=== PATIENT | male | born 1935 | race Caucasian/White ===

== ENCOUNTER → 2017-11-13 08:17 | Outpatient (CLI) | payer MEDICARE, OTHER, SELFPAY ==
[2017-11-13 08:56] VITALS: BP 141/72; PULSE 61; RESP 16; TEMP 36.4; O2SAT 98
[2017-11-13] MEDS: INFLIXIMAB-DYYB 400 MG in SODIUM CHLORIDE 0.9% 250 ML 20 ML IV (09:22)
== END ==
PROVIDERS: Family Provider Family Medicine; PCP Family Medicine; Visit Provider Family Medicine
DX: K52.89 Other specified noninfective gastroenteritis and colitis (principal)
CPT/HCPCS: 96365; 96366; Q5103

== ENCOUNTER → 2018-02-04 08:53 | Outpatient (CLI) | payer MEDICARE, OTHER, SELFPAY ==
[2018-02-04 09:29] LABS: Alanine Aminotransferase 30 IU/L (21-72); Albumin 4.3 g/dL (3.5-5.0); Albumin Globulin Ratio 1.5 (1.0-2.8); Alkaline Phosphatase 55 U/L (38-126); Aspartate Aminotransferase 27 IU/L (17-59); BUN Creatinine Ratio 17.5 (6-22); Bilirubin Total 0.8 mg/dL (0.2-1.3); Blood Urea Nitrogen 14 mg/dL (9-20); Calcium 10.1 mg/dL (8.4-10.2); Carbon Dioxide 33 mmol/L (22-32); Chloride 96 mmol/L (98-107); Estimated Glomerular Filt Rate > 60.0 mL/min (>60); Globulin 2.8 g/dL (1.7-4.1); Glucose 84 mg/dL (80-110); HEMOLYSIS < 15 (0-50); Potassium 4.4 mmol/L (3.4-5.1); Sodium 136 mmol/L (137-145); Total Protein 7.1 g/dL (6.3-8.2)
[2018-02-04 09:31] LABS: C-Reactive Protein Quant < 0.5 mg/dL (<1.0)
[2018-02-04 09:41] LABS: Add Manual Diff / Slide Review NO; Basophils Percent Auto 0.4 % (0-2); Eosinophils Percent Auto 3.6 % (2-4); Hematocrit 41.4 % (41-53); Hemoglobin 14.4 g/dL (13.5-17.5); Lymphocytes Percent Auto 28.8 % (25-40); Mean Corpuscular HGB Conc 34.8 % (30-36); Mean Corpuscular Hemoglobin 32.6 PG (26-34); Mean Corpuscular Volume 93.7 fL (80-100); Monocytes Percent Auto 8.1 % (3-14); Neutrophils Absolute Auto 4200 /uL (3000-5900); Neutrophils Percent Auto 59.1 % (50-75); Platelet Count 222 X10^3/uL (150-400); Red Blood Cell Count 4.42 X10^6/uL (4.5-5.9); Red Cell Distribution Width 13.3 % (11.6-14.8); White Blood Cell Count 7.2 X10^3/uL (4.5-11.0)
== END ==
PROVIDERS: PCP Family Medicine; Visit Provider Family Medicine
DX: K51.90 Ulcerative colitis, unspecified, without complications (principal)
CPT/HCPCS: 36415; 80053; 85025; 86140

== ENCOUNTER 2018-03-04 08:30 | Outpatient (RCR) | payer MEDICARE, OTHER, SELFPAY ==
[2018-01-08 08:28] VITALS: BP 150/87; PULSE 59; RESP 16; TEMP 36.6
[2018-01-08] MEDS: INFLIXIMAB-DYYB 400 MG in SODIUM CHLORIDE 0.9% 250 ML 20 ML IV (09:24)
[2018-03-04 09:04] VITALS: BP 122/70; PULSE 68; RESP 16; TEMP 36.8; O2SAT 95
[2018-03-04] MEDS: INFLIXIMAB-DYYB 400 MG in SODIUM CHLORIDE 0.9% 250 ML 20 ML IV (09:26)
[2018-03-04 12:09] VITALS: BP 160/82; PULSE 72; RESP 16; TEMP 36.8
== END 2018-03-05 12:00 ==
LOC: ONC 08:30
PROVIDERS: Family Provider Family Medicine; PCP Family Medicine; Visit Provider Family Medicine
DX: K51.90 Ulcerative colitis, unspecified, without complications (principal)
CPT/HCPCS: 96413; 96415; Q5103

== ENCOUNTER 2018-04-05 14:04 | Emergency (ER) | payer MEDICARE, OTHER, SELFPAY ==
[2018-04-05 14:05] VITALS: BP 169/84; PULSE 70; RESP 14; TEMP 36.9; O2SAT 99
[2018-04-05 14:15] VITALS: BP 194/92; PULSE 70; RESP 18
--- NOTE | 2018-04-05 14:16 | ED_ITS ---
HPI - Neuro Symptoms/Deficit General Chief Complaint: Neuro Symptoms/Deficit Stated Complaint: Stroke Time Seen by Provider: 04/05/18 14:16 Source: patient and family Mode of arrival: ambulatory Limitations: no limitations History of Present Illness HPI Narrative: 83-year-old male brought over from his primary care doctor's clinic for concerns of slurring of his words. The patient is with his . Patient is both state that approximately 1 hr prior to arrival patient started slurring his words. He states that he feels like he has problems finding his words and also saying his words. He denies any other symptoms to include upper lower extremity numbness or tingling. No headaches. Has never had anything like this before. Patient is not tried anything for prior to arrival. Related Data Home Medications Medication Instructions Recorded Confirmed multivitamin [Multiple Vitamins] 1 tab PO QDAY #0 07/22/16 04/05/18 latanoprost 1 drp OPHTH HS #0 06/01/17 04/05/18 timolol maleate [Timoptic] 1 drp OPHTH BID #0 06/01/17 04/05/18 diclofenac-misoprostol [Arthrotec 1 tab PO BID 04/05/18 04/05/18 50] gabapentin 300 mg PO BID 04/05/18 04/05/18 lisinopril 20 mg PO DAILY 04/05/18 04/05/18 tamsulosin [Flomax] 0.4 mg PO QPM 04/05/18 04/05/18 Previous Rx's Medication Instructions Recorded loratadine 10 mg PO QAM PRN #90 tab 09/30/17 pantoprazole 20 mg tablet,delayed 20 mg PO DAILY #90 tab 11/16/17 release infliximab 100 mg intravenous 224 mg IV Q8W #1 each 03/23/18 solution amlodipine 5 mg tablet 5 mg PO DAILY #90 tab 04/01/18 atorvastatin [Lipitor] 20 mg PO DAILY #30 tab 04/05/18 Allergies Allergy/AdvReac Type Severity Reaction Status Date / Time No Known Drug Allergies Allergy Verified 03/10/18 12:05 Review of Systems Constitutional Denies fever(s), Denies headache(s) and Denies weakness Eyes Denies blurry vision, Denies diplopia and Denies loss of vision ENT Ears, Nose, Mouth, and Throat: Denies vertigo, Denies dizziness, Denies headache (s) and Denies disequilibrium Cardiovascular Denies chest pain and Denies dyspnea Respiratory Denies cough and Denies dyspnea Gastrointestinal Gastrointestinal: Denies abdominal pain, Denies diarrhea, Denies nausea and Denies vomiting Genitourinary Denies dysuria Musculoskeletal Denies abnormal gait, Denies myalgias, Denies arthralgias, Denies numbness and Denies tingling Integumentary/Breasts Denies lesions and Denies rash Neurologic Denies abnormal movements, Reports abnormal speech, Denies abnormal gait, Denies behavioral changes, Denies confusion, Denies vertigo, Denies dizziness, Denies headache(s), Denies lack of coordination, Denies focal weakness, Denies loss of vision, Denies numbness, Denies restless legs, Denies sensory deficit, Denies tingling, Denies paresthesias, Denies tremor(s), Denies disequilibrium and Denies weakness Psychiatric Denies behavioral changes and Denies confusion Hematologic/Lymphatic Denies easy bleeding and Denies easy bruising [facility] Medical History Chronic back pain (Chronic 2011) Colitis (Chronic 2004) Hearing loss (Chronic 2001) Lumbar spine pain (Chronic 2012) Osteoarthritis (Chronic 1997) Bladder cancer (Resolved 2011) Cataract (Resolved 2005) Chicken pox (Resolved 1939) History of nephrolithotomy with removal of calculi (Resolved 1993) Measles (Resolved 1939) Mumps (Resolved 1943) Rubella (Resolved 1939) Surgical History History of cataract removal with insertion of prosthetic lens (Resolved 2005) History of cystoscopy (Resolved) History of esophagogastroduodenoscopy (EGD) (Resolved 2013) History of eyelid surgery (Resolved 2012) History of nasal surgery (Resolved 1992) History of partial cystectomy (Resolved 2011) History of urinary tract surgery (Resolved 2011) Status post colonoscopy (Resolved 2004) Status post colonoscopy (Resolved 2013) Status post hernia repair (Resolved 1979) Status post laminectomy (Resolved 05/04/17) Status post right partial knee replacement (Resolved 2004) Status post tonsillectomy and adenoidectomy (Resolved ~194) Family History Brother Age: 80 COPD (chronic obstructive pulmonary disease) Father Cancer Hodgkin's disease Sister Cancer Lung cancer Grandfather No problems noted. Grandmother No problems noted. Mother Stroke Social History marital status: Smoking Status: Former smoker alcohol intake: current (2 A DAY ) substance use type: does not use Exam Initial Vital Signs Initial Vital Signs: Vital Signs Temperature 98.4 F 04/05/18 14:05 Pulse Rate 70 04/05/18 14:05 Respiratory Rate 14 04/05/18 14:05 Blood Pressure 169/84 H 04/05/18 14:05 Pulse Oximetry 99 04/05/18 14:05 Const General: cooperative, healthy appearing, comfortable, well developed, well groomed and No acute distress Orientation: alert, awake and oriented x3 HENMT Head: normal to inspection and normocephalic Ears: hearing grossly normal bilaterally Nose: external nose normal Face and sinus: normal facial exam Mouth: oral mucosae normal Eyes Pupils: PERRL EOM: EOM intact bilaterally Resp Effort & Inspection: normal respiratory effort Auscultation: clear to auscultation bilaterally Cardio Rate: regular rate Rhythm: regular rhythm Pulses: radial pulses present GI Inspection: non-distended Palpation: soft, No firm and No tender Back/Spine/Pelvis Back: No CVA tenderness Skin Lesions: no lesions Rashes: no rashes Neuro General: alert, awake, oriented x3 and CN's II-XI intact bilaterally Cranial Nerves: CN's II-XI intact bilaterally Cognition: normal cognition Speech: speech normal Gait: normal gait Motor: muscle tone normal throughout Sensory Exam: no sensory deficits noted Coordination: qvxzcs-tv-zwwl test normal and ttnk-iw-shaw test normal Extrem General: normal to inspection, capillary refill normal and No edema Psych Appearance: grossly normal and well kempt Scores NIH Stroke Scale Level of Conciousness: Alert, keenly responsive Ask month/age: Answers both questions correctly. Open/close eyes, close hand: Performs both tasks correctly Best gaze horizontal: Normal Visual coy: No visual loss Facial palsy: Normal symetrical movement Left arm drift: No drift for full 10 sec Right arm drift: No drift for full 10 sec Left leg drift: No drift for full 10 sec Right leg drift: No drift for full 10 sec Limb ataxia: Absent Sensory on face/arms/legs: Normal, no sensory loss Best language: No aphasia, normal Dysarthria: Normal Extinction or inattention: No abnormality Total NIH Stroke scale score: 0 Course Orders Ordered: Discontinued Medications Sodium Chloride (Normal Saline 0.9%) 1,000 mls @ 500 mls/hr IV BOLUS ONE Stop: 04/05/18 16:16 Last Infusion: 04/05/18 16:10 Dose: 0 mls/hr Admin: 04/05/18 14:27 Dose: 500 mls/hr MDM - Neuro Symptoms/Deficit Lab Data Attestation: I reviewed the patient's lab results. Result diagrams: 04/05/18 14:10 04/05/18 14:10 Lab Results 04/05/18 04/05/18 04/05/18 Range/Units 14:10 14:10 14:10 WBC 7.3 (4.5-11.0) X10^3/uL RBC 4.61 (4.5-5.9) X10^6/uL Hgb 14.8 (13.5-17.5) g/dL Hct 42.8 (41-53) % MCV 92.9 (80-100) fL MCH 32.1 (26-34) PG MCHC 34.6 (30-36) % RDW 13.5 (11.6-14.8) % Plt Count 219 (150-400) X10^3/uL Neut % (Auto) 59.5 (50-75) % Lymph % (Auto) 29.7 (25-40) % [place] % (Auto) 6.3 (3-14) % Eos % (Auto) 3.7 (2-4) % Baso % (Auto) 0.8 (0-2) % Neut # (Auto) 4400 (8023-7472) /uL PT 10.7 (10.1-12.7) SECONDS INR 1.0 (0.9-1.3) APTT 32 (26.4-36.2) SECONDS Sodium 137 (137-145) mmol/L Potassium 3.8 (3.4-5.1) mmol/L Chloride 95 L (98-107) mmol/L Carbon Dioxide 32 (22-32) mmol/L BUN 11 (9-20) mg/dL Creatinine 1.10 (0.66-1.25) mg/dL Estimated GFR > 60.0 (>60) mL/min BUN/Creatinine Ratio 10.0 (6-22) Glucose 133 H (80-110) mg/dL Calcium 10.0 (8.4-10.2) mg/dL Total Bilirubin 0.8 (0.2-1.3) mg/dL AST 30 (17-59) IU/L ALT 30 (21-72) IU/L Alkaline Phosphatase 59 (38-126) U/L Total Protein 7.2 (6.3-8.2) g/dL Albumin 4.5 (3.5-5.0) g/dL Globulin 2.7 (1.7-4.1) g/dL Albumin/Globulin Ratio 1.7 (1.0-2.8) TSH (0.47-4.68) uIU/mL 04/05/18 Range/Units 14:10 WBC (4.5-11.0) X10^3/uL RBC (4.5-5.9) X10^6/uL Hgb (13.5-17.5) g/dL Hct (41-53) % MCV (80-100) fL MCH (26-34) PG MCHC (30-36) % RDW (11.6-14.8) % Plt Count (150-400) X10^3/uL Neut % (Auto) (50-75) % Lymph % (Auto) (25-40) % [place] % (Auto) (3-14) % Eos % (Auto) (2-4) % Baso % (Auto) (0-2) % Neut # (Auto) (5124-9647) /uL PT (10.1-12.7) SECONDS INR (0.9-1.3) APTT (26.4-36.2) SECONDS Sodium (137-145) mmol/L Potassium (3.4-5.1) mmol/L Chloride (98-107) mmol/L Carbon Dioxide (22-32) mmol/L BUN (9-20) mg/dL Creatinine (0.66-1.25) mg/dL Estimated GFR (>60) mL/min BUN/Creatinine Ratio (6-22) Glucose (80-110) mg/dL Calcium (8.4-10.2) mg/dL Total Bilirubin (0.2-1.3) mg/dL AST (17-59) IU/L ALT (21-72) IU/L Alkaline Phosphatase (38-126) U/L Total Protein (6.3-8.2) g/dL Albumin (3.5-5.0) g/dL Globulin (1.7-4.1) g/dL Albumin/Globulin Ratio (1.0-2.8) TSH 1.65 (0.47-4.68) uIU/mL Imaging Data CT scan - head: Radiologist's impression: [address] [address] [address] Scan Report Signed Patient: Juan Carlos Yo JMR#: [id number] : 6Acct:[id number] Age/Sex: 83 / MDate of Service: 04/05/18 Loc: ED Accession Number: [id number] Procedure: CT head/brain wo con Ordering Provider: Emery Collins D.O. PROCEDURE: CT HEAD/BRAIN WO CON INDICATIONS: dysarthria TECHNIQUE: Noncontrast 4.5 mm thick angled axial sections acquired from the foramen magnum to the vertex, with coronal and sagittal reformats. For radiation dose reduction, the following was used: automated exposure control, adjustment of mA and/or kV according to patient size. COMPARISON: None. FINDINGS: Image quality: Diagnostic. CSF spaces: Basal cisterns are patent. No extra-axial fluid collections. Ventricles are moderately prominent with corresponding parenchymal volume loss. Brain: No midline shift. No intracranial masses or hemorrhage. Elliott-white matter interface is normal. Moderate-sized areas of low attenuation are seen within the periventricular and deep white matter of the supratentorial brain. Skull and face: Calvarium and visualized facial bones are intact, without suspicious lesions. Sinuses: Visualized sinuses and mastoids are clear. IMPRESSION: 1. No acute intracranial hemorrhage. 2. Moderate chronic small vessel ischemic changes and parenchymal volume loss. Dictated by: Indra New M.D. on 04/05/2018 at 13:39 Approved by: Indra New M.D. on 04/05/2018 at 13:40 [facility] Narrative Medical decision making narrative: At the time of my exam the patient states that he still felt like maybe he was having some problems with his words however his says that she feels like all of the symptoms that he had earlier have since resolved. He has got a normal neurologic exam. NIH score 0. Head CT shows no signs of acute pathology. I feel that he does meet the criteria for a TIA. We did discuss the importance of this. We did discuss that we should admit him to the hospital to have further testing to include MRIs and carotid Dopplers and echoes. The patient states that he does not want to be admitted under observation. We did have the admission department come and talk to him about his options. After this discussion the patient states he does not want to be admitted to the hospital. We did discuss the risks of this to include potentially having worsening symptoms at home to include a full stroke and the consequences of that. The patient states he still does not want to be admitted to the hospital. His was at bedside for this discussions. He has a GCS of 15 was alert and oriented x3 and in my opinion has the capacity to make decisions. I did discuss the case with his primary doctor Dr Camejo. His primary doctor also states that he probably should be admitted to the hospital. I did inform the patient of this. Patient still does not want to be admitted. His primary doctor will order outpatient MRI and echo and carotid Dopplers. The patient was informed that he needed to contact his primary doctor to get the set up as an outpatient. We did start him on a full dose aspirin and he was given a prescription for lisinopril. He was given return precautions. The patient his both expressed understanding and agreement with plan Discharge Plan Departure Patient Disposition: Home Clinical Impression: Transient ischemic attack Discharge Date/Time: 04/05/18 16:15 Interventions: ED Discharge Assessment Last Done: 04/05/18 16:14 Instructions: DI for Transient Ischemic Attack Activity Restrictions/Additional Instructions: we recommended that you be admitted to the hospital today to obtain the following studies however after our discussion here in the emergency department you opted to be discharged from the hospital. Dr. Camejo this aware of this. Recommend that you start taking a 324 mg enteric-coated aspirin. You can buy this [id number]. Take this medication daily. Your also given a prescription for Lipitor. Start taking this medication on a daily basis. The follow on studies that are needed will be ordered as outpatient by your primary provider. Return to the emergency department for any new or worsening symptoms Prescriptions: New atorvastatin [Lipitor] 20 mg tablet 20 mg PO DAILY Qty: 30 RF: 0 No Action multivitamin [Multiple Vitamins] 1 EACH tablet 1 tab PO QDAY Qty: 0 RF: 0 timolol maleate [Timoptic] 0.25 % drops 1 drp OPHTH BID Qty: 0 RF: 0 latanoprost 0.005 % drops 1 drp OPHTH HS Qty: 0 RF: 0 loratadine 10 MG tablet 10 mg PO QAM PRNQty: 90 RF: 0 pantoprazole 20 mg tablet,delayed release (DR/EC) 20 mg PO DAILY Qty: 90 RF: 3 amlodipine 5 mg tablet 5 mg PO DAILY Qty: 90 RF: 1 infliximab [Remicade] 100 mg recon soln 224 mg IV Q8W Qty: 1 RF: 0 diclofenac-misoprostol [Arthrotec 50] 50-200 mg-mcg tablet,IR,delayed rel, biphasic 1 tab PO BID RF: 0 lisinopril 20 mg tablet 20 mg PO DAILY RF: 0 tamsulosin [Flomax] 0.4 MG capsule 0.4 mg PO QPM RF: 0 gabapentin 300 mg capsule 300 mg PO BID RF: 0
--- NOTE | 2018-04-05 14:19 | PC.NURSE ---
code stroke called at 1405/ upon pt arrival
--- NOTE | 2018-04-05 14:23 | DI.CT.S_ITS ---
PROCEDURE: CT HEAD/BRAIN WO CON INDICATIONS: dysarthria TECHNIQUE: Noncontrast 4.5 mm thick angled axial sections acquired from the foramen magnum to the vertex, with coronal and sagittal reformats. For radiation dose reduction, the following was used: automated exposure control, adjustment of mA and/or kV according to patient size. COMPARISON: None. FINDINGS: Image quality: Diagnostic. CSF spaces: Basal cisterns are patent. No extra-axial fluid collections. Ventricles are moderately prominent with corresponding parenchymal volume loss. Brain: No midline shift. No intracranial masses or hemorrhage. Elliott-white matter interface is normal. Moderate-sized areas of low attenuation are seen within the periventricular and deep white matter of the supratentorial brain. Skull and face: Calvarium and visualized facial bones are intact, without suspicious lesions. Sinuses: Visualized sinuses and mastoids are clear. IMPRESSION: 1. No acute intracranial hemorrhage. 2. Moderate chronic small vessel ischemic changes and parenchymal volume loss. Dictated by: Indra New M.D. on 04/05/2018 at 13:39 Approved by: Indra New M.D. on 04/05/2018 at 13:40
[2018-04-05] MEDS: SODIUM CHLORIDE 0.9% 1,000 ML 500 ML IV (14:27)
[2018-04-05 14:28] LABS: Add Manual Diff / Slide Review NO; Basophils Percent Auto 0.8 % (0-2); Eosinophils Percent Auto 3.7 % (2-4); Hematocrit 42.8 % (41-53); Hemoglobin 14.8 g/dL (13.5-17.5); Lymphocytes Percent Auto 29.7 % (25-40); Mean Corpuscular HGB Conc 34.6 % (30-36); Mean Corpuscular Hemoglobin 32.1 PG (26-34); Mean Corpuscular Volume 92.9 fL (80-100); Monocytes Percent Auto 6.3 % (3-14); Neutrophils Absolute Auto 4400 /uL (3000-5900); Neutrophils Percent Auto 59.5 % (50-75); Platelet Count 219 X10^3/uL (150-400); Prothrombin Time 10.7 SECONDS (10.1-12.7); Red Blood Cell Count 4.61 X10^6/uL (4.5-5.9); Red Cell Distribution Width 13.5 % (11.6-14.8); White Blood Cell Count 7.3 X10^3/uL (4.5-11.0)
[2018-04-05 14:30] LABS: PTT Partial Thromboplastin Tim 32 SECONDS (26.4-36.2)
[2018-04-05 14:35] LABS: Alanine Aminotransferase 30 IU/L (21-72); Albumin 4.5 g/dL (3.5-5.0); Albumin Globulin Ratio 1.7 (1.0-2.8); Alkaline Phosphatase 59 U/L (38-126); Aspartate Aminotransferase 30 IU/L (17-59); Bilirubin Total 0.8 mg/dL (0.2-1.3); Blood Urea Nitrogen 11 mg/dL (9-20); Carbon Dioxide 32 mmol/L (22-32); Chloride 95 mmol/L (98-107); Estimated Glomerular Filt Rate > 60.0 mL/min (>60); Globulin 2.7 g/dL (1.7-4.1); Glucose 133 mg/dL (80-110); HEMOLYSIS 30 (0-50); Potassium 3.8 mmol/L (3.4-5.1); Sodium 137 mmol/L (137-145); Total Protein 7.2 g/dL (6.3-8.2)
[2018-04-05 15:00] VITALS: BP 184/89; PULSE 74; RESP 18
--- NOTE | 2018-04-05 15:08 | PM.HP.1 ---
History of Present Illness Chief complaint: Stroke Patient History Medical History Chronic back pain (Chronic 2011) Colitis (Chronic 2004) Hearing loss (Chronic 2001) Lumbar spine pain (Chronic 2012) Osteoarthritis (Chronic 1997) Bladder cancer (Resolved 2011) Cataract (Resolved 2005) Chicken pox (Resolved 1939) History of nephrolithotomy with removal of calculi (Resolved 1993) Measles (Resolved 1939) Mumps (Resolved 1943) Rubella (Resolved 1939) Surgical History History of cataract removal with insertion of prosthetic lens (Resolved 2005) History of cystoscopy (Resolved) History of esophagogastroduodenoscopy (EGD) (Resolved 2013) History of eyelid surgery (Resolved 2012) History of nasal surgery (Resolved 1992) History of partial cystectomy (Resolved 2011) History of urinary tract surgery (Resolved 2011) Status post colonoscopy (Resolved 2004) Status post colonoscopy (Resolved 2013) Status post hernia repair (Resolved 1979) Status post laminectomy (Resolved 05/04/17) Status post right partial knee replacement (Resolved 2004) Status post tonsillectomy and adenoidectomy (Resolved ~194) Family & Social History Family History: Reviewed 04/05/18 by Tomi Camejo MD Tobacco & Substance use: Smoking Status Former smoker alcohol intake current Substance Use Type does not use Meds Home Medications Medication Instructions Recorded Confirmed Type multivitamin [Multiple Vitamins] 1 tab PO QDAY #0 07/22/16 04/05/18 History latanoprost 1 drp OPHTH HS #0 06/01/17 04/05/18 History timolol maleate [Timoptic] 1 drp OPHTH BID #0 06/01/17 04/05/18 History loratadine 10 mg PO QAM PRN #90 tab 09/30/17 04/05/18 Rx pantoprazole 20 mg tablet,delayed 20 mg PO DAILY #90 tab 11/16/17 04/05/18 Rx release infliximab 100 mg intravenous 224 mg IV Q8W #1 each 03/23/18 04/05/18 Rx solution amlodipine 5 mg tablet 5 mg PO DAILY #90 tab 04/01/18 04/05/18 Rx diclofenac-misoprostol [Arthrotec 1 tab PO BID 04/05/18 04/05/18 History 50] gabapentin 300 mg PO BID 04/05/18 04/05/18 History lisinopril 20 mg PO DAILY 04/05/18 04/05/18 History tamsulosin [Flomax] 0.4 mg PO QPM 04/05/18 04/05/18 History Allergies Allergy/AdvReac Type Severity Reaction Status Date / Time No Known Drug Allergies Allergy Verified 03/10/18 12:05 Exam Vital Signs (past 8 hours): - 04/05/18 14:05 Temperature 98.4 F Pulse Rate 70 Respiratory Rate 14 Blood Pressure 169/84 H Pulse Oximetry 99 Oxygen Delivery Method Room Air Objective Imaging Chest x-ray: ECG: EKG shows normal sinus rhythm with no acute ST to T-wave changes no significant signs of heart arrhythmia. Heart rate 65. Labs Result Diagrams: 04/05/18 14:10 04/05/18 14:10 Labs: Laboratory Results - last 24 hr 04/05/18 04/05/18 04/05/18 14:10 14:10 14:10 WBC 7.3 RBC 4.61 Hgb 14.8 Hct 42.8 MCV 92.9 MCH 32.1 MCHC 34.6 RDW 13.5 Plt Count 219 Neut % (Auto) 59.5 Lymph % (Auto) 29.7 [place] % (Auto) 6.3 Eos % (Auto) 3.7 Baso % (Auto) 0.8 Neut # (Auto) 4400 PT 10.7 INR 1.0 APTT 32 Sodium 137 Potassium 3.8 Chloride 95 L Carbon Dioxide 32 BUN 11 Creatinine 1.10 Estimated GFR > 60.0 BUN/Creatinine Ratio 10.0 Glucose 133 H Calcium 10.0 Total Bilirubin 0.8 AST 30 ALT 30 Alkaline Phosphatase 59 Total Protein 7.2 Albumin 4.5 Globulin 2.7 Albumin/Globulin Ratio 1.7
[2018-04-05 15:17] LABS: Thyroid Stimulating Hormone 1.65 uIU/mL (0.47-4.68)
--- NOTE | 2018-04-05 15:29 | PC.NURSE ---
Pts comes out of room and states that pt is ready to go home. He's talking fine and acting fine. MD aware and will come talk to pt.
[2018-04-05 15:30] VITALS: BP 193/88; PULSE 71; RESP 14; O2SAT 97
--- NOTE | 2018-04-05 15:46 | PC.NURSE ---
Will talk to admissions person before agrees to admit.
[2018-04-05 16:00] VITALS: BP 208/92; PULSE 73; RESP 14; O2SAT 98
--- NOTE | 2018-04-05 16:02 | CM.MNRNOTE ---
Report called to Melissa BENNETT. Pt still unsure if going to allow admission. Dr Collins has spoken to Dr Camejo
[2018-04-05 16:14] VITALS: BP 208/92; PULSE 68; RESP 20; O2SAT 98
== END 2018-04-05 16:15 | disposition home or self-care (01) ==
PROVIDERS: Emergency Provider Emergency Medicine; Family Provider Family Medicine; PCP Family Medicine
DX: G45.9 Transient cerebral ischemic attack, unspecified (principal)
CPT/HCPCS: 36591; 70450; 80053; 84443; 85025; 85610; 85730; 93005; 96360; 96361; 99284; 99285; 99291

== ENCOUNTER → 2018-04-07 08:07 | Outpatient (CLI) | payer MEDICARE, OTHER, SELFPAY ==
[2018-04-07 08:57] LABS: Add Manual Diff / Slide Review NO; Basophils Percent Auto 0.5 % (0-2); Eosinophils Percent Auto 5.3 % (2-4); Hematocrit 41.5 % (41-53); Hemoglobin 14.1 g/dL (13.5-17.5); Lymphocytes Percent Auto 26.9 % (25-40); Mean Corpuscular HGB Conc 34.1 % (30-36); Mean Corpuscular Hemoglobin 31.6 PG (26-34); Mean Corpuscular Volume 92.7 fL (80-100); Monocytes Percent Auto 8.6 % (3-14); Neutrophils Absolute Auto 3900 /uL (3000-5900); Neutrophils Percent Auto 58.7 % (50-75); Platelet Count 223 X10^3/uL (150-400); Red Blood Cell Count 4.48 X10^6/uL (4.5-5.9); Red Cell Distribution Width 13.5 % (11.6-14.8); White Blood Cell Count 6.7 X10^3/uL (4.5-11.0)
[2018-04-07 09:25] LABS: Prothrombin Time 10.9 SECONDS (10.1-12.7)
[2018-04-07 09:27] LABS: Alanine Aminotransferase 29 IU/L (21-72); Albumin 4.3 g/dL (3.5-5.0); Albumin Globulin Ratio 1.6 (1.0-2.8); Alkaline Phosphatase 48 U/L (38-126); Aspartate Aminotransferase 26 IU/L (17-59); BUN Creatinine Ratio 17.8 (6-22); Bilirubin Total 0.9 mg/dL (0.2-1.3); Blood Urea Nitrogen 16 mg/dL (9-20); Calcium 10.6 mg/dL (8.4-10.2); Carbon Dioxide 35 mmol/L (22-32); Chloride 97 mmol/L (98-107); Estimated Glomerular Filt Rate > 60.0 mL/min (>60); Globulin 2.7 g/dL (1.7-4.1); Glucose 102 mg/dL (80-110); HEMOLYSIS < 15 (0-50); Sodium 139 mmol/L (137-145)
== END ==
PROVIDERS: PCP Family Medicine; Visit Provider Family Medicine
DX: I10 Essential (primary) hypertension (principal)
CPT/HCPCS: 36415; 80053; 85025; 85610

== ENCOUNTER → 2018-04-13 12:59 | Outpatient (CLI) | payer MEDICARE, OTHER, SELFPAY ==
--- NOTE | 2018-04-30 07:57 | PM.CARDMON.1 ---
Ink Printer Report Referral & Results Date Patient Seen: 04/13/18 Requesting provider: Tomi Camejo Indication: TIA Duration of monitoring (days): 7 Diary information: There was 1 patient diary entry associated with sinus rhythm and a PVC There were no patient triggered events Data: Minimum heart rate identified was 43 beats per minute at 03:05 on 04/14/2018 Maximum sinus heart rate was 101 beats per minute at 08:21 on 04/16/2018 Maximum overall heart rate was 150 beats per minute at 14:18 on 04/14/2018. 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 Mild supraventricular dysrhythmia as above. No etiology for TIA identified on this study
--- NOTE | 2018-04-30 08:00 | P.HOLT.S_ITS ---
Cabinet Mounter Report Referral & Results Date Patient Seen: 04/13/18 Requesting provider: Tomi Camejo Indication: TIA Duration of monitoring (days): 7 Diary information: There was 1 patient diary entry associated with sinus rhythm and a PVC There were no patient triggered events Data: Minimum heart rate identified was 43 beats per minute at 03:05 on 2017 Maximum sinus heart rate was 101 beats per minute at 08:21 on 04/16/2018 Maximum overall heart rate was 150 beats per minute at 14:18 on 04/14/2018. 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 Mild supraventricular dysrhythmia as above. No etiology for TIA identified on this study
== END ==
PROVIDERS: Family Provider Family Medicine; PCP Family Medicine; Visit Provider Family Medicine
DX: G45.9 Transient cerebral ischemic attack, unspecified (principal)
CPT/HCPCS: 0296T

== ENCOUNTER → 2018-04-15 13:01 | Outpatient (CLI) | payer MEDICARE, OTHER, SELFPAY ==
--- NOTE | 2018-04-15 13:05 | DI.US.S_ITS ---
PROCEDURE: US CAROTID DOPPLER BI INDICATIONS: tia with weekness and speech deficiet TECHNIQUE: Color and pulse Doppler interrogation was performed of both carotid systems, with image documentation and velocity measurements. COMPARISON: None. FINDINGS: Stenosis calculations are based on SRU (Society of Radiologists in Ultrasound) criteria. Right side: Brachial blood pressure: 171/81 mm Hg. Common carotid artery peak systolic velocity: 74 cm/sec. Internal carotid artery peak systolic velocity: 71 cm/sec. Internal carotid artery end diastolic velocity: 15 cm/sec. External carotid artery peak systolic velocity: 94 cm/sec. ICA/CCA peak systolic ratio: 1.0. Elliott scale imaging description: Moderate plaque Percent internal carotid artery stenosis: Less than 50%. Vertebral artery: Flow direction is antegrade. Left side: Brachial blood pressure: 160/84 mm Hg. Common carotid artery peak systolic velocity: 66 cm/sec. Internal carotid artery peak systolic velocity: 54 cm/sec. Internal carotid artery end diastolic velocity: 11 cm/sec. External carotid artery peak systolic velocity: 80 cm/sec. ICA/CCA peak systolic ratio: 0.8. Elliott scale imaging description: Moderate to severe scattered plaque Percent internal carotid artery stenosis: Less than 50%. Vertebral artery: Flow direction is antegrade. IMPRESSION: Less than 50% bilateral internal carotid artery stenosis. Dictated by: Maxi Tay [facility] Interpreted: Kiran Morrissey MD on 04/15/2018 at 16:37 Approved by: Kiran Morrissey M.D. on 04/15/2018 at 19:55
--- NOTE | 2018-04-15 13:05 | DI.MRI.S_ITS ---
PROCEDURE: MR STROKE Pre- and post-contrast brain MRI, non-contrast brain MR angiogram, pre- and postcontrast neck MR angiogram INDICATIONS: tia with weekness and speech deficiet TECHNIQUE: Brain: Noncontrast axial T1 spin echo, axial T2 fast spin echo, sagittal and axial FLAIR, coronal T2 fast spin echo, axial gradient echo, axial diffusion and ADC through the brain. After the administration of contrast, axial 3D VIBE of the cranial vasculature and brain. Brain MRA: Non-contrast 3-D time of flight MR angiogram, with multiple bqpijzf-iqxkgmxel-rpmrycxnwp (MIP) reformats performed. Neck MRA: Axial and sagittal TruFISP through the neck. Coronal dynamic MR angiogram during administration of contrast in the arterial and venous phases, with 3-dimenstional qqslsfm-nhozxvolj-tjidekanxy (MIP) reformats constructed from subtraction images. COMPARISON: None. FINDINGS: Image quality: Excellent. BRAIN: CSF spaces: Ventricles are normal in size and shape. Basal cisterns are patent. No extra-axial fluid collections. Brain: No intracranial bleeds or mass effects. Elliott-white matter interface is normal. Diffusion weighted images show no acute ischemic insults. Brainstem appears normal. Normal intravascular flow voids are present. No abnormal intracranial enhancement. Skull and face: Calvarial marrow signal is normal. Orbits appear normal. Sinuses: Sinuses and mastoids are clear. BRAIN MR ANGIOGRAM: Anterior circulation: Intracranial internal carotid arteries are normal in size and enhancement. The flow within the paired anterior cerebral arteries is normal and symmetric. The flow within the middle cerebral arteries is normal and symmetric. The anterior communicating artery is seen. No stenoses, occlusions, or aneurysms. Posterior circulation: Dominant right vertebral artery is incidentally noted. Normal appearing basilar artery. The flow within the posterior cerebral arteries is normal and symmetric. No stenoses, occlusions, or aneurysms. NECK MR ANGIOGRAM: Carotids: Great vessels demonstrate a conventional anatomy as they arise from the aortic arch. The origins of the common carotid arteries appear patent. The calibers and courses of both common carotid arteries are normal. The bifurcation regions appear normal bilaterally. The internal carotid arteries demonstrate normal course and caliber. Posterior circulation: 50% focal stenosis at the origin of the right vertebral artery. The origin of left vertebral artery is not well-visualized. More superior portions of both vertebral arteries demonstrate normal course and caliber, and join to form a normal appearing basilar artery. Miscellaneous: Subclavian arteries appear patent. Pre-contrast images through the neck show no soft tissue abnormalities. IMPRESSION: BRAIN MRI: No evidence of acute ischemia. Scattered bilateral white matter signal changes statistically reflect chronic microvascular ischemic change although technically nonspecific. BRAIN MR ANGIOGRAM: No intracranial focal stenosis or occlusion. NECK MR ANGIOGRAM: Dominant right vertebral artery incidentally noted. No ICA stenosis. Dictated by: Primo Lamb M.D. on 04/15/2018 at 15:19 Approved by: Primo Lamb M.D. on 04/15/2018 at 15:28
--- NOTE | 2018-04-15 13:05 | DI.ECHO.S_ITS ---
[facility]---------+ [facility] +---------+ : : [address] : : : : [id number] : : : : Phone: [phone]+ Echocardiogram Report + + :Name: LICO CRABTREE Study Date: 04/15/2018 Height: 72 in : :[facility] Exam Location: [facility] Weight: 158 lb : : Gender: Male BSA: 1.9 m2 : :: 1935 Age: 83 yrs BP: 148/72 mmHg: :Reason For Study: STROKE : :Ordering Physician: Dr. Krishna : :Bashir Performed By: Margarette Jara : :Referring: KENDRICK BOGGS : + + Interpretation Summary The ejection fraction is estimated to be 50-55%. There are no obvious focal wall motion abnormalities noted but poor endocardial definition reduces the sensitivity for the detection of such. Diastolic parameters suggest a relaxation abnormality of the left ventricle, consistent with probable normal filling pressures. There is no Doppler evidence for an interatrial shunt. There is mild aortic valve sclerosis. The aortic root is mildly dilated. Procedure: A two-dimensional transthoracic echocardiogram with color flow and Doppler was performed. The study quality was technically adequate. There is no prior echocardiogram noted for this patient. The patient was in normal sinus rhythm during the exam. The patient had frequent PVCs during the exam. Left Ventricle: The left ventricle is normal in size. There is normal left ventricular wall thickness. The left ventricular ejection fraction is normal. The ejection fraction is estimated to be 50-55%. There are no obvious focal wall motion abnormalities noted but poor endocardial definition reduces the sensitivity for the detection of such. Diastolic parameters suggest a relaxation abnormality of the left ventricle, consistent with probable normal filling pressures. Right Ventricle: The right ventricle is normal in size and function. Atria: The left atrial size is normal. The right atrium is severely dilated. There is no Doppler evidence for an interatrial shunt. Mitral Valve: The mitral valve leaflets appear mildly thickened, but open well. There is mild mitral annular calcification. There is trace mitral regurgitation. Aortic Valve: The aortic valve is trileaflet. There is mild aortic valve sclerosis. The aortic valve opens well. No aortic regurgitation is present. Tricuspid Valve: The tricuspid valve is normal. There is a trace or physiologic amount of tricuspid regurgitation. Pulmonary artery pressures cannot be estimated because of the lack of a measurable TR jet velocity. Pulmonic Valve: The pulmonic valve is not well visualized. Great Vessels: The aortic root is mildly dilated. The ascending aorta is normal in size. The aortic arch is normal in size. The pulmonary is not well visualized. The IVC is of normal diameter and collapses less than 50% with a sniff. This suggests a right atrial pressure of 8 mm Hg. Pericardium/ Pleura There is no pericardial effusion. There is no pleural effusion. MMode/2D Measurements & Calculations LVIDd: 5.3 cm LVOT diam: 2.7 cm LVIDs: 3.2 cm Ao root diam: 4.0 cm FS: 39.1 % asc Aorta Diam: 3.5 cm EPSS: 0.80 cm Ao Arch Diam (Prox Trans): 3.2 cm IVSd: 0.92 cm LVPWd: 0.88 cm LV nice. diameter/BSA (cm/m^2): 2.7 LV sys. diameter/BSA (cm/m^2): 1.7 LA A2 area: 21.0 cm2 RA long axis: 5.6 cm LA A4 area: 18.7 cm2 RA area: 25.3 cm2 LA length (vol): 5.5 cm RA vol: 97.6 ml LA vol: 60.5 ml RA : 50.6 ml/m2 LA vol index: 31.4 ml/m2 IVC diam: 1.5 cm RVD1 (basal): 4.1 cm RVD2 (mid): 3.5 cm TAPSE: 2.4 cm Doppler Measurements & Calculations Ao V2 max: 124.8 cm/sec LVOT Max Edis: 62.6 cm/sec Ao V2 mean: 92.4 cm/sec LV V1 max P.6 mmHg Ao max P.2 mmHg LV V1 VTI: 12.1 cm Ao mean P.7 mmHg LEELEE(I,D): 2.9 cm2 Ao V2 VTI: 24.1 cm LEELEE(V,D): 2.9 cm2 sev ratio: 0.50 LEELEE indexed to BSA (cm^2/m^2): 1.5 MV E max edis: 42.1 cm/sec PA V2 max: 65.8 cm/sec MV A max edis: 96.9 cm/sec PA V2 mean: 44.7 cm/sec MV E/A: 0.43 PA mean P.93 mmHg Med Peak E' Edis: 8.6 cm/sec PA pr(Accel): 29.1 mmHg E/E' med: 4.9 Lat Peak E' Edis: 8.8 cm/sec E/E' lat: 4.8 E/e' average: 4.8 MV dec time: 0.58 sec Reading Physician:02:54 PM
== END ==
PROVIDERS: Family Provider Family Medicine; PCP Family Medicine; Visit Provider Family Medicine
DX: I35.8 Other nonrheumatic aortic valve disorders (principal); G45.9 Transient cerebral ischemic attack, unspecified; I65.23 Occlusion and stenosis of bilateral carotid arteries; M62.81 Muscle weakness (generalized); R47.9 Unspecified speech disturbances; I10 Essential (primary) hypertension
CPT/HCPCS: 70553; 93306; 93880; A9579

== ENCOUNTER → 2018-08-26 07:46 | Outpatient (CLI) | payer MEDICARE, OTHER, SELFPAY ==
[2018-08-26 08:32] LABS: Hematocrit 41.5 % (41-53); Hemoglobin 13.9 g/dL (13.5-17.5); Mean Corpuscular HGB Conc 33.6 % (30-36); Mean Corpuscular Hemoglobin 31.8 PG (26-34); Mean Corpuscular Volume 94.6 fL (80-100); Platelet Count 231 X10^3/uL (150-400); Red Blood Cell Count 4.38 X10^6/uL (4.5-5.9); Red Cell Distribution Width 12.8 % (11.6-14.8); White Blood Cell Count 6.8 X10^3/uL (4.5-11.0)
[2018-08-26 08:43] LABS: Morphology Comment Normal Morphology; Neutrophils Absolute Manual 3740 /uL (3000-5900); Total Cells Counted 100
[2018-08-26 08:50] LABS: Alanine Aminotransferase 35 IU/L (21-72); Albumin 4.4 g/dL (3.5-5.0); Albumin Globulin Ratio 1.4 (1.0-2.8); Alkaline Phosphatase 53 U/L (38-126); Aspartate Aminotransferase 33 IU/L (17-59); BUN Creatinine Ratio 23.8 (6-22); Bilirubin Total 0.8 mg/dL (0.2-1.3); Blood Urea Nitrogen 19 mg/dL (9-20); Calcium 10.3 mg/dL (8.4-10.2); Carbon Dioxide 32 mmol/L (22-32); Chloride 97 mmol/L (98-107); Cholesterol 130 mg/dL (140-199); Estimated Glomerular Filt Rate > 60.0 mL/min (>60); Globulin 3.1 g/dL (1.7-4.1); Glucose 120 mg/dL (80-110); HDL Cholesterol 71 mg/dL (40-60); HEMOLYSIS < 15 (0-50); LDL Cholesterol Calculated 47 mg/dL (<100); Potassium 3.7 mmol/L (3.4-5.1); Sodium 137 mmol/L (137-145); Total Protein 7.5 g/dL (6.3-8.2); Triglycerides 61 mg/dL (35-150)
[2018-08-26 09:21] LABS: Thyroid Stimulating Hormone 2.94 uIU/mL (0.47-4.68)
== END ==
PROVIDERS: PCP Family Medicine; Visit Provider Family Medicine
DX: E78.2 Mixed hyperlipidemia (principal); G45.9 Transient cerebral ischemic attack, unspecified; I10 Essential (primary) hypertension
CPT/HCPCS: 36415; 80053; 80061; 84443; 85025

== ENCOUNTER 2018-09-20 06:04 | Inpatient (IN) | payer MEDICARE, OTHER, SELFPAY ==
[2018-09-06 08:47] VITALS: BMI 17.7
[2018-09-20] VITALS (19 sets, daily range): BP systolic 114–176; BP diastolic 54–87; PULSE 61–81; RESP 10–21; TEMP 36.1–36.9; O2SAT 90–98
--- NOTE | 2018-09-20 06:00 | DI.RAD.S_ITS ---
PROCEDURE: XR SHOULDER RT 1V INDICATIONS: postop total shoulder arthroplasty TECHNIQUE: Single view of the shoulder were acquired. COMPARISON: [facility], CHRISTINA, XR SHOULDER MIN 2VW RT, 04/08/2016, 9:37. FINDINGS: Bones: No fractures or dislocations. No suspicious bony lesions. Visualized ribs appear intact. Status post reverse polarity right shoulder arthroplasty. Hardware appears intact and there is expected postoperative alignment. Soft tissues: Associated postsurgical soft tissue changes IMPRESSION: Expected postoperative appearance Dictated by: Primo Lamb M.D. on 09/20/2018 at 10:55 Approved by: Primo Lamb M.D. on 09/20/2018 at 10:56
[2018-09-20] MEDS: PREGABALIN 75 MG CAPSULE PO (07:03)
[2018-09-20] MEDS: CELECOXIB 200 MG CAPSULE PO (07:03)
[2018-09-20] MEDS: ACETAMINOPHEN 325 MG TABLET 975 MG PO ×3 (07:03→21:20)
[2018-09-20] MEDS: LACTATED RINGERS 1,000 ML 42 ML IV ×2 (07:23→09:09)
[2018-09-20] MEDS: fentaNYL 100 MCG/2 ML INJ 50 MCG IV ×2 (07:40→07:51)
[2018-09-20] MEDS: MIDAZOLAM 2 MG/2 ML VIAL IV (07:40)
--- NOTE | 2018-09-20 07:43 | PM.PREOP ---
Pre-operative Note Interval Note History & Physical reviewed/Exam performed by Physician: Yes Changes to H&P: No
--- NOTE | 2018-09-20 07:54 | PM.OP.1 ---
Operative Date/Time/Diagnoses Date of procedure: 09/20/18 Time of procedure: 09:30 Pre-op diagnosis: Right shoulder rotator cuff arthropathy Post-op diagnosis: same Procedure & Clinicians Procedure: Right reverse total shoulder replacement Same procedure as scheduled: Yes Indications: The patient is had chronic right shoulder pain unresponsive to nonoperative therapies. Radiographic studies have revealed changes consistent with a massive rotator cuff tear and arthritis. They have elected to proceed with reverse total shoulder replacement after discussion of the risks benefits and alternatives. Risks discussed included but were not limited to: Failure to improve, instability, infection, nerve damage, deep venous thrombosis, pulmonary embolism, stroke, coma, myocardial infarction and . Surgeon: Robert Partida Air Pollution Engineer: Shemar Armenta Click Yes if Unassisted: No Anesthesia Type: General, Peripheral nerve block and Local Operative Notes Findings: Massive rotator cuff tear with intact subscapularis. Closure Type: primary Specimen(s): none sent Prosthetic devices, grafts, tissues, transplants, or devices: Implants used in this procedure were manufactured by the [employer] and included an RSP reverse total shoulder system with a 14 mm humeral stem, a 36 mm standard +4 humeral socket, a standard 30 mm glenoid base plate 4 locking screws of 22, 2214 and 14 mm length and a 36 neutral glenoid head with retaining screw. Applied: implant(s) Estimated Blood Loss (mL): 100 Blood products transfused: none Procedure in detail: The patient was seen in the preoperative area where they identified the right shoulder as the operative site and this was marked with my initials. He received preoperative antibiotics and underwent the induction of an interscalene block. They were taken to the operating room and placed on the operating room table in a supine position with the underwent the induction of a general anesthetic. There were then repositioned in the ?beach chair? position using a dedicated positioner. All pressure points were well padded. The knees were slightly bent to prevent tension on the sciatic nerves. The right arm was prepared from the fingertips to the base of the neck with ChloraPrep in the usual fashion and draped through sterile drapes. An approximately 15 cm incision was created starting at the clavicle just above the coracoid and going to the deltoid insertion. The deltopectoral interval was used to access the shoulder taking the vein to the medial side. The vein was protected throughout the case. The upper 1 cm of the pectoralis major was released. The biceps groove was identified and used as a guide to releasing the remaining subscapularis. The biceps itself had ruptured. The subscapularis was tagged for later repair. The shoulder was dislocated and a proximal humeral osteotomy performed using an extramedullary guide. A proximal humeral protector was then placed. Retractors were placed access the glenoid. A 360 degree release was performed of the remaining subscapularis with care being taken to protect the axillary nerve. The soft tissues were removed circumferentially around the glenoid. The guide was used to drill the guide hole in the center of the inferior glenoid. The tap was placed and used as a guide for the reamer. The tap was then removed and the glenoid base plate inserted. The peripheral locking screws were then placed through the appropriate guide. A trial glenoid head was applied. We then turned our attention to the humerus. The proximal humeral protector was removed. Cylindrical reamers were used to size the canal. Broaching was then performed beginning with a small broach and working up until a line to line fit with the reamer was obtained. The guide for the proximal metaphyseal reamer was then applied and the metaphysis was reamed appropriately. The trial metaphyseal portion of the body was then applied to the broach. Trial reductions were performed and the size of the glenoid head and the cup were optimized. Stability was checked in maximal internal and external rotation and range of motion was checked to allow access to the top of the head, internal rotation to an excess of 50? in the ?scarecrow position? and the ability to reach the groin. The appropriate final prosthetic components were then opened. The glenoid head was impacted into position and checked for rotational and axial stability before placing the set screw. Drill holes for repair of the subscapularis were performed and sutures placed. The humeral prosthetic was then impacted into position. The humeral cup was placed. The joint was relocated and irrigated. The subscapularis was repaired to the previously placed sutures. A deep drain was placed. The deltopectoral interval was reapproximated with 0 Vicryl. Subcutaneous layer was closed with interrupted 3-0 Vicryl and skin with a running 3 0 V lock suture. Subcutaneous tissues were then infiltrated with 0.5% Marcaine for postoperative pain control. An Aquacel Ag dressing was applied and the patient's arm was placed in a sling. The patient was then transferred to the recovery room in good condition having tolerated the procedure well. Complications: none Condition: stable Disposition: PACU Plan for aftercare: The patient will be maintained in a sling for 6 weeks with pendulum exercises only. He will then be allowed to advance his activity as tolerated. It is likely he will be discharged tomorrow if medically stable.
[2018-09-20] MEDS: CEFAZOLIN 2 GM/100 ML FROZ.PIGGY IV (08:05)
--- NOTE | 2018-09-20 08:07 | SUR.PREOP ---
Block start time [0740] . Monitoring initiated and maintained throughout procedure. Oxygen and medications given per anesthesiologist instructions. Patient remained stable throughout procedure, no adverse reactions noted. Block end time [0800]. Pt at bedside during block. pt remained alert and responding to verbal stimuli when spoken to. pt taken directly into the OR after completion of the block.
--- NOTE | 2018-09-20 08:35 | SUR.OPER ---
Beach chair with Schlein shoulder positioner. Lower body on padded OR bed. Head in foam padded head cradle, secured with straps. Non-operative arm secured <90 degrees abduction. Pillow under knees. Safety belt at thigh. Cloth tape over blanket over lower legs.
[2018-09-20] MEDS: BUPIVACAINE 0.5% W/ EPI (PF) VIAL 30 ML INJ (08:43)
[2018-09-20] MEDS: TRANEXAMIC ACID 1,000 MG VIAL 2000 MG INJ ×2 (08:44→09:31)
[2018-09-20] MEDS: HYDROMORPHONE 2 MG INJ 0.25 MG IV ×7 (10:42→11:21)
--- NOTE | 2018-09-20 10:54 | SUR.PHASEI ---
Report called to Clarissa. Pt reported pain increased to 6/10. Medicated
[2018-09-20] MEDS: HYDROCODONE/ACET 5/325 TABLET 1 TAB PO (11:16)
--- NOTE | 2018-09-20 11:25 | SUR.PHASEI ---
Updated report called to Clarissa.
--- NOTE | 2018-09-20 12:07 | SUR.PHASEI ---
Pt transferred to the floor with belongings bag. VS stable. Report to Clarissa. Rt shoulder drsg cdi. IV saline locked.
[2018-09-20] MEDS: LACTATED RINGERS 1,000 ML 125 ML IV (12:25)
[2018-09-20] MEDS: OXYCODONE IR 10 MG TABLET PO ×3 (13:27→21:23)
--- NOTE | 2018-09-20 15:29 | PT.IIE ---
Current Diagnoses Unspecified rotator cuff tear or rupture of right shoulder, not specified as traumatic (09/20/18) Surgery Performed Operation Date: 06/07/18 07:45 <No data on this case meets the specified criteria> Operation Date: 09/20/18 07:45 Actual Procedures p Total Shoulder Arthroplasty - Reverse(Right) - Robert Partida MD Surgical History (Last Updated 09/06/18 @ 09:18 by Henny Kent, RN) Status post unicompartmental knee replacement, left (Acute) History of cataract removal with insertion of prosthetic lens (Resolved 2005) History of cystoscopy (Resolved) History of esophagogastroduodenoscopy (EGD) (Resolved 2013) History of eyelid surgery (Resolved 2012) History of nasal surgery (Resolved 1992) History of partial cystectomy (Resolved 2011) History of urinary tract surgery (Resolved 2011) Status post colonoscopy (Resolved 2004) Status post colonoscopy (Resolved 2013) Status post hernia repair (Resolved 1979) Status post laminectomy (Resolved 05/04/17) Status post tonsillectomy and adenoidectomy (Resolved ~1941) Medical History (Last Updated 09/06/18 @ 09:03 by Henny Kent, RN) Hypercholesterolemia (Acute) Arthritis (Acute) Former smoker (Acute) Chronic back pain (Chronic 2011) Colitis (Chronic 2004) Hearing loss (Chronic 2001) Lumbar spine pain (Chronic 2012) Osteoarthritis (Chronic 1997) Bladder cancer (Resolved 2011) Cataract (Resolved 2005) Chicken pox (Resolved 1939) History of nephrolithotomy with removal of calculi (Resolved 1993) Measles (Resolved 1939) Mumps (Resolved 1943) Rubella (Resolved 1939) Physical Therapy Inpatient Evaluation/Re-Eval M1 PT/OT-IP Prior Functional Status Start: 09/20/18 15:02 Freq: NEEDED Status: Active Protocol: Document 09/20/18 15:07 RS (Rec: 09/20/18 15:28 RS [email or web address]) Medical Review Prior Functional Status Medical History Reviewed Yes Diet/Fluid Consistency Regular Communication 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 1STE, full flight down to basement/bottom floor but pt doesn't have to go down there regularly Home Environment High Toilet Tub/Shower Doors Home Equipment Grab Bars Near Toilet Grab Bars In Shower Employment Status Retired M2 PT-IP Current Condition Start: 09/20/18 15:02 Freq: NEEDED Status: Active Protocol: Document 09/20/18 15:07 RS (Rec: 09/20/18 15:28 RS [email or web address]) Physical Therapy Current Condition Current Condition Evaluation Date 09/20/18 Treatment Diagnosis R TSA Onset Date 09/20/18 Precautions Shoulder Precautions Sling PROM Internal Rotation to Body No External Rotation No Abduction Forward Flexion to 90 degrees Pendulums M3 PT-IP Subjective Start: 09/20/18 15:02 Freq: NEEDED Status: Active Protocol: Document 09/20/18 15:07 RS (Rec: 09/20/18 15:28 RS [email or web address]) Subjective Physical Therapy Visit Type Type Initial Evaluation Visit Start Time 13:40 Visit Stop Time 15:07 Total Visit Minutes 87 Physical Therapy Visit Comments Patient Comments Pt reports the block didn't work do he never had any numbess in his arm/hand, denies pain right now. Wants to go home tomorrow by 10am Patient Goals go home by 10am Thursday Therapy Pain Assessment Pain When Pain Assessed At Rest Pain Present Pain Present Denied Pain M4 PT-IP Mobility and Gait Start: 09/20/18 15:02 Freq: NEEDED Status: Active Protocol: Document 09/20/18 15:07 RS (Rec: 09/20/18 15:28 RS [email or web address]) PT-Bed Mobility Assessment Supine to Sit Supine to Sit Minimal Assistance 1 Person Assistance Scooting Scooting to Edge of Bed Standby Assistance PT-Transfer Assessment Sit to and From Stand Sit to and from Stand Contact Guard Assistance 1 Person Assistance Equipment Transfer Assistive Device Gait Belt Transfers Transfer Destination Chair Transfer Technique walked Transfer Ability Level of Assist Contact Guard Assistance 1 Person Assistance Comments Mobility Comments Pt needing just a little assist to transition from supine to long sit and is then SBA to get to EOB. Pt attributes this to there being a large divet in the middle of the bed. Pt a little shaky on his feet initially in standing, no LOB, denies dizziness. BP supine 125/63, BP sitting 115/62, BP standing 87/53, after sitting/doing BLE AROM and stand back up BP 92/60. Pt denied any abnormal symptoms throughout this entire process. Gait Assessment Gait Gait Assistance Required: Standby Assistance Distance (Feet) 50 Assistive Devices Assistive Device Gait Belt Gait Deviations General Gait Pattern Decreased Stride Length Decreased Feet Clearance Wide Based Gait Factors Limiting Gait Function Factors Limiting Gait Function Poor Balance Poor Safety Awareness Comments Gait Comments Pt with short and wide steps, and a little extra lateral swaying but overall only needing CGA while walking. Walk distance was purposely kept short due to drop in BP. Anticipate better performance next session. Stair Climbing Assessment Comments Stair Climbing Comments not yet assessed PT-Balance Assessment Sitting Balance and Reactions Static Sitting Balance Ability Good Dynamic Sitting Balance Ability Fair Standing Balance and Reactions Static Standing Balance Ability Fair Dynamic Standing Balance Ability Fair Device Used none M5 PT-IP Objective Assessments Start: 09/20/18 15:02 Freq: NEEDED Status: Active Protocol: Document 09/20/18 15:07 RS (Rec: 09/20/18 15:28 RS [email or web address]) Orientation Orientation/Cognition Level of Alertness Alert Orientation Name Age Birthday Month Date Year Day of Week Place Situation Language Function Ability No Deficits Noted Safety Awareness Understands Safety Issues Memory Description No Deficits Noted Gross Range of Motion Upper Extremity ROM Assessment Right Impaired Lower Extremity ROM Assessment Within Functional Limits Strength Upper Extremity Strength Assessment Right Impaired Lower Extremity Strength Assessment Within Functional Limits M6 PT-IP Treatment Start: 09/20/18 15:02 Freq: NEEDED Status: Active Protocol: Document 09/20/18 15:07 RS (Rec: 09/20/18 15:28 RS [email or web address]) Physical Therapy Treatment Education Education Provided Safety M7 PT-IP Assessment and Plan Start: 09/20/18 15:02 Freq: NEEDED Status: Active Protocol: Document 09/20/18 15:07 RS (Rec: 09/20/18 15:28 RS [email or web address]) PT Summary Assessment and Plan Potential Rehabilitation Potential Good Status of Condition at Evaluation Evolving Summary Impairments Balance Transfers Gait Activity Tolerance Assessment Summary Pt is POD#0 R TSA and presents with minor mobility impairments that are mostly related to normal sequela from surgery and low BP. It is anticipated that pt will be safe to discharge home tomorrow (or when medically ready, whichever is later) after he has worked with PT/OT in the morning for caregiver training. Pt is hoping to discharge by 1000am. Pt will need OPPT once cleared to start. Goals Bed Mobility Goal Independent Transfer Goal Independent Gait Goal Independent Days to Meet Goals 2 Frequency of Treatment Frequency Of Treatment Twice a Day Treatment Plan Physical Therapy Treatment Plan Bed Mobility Training Transfer Training Gait Training Balance Retraining Post Op Education Discharge Planning Other Recommendations and Next Treatment gait progression, bed mob, if Focus time try one step at least, FT as needed w/ present Recommendations To Nursing Amount of Assist Needed 1 Person Assist Discharge Recommendations PT Discharge Recommendations Home with Assistance Outpatient PT
[2018-09-20] MEDS: CEFAZOLIN 1 GM/50 ML FROZ.PIGGY IV ×2 (16:08→23:31)
[2018-09-20] MEDS: DOCUSATE 100 MG CAPSULE PO (21:20)
[2018-09-20] MEDS: TAMSULOSIN 0.4 MG CAPSULE PO (21:20)
[2018-09-20] MEDS: LATANOPROST 0.005% OPHTH 2.5 ML 1 DROPS EYE-BOTH (21:21)
[2018-09-20] MEDS: TIMOLOL 0.25% OPHTH 1 DROPS EYE-BOTH (21:21)
[2018-09-21 00:28] VITALS: BP 120/69; PULSE 60; RESP 16; TEMP 36.5; O2SAT 95
[2018-09-21] MEDS: OXYCODONE IR 10 MG TABLET PO (04:32)
[2018-09-21 04:40] VITALS: BP 156/76; PULSE 65; RESP 16; TEMP 36.9; O2SAT 95
[2018-09-21] MEDS: PANTOPRAZOLE 20 MG TABLET PO (05:48)
[2018-09-21 05:58] LABS: Hematocrit 32.4 % (41-53); Hemoglobin 11.1 g/dL (13.5-17.5)
[2018-09-21 07:48] VITALS: BP 128/58; PULSE 55; RESP 16; TEMP 36.6
--- NOTE | 2018-09-21 07:55 | P.DS_ITS ---
History of Present Illness Date Patient Seen: 09/21/18 Time Patient Seen: 07:51 Chief complaint: Right Total Shoulder Arthroplasty Narrative: The history and physical examination are contained in the chart and a previously completed note. Please refer to that note for this information. Discharge Providers Date of admission: 09/20/18 06:04 Discharge Date: 09/21/18 Primary care physician: Tomi Camejo MD Consults: 09/20/18 12:03 Consult to Discharge Planning Routine Comment: Consult to Occupational Therapy Evaluate & Treat Comment: Physician Instructions: Evaluate and treat Consult to Physical Therapy Evaluate & Treat Comment: Physician Instructions: Evaluate and Treat Consult to Respiratory Therapy Evaluate & Treat Comment: Physician Instructions: Evaluate and treat Discharge provider: Robert Partida MD Summary Discharge Diagnosis: 1. 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 2. Acute post hemorrhagic anemia. Hospital Course: The patient was admitted to the hospital and taken directly to the operating room on September 20, 2018. he underwent a right reverse total shoulder without complication. He was stable on postoperative day 1 and was considered ready for discharge. Status at Discharge Cognitive/behavioral status at discharge: oriented Functional status at discharge: independent ambulation Overall status at discharge: patient is progressing back to baseline Time Spent with Patient Less than 30 minutes Exam Vital Signs (past 8 hours): - 09/21/18 00:28 09/21/18 04:40 09/21/18 07:48 Temperature 97.7 F 98.4 F 97.9 F Pulse Rate 60 65 55 L Respiratory Rate 16 16 16 Blood Pressure 120/69 156/76 H 128/58 L Pulse Oximetry 95 95 Oxygen Delivery Method Room Air Oxygen Flow Rate 0 Narrative Exam Narrative: The right shoulder wound is dressed with no significant drainage on the bandage. Light touch is intact in the radial, ulnar, median, muscular cutaneous and axillary nerve distribution. He can extend his thumb, abduct his thumb, abduct his fingers and fires his biceps and deltoid. Objective Labs Result Diagrams: 09/21/18 05:33 Labs: Laboratory Results - last 24 hr 09/21/18 05:33 Hgb 11.1 L Hct 32.4 L Discharge Plan Discharge Plan Patient Disposition: Home Discharge Med Rec/Prescriptions Prescriptions: New hydrocodone-acetaminophen 5-325 mg Tablet 1 tab PO Q4HR PRN (Reason: Pain, Moderate (4-6)) Qty: 40 RF: 0 Continued multivitamin [Multiple Vitamins] 1 EACH tablet 1 tab PO QDAY Qty: 0 RF: 0 timolol maleate [Timoptic] 0.25 % drops 1 drp OPHTH BID Qty: 0 RF: 0 latanoprost 0.005 % drops 1 drp OPHTH HS Qty: 0 RF: 0 infliximab [Remicade] 100 mg recon soln 224 mg IV Q8W Qty: 1 RF: 0 amlodipine 10 mg tablet 10 mg PO DAILY Qty: 90 RF: 3 atorvastatin [Lipitor] 20 mg tablet 20 mg PO DAILY Qty: 90 RF: 3 pantoprazole 20 mg tablet,delayed release (DR/EC) 20 mg PO DAILY Qty: 90 RF: 3 diclofenac-misoprostol 50-200 mg-mcg tablet,IR,delayed rel,biphasic 1 tab PO BID Qty: 180 RF: 3 lisinopril 40 mg tablet 40 mg PO DAILY Qty: 90 RF: 3 tamsulosin [Flomax] 0.4 mg capsule 0.4 mg PO QPM Qty: 90 RF: 3 gabapentin 100 mg capsule 100 mg PO DAILY Qty: 90 RF: 3 ascorbic acid (vitamin C) [Vitamin C] 500 mg Tablet 1,000 mg PO DAILY RF: 0 cholecalciferol (vitamin D3) [Vitamin D3] 1,000 unit Capsule 1,000 unit PO DAILY RF: 0 vitamin [id number] acid RF: 0 aspirin 325 mg Tablet 325 mg PO DAILY RF: 0 loratadine 10 MG tablet 10 mg PO QAM PRN (Reason: Allergic Symptoms) RF: 0 Follow up/Referrals: Tomi Camejo MD [Primary Care Provider] - Robert Partida MD [Physician] - 2 Weeks Provider Discharge Instructions Diet: Diet as Tolerated and Regular Activity: Keep your right arm in a sling. You may remove the sling for hygiene and to do pendulum exercises. You may use her arm in front of view for eating or the use of a computer or reading. Cold/Heat Therapy: Apply ice to the right shoulder for 15 min of every hour as needed. Skin/Wound/Dressing Care Report to your healthcare provider any signs of infection, such as:: chills, fev er, night sweats, increased pain, unusual drainage and unusual redness Dressing: You may shower with the dressing in place. If the central strip of the dressing becomes saturated with either water or blood please call my office. Visit Report/Discharge Packet Instructions: DI for Shoulder Replacement Stand Alone Forms: Surgery Discharge Discharge Data Primary Care Provider: Tomi Camejo Attending Provider: Robert Partida Admit Date/Time: 09/20/18 06:04 Quality VTE Deep Vein Thrombosis/Pulmonary Embolism Present on Admission: No
[2018-09-21] MEDS: DOCUSATE 100 MG CAPSULE PO (08:08)
[2018-09-21] MEDS: LISINOPRIL 20 MG TABLET 40 MG PO (08:08)
[2018-09-21] MEDS: CHOLECALCIFEROL (VITAMIN D3) 1,000 UNIT TABLET 1000 UNIT PO (08:09)
--- NOTE | 2018-09-21 09:15 | PT.IPTN ---
Current Diagnoses Unspecified rotator cuff tear or rupture of right shoulder, not specified as traumatic (09/20/18) Surgery Performed Operation Date: 06/07/18 07:45 <No data on this case meets the specified criteria> Operation Date: 09/20/18 07:45 Actual Procedures p Total Shoulder Arthroplasty - Reverse(Right) - Robert Partida MD Physical Therapy Treatment Note Notes Pt seen this morning by OT, who report pt's is mobilizing better and more steady today with shoes. Pt is safe to discharge home today with . Acute PT will sign off.
--- NOTE | 2018-09-21 09:41 | PC.NURSE ---
Addendum entered by Emmy Christie 09/21/18 09:57: Patient uses urinal independently. Ambulating around the room independently. Pain is well controlled. Original Note: Patient alert and oriented. Requesting discharge MARYSOL. Friendly disposition. is at bedside. Leaving via private vehicle.
--- NOTE | 2018-09-21 10:04 | OT.IP.EVAL ---
Current Diagnoses Unspecified rotator cuff tear or rupture of right shoulder, not specified as traumatic (09/20/18) Surgery Performed Operation Date: 06/07/18 07:45 <No data on this case meets the specified criteria> Operation Date: 09/20/18 07:45 Actual Procedures p Total Shoulder Arthroplasty - Reverse(Right) - Robert Partida MD Past Medical History (Last Updated 09/06/18 @ 09:03 by Henny Kent, RN) Hypercholesterolemia (Acute) Arthritis (Acute) Former smoker (Acute) Chronic back pain (Chronic 2011) Colitis (Chronic 2004) Hearing loss (Chronic 2001) Lumbar spine pain (Chronic 2012) Osteoarthritis (Chronic 1997) Bladder cancer (Resolved 2011) Cataract (Resolved 2005) Chicken pox (Resolved 1939) History of nephrolithotomy with removal of calculi (Resolved 1993) Measles (Resolved 1939) Mumps (Resolved 1943) Rubella (Resolved 1939) Surgical History (Last Updated 09/06/18 @ 09:18 by Henny Kent RN) Status post unicompartmental knee replacement, left (Acute) History of cataract removal with insertion of prosthetic lens (Resolved 2005) History of cystoscopy (Resolved) History of esophagogastroduodenoscopy (EGD) (Resolved 2013) History of eyelid surgery (Resolved 2012) History of nasal surgery (Resolved 1992) History of partial cystectomy (Resolved 2011) History of urinary tract surgery (Resolved 2011) Status post colonoscopy (Resolved 2004) Status post colonoscopy (Resolved 2013) Status post hernia repair (Resolved 1979) Status post laminectomy (Resolved 05/04/17) Status post tonsillectomy and adenoidectomy (Resolved ~1941) Occupational Therapy Inpatient Evaluation/Re-Eval M1 PT/OT-IP Prior Functional Status Start: 09/21/18 17:37 Freq: NEEDED Status: Active Protocol: Document 09/21/18 10:04 KIMI (Rec: 09/21/18 17:55 KIMI [id number]) Medical Review Prior Functional Status Medical History Reviewed Yes Diet/Fluid Consistency Regular Communication [place] w/ hearing aids but otherwise WNL Mobility and Gait Pt states he was independent without device. Activities of Daily Living and IADL's Pt states he was independent with all self care, IADLS, drives and active doing yardwork and using his chain saw. Prior Functional Level (Other details) Supportive can provide 24 hr assist after d/c. She drives. Social History Household Members spouse Living Arrangements House Number of Floors (Floors) Two Floors Number of Stairs To Enter/Railing? 1 to enter. Pt rarely goes downstairs (1x year). Home Environment High Toilet Walk in Shower Employment Status Retired Additional Social History Comment is supportive and helpful M2 OT-IP Current Condition Start: 09/21/18 17:37 Freq: Status: Active Protocol: Document 09/21/18 10:04 PJM (Rec: 09/21/18 17:55 PJ [id number]) Occupational Therapy Current Condition Current Condition Evaluation Date 09/21/18 Treatment Diagnosis decreased self care, mobility s/p R TSA Diagnosis Onset Date 09/20/18 Post Operative Precautions Shoulder Precautions Sling PROM Internal Rotation to Body No External Rotation No Abduction Forward Flexion to 90 degrees Pendulums Weight Bearing Status Weight Bearing Status Non-Weight Bearing Allowed Weight Bearing Amount (enter % RUE or #) (%) M3 OT- IP Subjective and Pain Start: 09/21/18 17:37 Freq: Status: Active Protocol: Document 09/21/18 10:04 PJM (Rec: 09/21/18 17:55 PJ [id number]) OT- Subjective Occupational Therapy Visit Type Type Initial Evaluation Visit Start Time 09:14 Visit Stop Time 10:04 Total Visit Minutes 50 Notes here for education this session. Occupational Therapy Visit Comments Patient/Caregiver Goals to go home today; to resume good function of dominant R arm for all self care tasks OT Pain Assessment Pain When Pain Assessed After Treatment Pain Present Pain Present Pain Reported Location Rt Shoulder Intensity 3 Scale Used Numeric (1 - 10) Description Aching Acute Pain Behaviors Guarding Management Techniques Re-positioning Timing of Activity with Medications M4 OT- IP ADL's Start: 09/21/18 17:37 Freq: Status: Active Protocol: Document 09/21/18 10:04 PJM (Rec: 09/21/18 17:55 PJ [id number]) OT [id number] General Evaluation Self-Feeding Ability Standby Assistance Areas Needing Assistance Cutting Food Opening Containers Comments OT Self-Feeding Comments will assist with set up at home due to unilateral function OT ADL-Grooming General Evaluation Grooming Ability Independent Comments OT Grooming Comments standing at sink pt using R hand as assist within sling OT ADL-Oral Care General Eval Oral Care Ability Independent Areas of Assistance Brushing Teeth Devices Oral Care Devices Toothbrush Comments Oral Care Comments pt using R hand as assist within sling OT ADL-Dressing General Eval Upper Body Dressing Ability Moderate Assistance Lower Body Dressing Ability Minimal Assistance Areas Needing Assistance Pull-Over Shirt Pants/Shorts Socks Shoes Comments OT Dressing Comments Provided education and had practice assisting pt with shirt and sling with emphasis on R TSA precautions. able to assist pt appropriately. Pt donned elastic waist pants with SBA and slip on shoes independently. to assist with socks PRN but did educate pt re: unilateral technique. OT ADL-Toileting General Evaluation Toileting Ability Independent OT ADL-Bathing Bathing Type Bathing Type Shower General Evaluation Bathing Ability Minimal Assistance Comments OT Bathing Comments Pt declined to shower here. Provided education re: adapted technique and precautions. Pt / verbalize understanding. will assist pt PRN at home. M5 OT- IP IADL's Start: 09/21/18 17:37 Freq: Status: Active Protocol: Document 09/21/18 10:04 PJM (Rec: 09/21/18 17:55 [facility] [id number]) OT-Instrumental Activities of Daily Living Deficits IADL Deficits Identified Deficits Home Safety Awareness Awareness of Need for Assistance at Home Good Awareness Ability to Problem Solve Emergency Able to Problem Solve Situations Medication Management Medication Management No Deficits Identified Money Management Money Management No Deficits Identified Meal Preparation Meal Preparation Caregiver Provides Assist Meal Preparation Comments will assist PRN Tool Engine Lathe Set Up Operator Tool Engine Lathe Set Up Operator Caregiver Provides Assist Tool Engine Lathe Set Up Operator Comments will assist PRN Driving Driving Caregiver Provides Assist Driving Comments will assist PRN M6 OT- IP Functional Cognition Start: 09/21/18 17:37 Freq: Status: Active Protocol: Document 09/21/18 10:04 PJM (Rec: 09/21/18 17:55 [facility] [id number]) Cognitive Factors Limiting Selfcare Function Cognitive Ability Level of Alertness Alert Patient Orientation Name Age Birthday Month Date Year Day of Week Place Situation Attention Span Ability Capable of Focused Attention Capable of Sustained Attention Ability to Follow Commands Able to Follow One Step Commands Able to Follow Multi-Step Commands Memory Description No Deficits Noted Safety Awareness No Deficits Noted Problem Solving Ability No deficits Noted Executive Function Ability No Deficits Noted Cognitive Comments Cognitive Assessment Comments WFL OT- Vision and Hearing OT- Hearing Assessment OT- Hearing Assessment WFL Right Ear Impaired Left Ear Impaired Use of Hearing Aids OT- Vision Assessment Visual Acuity WFL Glasses All The Time M7 OT- IP Mobility and Balance Start: 09/21/18 17:37 Freq: Status: Active Protocol: Document 09/21/18 10:04 PJM (Rec: 09/21/18 17:55 PJ [id number]) OT- Bed Mobility Assessment Rolling Type of Rolling Roll to Left Level of Assistance Independent Supine to Sit Supine to Sit Assist Independent Sit to Supine Sit to Supine Assist Independent Scooting Scooting to Edge of Bed Independent OT-Transfer Assessment Sit to and From Stand Sit to and from Stand Independent Transfers Transfer Ability Independent Technique Transfer Destination Bed Chair Transfer Technique Stand Step Pivot Devices Transfer Assistive Devices None OT- Gait Assessment Gait Gait Assistance Required: Independent Distance (Feet) 150 Assistive Devices Assistive Device None Comments Gait Ability Comments Pt ambulating in pierre independently without a device . Pt ambulates better with shoes on than in stocking feet in room. No LOB noted even in socks. OT- Balance Assessment Sitting Balance and Reactions Static Sitting Balance Ability Good Dynamic Sitting Balance Ability Good Standing Balance and Reactions Static Standing Balance Ability Good Dynamic Standing Balance Ability Good M8 OT- IP Objective Assessments Start: 09/21/18 17:37 Freq: Status: Active Protocol: Document 09/21/18 10:04 PJM (Rec: 09/21/18 17:55 PJ [id number]) OT Gross Range of Motion Upper Extremity Range of Motion Assessment Right Impaired ROM Impairments RUE in sling. Shoulder NT. AROM WFL in elbow, forearm, wrist and fingers and pt educated re: AROM exercises to do with distal arm when sling off for dressing, hygiene. Pt also educated re: RUE pendulums and demo's all exercises correctly. OT Strength Upper Extremity Strength Assessment Right Impaired Comments Strength Comments RUE not formally tested but distal strength appears at least 3/5 with teaching artist at least 4 /5. LUE WNL throughout. OT- Coordination Assessment Upper Extremity Finger to Nose Test Right UE Impaired Finger Tapping Test Right UE Impaired Comments Coordination Comments RUE use limited by sling on at all times. LUE WFL OT-Muscle Tone Assessment Muscle Tone WNL Yes OT Sensation Assessment Comments Summary Comments Pt denies sensory deficits in BUE Edema Edema Present Edema Comments Min edema noted in R fingers. Pt educated re: fist pumping. M9 OT- IP Assessment and Plan Start: 09/21/18 17:37 Freq: Status: Active Protocol: Document 09/21/18 10:04 PJJeana (Rec: 09/21/18 17:55 PJM [id number]) OT Summary Assessment and Plan Potential Rehabilitation Potential Excellent Analytic Complexity at Evaluation Low Summary OT Impairments Pain Range of Motion Dressing Bathing Progress Towards Goals Safe For Discharge Assessment Summary Low complexity OT assessment and all education completed today with pt/ re: R TSA precautions, adapted ADL techniques for all self care skills, sling donning/doffing, RUE distal AROM exercises and R shoulder pendulum exercises . Pt/ verbalize and demonstrate understanding of all education. Supportive will provide 24 hr assist PRN after d/c. No further OT services needed. Pt has not yet scheduled his out-pt P.T. appointments, so educated to call MD office for MD recommendations re: when this should start. Frequency of Treatment Frequency Of Treatment Discharge Discharge Recommendations OT Discharge Recommendations Home with 02/02 Assist
--- NOTE | 2018-09-21 10:18 | PC.NURSE ---
Addendum entered by Precious Loyola R.N. 09/21/18 10:21: Went over dc instructions and meds with patient and patients spouse, questions answered. Patient has rx at home prior to surgery, pt taken via wc to vehicle driven by spouse. Pt had all belongings. Original Note: Pt alert, oriented, rates pain to right shoulder 3/10. CMS+ to right shoulder intact. SBA to bathroom, gait stead. voided independently. RUE in sling, tolerating diet without nausea. Patient worked and assessed by OT. Hemovac removed as ordered.
--- NOTE | 2018-09-21 15:54 | CM.DANOTE ---
DCP/continued: Reviewed chart. Patient is a 83yr old male admitted to [facility] for right TSA performed on 09-20-[address] Partida. Primary payor is 1)Medicare 2) for Life. PCP is Dr. Camejo. Met with patient explained CM/SW role. Patient reports that he plans to d/c home today. Patient does not anticipate any d/c planning needs. P: Home today. OFELIA Mckay Discharge Planning/Care Management Advanced directive, confirm from FAMILY Start: 09/20/18 12:40 Freq: Q24H Status: Discharge Protocol: Document 09/20/18 12:40 NEE (Rec: 09/20/18 13:55 NEE [id number]) Advance Directive, confirm on record Time 13:30 Person contacted patient Copy received No CM Discharge Assessment Start: 09/21/18 15:49 Freq: Status: Discharge Protocol: Document 09/21/18 15:49 KJS (Rec: 09/21/18 15:54 KJS [id number]) Discharge Planning Assessment Assigned Brine Process Operator OFELIA Mckay Contact Information Linda Yo (spouse) [phone] Advance Directives? Yes Advance Directives on File Yes History Provided By Patient Prior Living Arrangements House Household Members spouse Type of transporation used prior to Drives own vehicle admit Independent with ADL's Yes Is patient alert and oriented? Yes Barriers to Discharge No Discharge Plan Home Referrals Initiated None needed Whiteboard Updated in Patient Room with Yes name and ext. 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 No Height 182.88 cm Weight 59.421 kg Body Mass Index (BMI) 17.7 Hearing Ability Hard of Hearing Use of Hearing Aid Visual Impairment Partially Limited Visual Assist Glasses Dentition Type Full- Upper & Lower Barriers to Learning Auditory Visual Other Aids No Hx Anesthesia Reactions No Hx Family Anesthesia Reaction No Hx Malignant Hyperthermia No Hx Blood Transfusions Yes: 2011 TURBT/cystectomy Hx Blood Transfusion Reaction No Anesthesia Review Requested No Aligner Barrel And Receiver No alcohol intake current alcohol intake frequency 0-2 drinks per day Smoking Status Former smoker Tobacco type cigarettes Has it been 2 weeks or less since No patient quit smoking how long ago did patient quit smoking long time Substance Use Type does not use Pain Present Denied Pain Musculoskeletal Symptoms Back Pain Limited Range of Motion Muscle Cramps Muscle Spasms Muscle Weakness Neck Pain Numbness History of Falling (Recent or History of Yes ) Patient is completely paralyzed or No completely immobile Ambulatory Aid None/bed rest/nurse assist Gait/Transferring Normal/bedrest/immobile Mental Status Oriented to own ability Comment Fall R/T yard work, caught foot on electrical cord Is patient on oxygen? No Does patient have HERNANDEZ/SOB No Hx Sleep Apnea No Will Bring CPAP/BIPAP DOS No Suspected Sleep Apnea No Comment Snores, uses breath right nasal strips Currently Taking a Beta Noé No Can You Climb a Flight of Stairs Without Yes SOB Hx Chest Pain No Hx SOB No Hx Syncope or Dizziness Yes: Only when he had the TIA Anti-Coagulant Therapy Yes: Aspirin Cardiac Testing Yes: Echo 04/29 on file Hx Pacemaker/ICD No Pacemaker Rep Required? No Cardiac Clearance Received Not Applicable Diet Type At Home Regular dysphagia No Bladder Pattern Nocturia Urgency Urinary Catheter Present No Hx Urinary Self Catheterization No Diabetes No Hx Drug Resistant Organism No Presence of External or Internal Medical Yes: Left UNI Devices Have you traveled outside the [facility] in the last 30 days? Marital Status Lives With spouse Prior Living Arrangements House Number of Floors (Floors) Two Floors Number of Stairs To Enter/Railing? Rarely goes down stairs, able to stay on main level, one step from garage into house Support System Child/Children Friend(s) Does the Patient Have Assistance After Yes Surgery Patient Discharge Plan Description Return Home Feels Safe in Current Environment Yes Been Physically Hurt or Threatened By a No Person in Current Environment Do you have thoughts of harming yourself None or others? Are you currently considering suicide? No Do you have a plan to hurt yourself or No Plan others? Do You Have Any Spiritual Beliefs That No May Affect Your HC Choices? Do You Have Any Cultural Practices That No May Affect Your HC Choices? Spiritual Referral None Who Can We Speak to About Patient's Care Friends & Family Identifying Code for Release of Patient Declined Information Health Care Proxy/Next of Kin Mei Yo - Health Care Proxy Emergency Contact Name Mei Yo - Emergency Contact Advance Directives? Yes Advance Directives on File Yes Power of Extruder Operator Multiple No PAC Instructions Assistance for 24 hours post- op Do not shave/clip surgical site Durable medical equipment Medications to take/avoid Nasal antibiotic No ETOH/petroleum product on skin DOS NPO Ortho class Post-op transportation Pre-op antibiotic Pre-surgical wash Sensory aids Sturdy shoes/comfortable clothes Do not bring valuables and remove jewelry Comment Check-in [id number]
== END 2018-09-21 10:23 | disposition home or self-care (01) | DRG 483 ==
PROVIDERS: Admitting Provider Orthopaedic Surgery; PCP Family Medicine; Visit Provider Orthopaedic Surgery
PROC: 0RRJ00Z Replacement of Right Shoulder Joint with Reverse Ball and Socket Synthetic Substitute, Open Approach (ICD-10-PCS; CPT 23472; principal; 2018-09-20 07:45)
DX: M75.121 Complete rotator cuff tear or rupture of right shoulder, not specified as traumatic (principal); K51.919 Ulcerative colitis, unspecified with unspecified complications; Z86.73 Personal history of transient ischemic attack (TIA), and cerebral infarction without residual deficits; L40.9 Psoriasis, unspecified; I10 Essential (primary) hypertension; K21.9 Gastro-esophageal reflux disease without esophagitis; Z87.891 Personal history of nicotine dependence
CPT/HCPCS: 36415; 64450; 73020; 85014; 85018; 97116; 97161; 97165; 97530; 97535; C1776; J0690; J1100; J1170; J2250; J2405; J2704; J3010

== ENCOUNTER → 2018-09-29 14:38 | Outpatient (CLI) | payer MEDICARE, OTHER, SELFPAY ==
--- NOTE | 2018-09-29 14:41 | DI.RAD.S_ITS ---
PROCEDURE: XR CHEST 2V INDICATIONS: cough short of breath TECHNIQUE: 2 views of the chest were acquired. COMPARISON: [facility], , CHEST 1 VIEW, 08/15/2011, 7:53. FINDINGS: Surgical changes and devices: None. Lungs and pleura: There is a large pneumothorax. No pleural effusions or pneumothorax. Mediastinum: No mediastinal shift. Mediastinal contours are normal. Heart size is normal. Bones and chest wall: No suspicious bony abnormalities. Soft tissues appear unremarkable. IMPRESSION: A large pneumothorax on the right side. No tension pneumothorax at this time. The result was discussed with Dr. Camejo on 09/29/2018at 1610 hours. Dictated by: Job Reid M.D. on 09/29/2018 at 16:02 Approved by: Job Reid M.D. on 09/29/2018 at 16:14
[2018-09-29 15:31] LABS: Add Manual Diff / Slide Review NO; Basophils Absolute Auto 0 /uL (0-100); Basophils Percent Auto 0.6 % (0-2); Eosinophils Absolute Auto 600 /uL (0-450); Eosinophils Percent Auto 7.4 % (2-4); Hemoglobin 12.2 g/dL (13.5-17.5); Lymphocytes Absolute Auto 1800 /uL (1100-4500); Lymphocytes Percent Auto 22.7 % (25-40); Mean Corpuscular HGB Conc 34.8 % (30-36); Mean Corpuscular Hemoglobin 32.6 PG (26-34); Mean Corpuscular Volume 93.6 fL (80-100); Monocytes Absolute Auto 600 /uL (0-900); Monocytes Percent Auto 7.4 % (3-14); Neutrophils Absolute Auto 5000 /uL (1500-7000); Neutrophils Percent Auto 61.9 % (50-75); Platelet Count 339 X10^3/uL (150-400); Red Blood Cell Count 3.74 X10^6/uL (4.5-5.9); Red Cell Distribution Width 13.4 % (11.6-14.8)
[2018-09-29 15:49] LABS: Alanine Aminotransferase 39 IU/L (21-72); Albumin 4.1 g/dL (3.5-5.0); Albumin Globulin Ratio 1.5 (1.0-2.8); Alkaline Phosphatase 51 U/L (38-126); Aspartate Aminotransferase 34 IU/L (17-59); Bilirubin Total 0.7 mg/dL (0.2-1.3); Blood Urea Nitrogen 15 mg/dL (9-20); Calcium 10.2 mg/dL (8.4-10.2); Carbon Dioxide 30 mmol/L (22-32); Chloride 97 mmol/L (98-107); Estimated Glomerular Filt Rate > 60.0 mL/min (>60); Globulin 2.7 g/dL (1.7-4.1); Glucose 97 mg/dL (80-110); HEMOLYSIS < 15 (0-50); Potassium 3.7 mmol/L (3.4-5.1); Sodium 137 mmol/L (137-145); Total Protein 6.8 g/dL (6.3-8.2)
[2018-09-29 16:04] LABS: B Type Natriuretic Peptide < 100 (<100)
[2018-09-29 16:39] LABS: Procalcitonin < 0.05 ng/mL (<0.5)
== END ==
PROVIDERS: PCP Family Medicine; Visit Provider Family Medicine
DX: R06.02 Shortness of breath (principal); R05 Cough; R60.9 Edema, unspecified; J93.9 Pneumothorax, unspecified
CPT/HCPCS: 36415; 71046; 80053; 83880; 84145; 85025

== ENCOUNTER 2018-09-29 17:06 | Inpatient (IN) | payer MEDICARE, OTHER, SELFPAY ==
[2018-09-29] VITALS (7 sets, daily range): BP systolic 130–192; BP diastolic 67–103; PULSE 62–83; RESP 17–18; TEMP 36.8–38.1; O2SAT 93–98; BMI 20.7
--- NOTE | 2018-09-29 18:02 | ED.SOB ---
HPI - SOB/Dyspnea General Chief Complaint: Shortness of Breath/Dyspnea Stated Complaint: PNEUMOTHORAX Time Seen by Provider: 09/29/18 17:28 Source: patient Mode of arrival: ambulatory Limitations: no limitations History of Present Illness 83-year-old male former smoker with history of GERD and hypertension presents after a phone call from his primary care provider for treatment of pneumothorax. Patient had an orthopedic surgery for the repair of a badly damaged right rotator cuff and received a Right reverse total shoulder. Patient presented to his primary care provider today with a chief complaint of cough and some shortness of breath and multiple labs were obtained and a chest x-ray noted a rather large right-sided pneumothorax. Patient was sent to the emergency department for definitive management MD Complaint: shortness of breath and cough Onset (ago): day(s) Context: trauma/injury Severity: moderate Consistency/Duration: constant Relieving factors: oxygen Exacerbating factors: exertion Associated symptoms: denies other symptoms Treatment prior to arrival: none Related Data Home oxygen amount: none Home Medications Medication Instructions Recorded Confirmed multivitamin [Multiple Vitamins] 1 tab PO DAILY #0 07/22/16 09/29/18 latanoprost 1 drp OPHTH BEDTIME #0 06/01/17 09/29/18 timolol maleate [Timoptic] 1 drp OPHTH BID #0 06/01/17 09/29/18 aspirin 325 mg PO QPM 04/30/18 09/29/18 ascorbic acid (vitamin C) [Vitamin 1,000 mg PO DAILY 09/06/18 09/29/18 C] cholecalciferol (vitamin D3) 1,000 unit PO DAILY 09/06/18 09/29/18 [Vitamin D3] vitamin B73-ycksz acid 1 tab PO DAILY 09/06/18 09/29/18 atorvastatin [Lipitor] 20 mg PO QPM 09/29/18 09/29/18 diclofenac-misoprostol [Arthrotec 1 tab PO BID 09/29/18 09/29/18 50] Previous Rx's Medication Instructions Recorded infliximab 100 mg intravenous 224 mg IV Q8W #1 each 03/23/18 solution amlodipine 10 mg tablet 10 mg PO DAILY #90 tab 08/09/18 lisinopril 40 mg tablet 40 mg PO DAILY #90 tab 08/09/18 pantoprazole 20 mg tablet,delayed 20 mg PO DAILY #90 tab 08/09/18 release tamsulosin 0.4 mg capsule 0.4 mg PO QPM #90 cap 08/09/18 hydrocodone-acetaminophen 1 tab PO Q4HR PRN #40 tab 09/21/18 Allergies Allergy/AdvReac Type Severity Reaction Status Date / Time No Known Drug Allergies Allergy Verified 09/29/18 14:10 Review of Systems Constitutional Denies chills, Denies fever(s), Denies lethargy and Denies weakness Eyes Denies change in vision, Denies eye discharge, Denies irritation and Denies loss of vision ENT Ears, Nose, Mouth, and Throat: Denies change in voice, Denies neck pain and Denies sore throat Cardiovascular Denies chest pain, Denies irregular heart rhythm, Denies lightheadedness, Denies palpitations, Reports dyspnea, Reports dyspnea on exertion and Denies orthopnea Respiratory Reports cough, Reports dyspnea, Reports dyspnea on exertion and Denies wheezing Gastrointestinal Gastrointestinal: Denies abdominal pain, Denies change in bowel habits, Denies diarrhea, Denies nausea and Denies vomiting Genitourinary Denies hematuria, Denies flank pain, Denies urinary incontinence and Denies urinary urgency Musculoskeletal Denies neck pain Integumentary/Breasts Denies pruritus, Denies erythema, Denies rash and Denies wounds Neurologic Denies confusion, Denies loss of vision and Denies weakness Psychiatric Denies anxiety, Denies confusion, Denies depression, Denies homicidal ideation and Denies suicidal ideation Endocrine Denies palpitations Hematologic/Lymphatic Denies easy bruising Allergic/Immunologic Denies wheezing [facility] Medical History Hypercholesterolemia (Acute) Arthritis (Acute) Former smoker (Acute) Chronic back pain (Chronic 2011) Colitis (Chronic 2004) Hearing loss (Chronic 2001) Lumbar spine pain (Chronic 2012) Osteoarthritis (Chronic 1997) Bladder cancer (Resolved 2011) Cataract (Resolved 2005) Chicken pox (Resolved 1939) History of nephrolithotomy with removal of calculi (Resolved 1993) Measles (Resolved 1939) Mumps (Resolved 1943) Rubella (Resolved 1939) Surgical History Status post unicompartmental knee replacement, left (Acute) History of cataract removal with insertion of prosthetic lens (Resolved 2005) History of cystoscopy (Resolved) History of esophagogastroduodenoscopy (EGD) (Resolved 2013) History of eyelid surgery (Resolved 2012) History of nasal surgery (Resolved 1992) History of partial cystectomy (Resolved 2011) History of urinary tract surgery (Resolved 2011) Status post colonoscopy (Resolved 2004) Status post colonoscopy (Resolved 2013) Status post hernia repair (Resolved 1979) Status post laminectomy (Resolved 05/04/17) Status post tonsillectomy and adenoidectomy (Resolved ~194) Family History Brother Age: 80 COPD (chronic obstructive pulmonary disease) Father Cancer Hodgkin's disease Sister Cancer Lung cancer Grandfather No problems noted. Grandmother No problems noted. Mother Stroke Social History marital status: household members: spouse Smoking Status: Former smoker alcohol intake: current substance use type: does not use Family History Brother Age: 80 COPD (chronic obstructive pulmonary disease) Father Cancer Hodgkin's disease Sister Cancer Lung cancer Grandfather No problems noted. Grandmother No problems noted. Mother Stroke Social History marital status: household members: spouse Smoking Status: Former smoker alcohol intake: current substance use type: does not use Exam Narrative Exam Narrative: GENERAL: 83-year-old male, very pleasant in no obvious or significant distress HEAD: Atraumatic. Normocephalic. No temporal or scalp tenderness. EYES: Pupils equal round and reactive. Extraocular motions intact. No scleral icterus. No injection or drainage. ENT: Nose without bleeding, purulent drainage or septal hematoma. Throat without erythema, tonsillar hypertrophy or exudate. Uvula midline. Airway patent. NECK: Trachea midline. No JVD CARDIOVASCULAR: Regular rate and rhythm without murmurs, gallops, or rubs. No muffled heart sounds RESPIRATORY: Decreased breath sounds on the right GASTROINTESTINAL: Abdomen soft, non-tender, nondistended. No hepato-splenomegaly, or palpable masses. No guarding. EXTREMITIES: Fresh, appropriately healing scar on right anterior shoulder No clubbing, cyanosis, or edema. No joint tenderness, effusion, or edema noted. BACK: Nontender without deformity or crepitance. No flank tenderness. NEURO: AOx3. SKIN: No rash or erythema. Initial Vital Signs Initial Vital Signs: Vital Signs Pulse Rate 81 09/29/18 17:10 Respiratory Rate 18 09/29/18 17:10 Blood Pressure 192/87 H 09/29/18 17:10 Pulse Oximetry 95 09/29/18 17:10 Course Orders Ordered: ED Orders 09/29/18 18:42 XR chest 1V Stat 09/30/18 07:00 XR chest 1V Routine Hydrocodone Bitart/Acetaminophen ([place] 5/325) 1 tab PO Q4HR PRN PRN Reason: Pain, Moderate (4-6) Last Admin: 09/29/18 19:44 Dose: 1 tab Amlodipine Besylate (Norvasc) 10 mg PO DAILY [facility] Aspirin (Aspirin) 325 mg PO QPM [facility] Atorvastatin Calcium (Lipitor) 20 mg PO QPM [facility] Latanoprost (Xalatan) 1 drops EYE-BOTH BEDTIME [facility] Last Admin: 09/29/18 20:47 Dose: Not Given Lisinopril (Zestril) 40 mg PO DAILY [facility] Multivitamins (Tab-A-Carito) 1 tab PO DAILY [facility] Diclofenac- (Misoprostol) 1 tab PO BID [facility] Last Admin: 09/29/18 20:47 Dose: Not Given Pantoprazole Sodium (Protonix) 20 mg PO 0600 [facility] Sodium Chloride (Normal Saline 0.9% Flush) 10 ml IV PRN PRN PRN Reason: Flush Sodium Chloride (Normal Saline 0.9% Flush) 10 ml IV BID [facility] Last Admin: 09/29/18 20:45 Dose: 10 ml Tamsulosin HCl (Flomax) 0.4 mg PO QPM [facility] Timolol Maleate (Timoptic 0.25% Ophth) 1 drops EYE-BOTH BID [facility] Last Admin: 09/29/18 20:47 Dose: Not Given Consultations Consultation #1: Quick call to orthopedics remote control assembler to discuss what type of range of motion is possible in this recently repaired right shoulder, I am told it is minimal, perhaps up to 15?. Consultation #2: Given the rather tricky and atypical nature of this chest tube of ask General surgery to help plan the hand getting it placed as they will be managing it in house. Dr. Pisano is happy to play a role Vital Signs - 8 hr 09/29/18 17:10 09/29/18 17:30 09/29/18 18:00 Temperature Pulse Rate 81 79 78 Respiratory Rate 18 18 17 Blood Pressure Blood Pressure [Left Arm] 192/87 H 165/91 H 165/85 H Pulse Oximetry 95 98 94 09/29/18 18:30 09/29/18 19:25 09/29/18 21:15 Temperature 100.6 F H 98.2 F Pulse Rate 80 83 71 Respiratory Rate 17 18 Blood Pressure 181/103 H 131/67 Blood Pressure [Left Arm] 189/84 H Pulse Oximetry 95 95 MDM - SOB/Dyspnea Imaging Data Chest x-ray: Radiologist's impression: [address] [address] XRay Report Signed Patient: Juan Carlos Yo JMR#: [id number] : 6Acct:[id number] Age/Sex: 83 / MDate of Service: 09/29/18 Loc: LAB Accession Number: [id number] Procedure: XR chest 2V Ordering Provider: Tomi Camejo MD PROCEDURE: XR CHEST 2V INDICATIONS: cough short of breath TECHNIQUE: 2 views of the chest were acquired. COMPARISON: [facility], , CHEST 1 VIEW, 08/15/2011, 7:53. FINDINGS: Surgical changes and devices: None. Lungs and pleura: There is a large pneumothorax. No pleural effusions or pneumothorax. Mediastinum: No mediastinal shift. Mediastinal contours are normal. Heart size is normal. Bones and chest wall: No suspicious bony abnormalities. Soft tissues appear unremarkable. IMPRESSION: A large pneumothorax on the right side. No tension pneumothorax at this time. The result was discussed with Dr. Camejo on 09/29/2018at 1610 hours. Dictated by: Job Reid M.D. on 09/29/2018 at 16:02 Approved by: Job Reid M.D. on 09/29/2018 at 16:14 [facility] Narrative Medical decision making narrative: PTX noted on outpatient Xray. sent by PCP. Call to Gen Surg for chest tube placement, please see his note for details Discharge Plan Departure Patient Disposition: Admitted As Inpatient Clinical Impression: Pneumothorax Discharge Date/Time: 09/29/18 19:05 Interventions: ED Discharge Assessment Last Done: 09/29/18 18:50 Admit Date/Time: 09/29/18 18:32 Admit Provider: Basil Pisano
--- NOTE | 2018-09-29 18:07 | ED_ITS ---
HPI - SOB/Dyspnea General Chief Complaint: Shortness of Breath/Dyspnea Stated Complaint: PNEUMOTHORAX Time Seen by Provider: 09/29/18 17:28 Source: patient Mode of arrival: ambulatory Limitations: no limitations History of Present Illness 83-year-old male former smoker with history of GERD and hypertension presents after a phone call from his primary care provider for treatment of pneumothorax. Patient had an orthopedic surgery for the repair of a badly damaged right rotator cuff and received a Right reverse total shoulder. Patient presented to his primary care provider today with a chief complaint of cough and some shortness of breath and multiple labs were obtained and a chest x-ray noted a rather large right-sided pneumothorax. Patient was sent to the emergency department for definitive management MD Complaint: shortness of breath and cough Onset (ago): day(s) Context: trauma/injury Severity: moderate Consistency/Duration: constant Relieving factors: oxygen Exacerbating factors: exertion Associated symptoms: denies other symptoms Treatment prior to arrival: none Related Data Home oxygen amount: none Home Medications Medication Instructions Recorded Confirmed multivitamin [Multiple Vitamins] 1 tab PO DAILY #0 07/22/16 09/29/18 latanoprost 1 drp OPHTH BEDTIME #0 06/01/17 09/29/18 timolol maleate [Timoptic] 1 drp OPHTH BID #0 06/01/17 09/29/18 aspirin 325 mg PO QPM 04/30/18 09/29/18 ascorbic acid (vitamin C) [Vitamin 1,000 mg PO DAILY 09/06/18 09/29/18 C] cholecalciferol (vitamin D3) 1,000 unit PO DAILY 09/06/18 09/29/18 [Vitamin D3] vitamin B27-cyivh acid 1 tab PO DAILY 09/06/18 09/29/18 atorvastatin [Lipitor] 20 mg PO QPM 09/29/18 09/29/18 diclofenac-misoprostol [Arthrotec 1 tab PO BID 09/29/18 09/29/18 50] Previous Rx's Medication Instructions Recorded infliximab 100 mg intravenous 224 mg IV Q8W #1 each 03/23/18 solution amlodipine 10 mg tablet 10 mg PO DAILY #90 tab 08/09/18 lisinopril 40 mg tablet 40 mg PO DAILY #90 tab 08/09/18 pantoprazole 20 mg tablet,delayed 20 mg PO DAILY #90 tab 08/09/18 release tamsulosin 0.4 mg capsule 0.4 mg PO QPM #90 cap 08/09/18 hydrocodone-acetaminophen 1 tab PO Q4HR PRN #40 tab 09/21/18 Allergies Allergy/AdvReac Type Severity Reaction Status Date / Time No Known Drug Allergies Allergy Verified 09/29/18 14:10 Review of Systems Constitutional Denies chills, Denies fever(s), Denies lethargy and Denies weakness Eyes Denies change in vision, Denies eye discharge, Denies irritation and Denies loss of vision ENT Ears, Nose, Mouth, and Throat: Denies change in voice, Denies neck pain and Denies sore throat Cardiovascular Denies chest pain, Denies irregular heart rhythm, Denies lightheadedness, Denies palpitations, Reports dyspnea, Reports dyspnea on exertion and Denies orthopnea Respiratory Reports cough, Reports dyspnea, Reports dyspnea on exertion and Denies wheezing Gastrointestinal Gastrointestinal: Denies abdominal pain, Denies change in bowel habits, Denies diarrhea, Denies nausea and Denies vomiting Genitourinary Denies hematuria, Denies flank pain, Denies urinary incontinence and Denies urinary urgency Musculoskeletal Denies neck pain Integumentary/Breasts Denies pruritus, Denies erythema, Denies rash and Denies wounds Neurologic Denies confusion, Denies loss of vision and Denies weakness Psychiatric Denies anxiety, Denies confusion, Denies depression, Denies homicidal ideation and Denies suicidal ideation Endocrine Denies palpitations Hematologic/Lymphatic Denies easy bruising Allergic/Immunologic Denies wheezing ON LICENSE OF [facility] Medical History Hypercholesterolemia (Acute) Arthritis (Acute) Former smoker (Acute) Chronic back pain (Chronic 2011) Colitis (Chronic 2004) Hearing loss (Chronic 2001) Lumbar spine pain (Chronic 2012) Osteoarthritis (Chronic 1997) Bladder cancer (Resolved 2011) Cataract (Resolved 2005) Chicken pox (Resolved 1939) History of nephrolithotomy with removal of calculi (Resolved 1993) Measles (Resolved 1939) Mumps (Resolved 1943) Rubella (Resolved 1939) Surgical History Status post unicompartmental knee replacement, left (Acute) History of cataract removal with insertion of prosthetic lens (Resolved 2005) History of cystoscopy (Resolved) History of esophagogastroduodenoscopy (EGD) (Resolved 2013) History of eyelid surgery (Resolved 2012) History of nasal surgery (Resolved 1992) History of partial cystectomy (Resolved 2011) History of urinary tract surgery (Resolved 2011) Status post colonoscopy (Resolved 2004) Status post colonoscopy (Resolved 2013) Status post hernia repair (Resolved 1979) Status post laminectomy (Resolved 05/04/17) Status post tonsillectomy and adenoidectomy (Resolved ~194) Family History Brother Age: 80 COPD (chronic obstructive pulmonary disease) Father Cancer Hodgkin's disease Sister Cancer Lung cancer Grandfather No problems noted. Grandmother No problems noted. Mother Stroke Social History marital status: household members: spouse Smoking Status: Former smoker alcohol intake: current substance use type: does not use Family History Brother Age: 80 COPD (chronic obstructive pulmonary disease) Father Cancer Hodgkin's disease Sister Cancer Lung cancer Grandfather No problems noted. Grandmother No problems noted. Mother Stroke Social History marital status: household members: spouse Smoking Status: Former smoker alcohol intake: current substance use type: does not use Exam Narrative Exam Narrative: GENERAL: 83-year-old male, very pleasant in no obvious or si gnificant distress HEAD: Atraumatic. Normocephalic. No temporal or scalp tenderness. EYES: Pupils equal round and reactive. Extraocular motions intact. No scleral icterus. No injection or drainage. ENT: Nose without bleeding, purulent drainage or septal hematoma. Throat without erythema, tonsillar hypertrophy or exudate. Uvula midline. Airway patent. NECK: Trachea midline. No JVD CARDIOVASCULAR: Regular rate and rhythm without murmurs, gallops, or rubs. No muffled heart sounds RESPIRATORY: Decreased breath sounds on the right GASTROINTESTINAL: Abdomen soft, non-tender, nondistended. No hepato- splenomegaly, or palpable masses. No guarding. EXTREMITIES: Fresh, appropriately healing scar on right anterior shoulder No clubbing, cyanosis, or edema. No joint tenderness, effusion, or edema noted. BACK: Nontender without deformity or crepitance. No flank tenderness. NEURO: AOx3. SKIN: No rash or erythema. Initial Vital Signs Initial Vital Signs: Vital Signs Pulse Rate 81 09/29/18 17:10 Respiratory Rate 18 09/29/18 17:10 Blood Pressure 192/87 H 09/29/18 17:10 Pulse Oximetry 95 09/29/18 17:10 Course Orders Ordered: ED Orders 09/29/18 18:42 XR chest 1V Stat 09/30/18 07:00 XR chest 1V Routine Hydrocodone Bitart/Acetaminophen ([place] 5/325) 1 tab PO Q4HR PRN PRN Reason: Pain, Moderate (4-6) Last Admin: 09/29/18 19:44 Dose: 1 tab Amlodipine Besylate (Norvasc) 10 mg PO DAILY [facility] Aspirin (Aspirin) 325 mg PO QPM [facility] Atorvastatin Calcium (Lipitor) 20 mg PO QPM [facility] Latanoprost (Xalatan) 1 drops EYE-BOTH BEDTIME [facility] Last Admin: 09/29/18 20:47 Dose: Not Given Lisinopril (Zestril) 40 mg PO DAILY [facility] Multivitamins (Tab-A-Carito) 1 tab PO DAILY [facility] Diclofenac- (Misoprostol) 1 tab PO BID [facility] Last Admin: 09/29/18 20:47 Dose: Not Given Pantoprazole Sodium (Protonix) 20 mg PO 0600 [facility] Sodium Chloride (Normal Saline 0.9% Flush) 10 ml IV PRN PRN PRN Reason: Flush Sodium Chloride (Normal Saline 0.9% Flush) 10 ml IV BID [facility] Last Admin: 09/29/18 20:45 Dose: 10 ml Tamsulosin HCl (Flomax) 0.4 mg PO QPM [facility] Timolol Maleate (Timoptic 0.25% Ophth) 1 drops EYE-BOTH BID [facility] Last Admin: 09/29/18 20:47 Dose: Not Given Consultations Consultation #1: Quick call to orthopedics education paraprofessional to discuss what type of range of motion is possible in this recently repaired right shoulder, I am told it is minimal, perhaps up to 15?. Consultation #2: Given the rather tricky and atypical nature of this chest tube of ask General surgery to help plan the hand getting it placed as they will be managing it in house. Dr. Pisano is happy to play a role Vital Signs - 8 hr 09/29/18 17:10 09/29/18 17:30 09/29/18 18:00 Temperature Pulse Rate 81 79 78 Respiratory Rate 18 18 17 Blood Pressure Blood Pressure [Left Arm] 192/87 H 165/91 H 165/85 H Pulse Oximetry 95 98 94 09/29/18 18:30 09/29/18 19:25 09/29/18 21:15 Temperature 100.6 F H 98.2 F Pulse Rate 80 83 71 Respiratory Rate 17 18 Blood Pressure 181/103 H 131/67 Blood Pressure [Left Arm] 189/84 H Pulse Oximetry 95 95 MDM - SOB/Dyspnea Imaging Data Chest x-ray: Radiologist's impression: [address] [address] XRay Report Signed Patient: Juan Carlos Yo JMR#: [id number] : 6Acct:[id number] Age/Sex: 83 / MDate of Service: 09/29/18 Loc: LAB Accession Number: [id number] Procedure: XR chest 2V Ordering Provider: Tomi Camejo MD PROCEDURE: XR CHEST 2V INDICATIONS: cough short of breath TECHNIQUE: 2 views of the chest were acquired. COMPARISON: [facility], , CHEST 1 VIEW, 08/15/2011, 7:53. FINDINGS: Surgical changes and devices: None. Lungs and pleura: There is a large pneumothorax. No pleural effusions or pneumothorax. Mediastinum: No mediastinal shift. Mediastinal contours are normal. Heart size is normal. Bones and chest wall: No suspicious bony abnormalities. Soft tissues appear unremarkable. IMPRESSION: A large pneumothorax on the right side. No tension pneumothorax at this time. The result was discussed with Dr. Camejo on 09/29/2018at 1610 hours. Dictated by: Job Reid M.D. on 09/29/2018 at 16:02 Approved by: Job Reid M.D. on 09/29/2018 at 16:14 [facility] Narrative Medical decision making narrative: PTX noted on outpatient Xray. sent by PCP. Call to Gen Surg for chest tube placement, please see his note for details Discharge Plan Departure Patient Disposition: Admitted As Inpatient Clinical Impression: Pneumothorax Discharge Date/Time: 09/29/18 19:05 Interventions: ED Discharge Assessment Last Done: 09/29/18 18:50 Admit Date/Time: 09/29/18 18:32 Admit Provider: Basil Pisano
--- NOTE | 2018-09-29 18:42 | DI.RAD.S_ITS ---
PROCEDURE: XR CHEST 1V INDICATIONS: post chest tube TECHNIQUE: One view of the chest was acquired. COMPARISON: [facility], CR, XR CHEST 2V, 09/29/2018, 14:49. FINDINGS: Surgical changes and devices: There has been interval placement of a right-sided chest tube. Right humeral arthroplasty. Lungs and pleura: Persistent multiple markedly decreased right pneumothorax, now minimal to mild in appearance. Mediastinum: Mediastinal contours appear normal. Heart size is normal. Bones and chest wall: No suspicious bony lesions. Overlying soft tissues appear unremarkable. IMPRESSION: Persistent minimal to mild right pneumothorax, decreased with placement of right chest tube. Dictated by: Shanna Delgadillo M.D. on 09/29/2018 at 17:55 Approved by: Shanna Delgadillo M.D. on 09/29/2018 at 17:56
--- NOTE | 2018-09-29 19:13 | PC.NURSE ---
Addendum entered by Sandra Reece R.N. 09/29/18 22:41: With coughing, noted scant amount serosanguinous fluid in tubing of pigtail tube to right anterior chest and migrating down through Heimlich valve towards open end. Phone call to Dr. Pisano to discuss. Per rachel IGNACIO to place 4 x 4's around exit site to contain drainage. Single folded 4 x 4 placed around open end of tube and secured with 1/2 inch steristrips. Original Note: Pt to room 206 from E.R. via stretcher. Pt is able to ambulate from stretcher to bed. Sling replaced to RUE per pt's request. Steristrips intact to right shoulder incision s/p shoulder surgery. Resolving bruising yellow in color up and down right arm. Adaptive chest tube per Dr. Pisano placed in E.R. Clean and dry bulky dressing to right anterior chest dry and intact. Small chest tube in place without any drainage. No noted respiratory distress. Room air 95%. Pt requests med for pain r/t chest tube placement. Awaiting orders per Dr. Pisano.
--- NOTE | 2018-09-29 19:35 | PM.HP.1 ---
History of Present Illness Date Patient Seen: 09/29/18 Time Patient Seen: 19:00 Chief complaint: PNEUMOTHORAX Narrative: The patient is a gentleman who had a shoulder procedure done recently. This included an attempt presumptively add a scalene block. The patient was seen by his orthopedic surgeon and was wheezing and short of breath. He was sent to his primary care provider who noted a pneumothorax and he was sent to the emergency room where I saw him. He is breathing comfortably in no distress despite the lung collapse. Complained of right-sided chest pain and shoulder pain where his surgery was. He said it was hard to tell the difference and it may all be due to 1 or the other. Patient History Medical History Hypercholesterolemia (Acute) Arthritis (Acute) Former smoker (Acute) Chronic back pain (Chronic 2011) Colitis (Chronic 2004) Hearing loss (Chronic 2001) Lumbar spine pain (Chronic 2012) Osteoarthritis (Chronic 1997) Bladder cancer (Resolved 2011) Cataract (Resolved 2005) Chicken pox (Resolved 1939) History of nephrolithotomy with removal of calculi (Resolved 1993) Measles (Resolved 1939) Mumps (Resolved 1943) Rubella (Resolved 1939) Surgical History Status post unicompartmental knee replacement, left (Acute) History of cataract removal with insertion of prosthetic lens (Resolved 2005) History of cystoscopy (Resolved) History of esophagogastroduodenoscopy (EGD) (Resolved 2013) History of eyelid surgery (Resolved 2012) History of nasal surgery (Resolved 1992) History of partial cystectomy (Resolved 2011) History of urinary tract surgery (Resolved 2011) Status post colonoscopy (Resolved 2004) Status post colonoscopy (Resolved 2013) Status post hernia repair (Resolved 1979) Status post laminectomy (Resolved 05/04/17) Status post tonsillectomy and adenoidectomy (Resolved ~194) Family History Brother Age: 80 COPD (chronic obstructive pulmonary disease) Father Cancer Hodgkin's disease Sister Cancer Lung cancer Grandfather No problems noted. Grandmother No problems noted. Mother Stroke Social History marital status: household members: spouse Smoking Status: Former smoker alcohol intake: current substance use type: does not use Family & Social History Family History Brother Age: 80 COPD (chronic obstructive pulmonary disease) Father Cancer Hodgkin's disease Sister Cancer Lung cancer Grandfather No problems noted. Grandmother No problems noted. Mother Stroke Social History: household members spouse Tobacco & Substance use: Smoking Status Former smoker alcohol intake current Substance Use Type does not use Meds Home Medications Medication Instructions Recorded Confirmed Type multivitamin [Multiple Vitamins] 1 tab PO DAILY #0 07/22/16 09/29/18 History latanoprost 1 drp OPHTH BEDTIME #0 06/01/17 09/29/18 History timolol maleate [Timoptic] 1 drp OPHTH BID #0 06/01/17 09/29/18 History infliximab 100 mg intravenous 224 mg IV Q8W #1 each 03/23/18 09/29/18 Rx solution aspirin 325 mg PO QPM 04/30/18 09/29/18 History amlodipine 10 mg tablet 10 mg PO DAILY #90 tab 08/09/18 09/29/18 Rx lisinopril 40 mg tablet 40 mg PO DAILY #90 tab 08/09/18 09/29/18 Rx pantoprazole 20 mg tablet,delayed 20 mg PO DAILY #90 tab 08/09/18 09/29/18 Rx release tamsulosin 0.4 mg capsule 0.4 mg PO QPM #90 cap 08/09/18 09/29/18 Rx ascorbic acid (vitamin C) [Vitamin 1,000 mg PO DAILY 09/06/18 09/29/18 History C] cholecalciferol (vitamin D3) 1,000 unit PO DAILY 09/06/18 09/29/18 History [Vitamin D3] vitamin [id number] acid 1 tab PO DAILY 09/06/18 09/29/18 History hydrocodone-acetaminophen 1 tab PO Q4HR PRN #40 tab 09/21/18 09/29/18 Rx atorvastatin [Lipitor] 20 mg PO QPM 09/29/18 09/29/18 History diclofenac-misoprostol [Arthrotec 1 tab PO BID 09/29/18 09/29/18 History 50] Allergies Allergy/AdvReac Type Severity Reaction Status Date / Time No Known Drug Allergies Allergy Verified 09/29/18 14:10 Review of Systems Review of Systems No chest pain. He has had a TIA and is on an aspirin a day for that. He is not on any other blood thinner. Short winded when trying to walk today which was concerning to him. No black or bloody bowel movements. 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 Exam Vital Signs (past 8 hours): - 09/29/18 17:10 09/29/18 17:30 09/29/18 18:00 Temperature Pulse Rate 81 79 78 Respiratory Rate 18 18 17 Blood Pressure Blood Pressure [Left Arm] 192/87 H 165/91 H 165/85 H Pulse Oximetry 95 98 94 09/29/18 18:30 09/29/18 19:25 Temperature 100.6 F H Pulse Rate 80 83 Respiratory Rate 17 18 Blood Pressure 181/103 H Blood Pressure [Left Arm] 189/84 H Pulse Oximetry 95 95 Oxygen Delivery Method Room Air Narrative Exam Narrative: Co Operative no apparent distress. Decreased breath sounds on the right. Steri-Strips along the deltopectoral groove area on the right. Extensive bruising of the right chest wall and some bruising of the upper arm. Heart regular rate and rhythm. Abdomen is scaphoid soft nontender without mass. The patient is alert oriented and quite coherent and pleasant. Objective Imaging Chest x-ray: My impression: Patient has a pneumothorax on the right. This is seen not only on today's film but also on his immediate postop film. Assessment & Plan Assessment & Plan narrative: Patient with multiple medical problems including history of a TIA and hypertension who had a recent shoulder procedure and has a pneumothorax that is acute from the time of the operation. I discussed with him placement of a chest tube to re-expand his lung. 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 He is willing to proceed. We will actually use a Cook catheter which is nearly available to us since we are not dealing with any blood this is only air.
--- NOTE | 2018-09-29 19:42 | PM.OP.1 ---
Operative Date/Time/Diagnoses Date of procedure: 09/29/18 Time of procedure: 19:00 Pre-op diagnosis: Right-sided pneumothorax Post-op diagnosis: same Procedure & Clinicians Procedure: Placement of right pigtail tube thoracoscopy Same procedure as scheduled: Yes Indications: Pneumothorax after a procedure Surgeon: Basil Pisano Anesthesia Type: Local Operative Notes Findings: Air evacuated from the chest. Partial re-expansion noted on postprocedure chest x-ray. Heimlich valve appears to be functioning normally. Closure Type: not applicable Specimen(s): none sent Prosthetic devices, grafts, tissues, transplants, or devices: [place] pigtail catheter Applied: catheter ([place] pigtail 10 [place]) Estimated Blood Loss (mL): 2 Procedure in detail: The patient was placed sitting upright on his bed in the ER. He was completely alert. The area of his anterior chest had been clipped and now was painted with Betadine and chlorhexidine. Local anesthetic was infiltrated just below a rib spaces above the nipple. A small merry was made in the skin and a pigtail catheter inserted without difficulty into the right chest. Air was easily evacuated from it and the Heimlich valve appeared to be functioning appropriately. Postprocedure chest x-ray was performed that showed partial re-expansion of the lung. The catheter was secured to the chest with tape. There were no apparent complications. Complications: none Condition: stable Disposition: Acute Care
[2018-09-29] MEDS: HYDROCODONE/ACET 5/325 TABLET 1 TAB PO ×2 (19:44→23:47)
--- NOTE | 2018-09-29 19:47 | P.OP_ITS ---
Operative Date/Time/Diagnoses Date of procedure: 09/29/18 Time of procedure: 19:00 Pre-op diagnosis: Right-sided pneumothorax Post-op diagnosis: same Procedure & Clinicians Procedure: Placement of right pigtail tube thoracoscopy Same procedure as scheduled: Yes Indications: Pneumothorax after a procedure Surgeon: Basil Pisano Anesthesia Type: Local Operative Notes Findings: Air evacuated from the chest. Partial re-expansion noted on postprocedure chest x-ray. Heimlich valve appears to be functioning normally. Closure Type: not applicable Specimen(s): none sent Prosthetic devices, grafts, tissues, transplants, or devices: [employer] pigtail catheter Applied: catheter ([employer] pigtail 10 [place]) Estimated Blood Loss (mL): 2 Procedure in detail: The patient was placed sitting upright on his bed in the ER. He was completely alert. The area of his anterior chest had been clipped and now was painted with Betadine and chlorhexidine. Local anesthetic was infiltrated just below a rib spaces above the nipple. A small merry was made in the skin and a pigtail catheter inserted without difficulty into the right chest. Air was easily evacuated from it and the Heimlich valve appeared to be functioning appropriately. Postprocedure chest x-ray was performed that showed partial re-expansion of the lung. The catheter was secured to the chest with tape. There were no apparent complications. Complications: none Condition: stable Disposition: Acute Care
[2018-09-29] MEDS: SODIUM CHLORIDE 0.9% FLUSH 10 ML IV (20:45)
[2018-09-30 04:50] VITALS: PULSE 59; RESP 20; TEMP 36.7; O2SAT 95
[2018-09-30] MEDS: PANTOPRAZOLE 20 MG TABLET PO (05:55)
[2018-09-30 05:57] VITALS: BP 147/75; PULSE 59; RESP 16
--- NOTE | 2018-09-30 07:00 | DI.RAD.S_ITS ---
PROCEDURE: XR CHEST 1V INDICATIONS: Follow-up after pigtail placement in the emergency room TECHNIQUE: One view of the chest was acquired. COMPARISON: [facility], CR, XR CHEST 1V, 09/29/2018, 18:46. FINDINGS: Surgical changes and devices: Right shoulder arthroplasty stable. Right sided pigtail chest tube repositioning inferior portion of the right hemithorax. Lungs and pleura: Lungs are clear. No pleural effusions. Minimal sized right-sided pneumothorax. Mediastinum: Mediastinal contours appear normal. Heart size is normal. Bones and chest wall: No suspicious bony lesions. Overlying soft tissues appear unremarkable. IMPRESSION: Minimal right pneumothorax not significantly change compared to 09/29/18. Dictated by: Sariah Mark MD, PhD on 09/30/2018 at 17:25 Approved by: Sariah Mark MD, PhD on 09/30/2018 at 17:27
[2018-09-30 07:30] VITALS: BP 143/79; PULSE 59; RESP 16; TEMP 36.6; O2SAT 94
[2018-09-30] MEDS: MULTIVITAMIN 1 TABLET 1 TAB PO (09:01)
[2018-09-30] MEDS: LISINOPRIL 20 MG TABLET 40 MG PO (09:01)
[2018-09-30] MEDS: SODIUM CHLORIDE 0.9% FLUSH 10 ML IV (09:02)
--- NOTE | 2018-09-30 10:10 | PC.NURSE ---
Addendum entered by Clarissa Zarate R.N. 09/30/18 13:33: MS/RESP - up ambul hallway w/spouse at side, gait steady, no sob noted, ret to chair, 02 sat 95% ra. Original Note: AM NOTE - alert, lying comfortably in bed, denies any chest discomfort or sob, bs dim r w/coarse crackles lower lobe, ra 95%, declines pain medication, dsg w/flexible tube anterior chest intact, c,d w/small spot old serosang at end tube..
[2018-09-30 11:19] VITALS: BP 137/72; PULSE 62; RESP 16; TEMP 36.4; O2SAT 94
[2018-09-30] MEDS: DICLOFENAC MISOPROSTOL 1 EACH PO (12:22)
[2018-09-30 13:33] VITALS: O2SAT 95
--- NOTE | 2018-09-30 15:00 | DI.RAD.S_ITS ---
PROCEDURE: XR CHEST 1V INDICATIONS: f/u after clamping chest tube TECHNIQUE: One view of the chest was acquired. COMPARISON: [facility], CR, XR CHEST 1V, 09/29/2018, 18:46. [facility], CR, XR CHEST 1V, 09/30/2018, 6:18. FINDINGS: Surgical changes and devices: Right chest tube.. Lungs and pleura: Subtle right apical pleural line is again noted in keeping with trace pneumothorax. No pleural effusions. No new focal consolidation Mediastinum: Mediastinal contours appear normal. Heart size is normal. Bones and chest wall: No suspicious bony lesions. Overlying soft tissues appear unremarkable. IMPRESSION: Trace residual right apical pneumothorax. This is stable to minimally decreased since the prior study. Dictated by: Primo Lamb M.D. on 09/30/2018 at 15:20 Approved by: Primo Lamb M.D. on 09/30/2018 at 15:24
[2018-09-30 15:38] VITALS: BP 160/83; PULSE 61; RESP 18; TEMP 36.8; O2SAT 93
--- NOTE | 2018-09-30 16:31 | PC.NURSE ---
Pt discharged @1630. Discharge instructions reviewed w/ patient and pt. understood teaching and follow up appt.'s. Dr. Pisano pulled out chest tube.
--- NOTE | 2018-10-01 08:36 | CM.DPNOTE ---
Late Entry: Reviewed chart. Pt admitted from 09.29.18-09.30.18 for pneumothorax and chest tube placement to re-expand lung. Payer: medicare/ [employer]. 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 No barriers to safe return home w/family according to Dr Pisano and nursing staff. No SW needs for this 83 yo gentlemen. JW
--- NOTE | 2018-10-01 19:33 | PM.DS.1 ---
History of Present Illness Chief complaint: PNEUMOTHORAX Narrative: The patient is a gentleman who had a shoulder procedure done recently. This included an attempt presumptively add a scalene block. The patient was seen by his orthopedic surgeon and was wheezing and short of breath. He was sent to his primary care provider who noted a pneumothorax and he was sent to the emergency room where I saw him. He is breathing comfortably in no distress despite the lung collapse. Complained of right-sided chest pain and shoulder pain where his surgery was. He said it was hard to tell the difference and it may all be due to 1 or the other. Discharge Providers Date of admission: 09/29/18 18:32 Discharge Date: 09/30/18 Primary care physician: Tomi Camejo MD Discharge provider: Basil Pisano MD Summary Discharge Diagnosis: Iatrogenic pneumothorax acute Hypertension chronic Elevated cholesterol chronic Glaucoma chronic Benign prostatic hypertrophy chronic Hospital Course: The patient had a pigtail chest tube placed in the right chest. His lung re-expanded. The tube was clamped for several hours the following day of the lung remained expanded. The tube was removed and patient discharged to follow up with his orthopedic surgeon. Status at Discharge Cognitive/behavioral status at discharge: oriented Functional status at discharge: independent ambulation Overall status at discharge: patient is back to baseline Time Spent with Patient Less than 30 minutes Exam Vital Signs (past 8 hours): Oxygen Delivery Method Room Air Oxygen Flow Rate 0 Narrative Exam Narrative: Lungs clear good air movement bilaterally. Heart regular rate and rhythm. Abdomen is soft nontender without mass. Objective Imaging Chest x-ray: My impression: Lung re-expanded the morning after placement of a pigtail chest tube in the right chest. Tube was clamped and x-rays for 5 hr later showed the lung was still expanded. Discharge Plan Discharge Plan Patient Disposition: Home Discharge comment: Your lung is re-expanded. If you develop shortness of breath again please go to the emergency room. You should not fly or drive [place] for 6 [place]. Discharge Med Rec/Prescriptions Prescriptions: Continued multivitamin [Multiple Vitamins] 1 EACH tablet 1 tab PO DAILY Qty: 0 RF: 0 timolol maleate [Timoptic] 0.25 % drops 1 drp OPHTH BID Qty: 0 RF: 0 latanoprost 0.005 % drops 1 drp OPHTH BEDTIME Qty: 0 RF: 0 infliximab [Remicade] 100 mg recon soln 224 mg IV Q8W Qty: 1 RF: 0 amlodipine 10 mg tablet 10 mg PO DAILY Qty: 90 RF: 3 pantoprazole 20 mg tablet,delayed release (DR/EC) 20 mg PO DAILY Qty: 90 RF: 3 lisinopril 40 mg tablet 40 mg PO DAILY Qty: 90 RF: 3 tamsulosin [Flomax] 0.4 mg capsule 0.4 mg PO QPM Qty: 90 RF: 3 ascorbic acid (vitamin C) [Vitamin C] 500 mg Tablet 1,000 mg PO DAILY RF: 0 cholecalciferol (vitamin D3) [Vitamin D3] 1,000 unit Capsule 1,000 unit PO DAILY RF: 0 vitamin [id number] acid 1 tab PO DAILY RF: 0 hydrocodone-acetaminophen 5-325 mg Tablet 1 tab PO Q4HR PRN (Reason: Pain, Moderate (4-6)) Qty: 40 RF: 0 aspirin 325 mg Tablet 325 mg PO QPM RF: 0 diclofenac-misoprostol 50-200 mg-mcg tablet,IR,delayed rel,biphasic 1 tab PO BID RF: 0 atorvastatin [Lipitor] 20 mg tablet 20 mg PO QPM RF: 0 Follow up/Referrals: Tomi Camejo MD [Primary Care Provider] - Provider Discharge Instructions Diet: Diet as Tolerated Discharge Data Primary Care Provider: Tomi Camejo Attending Provider: Basil Pisano Admit Date/Time: 09/29/18 18:32 Discharges patient from system. Discharge Date/Time: 09/30/18 16:30 Quality VTE Deep Vein Thrombosis/Pulmonary Embolism Present on Admission: No
== END 2018-09-30 16:30 | disposition home or self-care (01) | DRG 201 ==
LOC: ED 18:16 → AC 18:35
PROVIDERS: Admitting Provider Specialist; Emergency Provider Emergency Medicine; PCP Family Medicine; Visit Provider Specialist
DX: J95.811 Postprocedural pneumothorax (principal); E78.00 Pure hypercholesterolemia, unspecified; Z87.891 Personal history of nicotine dependence; Z98.890 Other specified postprocedural states; I10 Essential (primary) hypertension; N40.0 Benign prostatic hyperplasia without lower urinary tract symptoms
CPT/HCPCS: 32551; 36415; 36591; 71045; 71046; 80053; 83880; 84145; 85025; 99221; 99238; 99283; 99284

== ENCOUNTER → 2018-11-05 07:38 | Outpatient (CLI) | payer MEDICARE, OTHER, SELFPAY ==
[2018-09-29 19:13] VITALS: BMI 20.7
--- NOTE | 2018-11-05 07:40 | DI.RAD.S_ITS ---
PROCEDURE: XR LUMBAR SPINE MIN 4V INDICATIONS: leg weekness TECHNIQUE: 5 views of the lumbar spine were acquired. COMPARISON: [facility] CHRISTINA Martin, SPINE LUMB MIN 4VW, 05/20/2016, 11:39. FINDINGS: Bones: 5 nonrib-bearing vertebrae are present. There is normal bony alignment. There is, however, degenerative disc disease that is moderately severe to severe from L3-S1, and facet osteoarthritis from L2-S1 is moderately severe and becomes progressively more prominent at the lumbosacral junction is approached. No vertebral body compression fractures. No suspicious bony lesions. Soft tissues: Overlying bowel gas pattern is normal. No suspicious soft tissue calcifications. Oblique images: No pars defects. 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 Facet hyperostosis through these areas contributes to the likelihood of significant spinal and foraminal stenosis symmetric bilaterally. There has been moderate worsening from the comparison study from May of 2016 when this degree of degeneration was localized at L4-5 and L5-S1. Dictated by: Kiran Morrissey M.D. on 11/05/2018 at 8:29 Approved by: Kiran Morrissey M.D. on 11/05/2018 at 8:31
== END ==
PROVIDERS: PCP Family Medicine; Visit Provider Family Medicine
DX: R29.898 Other symptoms and signs involving the musculoskeletal system (principal); M51.36 Other intervertebral disc degeneration, lumbar region; M51.37 Other intervertebral disc degeneration, lumbosacral region; M47.816 Spondylosis without myelopathy or radiculopathy, lumbar region; M47.817 Spondylosis without myelopathy or radiculopathy, lumbosacral region
CPT/HCPCS: 72110

== ENCOUNTER 2019-02-17 08:15 | Outpatient (RCR) | payer MEDICARE, OTHER, SELFPAY ==
[2018-09-29 19:13] VITALS: BMI 20.7
--- NOTE | 2018-11-29 17:03 | PT.OIE ---
Current Diagnoses Other symptoms and signs involving the musculoskeletal system (11/29/18) Past Medical History (Last Reviewed 09/29/18 @ 19:37 by Basil Pisano MD) Hypercholesterolemia (Acute) Arthritis (Acute) Former smoker (Acute) Chronic back pain (Chronic 2011) Colitis (Chronic 2004) Hearing loss (Chronic 2001) Lumbar spine pain (Chronic 2012) Osteoarthritis (Chronic 1997) Bladder cancer (Resolved 2011) Cataract (Resolved 2005) Chicken pox (Resolved 1939) History of nephrolithotomy with removal of calculi (Resolved 1993) Measles (Resolved 1939) Mumps (Resolved 1943) Rubella (Resolved 1939) Past Surgical History (Last Reviewed 09/29/18 @ 19:37 by Basil Pisano MD) Status post unicompartmental knee replacement, left (Acute) History of cataract removal with insertion of prosthetic lens (Resolved 2005) History of cystoscopy (Resolved) History of esophagogastroduodenoscopy (EGD) (Resolved 2013) History of eyelid surgery (Resolved 2012) History of nasal surgery (Resolved 1992) History of partial cystectomy (Resolved 2011) History of urinary tract surgery (Resolved 2011) Status post colonoscopy (Resolved 2004) Status post colonoscopy (Resolved 2013) Status post hernia repair (Resolved 1979) Status post laminectomy (Resolved 05/04/17) Status post tonsillectomy and adenoidectomy (Resolved ~1941) Provider Visit Care Team Role Provider Type Tomi Camejo MD Attending Provider Physician Primary Care Provider Specialty: Family Practice Address: [address] [place] [address] Email: [email or web address] Therapy Initial Evaluation PT-OP-A Visit Information Start: 11/29/18 16:16 Freq: Status: Active Protocol: Document 11/29/18 14:30 (Rec: 11/29/18 17:03 [email or web address]) Out-Patient Physical Therapy Visit Information Visit Information Visit Type Initial Evaluation Visit Start Time 14:30 Visit Stop Time 13:15 Total Visit Minutes 45 Visit Number 1 Number of ANGLE FURNACEMAN Visits 0 Evaluation Information Evaluation Date 11/29/18 Precautions Precautions fall risk bruise easily PT-OP-B Current Condition Start: 11/29/18 16:16 Freq: Status: Active Protocol: Document 11/29/18 14:30 HH (Rec: 11/29/18 17:03 [email or web address]) Current Condition History of Current Condition Onset Date 3 months ago Current Complaints decreased balance, impaired gait and activity tolerance History of Current Condition Pt presents to clinic by using SPC for mobility. Pt c/o new onset of B LE weakness mostly at gluteal muscles, hamstring and occasional numbness sensation at top of B feet since 3 months ago. Pt states symptoms started after a reverse R TSA followed by a post op complication with pneumothorax at (09/29/18 ). He c/o his strength and endurance has been decreased significantly since then. He is only able to tolerate walking for couple blocks with SPC, and using step to pattern for stair negotiation with rails. He often felt unsteady with gait lately that he tends to trip on uneven surface. Pt had multiple falls in the yard over the past half year. Pt recently had an x-ray with Dr. 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 Camejo on . PMH includes L2-L5 laminectomy, Bladder cancer, L unilateral compartment sx, minor stroke. Prior Treatments and Tests Pt recently had an x-ray with Dr. 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 Camejo on . PMH includes L2- L5 laminectomy April, , Bladder cancer 2011, L unilateral compartment sx, minor stroke. Treatment Goals Patient/Caregiver Goals 1. To be able to walk a mile without using a SPC 2. Use step over pattern to climb stair 3. Able to walk on uneven surface safely Prior Functional Status Baseline Function- ADL's Independent Baseline Function- Mobility Independent Baseline Function- Gait without AD Baseline Function- Other step over pattern to climb stair Current Functional Impairments (Reported) Functional Limitations- Mobility/Gait step to pattern to climb stair use SPC for community mobility increased time for turns unable to ed walking more than couple blocks Personal Factors Other Personal Factors That May Effect PMH includes L2-L5 laminectomy Therapy/Recovery April, , Bladder cancer 2011, L unilateral compartment sx, minor stroke. PT-OP-C Subjective Start: 11/29/18 16:16 Freq: Status: Active Protocol: Document 11/29/18 14:30 (Rec: 11/29/18 17:03 [email or web address]) OP-PT Subjective Patient Comments Patient Comments My legs feel weak easily now . Patient Reported Progress Worse OP-PT Pain Assessment Location Bilateral Hip Intensity 3 Scale Used Numeric (1 - 10) Description Dull Frequency Frequent Pain Aggravating Factors Activity Exercise Walking Bending Lifting Pain Alleviating Factors Inactivity Rt Shoulder Intensity 1 Scale Used Numeric (1 - 10) Description Aching Dull Pain Aggravating Factors ADL's Activity Exercise Lifting Pain Alleviating Factors Inactivity PT-OP-D Balance Start: 11/29/18 16:16 Freq: Status: Active Protocol: Document 11/29/18 14:30 HH (Rec: 11/29/18 17:03 [email or web address]) OP-PT Balance Assessment Sitting Balance Static Sitting Balance Ability Normal Dynamic Sitting Balance Ability Normal Standing Balance Static Standing Balance Ability Normal Dynamic Standing Balance Ability Normal Balance Tests Kaur Balance Test Kaur Balance Test Score 47 Kaur Impairment Rating 1 to 19% Impaired (Score 45-55 ) Single Limb Standing Single Limb- Right 3 Single Limb- Left 3 Tandem Tandem Standing 0 Cali Fall Scale Copyright Permission Viraj JM, Viraj RM, Ximena SJ. Development of a scale to identify the fall- prone patient. Can J Aging 1989;8;366-7. Vianca Cali (2009). Preventing patient falls. (2nd ed). [place]: [employer]. PT-OP-E Functional Tests Start: 11/29/18 16:16 Freq: Status: Active Protocol: Document 11/29/18 14:30 HH (Rec: 11/29/18 17:03 [email or web address]) Functional Tests 2 Minute Walk Test Distance 1272 Device Used SPC Comments SPC on L UE, L hip dopr during R LE stance phase Five Times Sit to Stand Test Score 12s Comments without UE PT-OP-G Mobility & Gait Start: 11/29/18 16:16 Freq: Status: Active Protocol: Document 11/29/18 14:30 HH (Rec: 11/29/18 17:03 [email or web address]) OP Gait Assessment Gait Gait Assistance Required: Independent Distance (Feet) 1,272 Able to Maintain Weight Bearing Status Yes During Gait Assistive Devices Assistive Device Straight Cane Gait Deviations General Gait Pattern Antalgic Decreased Stride Length Decreased Feet Clearance Factors Limiting Gait Function Factors Limiting Gait Function Decreased Activity Tolerance Decreased Strength Limited Range of Motion Pain Poor Balance Comments Gait Comments Moderate L hip drop during R LE stance phase. (+ve trendelenburg gait) Occasional foot slap during initial contact bilaterally. Stair Climbing Evaluation Evaluation Level of Assist On Stairs Independent Devices Stair Climbing Assistive Devices Left Railing Right Railing Technique/Endurance Stair Climbing Direction Ascend and Descend Stair Climbing Technique Step Over Step Step to Step PT-OP-H Neuro Start: 11/29/18 16:16 Freq: Status: Active Protocol: Document 11/29/18 14:30 HH (Rec: 11/29/18 17:03 [email or web address]) Sensation Evaluation Gross Sensation Gross Sensation Left LE Impaired Right LE Impaired Sensation Description Numbness Dermatome Impairments L4 L5 Deep Tendon Reflex & Clonus Assessment Deep Tendon Reflex Bilateral Achilles Deep Tendon Reflex 1+ Diminished Bilateral Patellar Deep Tendon Reflex 0 Absent PT-OP-J Posture/Palpation/Skin Start: 11/29/18 16:16 Freq: Status: Active Protocol: Document 11/29/18 14:30 HH (Rec: 11/29/18 17:03 [email or web address]) Posture Evaluation Position Standing Head/C-Spine Posture Forward Head T-Spine Posture Increased Kyphosis Knee Posture (L) Genu Varus (R) Genu Varus PT-OP-K Range of Motion Start: 11/29/18 16:16 Freq: Status: Active Protocol: Document 11/29/18 14:30 HH (Rec: 11/29/18 17:03 [email or web address]) Lumbar Spine Range of Motion Lumbar Spine Active Percentage Testing Position Standing Flexion 90 Extension 80 Comments pt able to touch ankle with B hands. PT-OP-L Special Tests Start: 11/29/18 16:16 Freq: Status: Active Protocol: Document 11/29/18 14:30 HH (Rec: 11/29/18 17:03 [email or web address]) Special Tests Lumbar Spine Special Tests facet syndrome test Test Results -ve Comments no c/o pain/ increase in symptoms PT-OP-M Strength Start: 11/29/18 16:16 Freq: Status: Active Protocol: Document 11/29/18 14:30 HH (Rec: 11/29/18 17:03 [email or web address]) Hip Strength Hip Manual Muscle Testing Right Flexion (L2) 4 Good Extension (S1) 3+ Fair+ Abduction 3+ Fair+ Adduction 4 Good Left Flexion (L2) 4+ Good+ Extension (S1) 4+ Good+ Abduction 4+ Good+ Adduction 4+ Good+ Knee Strength Knee Manual Muscle Testing Right Flexion (S2) 4+ Good+ Extension (L3) 4+ Good+ Left Flexion (S2) 4+ Good+ Extension (L3) 4+ Good+ Ankle/Foot Strength Ankle and Foot Manual Muscle Testing Right Dorsiflexion (L4) 4+ Good+ Plantarflexion (S1) 4+ Good+ Left Dorsiflexion (L4) 4+ Good+ Plantarflexion (S1) 4+ Good+ PT-OP-T Assessment and Plan Start: 11/29/18 16:16 Freq: Status: Active Protocol: Document 11/29/18 14:30 HH (Rec: 11/29/18 17:03 HH [email or web address]) Physical Therapy Assessment Rehab Potential Rehabilitation Potential Excellent Evaluation Complexity Number of Personal Factors/Comorbidities 3 or More Number of Body Systems Impaired 3 Clinical Presentation at Evaluation Stable Impairments Impairments Activity Tolerance Balance Functional Activities Functional Mobility Gait Pain Posture ROM Sensation Soft Tissue Mobility Strength Other Concerns Fall Risk moderate Barriers to Rehabilitation PMH includes L2-L5 laminectomy April, , Bladder cancer 2011, L unilateral compartment sx, minor stroke. Goals R hip stabilizers Impairment Pt presents L hip drop during amb Half-Way Goal (LTG) pt will increase overall B LE strength by 1MMT, especially R hip stabilizers in order to normalized his L hip drop pattern to increase gait stability. LTG Duration 12 weeks Stair negotiation Impairment Pt uses step to pattern and rails to climb stairs Half-Way Goal (LTG) Pt will be able to improve his single leg balance >5 s in order to climb stairs with step over pattern LTG Duration 12 weeks activity tolerance Impairment pt is unable to ed walking for more than a few blocks Log Brander Goal (LTG) Pt will be able to walk a mile a day without SPC in community to improve his quality of life. LTG Duration 12 weeks Assessment Summary Assessment Pt is a moderate complexity with primary c/o of decrease in balance, B LE strength, overall deconditioning, along with recent hospitalization for reverse R TSA and pneumothorax. Pt presents to clinic today with noticeable L hip drop and occasional B foot slap during gait analysis . His R hip abduction and extension are signficantly weaker than his L side. He also has difficult time balancing with eyes closed, single leg and narrow based of support during kaur balance test but he did score 47/56 with 6MWT for 1272 feet with SPC. Further balance assessment is needed such as FGA/ DGI to analyze his dynamic balance during gait and functional activities. Might also assess more pt's lumbar region and hip with specials test and mobility to rule out neurological impairments. Pt will benefit from skilled therapy to improve his functional mobility by B LE strengthening , dynamic balance training, gait training and postural anabaptism. Physical Therapy Plan Frequency and Duration Frequency of Treatment 1x/Week Duration of Treatment 12 Plan of Care Start Date 11/29/18 Plan of Care End Date 03/01/19 Therapeutic Interventions Therapeutic Interventions Aquatic Therapy Balance Training Gait Training Home Exercise Program Joint Mobilizations Manual Therapy Neuromuscular Re-education Patient/Caregiver Education Self-Care/Home Management Soft Tissue Mobilization Taping Therapeutic Activities Therapeutic Exercises Modalities Cold Pack/Ice Massage Electric Stimulation Hot Packs Infrared Therapy Ultrasound Next Visit Focus/Plan Next Note Type Treatment Note Next Visit Plan provide HEP Have pt to fill out balance assessment/ LEFS balance training with EC/ single leg stance R hip stabilizer strengthening trunk stability training.
--- NOTE | 2018-11-29 17:04 | PT.OPPOC ---
Current Diagnoses Other symptoms and signs involving the musculoskeletal system (11/29/18) Provider Visit Care Team Role Provider Type Tomi Camejo MD Attending Provider Physician Primary Care Provider Specialty: Family Practice Address: [address] [place] [address], [id number] Email: [email or web address] Plan Of Care PT-OP-T Assessment and Plan Start: 11/29/18 16:16 Freq: Status: Active Protocol: Document 11/29/18 14:30 HH (Rec: 11/29/18 17:03 HH [email or web address]) Physical Therapy Assessment Rehab Potential Rehabilitation Potential Excellent Evaluation Complexity Number of Personal Factors/Comorbidities 3 or More Number of Body Systems Impaired 3 Clinical Presentation at Evaluation Stable Impairments Impairments Activity Tolerance Balance Functional Activities Functional Mobility Gait Pain Posture ROM Sensation Soft Tissue Mobility Strength Other Concerns Fall Risk moderate Barriers to Rehabilitation PMH includes L2-L5 laminectomy April, , Bladder cancer 2011, L unilateral compartment sx, minor stroke. Goals R hip stabilizers Impairment Pt presents L hip drop during amb Correction Goal (LTG) pt will increase overall B LE strength by 1MMT, especially R hip stabilizers in order to normalized his L hip drop pattern to increase gait stability. LTG Duration 12 weeks Stair negotiation Impairment Pt uses step to pattern and rails to climb stairs Correction Goal (LTG) Pt will be able to improve his single leg balance >5 s in order to climb stairs with step over pattern LTG Duration 12 weeks activity tolerance Impairment pt is unable to ed walking for more than a few blocks Assisted Living Nursing Director Goal (LTG) Pt will be able to walk a mile a day without SPC in community to improve his quality of life. LTG Duration 12 weeks Assessment Summary Assessment Pt is a moderate complexity with primary c/o of decrease in balance, B LE strength, overall deconditioning, along with recent hospitalization for reverse R TSA and pneumothorax. Pt presents to clinic today with noticeable L hip drop and occasional B foot slap during gait analysis . His R hip abduction and extension are signficantly weaker than his L side. He also has difficult time balancing with eyes closed, single leg and narrow based of support during linares balance test but he did score 47/56 with 6MWT for 1272 feet with SPC. Further balance assessment is needed such as FGA/ DGI to analyze his dynamic balance during gait and functional activities. Might also assess more pt's lumbar region and hip with specials test and mobility to rule out neurological impairments. Pt will benefit from skilled therapy to improve his functional mobility by B LE strengthening , dynamic balance training, gait training and postural mormon. Physical Therapy Plan Frequency and Duration Frequency of Treatment 1x/Week Duration of Treatment 12 Plan of Care Start Date 11/29/18 Plan of Care End Date 03/01/19 Therapeutic Interventions Therapeutic Interventions Aquatic Therapy Balance Training Gait Training Home Exercise Program Joint Mobilizations Manual Therapy Neuromuscular Re-education Patient/Caregiver Education Self-Care/Home Management Soft Tissue Mobilization Taping Therapeutic Activities Therapeutic Exercises Modalities Cold Pack/Ice Massage Electric Stimulation Hot Packs Infrared Therapy Ultrasound Next Visit Focus/Plan Next Note Type Treatment Note Next Visit Plan provide HEP Have pt to fill out balance assessment/ LEFS balance training with EC/ single leg stance R hip stabilizer strengthening trunk stability training. Plan of Care Dates Plan of Care Start Date 11/29/18 Plan of Care End Date 03/01/19 Please Sign and Return: I have reviewed this Plan of Care and certify that the skilled therapy services above are required to meet the patient?s needs. Physician Signature Date Printed Name and Credentials Clinical Instructor Signature Printed Name and Credentials
--- NOTE | 2018-12-02 12:14 | PT.OTN ---
Current Diagnoses Other symptoms and signs involving the musculoskeletal system (12/02/18) Physical Therapy Treatment Note PT-OP-A Visit Information Start: 11/29/18 16:16 Freq: Status: Active Protocol: Document 12/02/18 12:14 DLM (Rec: 12/02/18 12:31 DLM [id number]) Out-Patient Physical Therapy Visit Information Visit Information Visit Type Treatment Note Visit Start Time 11:25 Visit Stop Time 12:05 Total Visit Minutes 40 Visit Number 2 Number of CASUALTY INSURANCE CLAIM ADJUSTER Visits 0 Evaluation Information Evaluation Date 11/29/18 Precautions Precautions fall risk bruise easily right total shoulder about 3 months ago PT-OP-B Current Condition Start: 11/29/18 16:16 Freq: Status: Active Protocol: Document 11/29/18 14:30 HH (Rec: 11/29/18 17:03 HH [email or web address]) Current Condition History of Current Condition Onset Date 3 months ago Current Complaints decreased balance, impaired gait and activity tolerance History of Current Condition Pt presents to clinic by using SPC for mobility. Pt c/o new onset of B LE weakness mostly at gluteal muscles, hamstring and occasional numbness sensation at top of B feet since 3 months ago. Pt states symptoms started after a reverse R TSA followed by a post op complication with pneumothorax at (09/29/18 ). He c/o his strength and endurance has been decreased significantly since then. He is only able to tolerate walking for couple blocks with SPC, and using step to pattern for stair negotiation with rails. He often felt unsteady with gait lately that he tends to trip on uneven surface. Pt had multiple falls in the yard over the past half year. Pt recently had an x-ray with Dr. 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 Camejo on . PMH includes L2-L5 laminectomy, Bladder cancer, L unilateral compartment sx, minor stroke. Prior Treatments and Tests Pt recently had an x-ray with Dr. 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 Camejo on . PMH includes L2- L5 laminectomy April, , Bladder cancer 2011, L unilateral compartment sx, minor stroke. Treatment Goals Patient/Caregiver Goals 1. To be able to walk a mile without using a SPC 2. Use step over pattern to climb stair 3. Able to walk on uneven surface safely Prior Functional Status Baseline Function- ADL's Independent Baseline Function- Mobility Independent Baseline Function- Gait without AD Baseline Function- Other step over pattern to climb stair Current Functional Impairments (Reported) Functional Limitations- Mobility/Gait step to pattern to climb stair use SPC for community mobility increased time for turns unable to ed walking more than couple blocks Personal Factors Other Personal Factors That May Effect PMH includes L2-L5 laminectomy Therapy/Recovery April, , Bladder cancer 2011, L unilateral compartment sx, minor stroke. PT-OP-C Subjective Start: 11/29/18 16:16 Freq: Status: Active Protocol: Document 12/02/18 12:14 DLM (Rec: 12/02/18 12:31 DLM [id number]) OP-PT Subjective Patient Comments Patient Comments He was not too tired after eval. His right hip is sore today. PT-OP-D Balance Start: 11/29/18 16:16 Freq: Status: Active Protocol: Document 11/29/18 14:30 HH (Rec: 11/29/18 17:03 HH [email or web address]) OP-PT Balance Assessment Sitting Balance Static Sitting Balance Ability Normal Dynamic Sitting Balance Ability Normal Standing Balance Static Standing Balance Ability Normal Dynamic Standing Balance Ability Normal Balance Tests Kaur Balance Test Kaur Balance Test Score 47 Kaur Impairment Rating 1 to 19% Impaired (Score 45-55 ) Single Limb Standing Single Limb- Right 3 Single Limb- Left 3 Tandem Tandem Standing 0 Cali Fall Scale Copyright Permission Viraj LEE, Viraj RM, Ximena SJ. Development of a scale to identify the fall- prone patient. Can J Aging 1989;8;366-7. Vianca Cali (2009). Preventing patient falls. (2nd ed). [place]: [employer]. PT-OP-E Functional Tests Start: 11/29/18 16:16 Freq: Status: Active Protocol: Document 11/29/18 14:30 HH (Rec: 11/29/18 17:03 HH [email or web address]) Functional Tests 2 Minute Walk Test Distance 1272 Device Used SPC Comments SPC on L UE, L hip dopr during R LE stance phase Five Times Sit to Stand Test Score 12s Comments without UE PT-OP-G Mobility & Gait Start: 11/29/18 16:16 Freq: Status: Active Protocol: Document 11/29/18 14:30 HH (Rec: 11/29/18 17:03 [email or web address]) OP Gait Assessment Gait Gait Assistance Required: Independent Distance (Feet) 1,272 Able to Maintain Weight Bearing Status Yes During Gait Assistive Devices Assistive Device Straight Cane Gait Deviations General Gait Pattern Antalgic Decreased Stride Length Decreased Feet Clearance Factors Limiting Gait Function Factors Limiting Gait Function Decreased Activity Tolerance Decreased Strength Limited Range of Motion Pain Poor Balance Comments Gait Comments Moderate L hip drop during R LE stance phase. (+ve trendelenburg gait) Occasional foot slap during initial contact bilaterally. Stair Climbing Evaluation Evaluation Level of Assist On Stairs Independent Devices Stair Climbing Assistive Devices Left Railing Right Railing Technique/Endurance Stair Climbing Direction Ascend and Descend Stair Climbing Technique Step Over Step Step to Step PT-OP-H Neuro Start: 11/29/18 16:16 Freq: Status: Active Protocol: Document 11/29/18 14:30 HH (Rec: 11/29/18 17:03 [email or web address]) Sensation Evaluation Gross Sensation Gross Sensation Left LE Impaired Right LE Impaired Sensation Description Numbness Dermatome Impairments L4 L5 Deep Tendon Reflex & Clonus Assessment Deep Tendon Reflex Bilateral Achilles Deep Tendon Reflex 1+ Diminished Bilateral Patellar Deep Tendon Reflex 0 Absent PT-OP-J Posture/Palpation/Skin Start: 11/29/18 16:16 Freq: Status: Active Protocol: Document 11/29/18 14:30 HH (Rec: 11/29/18 17:03 [email or web address]) Posture Evaluation Position Standing Head/C-Spine Posture Forward Head T-Spine Posture Increased Kyphosis Knee Posture (L) Genu Varus (R) Genu Varus PT-OP-K Range of Motion Start: 11/29/18 16:16 Freq: Status: Active Protocol: Document 11/29/18 14:30 HH (Rec: 11/29/18 17:03 [email or web address]) Lumbar Spine Range of Motion Lumbar Spine Active Percentage Testing Position Standing Flexion 90 Extension 80 Comments pt able to touch ankle with B hands. PT-OP-L Special Tests Start: 11/29/18 16:16 Freq: Status: Active Protocol: Document 11/29/18 14:30 HH (Rec: 11/29/18 17:03 [email or web address]) Special Tests Lumbar Spine Special Tests facet syndrome test Test Results -ve Comments no c/o pain/ increase in symptoms PT-OP-M Strength Start: 11/29/18 16:16 Freq: Status: Active Protocol: Document 11/29/18 14:30 HH (Rec: 11/29/18 17:03 HH [email or web address]) Hip Strength Hip Manual Muscle Testing Right Flexion (L2) 4 Good Extension (S1) 3+ Fair+ Abduction 3+ Fair+ Adduction 4 Good Left Flexion (L2) 4+ Good+ Extension (S1) 4+ Good+ Abduction 4+ Good+ Adduction 4+ Good+ Knee Strength Knee Manual Muscle Testing Right Flexion (S2) 4+ Good+ Extension (L3) 4+ Good+ Left Flexion (S2) 4+ Good+ Extension (L3) 4+ Good+ Ankle/Foot Strength Ankle and Foot Manual Muscle Testing Right Dorsiflexion (L4) 4+ Good+ Plantarflexion (S1) 4+ Good+ Left Dorsiflexion (L4) 4+ Good+ Plantarflexion (S1) 4+ Good+ PT-OP-Q Treatments Start: 11/29/18 16:16 Freq: Status: Active Protocol: Document 12/02/18 12:14 DLM (Rec: 12/02/18 12:31 DLM [id number]) Cardio Equipment Recumbent Stepper (Sci-Fit) Duration (Minutes) 7 Resistance Level 1 Seat Position 14 Other precautions used for right shoulder due to recent total shoulder Therapeutic Exercises Sitting Exercises 2 Sitting Exercise Name Dorsiflexion Side bilateral Equipment Used Level 3 theraband Reps/Minutes x 20 reps each 1 Sitting Exercise Name hip abduction Side bilateral Equipment Used Level 3 theraband Reps/Minutes 20 reps each Standing Exercises 4 Standing Exercise Name Heel raises and Toe raises Side bilateral Equipment Used standing in parallel bars Reps/Minutes x 10 each Comments very difficult for him to lift feet up in standing 3 Standing Exercise Name Hip extension Side bilateral Equipment Used standing in parallel bars Reps/Minutes x 10 reps each 2 Standing Exercise Name Hip abduction Side bilateral Equipment Used standing in parallel bars Reps/Minutes x 10 reps each Comments one LE at a time 1 Standing Exercise Name Hip flexion/marching Side bilateral Equipment Used standing in parallel bars Reps/Minutes x 10 reps each Comments one LE at a time Neuro Re-Education Treatment Balance Activities 3 Details Standing on foam pad Surface bolton foam pad Equipment performed in parallel bars Reps/Duration x 3 reps Comments eyes open 2 Details Standing in tandem Surface firm Equipment performed in parallel bars Reps/Duration x 3 reps bilaterally Comments losse of balance 1 Details Standing in narrow base of support Surface firm Equipment performed in parallel bars Reps/Duration x 3 reps each Comments eyes open and eyes closed Self-Care/Home Management Treatment Education Patient Education Home Exercise Program Caregiver Education do standing exercises as HEP PT-OP-T Assessment and Plan Start: 11/29/18 16:16 Freq: Status: Active Protocol: Document 12/02/18 12:14 DLM (Rec: 12/02/18 12:31 DLM [id number]) Physical Therapy Assessment Goals R hip stabilizers Impairment Pt presents L hip drop during amb Mill Operator Helper Goal (LTG) pt will increase overall B LE strength by 1MMT, especially R hip stabilizers in order to normalized his L hip drop pattern to increase gait stability. LTG Duration 12 weeks Stair negotiation Impairment Pt uses step to pattern and rails to climb stairs Mill Operator Helper Goal (LTG) Pt will be able to improve his single leg balance >5 s in order to climb stairs with step over pattern LTG Duration 12 weeks activity tolerance Impairment pt is unable to ed walking for more than a few blocks [facility] Goal (LTG) Pt will be able to walk a mile a day without SPC in community to improve his quality of life. LTG Duration 12 weeks Progress Towards Goals Progress Towards Goals Progressing Toward Goals Assessment Summary Assessment He tolerated this treatment session well with mild fatigue at the end. He reports no increase in his right hip pain with treatment. Precautions taken during this visit to avoid over-stressing right shoulder due to recent TSA. He reports feeling a little more steady on his feet at end of treatment session. Functional ankle weakness noted throughout balance exercises. Physical Therapy Plan Frequency and Duration Frequency of Treatment 1x/Week Duration of Treatment 12 Plan of Care Start Date 11/29/18 Plan of Care End Date 03/01/19 Therapeutic Interventions Therapeutic Interventions Aquatic Therapy Balance Training Gait Training Home Exercise Program Joint Mobilizations Manual Therapy Neuromuscular Re-education Patient/Caregiver Education Self-Care/Home Management Soft Tissue Mobilization Taping Therapeutic Activities Therapeutic Exercises Modalities Cold Pack/Ice Massage Electric Stimulation Hot Packs Infrared Therapy Ultrasound Next Visit Focus/Plan Next Note Type Treatment Note Next Visit Plan Have pt to fill out balance assessment/ LEFS. Progress strengthening exercises with caution for right hip pain.
--- NOTE | 2018-12-17 15:55 | PT.OTN ---
Current Diagnoses Other symptoms and signs involving the musculoskeletal system (12/17/18) Physical Therapy Treatment Note PT-OP-A Visit Information Start: 11/29/18 16:16 Freq: Status: Active Protocol: Document 12/17/18 08:15 LRN (Rec: 12/17/18 09:05 LRN [id number]) Out-Patient Physical Therapy Visit Information Visit Information Visit Type Treatment Note Visit Start Time 08:15 Visit Stop Time 09:04 Total Visit Minutes 49 Visit Number 3 Number of PORT PURSER Visits 0 Evaluation Information Evaluation Date 11/29/18 Precautions Precautions fall risk bruise easily right total shoulder about 3 months ago PT-OP-B Current Condition Start: 11/29/18 16:16 Freq: Status: Active Protocol: Document 11/29/18 14:30 HH (Rec: 11/29/18 17:03 HH [email or web address]) Current Condition History of Current Condition Onset Date 3 months ago Current Complaints decreased balance, impaired gait and activity tolerance History of Current Condition Pt presents to clinic by using SPC for mobility. Pt c/o new onset of B LE weakness mostly at gluteal muscles, hamstring and occasional numbness sensation at top of B feet since 3 months ago. Pt states symptoms started after a reverse R TSA followed by a post op complication with pneumothorax at (09/29/18 ). He c/o his strength and endurance has been decreased significantly since then. He is only able to tolerate walking for couple blocks with SPC, and using step to pattern for stair negotiation with rails. He often felt unsteady with gait lately that he tends to trip on uneven surface. Pt had multiple falls in the yard over the past half year. Pt recently had an x-ray with Dr. 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 Camejo on . PMH includes L2-L5 laminectomy, Bladder cancer, L unilateral compartment sx, minor stroke. Prior Treatments and Tests Pt recently had an x-ray with Dr. 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 Camejo on . PMH includes L2- L5 laminectomy April, , Bladder cancer 2011, L unilateral compartment sx, minor stroke. Treatment Goals Patient/Caregiver Goals 1. To be able to walk a mile without using a SPC 2. Use step over pattern to climb stair 3. Able to walk on uneven surface safely Prior Functional Status Baseline Function- ADL's Independent Baseline Function- Mobility Independent Baseline Function- Gait without AD Baseline Function- Other step over pattern to climb stair Current Functional Impairments (Reported) Functional Limitations- Mobility/Gait step to pattern to climb stair use SPC for community mobility increased time for turns unable to ed walking more than couple blocks Personal Factors Other Personal Factors That May Effect PMH includes L2-L5 laminectomy Therapy/Recovery April, , Bladder cancer 2011, L unilateral compartment sx, minor stroke. PT-OP-C Subjective Start: 11/29/18 16:16 Freq: Status: Active Protocol: Document 12/17/18 08:15 LRN (Rec: 12/17/18 09:05 LRN [id number]) OP-PT Subjective Patient Comments Patient Comments States he has numbness in legs and butt. Discussed extensive medical history. Patient Reported Progress Same PT-OP-D Balance Start: 11/29/18 16:16 Freq: Status: Active Protocol: Document 11/29/18 14:30 HH (Rec: 11/29/18 17:03 HH [email or web address]) OP-PT Balance Assessment Sitting Balance Static Sitting Balance Ability Normal Dynamic Sitting Balance Ability Normal Standing Balance Static Standing Balance Ability Normal Dynamic Standing Balance Ability Normal Balance Tests Kaur Balance Test Kaur Balance Test Score 47 Kaur Impairment Rating 1 to 19% Impaired (Score 45-55 ) Single Limb Standing Single Limb- Right 3 Single Limb- Left 3 Tandem Tandem Standing 0 Cali Fall Scale Copyright Permission Viraj LEE, Viraj RM, Ximena SJ. Development of a scale to identify the fall- prone patient. Can J Aging 1989;8;366-7. Vianca Cali (2009). Preventing patient falls. (2nd ed). [place]: [employer]ribe. PT-OP-E Functional Tests Start: 11/29/18 16:16 Freq: Status: Active Protocol: Document 11/29/18 14:30 HH (Rec: 11/29/18 17:03 HH [email or web address]) Functional Tests 2 Minute Walk Test Distance 1272 Device Used SPC Comments SPC on L UE, L hip dopr during R LE stance phase Five Times Sit to Stand Test Score 12s Comments without UE PT-OP-F Manual Assessment Start: 11/29/18 16:16 Freq: Status: Active Protocol: Document 12/17/18 08:15 LRN (Rec: 12/17/18 09:05 LRN [id number]) Manual Assessments Soft Tissue Assessment Soft Tissue Mobility Assessment TrP R LB triggerpoints PT-OP-G Mobility & Gait Start: 11/29/18 16:16 Freq: Status: Active Protocol: Document 11/29/18 14:30 HH (Rec: 11/29/18 17:03 HH [email or web address]) OP Gait Assessment Gait Gait Assistance Required: Independent Distance (Feet) 1,272 Able to Maintain Weight Bearing Status Yes During Gait Assistive Devices Assistive Device Straight Cane Gait Deviations General Gait Pattern Antalgic Decreased Stride Length Decreased Feet Clearance Factors Limiting Gait Function Factors Limiting Gait Function Decreased Activity Tolerance Decreased Strength Limited Range of Motion Pain Poor Balance Comments Gait Comments Moderate L hip drop during R LE stance phase. (+ve trendelenburg gait) Occasional foot slap during initial contact bilaterally. Stair Climbing Evaluation Evaluation Level of Assist On Stairs Independent Devices Stair Climbing Assistive Devices Left Railing Right Railing Technique/Endurance Stair Climbing Direction Ascend and Descend Stair Climbing Technique Step Over Step Step to Step PT-OP-H Neuro Start: 11/29/18 16:16 Freq: Status: Active Protocol: Document 11/29/18 14:30 HH (Rec: 11/29/18 17:03 [email or web address]) Sensation Evaluation Gross Sensation Gross Sensation Left LE Impaired Right LE Impaired Sensation Description Numbness Dermatome Impairments L4 L5 Deep Tendon Reflex & Clonus Assessment Deep Tendon Reflex Bilateral Achilles Deep Tendon Reflex 1+ Diminished Bilateral Patellar Deep Tendon Reflex 0 Absent PT-OP-J Posture/Palpation/Skin Start: 11/29/18 16:16 Freq: Status: Active Protocol: Document 11/29/18 14:30 HH (Rec: 11/29/18 17:03 [email or web address]) Posture Evaluation Position Standing Head/C-Spine Posture Forward Head T-Spine Posture Increased Kyphosis Knee Posture (L) Genu Varus (R) Genu Varus PT-OP-K Range of Motion Start: 11/29/18 16:16 Freq: Status: Active Protocol: Document 11/29/18 14:30 HH (Rec: 11/29/18 17:03 HH [email or web address]) Lumbar Spine Range of Motion Lumbar Spine Active Percentage Testing Position Standing Flexion 90 Extension 80 Comments pt able to touch ankle with B hands. PT-OP-L Special Tests Start: 11/29/18 16:16 Freq: Status: Active Protocol: Document 11/29/18 14:30 HH (Rec: 11/29/18 17:03 HH [email or web address]) Special Tests Lumbar Spine Special Tests facet syndrome test Test Results -ve Comments no c/o pain/ increase in symptoms PT-OP-M Strength Start: 11/29/18 16:16 Freq: Status: Active Protocol: Document 11/29/18 14:30 HH (Rec: 11/29/18 17:03 HH [email or web address]) Hip Strength Hip Manual Muscle Testing Right Flexion (L2) 4 Good Extension (S1) 3+ Fair+ Abduction 3+ Fair+ Adduction 4 Good Left Flexion (L2) 4+ Good+ Extension (S1) 4+ Good+ Abduction 4+ Good+ Adduction 4+ Good+ Knee Strength Knee Manual Muscle Testing Right Flexion (S2) 4+ Good+ Extension (L3) 4+ Good+ Left Flexion (S2) 4+ Good+ Extension (L3) 4+ Good+ Ankle/Foot Strength Ankle and Foot Manual Muscle Testing Right Dorsiflexion (L4) 4+ Good+ Plantarflexion (S1) 4+ Good+ Left Dorsiflexion (L4) 4+ Good+ Plantarflexion (S1) 4+ Good+ PT-OP-Q Treatments Start: 11/29/18 16:16 Freq: Status: Active Protocol: Document 12/17/18 08:15 LRN (Rec: 12/17/18 15:40 LRN [id number]) Therapeutic Exercises Prone Exercises Anterior pelvic tilt Prone Exercise Name QL and lumbar ext Side bilateral Reps/Minutes 3' Comments Prone with pillows under hips. Training needed, physical cuing. Sitting Exercises Anterior pelvic tilts Sitting Exercise Name Anterior Pelvic tilt holding Side bilateral Reps/Minutes 3' Comments Some training needed, physical cuing. Standing Exercises Postural training Standing Exercise Name Posture training Reps/Minutes 2' Comments physical and v. cuing needed. Manual Therapy Treatment Soft Tissue Mobilization Lumbar Body Location L3 - L5 Transverse process Mobilization Type Trigger Point Release Intensity/Depth Moderate Body Position Prone Comments Prone 2 pillows under hips. Joint Mobilizations Lumbar Joint L3-L5 Direction PA Grade II Body Position R sidelye Reps/Duration 3' x 2 Comments Performed throughout therapy in R sidelie & Prone with 2 pillows under hips. Manual Traction Lumbar Details Post E-Stim Body Position Supine Reps/Duration 3' Comments + response with decrease in back and hip pain from 8/10 to 2/10. Self-Care/Home Management Treatment Education Patient Education Posture Other Education Educated pt in posturing of spinal anatomy. Activities Self-Care/Home Management Activities Training of pt for positioning in bed at night for least amount of hip/low back flexion as tolerated. Pt is to attempt to move towards neutral spine positioning in sidelie before sleeping and in sitting. PT-OP-R Modalities Start: 11/29/18 16:16 Freq: Status: Active Protocol: Document 12/17/18 08:15 LRN (Rec: 12/17/18 09:05 LRN [id number]) Electric Stimulation Electric Stimulation Lumbosacral region Body Location (L3-S2) Duration (Minutes) 5 Intensity 19 Target/Sweep Sweep Patient Position Hooklying Combined With Heat/Cold Hot Pack PT-OP-T Assessment and Plan Start: 11/29/18 16:16 Freq: Status: Active Protocol: Document 12/17/18 08:15 LRN (Rec: 12/17/18 09:05 LRN [id number]) Physical Therapy Assessment Assessment Summary Assessment Pt presents with very poor posturing and what looks like retrolesthesis of L3, L4, L5 on S1. Pt low back is in R rotation with active trigger points on the right ~L3-L5 level. Per position review of his sleeping at night he is in excessive position, exacerbating his lumbar flexion and limiting tolerance to lumbar ext into neutral. He showed + response to manual lumbar traction after tolerating only 5 min on IFES/ MHP in supine. Manual lumbar traction at end of therapy lessened low back and bilateral hip pain from 8/10 to 2/10; therefore good pain reduction with therapy from manual lumbar traction after IFES. Avoid over-stressing right shoulder due to recent R TSA. Functional ankle weakness noted throughout balance exercises. Physical Therapy Plan Frequency and Duration Frequency of Treatment 1x/Week Duration of Treatment 12 Plan of Care Start Date 11/29/18 Plan of Care End Date 03/01/19 Therapeutic Interventions Therapeutic Interventions Aquatic Therapy Balance Training Gait Training Home Exercise Program Joint Mobilizations Manual Therapy Neuromuscular Re-education Patient/Caregiver Education Self-Care/Home Management Soft Tissue Mobilization Taping Therapeutic Activities Therapeutic Exercises Modalities Cold Pack/Ice Massage Electric Stimulation Hot Packs Infrared Therapy Ultrasound Next Visit Focus/Plan Next Note Type Treatment Note Next Visit Plan Have pt to fill out balance assessment/ LEFS. Improve posture, manual therapy for improving lumbar ext to more neutral positioning. Progress strengthening exercises for lumbar ext and core strengthening, with caution for right hip pain and R TSA.
--- NOTE | 2018-12-24 12:18 | PT.OTN ---
Current Diagnoses Other symptoms and signs involving the musculoskeletal system (12/24/18) Physical Therapy Treatment Note PT-OP-A Visit Information Start: 11/29/18 16:16 Freq: Status: Active Protocol: Document 12/24/18 08:18 LRN (Rec: 12/24/18 09:05 LRN [id number]) Out-Patient Physical Therapy Visit Information Visit Information Visit Type Treatment Note Visit Start Time 08:18 Visit Stop Time 09:01 Total Visit Minutes 43 Visit Number 4 Number of SANDING MACHINE OPERATOR OR TENDER Visits 0 Evaluation Information Evaluation Date 11/29/18 Precautions Precautions fall risk bruise easily right total shoulder about 3 months ago PT-OP-B Current Condition Start: 11/29/18 16:16 Freq: Status: Active Protocol: Document 11/29/18 14:30 HH (Rec: 11/29/18 17:03 HH [email or web address]) Current Condition History of Current Condition Onset Date 3 months ago Current Complaints decreased balance, impaired gait and activity tolerance History of Current Condition Pt presents to clinic by using SPC for mobility. Pt c/o new onset of B LE weakness mostly at gluteal muscles, hamstring and occasional numbness sensation at top of B feet since 3 months ago. Pt states symptoms started after a reverse R TSA followed by a post op complication with pneumothorax at (09/29/18 ). He c/o his strength and endurance has been decreased significantly since then. He is only able to tolerate walking for couple blocks with SPC, and using step to pattern for stair negotiation with rails. He often felt unsteady with gait lately that he tends to trip on uneven surface. Pt had multiple falls in the yard over the past half year. Pt recently had an x-ray with Dr. 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 Camejo on . PMH includes L2-L5 laminectomy, Bladder cancer, L unilateral compartment sx, minor stroke. Prior Treatments and Tests Pt recently had an x-ray with Dr. 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 Camejo on . PMH includes L2- L5 laminectomy April, , Bladder cancer 2011, L unilateral compartment sx, minor stroke. Treatment Goals Patient/Caregiver Goals 1. To be able to walk a mile without using a SPC 2. Use step over pattern to climb stair 3. Able to walk on uneven surface safely Prior Functional Status Baseline Function- ADL's Independent Baseline Function- Mobility Independent Baseline Function- Gait without AD Baseline Function- Other step over pattern to climb stair Current Functional Impairments (Reported) Functional Limitations- Mobility/Gait step to pattern to climb stair use SPC for community mobility increased time for turns unable to ed walking more than couple blocks Personal Factors Other Personal Factors That May Effect PMH includes L2-L5 laminectomy Therapy/Recovery April, , Bladder cancer 2011, L unilateral compartment sx, minor stroke. PT-OP-C Subjective Start: 11/29/18 16:16 Freq: Status: Active Protocol: Document 12/24/18 08:18 LRN (Rec: 12/24/18 09:05 LRN [id number]) OP-PT Subjective Patient Comments Patient Comments States he is a little better since last treatment. His pain in the R hip/LB is a little less and he slept a little better and has been trying to straighten out his legs and back. Able to sleep on the left side more because of less pain. Notes he has tingling and when he gets down on the R knee to urinate he feels tingling in the R buttock until he stands up. OP-PT Pain Assessment Location Low back Pain Location Details R low back at L3-L5 level Intensity 4 Scale Used Verbal report Description Throbbing Frequency Constant Radiating Location R Hip Bilateral Hip Pain Location Details Primarily right, occasionally left Intensity 4 Scale Used Verbal numeric scale Description Throbbing Frequency Constant on the Right, Intermittent Left Pain Aggravating Factors Activity Exercise Walking Bending Lifting Pain Alleviating Factors Inactivity PT-OP-D Balance Start: 11/29/18 16:16 Freq: Status: Active Protocol: Document 11/29/18 14:30 HH (Rec: 11/29/18 17:03 HH [email or web address]) OP-PT Balance Assessment Sitting Balance Static Sitting Balance Ability Normal Dynamic Sitting Balance Ability Normal Standing Balance Static Standing Balance Ability Normal Dynamic Standing Balance Ability Normal Balance Tests Kaur Balance Test Kaur Balance Test Score 47 Kaur Impairment Rating 1 to 19% Impaired (Score 45-55 ) Single Limb Standing Single Limb- Right 3 Single Limb- Left 3 Tandem Tandem Standing 0 Cali Fall Scale Copyright Permission Viraj LEE, Viraj RM, Ximena SJ. Development of a scale to identify the fall- prone patient. Can J Aging 1989;8;366-7. Vianca Cali (2009). Preventing patient falls. (2nd ed). [place]: [place]. PT-OP-E Functional Tests Start: 11/29/18 16:16 Freq: Status: Active Protocol: Document 11/29/18 14:30 HH (Rec: 11/29/18 17:03 HH [email or web address]) Functional Tests 2 Minute Walk Test Distance 1272 Device Used SPC Comments SPC on L UE, L hip dopr during R LE stance phase Five Times Sit to Stand Test Score 12s Comments without UE PT-OP-F Manual Assessment Start: 11/29/18 16:16 Freq: Status: Active Protocol: Document 12/17/18 08:15 LRN (Rec: 12/17/18 09:05 LRN [id number]) Manual Assessments Soft Tissue Assessment Soft Tissue Mobility Assessment TrP R LB triggerpoints PT-OP-G Mobility & Gait Start: 11/29/18 16:16 Freq: Status: Active Protocol: Document 11/29/18 14:30 HH (Rec: 11/29/18 17:03 HH [email or web address]) OP Gait Assessment Gait Gait Assistance Required: Independent Distance (Feet) 1,272 Able to Maintain Weight Bearing Status Yes During Gait Assistive Devices Assistive Device Straight Cane Gait Deviations General Gait Pattern Antalgic Decreased Stride Length Decreased Feet Clearance Factors Limiting Gait Function Factors Limiting Gait Function Decreased Activity Tolerance Decreased Strength Limited Range of Motion Pain Poor Balance Comments Gait Comments Moderate L hip drop during R LE stance phase. (+ve trendelenburg gait) Occasional foot slap during initial contact bilaterally. Stair Climbing Evaluation Evaluation Level of Assist On Stairs Independent Devices Stair Climbing Assistive Devices Left Railing Right Railing Technique/Endurance Stair Climbing Direction Ascend and Descend Stair Climbing Technique Step Over Step Step to Step PT-OP-H Neuro Start: 11/29/18 16:16 Freq: Status: Active Protocol: Document 11/29/18 14:30 HH (Rec: 11/29/18 17:03 HH [email or web address]) Sensation Evaluation Gross Sensation Gross Sensation Left LE Impaired Right LE Impaired Sensation Description Numbness Dermatome Impairments L4 L5 Deep Tendon Reflex & Clonus Assessment Deep Tendon Reflex Bilateral Achilles Deep Tendon Reflex 1+ Diminished Bilateral Patellar Deep Tendon Reflex 0 Absent PT-OP-J Posture/Palpation/Skin Start: 11/29/18 16:16 Freq: Status: Active Protocol: Document 12/24/18 08:18 LRN (Rec: 12/24/18 11:36 LRN [id number]) Posture Evaluation Position Standing Head/C-Spine Posture Forward Head T-Spine Posture Increased Kyphosis Knee Posture (L) Genu Varus (R) Genu Varus Comments Posture Comments Trunk is held in R rotation and mild forward bend. Reverse curvature of L2 -L5 Hip's Flexed 7 deg's Knee's flexed 10 deg's Palpation Assessment Location Low Back Palpation Location R Low back Palpation Findings Tenderness Palpation Details Active trigger points of the right low back ~L3-L5 level PT-OP-K Range of Motion Start: 11/29/18 16:16 Freq: Status: Active Protocol: Document 12/24/18 08:18 LRN (Rec: 12/24/18 11:32 LRN [id number]) Lumbar Spine Range of Motion Lumbar Spine Active Degrees Testing Position Standing Flexion 5 Extension 0 Lateral Flexion Left 10 Lateral Flexion Right 7 Comments Flex: 100 deg's with 95 deg's hip flexion = 5 deg's lumbar flexion Ext: 10 deg's with 10 deg's hip ext = 0 deg's lumbar extension PT-OP-L Special Tests Start: 11/29/18 16:16 Freq: Status: Active Protocol: Document 11/29/18 14:30 HH (Rec: 11/29/18 17:03 HH [email or web address]) Special Tests Lumbar Spine Special Tests facet syndrome test Test Results -ve Comments no c/o pain/ increase in symptoms PT-OP-M Strength Start: 11/29/18 16:16 Freq: Status: Active Protocol: Document 12/24/18 08:18 LRN (Rec: 12/24/18 11:40 LRN [id number]) Knee Strength Knee Manual Muscle Testing Right Flexion (S2) 4 Good Extension (L3) 5 Normal Left Flexion (S2) 4 Good Extension (L3) 5 Normal Ankle/Foot Strength Ankle and Foot Manual Muscle Testing Right Dorsiflexion (L4) 3 Fair Plantarflexion (S1) 4+ Good+ Left Dorsiflexion (L4) 3 Fair Plantarflexion (S1) 4+ Good+ PT-OP-Q Treatments Start: 11/29/18 16:16 Freq: Status: Active Protocol: Document 12/24/18 08:18 LRN (Rec: 12/24/18 09:05 LRN [id number]) Cardio Equipment Recumbent Bicycle Duration (Minutes) 8 Resistance 4 Seat Position 9 Other Cycle by pulling back on pedal , not pushing Gym Equipment Cable Column (Body Solid) Hip Abduction Details Hip AB, ECC work, arch in back Resistance 20# Reps/Time 10x3 Leg Curl Details ECC work > conc work Resistance 30#, 35#, 40# Reps/Time 10x each Therapeutic Exercises Supine Exercises PSLR Supine Exercise Name PSLR Side bilateral Reps/Minutes 1' Comments Neg PSLR, PSLR 85-90 deg's bilaterally without pain Sidelying Exercises Clamshell Sidelying Exercise Name Clamshell Side right Reps/Minutes 3' Sitting Exercises 2 Sitting Exercise Name Dorsiflexion Side bilateral Comments Instructions in use of belt to lift foot for ECC strengthening Standing Exercises Lumbar AROM Standing Exercise Name Flex, Ext, SB Comments ROM taken Knee flex Standing Exercise Name Knee flexion Side bilateral Equipment Used Hands on wall 3 Standing Exercise Name Hip extension Side bilateral Equipment Used Hands on wall Self-Care/Home Management Treatment Education Patient Education Home Exercise Program Activities Self-Care/Home Management Activities I/S pt in standing active knee flex and hip ext - alternating legs every 10 reps ; and sitting ankle DF for ECC strengthening. PT-OP-R Modalities Start: 11/29/18 16:16 Freq: Status: Active Protocol: Document 12/17/18 08:15 LRN (Rec: 12/17/18 09:05 LRN [id number]) Electric Stimulation Electric Stimulation Lumbosacral region Body Location (L3-S2) Duration (Minutes) 5 Intensity 19 Target/Sweep Sweep Patient Position Hooklying Combined With Heat/Cold Hot Pack PT-OP-T Assessment and Plan Start: 11/29/18 16:16 Freq: Status: Active Protocol: Document 12/24/18 08:18 LRN (Rec: 12/24/18 09:05 LRN [id number]) Physical Therapy Assessment Rehab Potential Rehabilitation Potential Excellent Evaluation Complexity Number of Personal Factors/Comorbidities 3 or More Number of Body Systems Impaired 3 Clinical Presentation at Evaluation Stable Impairments Impairments Activity Tolerance Balance Functional Activities Functional Mobility Gait Pain Posture ROM Sensation Soft Tissue Mobility Strength Other Concerns Fall Risk moderate Barriers to Rehabilitation PMH includes L2-L5 laminectomy April, , Bladder cancer 2011, L unilateral compartment sx, minor stroke. Goals Pain Impairment R hip and low back pain limiting ability to walk and sleep at nights Skilled Nursing Goal (LTG) Decrease pain no greater than 2/10 with improved function per LEFS score > 43/80. LTG Duration 03/01/19 R hip stabilizers Impairment Pt presents L hip drop during amb Poultry Processing Supervisor Goal (LTG) pt will increase overall B LE strength by 1MMT, especially R hip stabilizers in order to normalized his L hip drop pattern to increase gait stability. LTG Duration 03/01/19 Stair negotiation Impairment Pt uses step to pattern and rails to climb stairs Poultry Processing Supervisor Goal (LTG) Pt will be able to improve his single leg balance >5 s in order to climb stairs with step over pattern LTG Duration 03/01/19 activity tolerance Impairment pt is unable to ed walking for more than a few blocks Poultry Processing Supervisor Goal (LTG) Pt will be able to walk a mile a day without SPC in community to improve his quality of life. LTG Duration 03/01/19 Progress Towards Goals Progress Towards Goals Slow Progress due to Activity Tolerance Progress Comments Pt progress has been slow due to limited tolerance to exercise due to R low back and hip pain. Assessment Summary Assessment Pt attends to therapy with complaints of limited activity due to R low back and hip pain, making exercising and walking difficult. The pt's posture has improved some, but is still in a forward bent posturing that is exacerbating his low back and radiating R hip pain. He has what looks like retrolesthesis of L3 through S1 with his trunk in R rotation. He has active trigger points of the right low back at ~L3-L5 level. He showed + response to manual lumbar traction after tolerating only 5 min on IFES/ MHP in supine. Manual lumbar traction at end of therapy lessened low back and bilateral hip pain from 8/10 to 2/10 indicating involvement of his low back. Functional ankle weakness noted throughout balance exercises with possible neurological weakness in his ankle dorsiflexors (L5). With therapy we will try to avoid over-stressing his right shoulder due to his recent R TSA. The pt will benefit from skilled physical therapy for treatment of his low back and R hip in addition to LE strengthening for his leg weakness; therefore I recommend adding treatment to his low back and R hip to his physical therapy rehabilitation program. Physical Therapy Plan Frequency and Duration Frequency of Treatment 1x/Week Duration of Treatment 12 Plan of Care Start Date 11/29/18 Plan of Care End Date 03/01/19 Therapeutic Interventions Therapeutic Interventions Aquatic Therapy Balance Training Gait Training Home Exercise Program Joint Mobilizations Manual Therapy Neuromuscular Re-education Patient/Caregiver Education Self-Care/Home Management Soft Tissue Mobilization Taping Therapeutic Activities Therapeutic Exercises Modalities Cold Pack/Ice Massage Electric Stimulation Hot Packs Infrared Therapy Ultrasound Next Visit Focus/Plan Next Note Type Progress Note Next Visit Plan Improve posture, manual therapy for improving lumbar position towards neutral positioning. Progress strengthening exercises for lumbar ext and core strengthening, with caution for right hip pain and R TSA. manual lumbar traction to reduce pain, & LE strengthening.
--- NOTE | 2018-12-31 12:08 | PT.OTN ---
Current Diagnoses Radiculopathy, lumbosacral region (12/31/18) Other symptoms and signs involving the musculoskeletal system (12/31/18) Physical Therapy Treatment Note PT-OP-A Visit Information Start: 11/29/18 16:16 Freq: Status: Active Protocol: Document 12/31/18 08:16 LRN (Rec: 12/31/18 09:02 LRN [id number]) Out-Patient Physical Therapy Visit Information Visit Information Visit Type Treatment Note Visit Start Time 08:16 Visit Stop Time 09:02 Total Visit Minutes 46 Visit Number 5 Number of MANAGER AUDIO Visits 0 Evaluation Information Evaluation Date 11/29/18 Precautions Precautions fall risk bruise easily right total shoulder about 3 months ago PT-OP-B Current Condition Start: 11/29/18 16:16 Freq: Status: Active Protocol: Document 11/29/18 14:30 HH (Rec: 11/29/18 17:03 HH [email or web address]) Current Condition History of Current Condition Onset Date 3 months ago Current Complaints decreased balance, impaired gait and activity tolerance History of Current Condition Pt presents to clinic by using SPC for mobility. Pt c/o new onset of B LE weakness mostly at gluteal muscles, hamstring and occasional numbness sensation at top of B feet since 3 months ago. Pt states symptoms started after a reverse R TSA followed by a post op complication with pneumothorax at (09/29/18 ). He c/o his strength and endurance has been decreased significantly since then. He is only able to tolerate walking for couple blocks with SPC, and using step to pattern for stair negotiation with rails. He often felt unsteady with gait lately that he tends to trip on uneven surface. Pt had multiple falls in the yard over the past half year. Pt recently had an x-ray with Dr. 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 Camejo on . PMH includes L2-L5 laminectomy, Bladder cancer, L unilateral compartment sx, minor stroke. Prior Treatments and Tests Pt recently had an x-ray with Dr. 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 Camejo on . PMH includes L2- L5 laminectomy April, , Bladder cancer 2011, L unilateral compartment sx, minor stroke. Treatment Goals Patient/Caregiver Goals 1. To be able to walk a mile without using a SPC 2. Use step over pattern to climb stair 3. Able to walk on uneven surface safely Prior Functional Status Baseline Function- ADL's Independent Baseline Function- Mobility Independent Baseline Function- Gait without AD Baseline Function- Other step over pattern to climb stair Current Functional Impairments (Reported) Functional Limitations- Mobility/Gait step to pattern to climb stair use SPC for community mobility increased time for turns unable to ed walking more than couple blocks Personal Factors Other Personal Factors That May Effect PMH includes L2-L5 laminectomy Therapy/Recovery April, , Bladder cancer 2011, L unilateral compartment sx, minor stroke. PT-OP-C Subjective Start: 11/29/18 16:16 Freq: Status: Active Protocol: Document 12/31/18 08:16 LRN (Rec: 12/31/18 09:02 LRN [id number]) OP-PT Subjective Patient Comments Patient Comments Less pain in the R side of the back and able to sleep some on the back. Has been doing the pelvic tilts but has trouble with foot ex's. Working on walking posture. Today having some discomfort on the L side, pain rating 3/ 10; No R sided pain. Using the cane for balance. Hasn't taken vicodin for the past 4-5 days. Has been moving furniture but wears a back support. PT-OP-D Balance Start: 11/29/18 16:16 Freq: Status: Active Protocol: Document 11/29/18 14:30 HH (Rec: 11/29/18 17:03 HH [email or web address]) OP-PT Balance Assessment Sitting Balance Static Sitting Balance Ability Normal Dynamic Sitting Balance Ability Normal Standing Balance Static Standing Balance Ability Normal Dynamic Standing Balance Ability Normal Balance Tests Kaur Balance Test Kaur Balance Test Score 47 Kaur Impairment Rating 1 to 19% Impaired (Score 45-55 ) Single Limb Standing Single Limb- Right 3 Single Limb- Left 3 Tandem Tandem Standing 0 Cali Fall Scale Copyright Permission PT-OP-E Functional Tests Start: 11/29/18 16:16 Freq: Status: Active Protocol: Document 11/29/18 14:30 HH (Rec: 11/29/18 17:03 HH [email or web address]) Functional Tests 2 Minute Walk Test Distance 1272 Device Used SPC Comments SPC on L UE, L hip dopr during R LE stance phase Five Times Sit to Stand Test Score 12s Comments without UE PT-OP-F Manual Assessment Start: 11/29/18 16:16 Freq: Status: Active Protocol: Document 12/17/18 08:15 LRN (Rec: 12/17/18 09:05 LRN [id number]) Manual Assessments Soft Tissue Assessment Soft Tissue Mobility Assessment TrP R LB triggerpoints PT-OP-G Mobility & Gait Start: 11/29/18 16:16 Freq: Status: Active Protocol: Document 11/29/18 14:30 HH (Rec: 11/29/18 17:03 HH [email or web address]) OP Gait Assessment Gait Gait Assistance Required: Independent Distance (Feet) 1,272 Able to Maintain Weight Bearing Status Yes During Gait Assistive Devices Assistive Device Straight Cane Gait Deviations General Gait Pattern Antalgic Decreased Stride Length Decreased Feet Clearance Factors Limiting Gait Function Factors Limiting Gait Function Decreased Activity Tolerance Decreased Strength Limited Range of Motion Pain Poor Balance Comments Gait Comments Moderate L hip drop during R LE stance phase. (+ve trendelenburg gait) Occasional foot slap during initial contact bilaterally. Stair Climbing Evaluation Evaluation Level of Assist On Stairs Independent Devices Stair Climbing Assistive Devices Left Railing Right Railing Technique/Endurance Stair Climbing Direction Ascend and Descend Stair Climbing Technique Step Over Step Step to Step PT-OP-H Neuro Start: 11/29/18 16:16 Freq: Status: Active Protocol: Document 11/29/18 14:30 HH (Rec: 11/29/18 17:03 HH [email or web address]) Sensation Evaluation Gross Sensation Gross Sensation Left LE Impaired Right LE Impaired Sensation Description Numbness Dermatome Impairments L4 L5 Deep Tendon Reflex & Clonus Assessment Deep Tendon Reflex Bilateral Achilles Deep Tendon Reflex 1+ Diminished Bilateral Patellar Deep Tendon Reflex 0 Absent PT-OP-J Posture/Palpation/Skin Start: 11/29/18 16:16 Freq: Status: Active Protocol: Document 12/24/18 08:18 LRN (Rec: 12/24/18 11:36 LRN [id number]) Posture Evaluation Position Standing Head/C-Spine Posture Forward Head T-Spine Posture Increased Kyphosis Knee Posture (L) Genu Varus (R) Genu Varus Comments Posture Comments Trunk is held in R rotation and mild forward bend. Reverse curvature of L2 -L5 Hip's Flexed 7 deg's Knee's flexed 10 deg's Palpation Assessment Location Low Back Palpation Location R Low back Palpation Findings Tenderness Palpation Details Active trigger points of the right low back ~L3-L5 level PT-OP-K Range of Motion Start: 11/29/18 16:16 Freq: Status: Active Protocol: Document 12/24/18 08:18 LRN (Rec: 12/24/18 11:32 LRN [id number]) Lumbar Spine Range of Motion Lumbar Spine Active Degrees Testing Position Standing Flexion 5 Extension 0 Lateral Flexion Left 10 Lateral Flexion Right 7 Comments Flex: 100 deg's with 95 deg's hip flexion = 5 deg's lumbar flexion Ext: 10 deg's with 10 deg's hip ext = 0 deg's lumbar extension PT-OP-L Special Tests Start: 11/29/18 16:16 Freq: Status: Active Protocol: Document 11/29/18 14:30 HH (Rec: 11/29/18 17:03 HH [email or web address]) Special Tests Lumbar Spine Special Tests facet syndrome test Test Results -ve Comments no c/o pain/ increase in symptoms PT-OP-M Strength Start: 11/29/18 16:16 Freq: Status: Active Protocol: Document 12/24/18 08:18 LRN (Rec: 12/24/18 11:40 LRN [id number]) Knee Strength Knee Manual Muscle Testing Right Flexion (S2) 4 Good Extension (L3) 5 Normal Left Flexion (S2) 4 Good Extension (L3) 5 Normal Ankle/Foot Strength Ankle and Foot Manual Muscle Testing Right Dorsiflexion (L4) 3 Fair Plantarflexion (S1) 4+ Good+ Left Dorsiflexion (L4) 3 Fair Plantarflexion (S1) 4+ Good+ PT-OP-Q Treatments Start: 11/29/18 16:16 Freq: Status: Active Protocol: Document 12/31/18 08:16 LRN (Rec: 12/31/18 09:02 LRN [id number]) Cardio Equipment Recumbent Bicycle Duration (Minutes) 8 Resistance 5 Seat Position 9 Other Cycle by pulling back on pedal , not pushing Therapeutic Exercises Sidelying Exercises Clamshell Sidelying Exercise Name Clamshell Side right Reps/Minutes 3' Sitting Exercises Anterior pelvic tilts Sitting Exercise Name Anterior Pelvic tilt holding Side bilateral Reps/Minutes 3' Comments Some training needed, physical cuing. 2 Sitting Exercise Name Dorsiflexion Side bilateral Comments Conc/ECC Standing Exercises Gluteal Sets in push off phase Standing Exercise Name 2 sec & 5 sec holds Side bilateral Reps/Minutes 10' Comments Extra time taken for training Lumbar AROM Standing Exercise Name Ext, rotation Knee flex Standing Exercise Name Slow conc/ecc knee flex Side bilateral Resistance 2# Reps/Minutes 8 x 3 Postural training Standing Exercise Name Posture training Reps/Minutes 2' Comments physical and v. cuing needed. Self-Care/Home Management Treatment Education Patient Education Home Exercise Program Activities Self-Care/Home Management Activities Issued & reviewed HEP: Standing knee flex, hip ext, & trunk ext; Sidelye Clamshell. PT-OP-R Modalities Start: 11/29/18 16:16 Freq: Status: Active Protocol: Document 12/17/18 08:15 LRN (Rec: 12/17/18 09:05 LRN [id number]) Electric Stimulation Electric Stimulation Lumbosacral region Body Location (L3-S2) Duration (Minutes) 5 Intensity 19 Target/Sweep Sweep Patient Position Hooklying Combined With Heat/Cold Hot Pack PT-OP-T Assessment and Plan Start: 11/29/18 16:16 Freq: Status: Active Protocol: Document 12/31/18 08:16 LRN (Rec: 12/31/18 09:02 LRN [id number]) Physical Therapy Assessment Goals Pain Impairment R hip and low back pain limiting ability to walk and sleep at nights Long-Term Goal (LTG) Decrease pain no greater than 2/10 with improved function per LEFS score > 43/80. LTG Duration 03/01/19 (12/31/18: Pt sleeping better at night w/o meds) R hip stabilizers Impairment Pt presents L hip drop during amb Long-Term Goal (LTG) pt will increase overall B LE strength by 1MMT, especially R hip stabilizers in order to normalized his L hip drop pattern to increase gait stability. LTG Duration 03/01/19 Stair negotiation Impairment Pt uses step to pattern and rails to climb stairs City Assessor Goal (LTG) Pt will be able to improve his single leg balance >5 s in order to climb stairs with step over pattern LTG Duration 03/01/19 activity tolerance Impairment pt is unable to ed walking for more than a few blocks City Assessor Goal (LTG) Pt will be able to walk a mile a day without SPC in community to improve his quality of life. LTG Duration 03/01/19 Assessment Summary Assessment Pt ambs into therapy with use of a SPC. Minimal onset of R low back and hip pain since last treatment. He has some discomfort on the L side. His walking mechanics have improved and he demonstrates mild forward bending at the hips and excessive trunk lean to the right without a cane. Retrolesthesis of L3 through S1 with his trunk in R rotation persists. Active trigger points of the right low back at ~L3-L5 level not assessed and manual lumbar traction not needed. Functional ankle weakness persists with possibly neurological weakness (ankle dorsiflexors - L5). No complaints with R shoulder due to his recent R TSA. Physical Therapy Plan Frequency and Duration Frequency of Treatment 1x/Week Duration of Treatment 12 Plan of Care Start Date 11/29/18 Plan of Care End Date 03/01/19 Next Visit Focus/Plan Next Note Type Treatment Note Next Visit Plan Check for active TrPs in lumbar spine. Increase gait tolerance. Improve posture, manual therapy for improving lumbar position towards neutral positioning. Progress strengthening exercises for lumbar ext and core strengthening, with caution for right hip pain and R TSA. manual lumbar traction to reduce pain, & LE strengthening.
--- NOTE | 2019-01-18 15:01 | PT.OTN ---
Current Diagnoses Radiculopathy, lumbosacral region (01/18/19) Other symptoms and signs involving the musculoskeletal system (01/18/19) Physical Therapy Treatment Note PT-OP-A Visit Information Start: 11/29/18 16:16 Freq: Status: Active Protocol: Document 01/18/19 12:50 LRN (Rec: 01/18/19 12:54 LRN [id number]) Out-Patient Physical Therapy Visit Information Visit Information Visit Type Treatment Note Visit Start Time 12:50 Visit Stop Time 13:36 Total Visit Minutes 46 Visit Number 6 Number of PHOTOLITHOGRAPHER Visits 0 Evaluation Information Evaluation Date 11/29/18 Precautions Precautions fall risk bruise easily right total shoulder about 3 months ago PT-OP-B Current Condition Start: 11/29/18 16:16 Freq: Status: Active Protocol: Document 11/29/18 14:30 HH (Rec: 11/29/18 17:03 HH [email or web address]) Current Condition History of Current Condition Onset Date 3 months ago Current Complaints decreased balance, impaired gait and activity tolerance History of Current Condition Pt presents to clinic by using SPC for mobility. Pt c/o new onset of B LE weakness mostly at gluteal muscles, hamstring and occasional numbness sensation at top of B feet since 3 months ago. Pt states symptoms started after a reverse R TSA followed by a post op complication with pneumothorax at (09/29/18 ). He c/o his strength and endurance has been decreased significantly since then. He is only able to tolerate walking for couple blocks with SPC, and using step to pattern for stair negotiation with rails. He often felt unsteady with gait lately that he tends to trip on uneven surface. Pt had multiple falls in the yard over the past half year. Pt recently had an x-ray with Dr. 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 Camejo on . PMH includes L2-L5 laminectomy, Bladder cancer, L unilateral compartment sx, minor stroke. Prior Treatments and Tests Pt recently had an x-ray with Dr. 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 Camejo on . PMH includes L2- L5 laminectomy April, , Bladder cancer 2011, L unilateral compartment sx, minor stroke. Treatment Goals Patient/Caregiver Goals 1. To be able to walk a mile without using a SPC 2. Use step over pattern to climb stair 3. Able to walk on uneven surface safely Prior Functional Status Baseline Function- ADL's Independent Baseline Function- Mobility Independent Baseline Function- Gait without AD Baseline Function- Other step over pattern to climb stair Current Functional Impairments (Reported) Functional Limitations- Mobility/Gait step to pattern to climb stair use SPC for community mobility increased time for turns unable to ed walking more than couple blocks Personal Factors Other Personal Factors That May Effect PMH includes L2-L5 laminectomy Therapy/Recovery April, , Bladder cancer 2011, L unilateral compartment sx, minor stroke. PT-OP-C Subjective Start: 11/29/18 16:16 Freq: Status: Active Protocol: Document 01/18/19 12:50 LRN (Rec: 01/18/19 12:54 LRN [id number]) OP-PT Subjective Patient Comments Patient Comments Back and shoulder is bothering him a lot. Back is not as good as last session. Still able to lie on back. Doing HEP. PT-OP-D Balance Start: 11/29/18 16:16 Freq: Status: Active Protocol: Document 11/29/18 14:30 HH (Rec: 11/29/18 17:03 HH [email or web address]) OP-PT Balance Assessment Sitting Balance Static Sitting Balance Ability Normal Dynamic Sitting Balance Ability Normal Standing Balance Static Standing Balance Ability Normal Dynamic Standing Balance Ability Normal Balance Tests Kaur Balance Test Kaur Balance Test Score 47 Kaur Impairment Rating 1 to 19% Impaired (Score 45-55 ) Single Limb Standing Single Limb- Right 3 Single Limb- Left 3 Tandem Tandem Standing 0 Cali Fall Scale Copyright Permission PT-OP-E Functional Tests Start: 11/29/18 16:16 Freq: Status: Active Protocol: Document 11/29/18 14:30 HH (Rec: 11/29/18 17:03 HH [email or web address]) Functional Tests 2 Minute Walk Test Distance 1272 Device Used SPC Comments SPC on L UE, L hip dopr during R LE stance phase Five Times Sit to Stand Test Score 12s Comments without UE PT-OP-F Manual Assessment Start: 11/29/18 16:16 Freq: Status: Active Protocol: Document 12/17/18 08:15 LRN (Rec: 12/17/18 09:05 LRN [id number]) Manual Assessments Soft Tissue Assessment Soft Tissue Mobility Assessment TrP R LB triggerpoints PT-OP-G Mobility & Gait Start: 11/29/18 16:16 Freq: Status: Active Protocol: Document 11/29/18 14:30 HH (Rec: 11/29/18 17:03 HH [email or web address]) OP Gait Assessment Gait Gait Assistance Required: Independent Distance (Feet) 1,272 Able to Maintain Weight Bearing Status Yes During Gait Assistive Devices Assistive Device Straight Cane Gait Deviations General Gait Pattern Antalgic Decreased Stride Length Decreased Feet Clearance Factors Limiting Gait Function Factors Limiting Gait Function Decreased Activity Tolerance Decreased Strength Limited Range of Motion Pain Poor Balance Comments Gait Comments Moderate L hip drop during R LE stance phase. (+ve trendelenburg gait) Occasional foot slap during initial contact bilaterally. Stair Climbing Evaluation Evaluation Level of Assist On Stairs Independent Devices Stair Climbing Assistive Devices Left Railing Right Railing Technique/Endurance Stair Climbing Direction Ascend and Descend Stair Climbing Technique Step Over Step Step to Step PT-OP-H Neuro Start: 11/29/18 16:16 Freq: Status: Active Protocol: Document 11/29/18 14:30 HH (Rec: 11/29/18 17:03 HH [email or web address]) Sensation Evaluation Gross Sensation Gross Sensation Left LE Impaired Right LE Impaired Sensation Description Numbness Dermatome Impairments L4 L5 Deep Tendon Reflex & Clonus Assessment Deep Tendon Reflex Bilateral Achilles Deep Tendon Reflex 1+ Diminished Bilateral Patellar Deep Tendon Reflex 0 Absent PT-OP-J Posture/Palpation/Skin Start: 11/29/18 16:16 Freq: Status: Active Protocol: Document 12/24/18 08:18 LRN (Rec: 12/24/18 11:36 LRN [id number]) Posture Evaluation Position Standing Head/C-Spine Posture Forward Head T-Spine Posture Increased Kyphosis Knee Posture (L) Genu Varus (R) Genu Varus Comments Posture Comments Trunk is held in R rotation and mild forward bend. Reverse curvature of L2 -L5 Hip's Flexed 7 deg's Knee's flexed 10 deg's Palpation Assessment Location Low Back Palpation Location R Low back Palpation Findings Tenderness Palpation Details Active trigger points of the right low back ~L3-L5 level PT-OP-K Range of Motion Start: 11/29/18 16:16 Freq: Status: Active Protocol: Document 12/24/18 08:18 LRN (Rec: 12/24/18 11:32 LRN [id number]) Lumbar Spine Range of Motion Lumbar Spine Active Degrees Testing Position Standing Flexion 5 Extension 0 Lateral Flexion Left 10 Lateral Flexion Right 7 Comments Flex: 100 deg's with 95 deg's hip flexion = 5 deg's lumbar flexion Ext: 10 deg's with 10 deg's hip ext = 0 deg's lumbar extension PT-OP-L Special Tests Start: 11/29/18 16:16 Freq: Status: Active Protocol: Document 11/29/18 14:30 HH (Rec: 11/29/18 17:03 HH [email or web address]) Special Tests Lumbar Spine Special Tests facet syndrome test Test Results -ve Comments no c/o pain/ increase in symptoms PT-OP-M Strength Start: 11/29/18 16:16 Freq: Status: Active Protocol: Document 12/24/18 08:18 LRN (Rec: 12/24/18 11:40 LRN [id number]) Knee Strength Knee Manual Muscle Testing Right Flexion (S2) 4 Good Extension (L3) 5 Normal Left Flexion (S2) 4 Good Extension (L3) 5 Normal Ankle/Foot Strength Ankle and Foot Manual Muscle Testing Right Dorsiflexion (L4) 3 Fair Plantarflexion (S1) 4+ Good+ Left Dorsiflexion (L4) 3 Fair Plantarflexion (S1) 4+ Good+ PT-OP-Q Treatments Start: 11/29/18 16:16 Freq: Status: Active Protocol: Document 01/18/19 12:50 LRN (Rec: 01/18/19 12:57 LRN [id number]) Cardio Equipment Recumbent Elliptical ([employer] Education) Duration (Minutes) 8 Resistance 5 Seat Position 9 Therapeutic Exercises Sidelying Exercises Clamshell Sidelying Exercise Name Clamshell Side bilateral Reps/Minutes 3x15 Sitting Exercises Anterior pelvic tilts Sitting Exercise Name Anterior Pelvic tilt holding Side bilateral Reps/Minutes 3' Comments Holding during ankle DF lifts 2 Sitting Exercise Name Dorsiflexion Side bilateral Comments Conc/ECC. Feet are lifting same hgt Standing Exercises Sit Backs Standing Exercise Name Sit back Holding stair railings Resistance Lev 1 T-Band around knees Equipment Used Stair railing, Lev 1 T-Band Gluteal Sets in push off phase Standing Exercise Name 2 sec & 5 sec holds Side bilateral Reps/Minutes 10' Comments Extra time taken for training Lumbar AROM Standing Exercise Name Ext, rotation Reps/Minutes 10 x 3 Comments Rot with v. cuing to arch back Manual Therapy Treatment Soft Tissue Mobilization Lumbar Body Location L3 - L5 Transverse process Mobilization Type Oscillations Intensity/Depth Moderate Body Position Prone Comments Prone 2 pillows under hips. Joint Mobilizations Lumbar Joint L3-L5 Direction PA Grade II Body Position R sidelye Reps/Duration 3' x 2 Comments PA oscillations With 90/90 hip /knee flex with lumbar ext, and L/S neutral spine with posterior pelvic tilt. Manual Traction Lumbar Body Position Supine Reps/Duration 3' Comments + response with decrease in back and hip pain from 02/19 to 08/22. Self-Care/Home Management Treatment Education Patient Education Home Exercise Program Activities Self-Care/Home Management Activities I/S in gluteal lunge strengthening if safe available location at home. Pt to increase reps of hip ex' s to 3 x 15 reps and reduce to 2x/day. PT-OP-R Modalities Start: 11/29/18 16:16 Freq: Status: Active Protocol: Document 12/17/18 08:15 LRN (Rec: 12/17/18 09:05 LRN [id number]) Electric Stimulation Electric Stimulation Lumbosacral region Body Location (L3-S2) Duration (Minutes) 5 Intensity 19 Target/Sweep Sweep Patient Position Hooklying Combined With Heat/Cold Hot Pack PT-OP-T Assessment and Plan Start: 11/29/18 16:16 Freq: Status: Active Protocol: Document 01/18/19 12:50 LRN (Rec: 01/18/19 12:54 LRN [id number]) Physical Therapy Assessment Goals Pain Impairment R hip and low back pain limiting ability to walk and sleep at nights Halfway Goal (LTG) Decrease pain no greater than 2/10 with improved function per LEFS score > 43/80. LTG Duration 03/01/19 (12/31/18: Pt sleeping better at night w/o meds) R hip stabilizers Impairment Pt presents L hip drop during amb Halfway Goal (LTG) pt will increase overall B LE strength by 1MMT, especially R hip stabilizers in order to normalized his L hip drop pattern to increase gait stability. LTG Duration 03/01/19 Stair negotiation Impairment Pt uses step to pattern and rails to climb stairs Halfway Goal (LTG) Pt will be able to improve his single leg balance >5 s in order to climb stairs with step over pattern LTG Duration 03/01/19 activity tolerance Impairment pt is unable to ed walking for more than a few blocks Halfway Goal (LTG) Pt will be able to walk a mile a day without SPC in community to improve his quality of life. LTG Duration 03/01/19 Assessment Summary Assessment Gluteals atrophied, but strength has improved in hips . Pt demonstrates improved ability to perform clamshell with equal lift of knees and improved strength of ankle DF with equal lift movement noted . Less active TrP's with palpation of L/S spine. Physical Therapy Plan Frequency and Duration Frequency of Treatment 1x/Week Duration of Treatment 12 Plan of Care Start Date 11/29/18 Plan of Care End Date 03/01/19 Next Visit Focus/Plan Next Note Type Treatment Note Next Visit Plan Manual lumbar traction to reduce pain after warm up; & progress LE strengthening ( focus hips). Increase gait tolerance. Improve posture ( anterior placement of Sacrum on L/S), manual therapy for improving lumbar position towards neutral positioning. Progress strengthening exercises for lumbar ext and core strengthening, with caution for right hip pain and R TSA.
--- NOTE | 2019-01-20 13:55 | PT.OTN ---
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 Pt c/o new onset of B LE weakness mostly at gluteal muscles, hamstring and occasional numbness sensation at top of B feet since 3 months ago. Pt states symptoms started after a reverse R TSA followed by a post op complication with pneumothorax at (09/29/18 ). He c/o his strength and endurance has been decreased significantly since then. He is only able to tolerate walking for couple blocks with SPC, and using step to pattern for stair negotiation with rails. He often felt unsteady with gait lately that he tends to trip on uneven surface. Pt had multiple falls in the yard over the past half year. Pt recently had an x-ray with Dr. 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 Camejo on . PMH includes L2-L5 laminectomy, Bladder cancer, L unilateral compartment sx, minor stroke. Prior Treatments and Tests Pt recently had an x-ray with Dr. 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 Camejo on . PMH includes L2- L5 laminectomy April, , Bladder cancer 2011, L unilateral compartment sx, minor stroke. Treatment Goals Patient/Caregiver Goals 1. To be able to walk a mile without using a SPC 2. Use step over pattern to climb stair 3. Able to walk on uneven surface safely Prior Functional Status Baseline Function- ADL's Independent Baseline Function- Mobility Independent Baseline Function- Gait without AD Baseline Function- Other step over pattern to climb stair Current Functional Impairments (Reported) Functional Limitations- Mobility/Gait step to pattern to climb stair use SPC for community mobility increased time for turns unable to ed walking more than couple blocks Personal Factors Other Personal Factors That May Effect PMH includes L2-L5 laminectomy Therapy/Recovery April, , Bladder cancer 2011, L unilateral compartment sx, minor stroke. PT-OP-C Subjective Start: 11/29/18 16:16 Freq: Status: Active Protocol: Document 01/20/19 12:47 LRN (Rec: 01/20/19 13:51 LRN [id number]) OP-PT Subjective Patient Comments Patient Comments No significant change. No back pain today. PT-OP-D Balance Start: 11/29/18 16:16 Freq: Status: Active Protocol: Document 11/29/18 14:30 HH (Rec: 11/29/18 17:03 HH [email or web address]) OP-PT Balance Assessment Sitting Balance Static Sitting Balance Ability Normal Dynamic Sitting Balance Ability Normal Standing Balance Static Standing Balance Ability Normal Dynamic Standing Balance Ability Normal Balance Tests Kaur Balance Test Kaur Balance Test Score 47 Kaur Impairment Rating 1 to 19% Impaired (Score 45-55 ) Single Limb Standing Single Limb- Right 3 Single Limb- Left 3 Tandem Tandem Standing 0 Cali Fall Scale Copyright Permission PT-OP-E Functional Tests Start: 11/29/18 16:16 Freq: Status: Active Protocol: Document 11/29/18 14:30 HH (Rec: 11/29/18 17:03 HH [email or web address]) Functional Tests 2 Minute Walk Test Distance 1272 Device Used SPC Comments SPC on L UE, L hip dopr during R LE stance phase Five Times Sit to Stand Test Score 12s Comments without UE PT-OP-F Manual Assessment Start: 11/29/18 16:16 Freq: Status: Active Protocol: Document 12/17/18 08:15 LRN (Rec: 12/17/18 09:05 LRN [id number]) Manual Assessments Soft Tissue Assessment Soft Tissue Mobility Assessment TrP R LB triggerpoints PT-OP-G Mobility & Gait Start: 11/29/18 16:16 Freq: Status: Active Protocol: Document 11/29/18 14:30 HH (Rec: 11/29/18 17:03 HH [email or web address]) OP Gait Assessment Gait Gait Assistance Required: Independent Distance (Feet) 1,272 Able to Maintain Weight Bearing Status Yes During Gait Assistive Devices Assistive Device Straight Cane Gait Deviations General Gait Pattern Antalgic Decreased Stride Length Decreased Feet Clearance Factors Limiting Gait Function Factors Limiting Gait Function Decreased Activity Tolerance Decreased Strength Limited Range of Motion Pain Poor Balance Comments Gait Comments Moderate L hip drop during R LE stance phase. (+ve trendelenburg gait) Occasional foot slap during initial contact bilaterally. Stair Climbing Evaluation Evaluation Level of Assist On Stairs Independent Devices Stair Climbing Assistive Devices Left Railing Right Railing Technique/Endurance Stair Climbing Direction Ascend and Descend Stair Climbing Technique Step Over Step Step to Step PT-OP-H Neuro Start: 11/29/18 16:16 Freq: Status: Active Protocol: Document 11/29/18 14:30 HH (Rec: 11/29/18 17:03 HH [email or web address]) Sensation Evaluation Gross Sensation Gross Sensation Left LE Impaired Right LE Impaired Sensation Description Numbness Dermatome Impairments L4 L5 Deep Tendon Reflex & Clonus Assessment Deep Tendon Reflex Bilateral Achilles Deep Tendon Reflex 1+ Diminished Bilateral Patellar Deep Tendon Reflex 0 Absent PT-OP-J Posture/Palpation/Skin Start: 11/29/18 16:16 Freq: Status: Active Protocol: Document 12/24/18 08:18 LRN (Rec: 12/24/18 11:36 LRN [id number]) Posture Evaluation Position Standing Head/C-Spine Posture Forward Head T-Spine Posture Increased Kyphosis Knee Posture (L) Genu Varus (R) Genu Varus Comments Posture Comments Trunk is held in R rotation and mild forward bend. Reverse curvature of L2 -L5 Hip's Flexed 7 deg's Knee's flexed 10 deg's Palpation Assessment Location Low Back Palpation Location R Low back Palpation Findings Tenderness Palpation Details Active trigger points of the right low back ~L3-L5 level PT-OP-K Range of Motion Start: 11/29/18 16:16 Freq: Status: Active Protocol: Document 12/24/18 08:18 LRN (Rec: 12/24/18 11:32 LRN [id number]) Lumbar Spine Range of Motion Lumbar Spine Active Degrees Testing Position Standing Flexion 5 Extension 0 Lateral Flexion Left 10 Lateral Flexion Right 7 Comments Flex: 100 deg's with 95 deg's hip flexion = 5 deg's lumbar flexion Ext: 10 deg's with 10 deg's hip ext = 0 deg's lumbar extension PT-OP-L Special Tests Start: 11/29/18 16:16 Freq: Status: Active Protocol: Document 11/29/18 14:30 HH (Rec: 11/29/18 17:03 HH [email or web address]) Special Tests Lumbar Spine Special Tests facet syndrome test Test Results -ve Comments no c/o pain/ increase in symptoms PT-OP-M Strength Start: 11/29/18 16:16 Freq: Status: Active Protocol: Document 12/24/18 08:18 LRN (Rec: 12/24/18 11:40 LRN [id number]) Knee Strength Knee Manual Muscle Testing Right Flexion (S2) 4 Good Extension (L3) 5 Normal Left Flexion (S2) 4 Good Extension (L3) 5 Normal Ankle/Foot Strength Ankle and Foot Manual Muscle Testing Right Dorsiflexion (L4) 3 Fair Plantarflexion (S1) 4+ Good+ Left Dorsiflexion (L4) 3 Fair Plantarflexion (S1) 4+ Good+ PT-OP-Q Treatments Start: 11/29/18 16:16 Freq: Status: Active Protocol: Document 01/20/19 12:47 LRN (Rec: 01/20/19 13:51 LRN [id number]) Cardio Equipment Treadmill Duration (Minutes) 3 Speed .8 Incline 0 Other Gluteal tightening on trailing leg. Gym Equipment Cable Column (Body Solid) Hip Abduction Details Hip AB, ECC work, arch in back Resistance 20# Reps/Time 10x3 Leg Curl Details ECC work > conc work Resistance 30#, 35#, 40# Reps/Time 10x each Shuttle Recovery Unilateral Squats Details Deep squat (90-45 degs) for glueal strengthening Resistance 50# Shuttle Recovery Platform Stable Reps/Time to fatigue (~30 reps) 4' barbara. Extra time taken for set up. Therapeutic Exercises Sitting Exercises 1 Sitting Exercise Name Hip AB Standing Exercises Lunging & Lunge walk Standing Exercise Name Lunging & lunge stepping Side bilateral Equipment Used // Bars Reps/Minutes 4 passes Comments Time taken for proper form Squat side stepping Standing Exercise Name Side step Squats Side bilateral Resistance Yellow T-Band Equipment Used // bars, Reps/Minutes 3 back/forth passes Gluteal Sets in push off phase Standing Exercise Name 2 sec & 5 sec holds Side bilateral Reps/Minutes 10' Comments Extra time taken for training Lumbar AROM Standing Exercise Name Ext, rotation Comments Rot with v. cuing to arch back Manual Therapy Treatment Soft Tissue Mobilization Lumbar Body Location L3 - L5 Transverse process Mobilization Type Oscillations Intensity/Depth Superficial Body Position Sitting Comments Oscillations into rotation, primarily into L rotation Joint Mobilizations Lumbar Joint L3-L5 Direction PA Grade II Body Position R sidelye Reps/Duration 3' x 2 Comments PA oscillations With 90/90 hip /knee flex with lumbar ext, and L/S neutral spine with posterior pelvic tilting. PT-OP-R Modalities Start: 11/29/18 16:16 Freq: Status: Active Protocol: Document 12/17/18 08:15 LRN (Rec: 12/17/18 09:05 LRN [id number]) Electric Stimulation Electric Stimulation Lumbosacral region Body Location (L3-S2) Duration (Minutes) 5 Intensity 19 Target/Sweep Sweep Patient Position Hooklying Combined With Heat/Cold Hot Pack PT-OP-T Assessment and Plan Start: 11/29/18 16:16 Freq: Status: Active Protocol: Document 01/20/19 12:47 LRN (Rec: 01/20/19 13:51 LRN [id number]) Physical Therapy Assessment Assessment Summary Assessment No complaints of back pain today. Pt gait mechanics appear improved with no notable increased trunk sway with gait. Gluteals atrophied , but strength has improved in hips. Still less active TrP's with palpation of L/S spine. Pt nighttime pain may be due to too much positioning during the night. Physical Therapy Plan Frequency and Duration Frequency of Treatment 1x/Week Duration of Treatment 12 Plan of Care Start Date 11/29/18 Plan of Care End Date 03/01/19 Next Visit Focus/Plan Next Note Type Treatment Note Next Visit Plan Recheck sit backs and ankle DF strengthening. Manual lumbar traction to reduce back pain if needed. Progress gait on TM & LE strengthening (focus hips). Increase gait tolerance. Improve posture ( anterior placement of Sacrum on L/S), manual therapy for improving lumbar position towards neutral positioning. Progress strengthening exercises for lumbar ext and core strengthening, with caution for right hip pain and R TSA.
--- NOTE | 2019-01-25 17:17 | PT.OTN ---
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 Pt c/o new onset of B LE weakness mostly at gluteal muscles, hamstring and occasional numbness sensation at top of B feet since 3 months ago. Pt states symptoms started after a reverse R TSA followed by a post op complication with pneumothorax at (09/29/18 ). He c/o his strength and endurance has been decreased significantly since then. He is only able to tolerate walking for couple blocks with SPC, and using step to pattern for stair negotiation with rails. He often felt unsteady with gait lately that he tends to trip on uneven surface. Pt had multiple falls in the yard over the past half year. Pt recently had an x-ray with Dr. 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 Camejo on . PMH includes L2-L5 laminectomy, Bladder cancer, L unilateral compartment sx, minor stroke. Prior Treatments and Tests Pt recently had an x-ray with Dr. 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 Camejo on . PMH includes L2- L5 laminectomy April, , Bladder cancer 2011, L unilateral compartment sx, minor stroke. Treatment Goals Patient/Caregiver Goals 1. To be able to walk a mile without using a SPC 2. Use step over pattern to climb stair 3. Able to walk on uneven surface safely Prior Functional Status Baseline Function- ADL's Independent Baseline Function- Mobility Independent Baseline Function- Gait without AD Baseline Function- Other step over pattern to climb stair Current Functional Impairments (Reported) Functional Limitations- Mobility/Gait step to pattern to climb stair use SPC for community mobility increased time for turns unable to ed walking more than couple blocks Personal Factors Other Personal Factors That May Effect PMH includes L2-L5 laminectomy Therapy/Recovery April, , Bladder cancer 2011, L unilateral compartment sx, minor stroke. PT-OP-C Subjective Start: 11/29/18 16:16 Freq: Status: Active Protocol: Document 01/25/19 08:18 LRN (Rec: 01/25/19 09:11 LRN [id number]) OP-PT Subjective Patient Comments Patient Comments Worse after last session, but it went away. Main problem is pain down the back and posterior thighs. Pain 4-5/10 L>R. PT-OP-D Balance Start: 11/29/18 16:16 Freq: Status: Active Protocol: Document 11/29/18 14:30 HH (Rec: 11/29/18 17:03 HH [email or web address]) OP-PT Balance Assessment Sitting Balance Static Sitting Balance Ability Normal Dynamic Sitting Balance Ability Normal Standing Balance Static Standing Balance Ability Normal Dynamic Standing Balance Ability Normal Balance Tests Kaur Balance Test Kaur Balance Test Score 47 Kaur Impairment Rating 1 to 19% Impaired (Score 45-55 ) Single Limb Standing Single Limb- Right 3 Single Limb- Left 3 Tandem Tandem Standing 0 Cali Fall Scale Copyright Permission PT-OP-E Functional Tests Start: 11/29/18 16:16 Freq: Status: Active Protocol: Document 11/29/18 14:30 HH (Rec: 11/29/18 17:03 HH [email or web address]) Functional Tests 2 Minute Walk Test Distance 1272 Device Used SPC Comments SPC on L UE, L hip dopr during R LE stance phase Five Times Sit to Stand Test Score 12s Comments without UE PT-OP-F Manual Assessment Start: 11/29/18 16:16 Freq: Status: Active Protocol: Document 12/17/18 08:15 LRN (Rec: 12/17/18 09:05 LRN [id number]) Manual Assessments Soft Tissue Assessment Soft Tissue Mobility Assessment TrP R LB triggerpoints PT-OP-G Mobility & Gait Start: 11/29/18 16:16 Freq: Status: Active Protocol: Document 11/29/18 14:30 HH (Rec: 11/29/18 17:03 HH [email or web address]) OP Gait Assessment Gait Gait Assistance Required: Independent Distance (Feet) 1,272 Able to Maintain Weight Bearing Status Yes During Gait Assistive Devices Assistive Device Straight Cane Gait Deviations General Gait Pattern Antalgic Decreased Stride Length Decreased Feet Clearance Factors Limiting Gait Function Factors Limiting Gait Function Decreased Activity Tolerance Decreased Strength Limited Range of Motion Pain Poor Balance Comments Gait Comments Moderate L hip drop during R LE stance phase. (+ve trendelenburg gait) Occasional foot slap during initial contact bilaterally. Stair Climbing Evaluation Evaluation Level of Assist On Stairs Independent Devices Stair Climbing Assistive Devices Left Railing Right Railing Technique/Endurance Stair Climbing Direction Ascend and Descend Stair Climbing Technique Step Over Step Step to Step PT-OP-H Neuro Start: 11/29/18 16:16 Freq: Status: Active Protocol: Document 11/29/18 14:30 HH (Rec: 11/29/18 17:03 HH [email or web address]) Sensation Evaluation Gross Sensation Gross Sensation Left LE Impaired Right LE Impaired Sensation Description Numbness Dermatome Impairments L4 L5 Deep Tendon Reflex & Clonus Assessment Deep Tendon Reflex Bilateral Achilles Deep Tendon Reflex 1+ Diminished Bilateral Patellar Deep Tendon Reflex 0 Absent PT-OP-J Posture/Palpation/Skin Start: 11/29/18 16:16 Freq: Status: Active Protocol: Document 12/24/18 08:18 LRN (Rec: 12/24/18 11:36 LRN [id number]) Posture Evaluation Position Standing Head/C-Spine Posture Forward Head T-Spine Posture Increased Kyphosis Knee Posture (L) Genu Varus (R) Genu Varus Comments Posture Comments Trunk is held in R rotation and mild forward bend. Reverse curvature of L2 -L5 Hip's Flexed 7 deg's Knee's flexed 10 deg's Palpation Assessment Location Low Back Palpation Location R Low back Palpation Findings Tenderness Palpation Details Active trigger points of the right low back ~L3-L5 level PT-OP-K Range of Motion Start: 11/29/18 16:16 Freq: Status: Active Protocol: Document 12/24/18 08:18 LRN (Rec: 12/24/18 11:32 LRN [id number]) Lumbar Spine Range of Motion Lumbar Spine Active Degrees Testing Position Standing Flexion 5 Extension 0 Lateral Flexion Left 10 Lateral Flexion Right 7 Comments Flex: 100 deg's with 95 deg's hip flexion = 5 deg's lumbar flexion Ext: 10 deg's with 10 deg's hip ext = 0 deg's lumbar extension PT-OP-L Special Tests Start: 11/29/18 16:16 Freq: Status: Active Protocol: Document 11/29/18 14:30 HH (Rec: 11/29/18 17:03 HH [email or web address]) Special Tests Lumbar Spine Special Tests facet syndrome test Test Results -ve Comments no c/o pain/ increase in symptoms PT-OP-M Strength Start: 11/29/18 16:16 Freq: Status: Active Protocol: Document 12/24/18 08:18 LRN (Rec: 12/24/18 11:40 LRN [id number]) Knee Strength Knee Manual Muscle Testing Right Flexion (S2) 4 Good Extension (L3) 5 Normal Left Flexion (S2) 4 Good Extension (L3) 5 Normal Ankle/Foot Strength Ankle and Foot Manual Muscle Testing Right Dorsiflexion (L4) 3 Fair Plantarflexion (S1) 4+ Good+ Left Dorsiflexion (L4) 3 Fair Plantarflexion (S1) 4+ Good+ PT-OP-Q Treatments Start: 11/29/18 16:16 Freq: Status: Active Protocol: Document 01/25/19 08:18 LRN (Rec: 01/25/19 09:11 LRN [id number]) Cardio Equipment Treadmill Duration (Minutes) 4 Speed .8 Incline 0 Other Gluteal tightening on trailing leg. Therapeutic Exercises Prone Exercises Hip Ext Prone Exercise Name Straight leg lifts - alternating legs Side bilateral Reps/Minutes 10 x 3 Anterior pelvic tilt Prone Exercise Name QL and lumbar ext Side bilateral Reps/Minutes 3' Comments Prone with pillows under hips. Training needed, physical cuing. Sidelying Exercises Clamshell Sidelying Exercise Name Clamshell Side bilateral Resistance 2# Reps/Minutes 2x15 Sitting Exercises 2 Sitting Exercise Name Dorsiflexion Side bilateral Resistance 2# Comments v. cuing for anterior tilt in pelvis Standing Exercises Sit Backs Standing Exercise Name Sit back with toes against wall Equipment Used Wall Reps/Minutes 10x hold 10 Manual Therapy Treatment Soft Tissue Mobilization Lumbar Body Location L3 - L5 Transverse process Mobilization Type Oscillations Intensity/Depth Superficial Body Position Sitting Comments Oscillations into ext at L4-5 & rotation left Joint Mobilizations Lumbar Joint L3-L5 Direction PA Grade II Body Position R sidelye Reps/Duration 3' x 2 Comments PA oscillations With 90/90 hip /knee flex with lumbar ext, and L/S neutral spine with posterior pelvic tilting. Manual Traction Lumbar Details Manual traction with black strap on top of thighs Body Position Supine Reps/Duration 5' Comments + response with decrease in back and hip pain. Minimal traction with belt behind gastrocs due to partial L TKa PT-OP-R Modalities Start: 11/29/18 16:16 Freq: Status: Active Protocol: Document 12/17/18 08:15 LRN (Rec: 12/17/18 09:05 LRN [id number]) Electric Stimulation Electric Stimulation Lumbosacral region Body Location (L3-S2) Duration (Minutes) 5 Intensity 19 Target/Sweep Sweep Patient Position Hooklying Combined With Heat/Cold Hot Pack PT-OP-T Assessment and Plan Start: 11/29/18 16:16 Freq: Status: Active Protocol: Document 01/25/19 08:18 LRN (Rec: 01/25/19 09:11 LRN [id number]) Physical Therapy Assessment Progress Towards Goals Progress Towards Goals Progressing Toward Goals Assessment Summary Assessment Improved positional tolerance. Pt able to lie prone with only 1 pillow under hips, and able to perform sitbacks without use of arms. Mild improvement in L/S positioning on sacrum. Pt having c/o itching in posterior thighs, possible healing? Pt not able to use pillow to prevent positioning at nighttimne. Physical Therapy Plan Frequency and Duration Frequency of Treatment 1x/Week Plan of Care Start Date 11/29/18 Plan of Care End Date 03/01/19 Next Visit Focus/Plan Next Note Type Treatment Note Next Visit Plan Manual lumbar traction to reduce back pain if needed. Progress gait on TM & LE strengthening (focus hips). Increase gait tolerance. Improve posture (anterior placement of Sacrum on L/S), manual therapy for improving lumbar position towards neutral positioning. Progress strengthening exercises for lumbar ext and core strengthening, with caution for right hip pain and R TSA.
--- NOTE | 2019-01-27 13:27 | PT.OTN ---
Current Diagnoses Radiculopathy, lumbosacral region (01/27/19) Other symptoms and signs involving the musculoskeletal system (01/27/19) Physical Therapy Treatment Note PT-OP-A Visit Information Start: 11/29/18 16:16 Freq: Status: Active Protocol: Document 01/27/19 09:05 LRN (Rec: 01/27/19 09:57 LRN [id number]) Out-Patient Physical Therapy Visit Information Visit Information Visit Type Treatment Note Visit Note 11/19 towards PN Visit Start Time 09:05 Visit Stop Time 09:46 Total Visit Minutes 41 Visit Number 9 Number of PUBLIC HEALTH ADMINISTRATOR Visits 0 Evaluation Information Evaluation Date 11/29/18 Precautions Precautions fall risk bruise easily right total shoulder about 3 months ago PT-OP-B Current Condition Start: 11/29/18 16:16 Freq: Status: Active Protocol: Document 11/29/18 14:30 HH (Rec: 11/29/18 17:03 HH [email or web address]) Current Condition History of Current Condition Onset Date 3 months ago Current Complaints decreased balance, impaired gait and activity tolerance History of Current Condition Pt presents to clinic by using SPC for mobility. Pt c/o new onset of B LE weakness mostly at gluteal muscles, hamstring and occasional numbness sensation at top of B feet since 3 months ago. Pt states symptoms started after a reverse R TSA followed by a post op complication with pneumothorax at (09/29/18 ). He c/o his strength and endurance has been decreased significantly since then. He is only able to tolerate walking for couple blocks with SPC, and using step to pattern for stair negotiation with rails. He often felt unsteady with gait lately that he tends to trip on uneven surface. Pt had multiple falls in the yard over the past half year. Pt recently had an x-ray with Dr. 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 Camejo on . PMH includes L2-L5 laminectomy, Bladder cancer, L unilateral compartment sx, minor stroke. Prior Treatments and Tests Pt recently had an x-ray with Dr. 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 Camejo on . PMH includes L2- L5 laminectomy April, , Bladder cancer 2011, L unilateral compartment sx, minor stroke. Treatment Goals Patient/Caregiver Goals 1. To be able to walk a mile without using a SPC 2. Use step over pattern to climb stair 3. Able to walk on uneven surface safely Prior Functional Status Baseline Function- ADL's Independent Baseline Function- Mobility Independent Baseline Function- Gait without AD Baseline Function- Other step over pattern to climb stair Current Functional Impairments (Reported) Functional Limitations- Mobility/Gait step to pattern to climb stair use SPC for community mobility increased time for turns unable to ed walking more than couple blocks Personal Factors Other Personal Factors That May Effect PMH includes L2-L5 laminectomy Therapy/Recovery April, , Bladder cancer 2011, L unilateral compartment sx, minor stroke. PT-OP-C Subjective Start: 11/29/18 16:16 Freq: Status: Active Protocol: Document 01/27/19 09:05 LRN (Rec: 01/27/19 09:57 LRN [id number]) OP-PT Subjective Patient Comments Patient Comments Still intermittent itching in the back of the legs. Waking at night due to bladder problem, not back, no pain in back during nighttime. PT-OP-D Balance Start: 11/29/18 16:16 Freq: Status: Active Protocol: Document 11/29/18 14:30 HH (Rec: 11/29/18 17:03 HH [email or web address]) OP-PT Balance Assessment Sitting Balance Static Sitting Balance Ability Normal Dynamic Sitting Balance Ability Normal Standing Balance Static Standing Balance Ability Normal Dynamic Standing Balance Ability Normal Balance Tests Kaur Balance Test Kaur Balance Test Score 47 Kaur Impairment Rating 1 to 19% Impaired (Score 45-55 ) Single Limb Standing Single Limb- Right 3 Single Limb- Left 3 Tandem Tandem Standing 0 Cali Fall Scale Copyright Permission PT-OP-E Functional Tests Start: 11/29/18 16:16 Freq: Status: Active Protocol: Document 11/29/18 14:30 HH (Rec: 11/29/18 17:03 HH [email or web address]) Functional Tests 2 Minute Walk Test Distance 1272 Device Used SPC Comments SPC on L UE, L hip dopr during R LE stance phase Five Times Sit to Stand Test Score 12s Comments without UE PT-OP-F Manual Assessment Start: 11/29/18 16:16 Freq: Status: Active Protocol: Document 12/17/18 08:15 LRN (Rec: 12/17/18 09:05 LRN [id number]) Manual Assessments Soft Tissue Assessment Soft Tissue Mobility Assessment TrP R LB triggerpoints PT-OP-G Mobility & Gait Start: 11/29/18 16:16 Freq: Status: Active Protocol: Document 11/29/18 14:30 HH (Rec: 11/29/18 17:03 HH [email or web address]) OP Gait Assessment Gait Gait Assistance Required: Independent Distance (Feet) 1,272 Able to Maintain Weight Bearing Status Yes During Gait Assistive Devices Assistive Device Straight Cane Gait Deviations General Gait Pattern Antalgic Decreased Stride Length Decreased Feet Clearance Factors Limiting Gait Function Factors Limiting Gait Function Decreased Activity Tolerance Decreased Strength Limited Range of Motion Pain Poor Balance Comments Gait Comments Moderate L hip drop during R LE stance phase. (+ve trendelenburg gait) Occasional foot slap during initial contact bilaterally. Stair Climbing Evaluation Evaluation Level of Assist On Stairs Independent Devices Stair Climbing Assistive Devices Left Railing Right Railing Technique/Endurance Stair Climbing Direction Ascend and Descend Stair Climbing Technique Step Over Step Step to Step PT-OP-H Neuro Start: 11/29/18 16:16 Freq: Status: Active Protocol: Document 11/29/18 14:30 HH (Rec: 11/29/18 17:03 HH [email or web address]) Sensation Evaluation Gross Sensation Gross Sensation Left LE Impaired Right LE Impaired Sensation Description Numbness Dermatome Impairments L4 L5 Deep Tendon Reflex & Clonus Assessment Deep Tendon Reflex Bilateral Achilles Deep Tendon Reflex 1+ Diminished Bilateral Patellar Deep Tendon Reflex 0 Absent PT-OP-J Posture/Palpation/Skin Start: 11/29/18 16:16 Freq: Status: Active Protocol: Document 12/24/18 08:18 LRN (Rec: 12/24/18 11:36 LRN [id number]) Posture Evaluation Position Standing Head/C-Spine Posture Forward Head T-Spine Posture Increased Kyphosis Knee Posture (L) Genu Varus (R) Genu Varus Comments Posture Comments Trunk is held in R rotation and mild forward bend. Reverse curvature of L2 -L5 Hip's Flexed 7 deg's Knee's flexed 10 deg's Palpation Assessment Location Low Back Palpation Location R Low back Palpation Findings Tenderness Palpation Details Active trigger points of the right low back ~L3-L5 level PT-OP-K Range of Motion Start: 11/29/18 16:16 Freq: Status: Active Protocol: Document 06/14/19 08:18 LRN (Rec: 06/14/19 11:32 LRN [id number]) Lumbar Spine Range of Motion Lumbar Spine Active Degrees Testing Position Standing Flexion 5 Extension 0 Lateral Flexion Left 10 Lateral Flexion Right 7 Comments Flex: 100 deg's with 95 deg's hip flexion = 5 deg's lumbar flexion Ext: 10 deg's with 10 deg's hip ext = 0 deg's lumbar extension PT-OP-L Special Tests Start: 11/29/18 16:16 Freq: Status: Active Protocol: Document 11/29/18 14:30 HH (Rec: 11/29/18 17:03 HH [email or web address]) Special Tests Lumbar Spine Special Tests facet syndrome test Test Results -ve Comments no c/o pain/ increase in symptoms PT-OP-M Strength Start: 11/29/18 16:16 Freq: Status: Active Protocol: Document 01/27/19 09:05 LRN (Rec: 01/27/19 09:57 LRN [id number]) Hip Strength Hip Manual Muscle Testing Right Flexion (L2) 4+ Good+ Extension (S1) 3+ Fair+ Abduction 3+ Fair+ Adduction 4 Good External Rotation 3+ Fair+ Internal Rotation 5 Normal Left Flexion (L2) 4+ Good+ Extension (S1) 5 Normal Abduction 5 Normal Adduction 4+ Good+ External Rotation 3+ Fair+ Internal Rotation 5 Normal Knee Strength Knee Manual Muscle Testing Right Flexion (S2) 5 Normal Extension (L3) 5 Normal Left Flexion (S2) 4 Good Extension (L3) 5 Normal Ankle/Foot Strength Ankle and Foot Manual Muscle Testing Right Dorsiflexion (L4) 3 Fair Plantarflexion (S1) 4+ Good+ Left Dorsiflexion (L4) 3+ Fair+ Plantarflexion (S1) 4+ Good+ PT-OP-Q Treatments Start: 11/29/18 16:16 Freq: Status: Active Protocol: Document 01/27/19 09:05 LRN (Rec: 01/27/19 09:57 LRN [id number]) Gym Equipment Cable Column (Body Solid) Leg Curl Details LLE: ECC work > conc work Resistance 15#, 20#, 25# Reps/Time 10 x each Shuttle Recovery Unilateral Squats Details Deep squat (90-45 degs) for glueal strengthening Resistance 50# Shuttle Recovery Platform Stable Reps/Time 30x 2 bilaterally Therapeutic Exercises Prone Exercises Hip Ext Prone Exercise Name Straight leg lifts - alternating legs Side bilateral Reps/Minutes 5x Sidelying Exercises Hip AB Sidelying Exercise Name Hip AB in neutral Side bilateral Comments MMT taken Hip AD Sidelying Exercise Name Hip AD in neutral Side bilateral Reps/Minutes 5x Comments MMT taken Sitting Exercises Ankle PF Sitting Exercise Name Ankle PF Side bilateral Resistance Lev 2 T-Band Comments MMT taken. Hip ER Sitting Exercise Name Hip ER Side bilateral Resistance Lev 1 T-BAnd Reps/Minutes 10 x each Comments Extra time taken for training. MMT taken. 2 Sitting Exercise Name Dorsiflexion Comments MMT taken Manual Therapy Treatment Joint Mobilizations Lumbar Joint L3-L5 Direction PA Grade II Body Position R sidelye Reps/Duration 10' Comments PA oscillations With 90/90 hip /knee flex with lumbar ext, and L/S neutral spine with posterior pelvic tilting. Self-Care/Home Management Treatment Education Patient Education Home Exercise Program Activities Self-Care/Home Management Activities Issued & reviewed HEP: Ankle PF, knee flexion I/S & Hip ER I/S. Pt issued Lev 2 T-Band . PT-OP-R Modalities Start: 11/29/18 16:16 Freq: Status: Active Protocol: Document 12/17/18 08:15 LRN (Rec: 12/17/18 09:05 LRN [id number]) Electric Stimulation Electric Stimulation Lumbosacral region Body Location (L3-S2) Duration (Minutes) 5 Intensity 19 Target/Sweep Sweep Patient Position Hooklying Combined With Heat/Cold Hot Pack PT-OP-T Assessment and Plan Start: 11/29/18 16:16 Freq: Status: Active Protocol: Document 01/27/19 09:05 LRN (Rec: 01/27/19 09:57 LRN [id number]) Physical Therapy Assessment Assessment Summary Assessment Mild increase with L ankle DF strength, no change with PF due to lack of PF strengthening therapy. Weakness with L knee flexion. Incr R LE hamstring strength, L side still weak. Hip strength is slightly improved but weakness persists with barbara hip ER, ext & AB, mild weakness with flex & AD. Pt improved, sleep is interrupted by bladder issues, not back pain. Physical Therapy Plan Frequency and Duration Frequency of Treatment 1x/Week Plan of Care Start Date 11/29/18 Plan of Care End Date 03/01/19 Next Visit Focus/Plan Next Note Type Treatment Note Next Visit Plan Manual lumbar traction to reduce back pain if needed. Progress gait on TM & LE strengthening (focus hips ER, ext, AB, L knee flex & ankle PF, R DF). Increase gait tolerance. Improve posture ( anterior placement of Sacrum on L/S), manual therapy for improving lumbar position towards neutral positioning. Progress strengthening exercises for lumbar ext and core strengthening, with caution for right hip pain and R TSA.
--- NOTE | 2019-02-07 15:51 | PT.OTN ---
Current Diagnoses Radiculopathy, lumbosacral region (02/07/19) Other symptoms and signs involving the musculoskeletal system (02/07/19) Physical Therapy Treatment Note PT-OP-A Visit Information Start: 11/29/18 16:16 Freq: Status: Active Protocol: Document 02/07/19 13:27 LRN (Rec: 02/07/19 15:45 LRN [id number]) Out-Patient Physical Therapy Visit Information Visit Information Visit Type Treatment Note Visit Note 01/19 towards PN Visit Start Time 13:27 Visit Stop Time 14:25 Total Visit Minutes 58 Visit Number 11 Number of AIRCRAFT MANAGER Visits 0 Evaluation Information Evaluation Date 11/29/18 Precautions Precautions fall risk bruise easily right total shoulder about 3 months ago PT-OP-B Current Condition Start: 11/29/18 16:16 Freq: Status: Active Protocol: Document 11/29/18 14:30 HH (Rec: 11/29/18 17:03 HH [email or web address]) Current Condition History of Current Condition Onset Date 3 months ago Current Complaints decreased balance, impaired gait and activity tolerance History of Current Condition Pt presents to clinic by using SPC for mobility. Pt c/o new onset of B LE weakness mostly at gluteal muscles, hamstring and occasional numbness sensation at top of B feet since 3 months ago. Pt states symptoms started after a reverse R TSA followed by a post op complication with pneumothorax at (09/29/18 ). He c/o his strength and endurance has been decreased significantly since then. He is only able to tolerate walking for couple blocks with SPC, and using step to pattern for stair negotiation with rails. He often felt unsteady with gait lately that he tends to trip on uneven surface. Pt had multiple falls in the yard over the past half year. Pt recently had an x-ray with Dr. 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 Camejo on . PMH includes L2-L5 laminectomy, Bladder cancer, L unilateral compartment sx, minor stroke. Prior Treatments and Tests Pt recently had an x-ray with Dr. 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 Camejo on . PMH includes L2- L5 laminectomy April, , Bladder cancer 2011, L unilateral compartment sx, minor stroke. Treatment Goals Patient/Caregiver Goals 1. To be able to walk a mile without using a SPC 2. Use step over pattern to climb stair 3. Able to walk on uneven surface safely Prior Functional Status Baseline Function- ADL's Independent Baseline Function- Mobility Independent Baseline Function- Gait without AD Baseline Function- Other step over pattern to climb stair Current Functional Impairments (Reported) Functional Limitations- Mobility/Gait step to pattern to climb stair use SPC for community mobility increased time for turns unable to ed walking more than couple blocks Personal Factors Other Personal Factors That May Effect PMH includes L2-L5 laminectomy Therapy/Recovery April, , Bladder cancer 2011, L unilateral compartment sx, minor stroke. PT-OP-C Subjective Start: 11/29/18 16:16 Freq: Status: Active Protocol: Document 02/07/19 13:27 LRN (Rec: 02/07/19 15:45 LRN [id number]) OP-PT Subjective Patient Comments Patient Comments States he had a hard time after last session because his back hurt. Had to take pain medication the next day. PT-OP-D Balance Start: 11/29/18 16:16 Freq: Status: Active Protocol: Document 11/29/18 14:30 HH (Rec: 11/29/18 17:03 HH [email or web address]) OP-PT Balance Assessment Sitting Balance Static Sitting Balance Ability Normal Dynamic Sitting Balance Ability Normal Standing Balance Static Standing Balance Ability Normal Dynamic Standing Balance Ability Normal Balance Tests Kaur Balance Test Kaur Balance Test Score 47 Kaur Impairment Rating 1 to 19% Impaired (Score 45-55 ) Single Limb Standing Single Limb- Right 3 Single Limb- Left 3 Tandem Tandem Standing 0 Cali Fall Scale Copyright Permission PT-OP-E Functional Tests Start: 11/29/18 16:16 Freq: Status: Active Protocol: Document 11/29/18 14:30 HH (Rec: 11/29/18 17:03 HH [email or web address]) Functional Tests 2 Minute Walk Test Distance 1272 Device Used SPC Comments SPC on L UE, L hip dopr during R LE stance phase Five Times Sit to Stand Test Score 12s Comments without UE PT-OP-F Manual Assessment Start: 11/29/18 16:16 Freq: Status: Active Protocol: Document 12/17/18 08:15 LRN (Rec: 12/17/18 09:05 LRN [id number]) Manual Assessments Soft Tissue Assessment Soft Tissue Mobility Assessment TrP R LB triggerpoints PT-OP-G Mobility & Gait Start: 11/29/18 16:16 Freq: Status: Active Protocol: Document 11/29/18 14:30 HH (Rec: 11/29/18 17:03 HH [email or web address]) OP Gait Assessment Gait Gait Assistance Required: Independent Distance (Feet) 1,272 Able to Maintain Weight Bearing Status Yes During Gait Assistive Devices Assistive Device Straight Cane Gait Deviations General Gait Pattern Antalgic Decreased Stride Length Decreased Feet Clearance Factors Limiting Gait Function Factors Limiting Gait Function Decreased Activity Tolerance Decreased Strength Limited Range of Motion Pain Poor Balance Comments Gait Comments Moderate L hip drop during R LE stance phase. (+ve trendelenburg gait) Occasional foot slap during initial contact bilaterally. Stair Climbing Evaluation Evaluation Level of Assist On Stairs Independent Devices Stair Climbing Assistive Devices Left Railing Right Railing Technique/Endurance Stair Climbing Direction Ascend and Descend Stair Climbing Technique Step Over Step Step to Step PT-OP-H Neuro Start: 11/29/18 16:16 Freq: Status: Active Protocol: Document 11/29/18 14:30 HH (Rec: 11/29/18 17:03 HH [email or web address]) Sensation Evaluation Gross Sensation Gross Sensation Left LE Impaired Right LE Impaired Sensation Description Numbness Dermatome Impairments L4 L5 Deep Tendon Reflex & Clonus Assessment Deep Tendon Reflex Bilateral Achilles Deep Tendon Reflex 1+ Diminished Bilateral Patellar Deep Tendon Reflex 0 Absent PT-OP-J Posture/Palpation/Skin Start: 11/29/18 16:16 Freq: Status: Active Protocol: Document 12/24/18 08:18 LRN (Rec: 12/24/18 11:36 LRN [id number]) Posture Evaluation Position Standing Head/C-Spine Posture Forward Head T-Spine Posture Increased Kyphosis Knee Posture (L) Genu Varus (R) Genu Varus Comments Posture Comments Trunk is held in R rotation and mild forward bend. Reverse curvature of L2 -L5 Hip's Flexed 7 deg's Knee's flexed 10 deg's Palpation Assessment Location Low Back Palpation Location R Low back Palpation Findings Tenderness Palpation Details Active trigger points of the right low back ~L3-L5 level PT-OP-K Range of Motion Start: 11/29/18 16:16 Freq: Status: Active Protocol: Document 12/24/18 08:18 LRN (Rec: 12/24/18 11:32 LRN [id number]) Lumbar Spine Range of Motion Lumbar Spine Active Degrees Testing Position Standing Flexion 5 Extension 0 Lateral Flexion Left 10 Lateral Flexion Right 7 Comments Flex: 100 deg's with 95 deg's hip flexion = 5 deg's lumbar flexion Ext: 10 deg's with 10 deg's hip ext = 0 deg's lumbar extension PT-OP-L Special Tests Start: 11/29/18 16:16 Freq: Status: Active Protocol: Document 11/29/18 14:30 HH (Rec: 11/29/18 17:03 HH [email or web address]) Special Tests Lumbar Spine Special Tests facet syndrome test Test Results -ve Comments no c/o pain/ increase in symptoms PT-OP-M Strength Start: 11/29/18 16:16 Freq: Status: Active Protocol: Document 01/27/19 09:05 LRN (Rec: 01/27/19 09:57 LRN [id number]) Hip Strength Hip Manual Muscle Testing Right Flexion (L2) 4+ Good+ Extension (S1) 3+ Fair+ Abduction 3+ Fair+ Adduction 4 Good External Rotation 3+ Fair+ Internal Rotation 5 Normal Left Flexion (L2) 4+ Good+ Extension (S1) 5 Normal Abduction 5 Normal Adduction 4+ Good+ External Rotation 3+ Fair+ Internal Rotation 5 Normal Knee Strength Knee Manual Muscle Testing Right Flexion (S2) 5 Normal Extension (L3) 5 Normal Left Flexion (S2) 4 Good Extension (L3) 5 Normal Ankle/Foot Strength Ankle and Foot Manual Muscle Testing Right Dorsiflexion (L4) 3 Fair Plantarflexion (S1) 4+ Good+ Left Dorsiflexion (L4) 3+ Fair+ Plantarflexion (S1) 4+ Good+ PT-OP-Q Treatments Start: 11/29/18 16:16 Freq: Status: Active Protocol: Document 02/07/19 13:27 LRN (Rec: 02/07/19 15:45 LRN [id number]) Cardio Equipment Treadmill Duration (Minutes) 4 Speed 1.0 Incline 0 Other v. cues for long step lengths and gluteal tightening on toe off Gym Equipment Cable Column (Body Solid) Hip Abduction Details Hip AB, ECC work, arch in back Resistance 25#, 30# Reps/Time 10x2, 6x respectively. Towel support @ low back Leg Curl Details LLE>RLE: ECC work > conc work Resistance 30#, 35# Reps/Time 10x2, 10x respectively Shuttle Recovery Bilateral Heel Raises Resistance 25#, 37#, 50# Shuttle Recovery Platform Stable Reps/Time 10 x each Unilateral Squats Details Deep squat (90-45 degs) for gluteal strengthening Resistance 75# Shuttle Recovery Platform Stable Reps/Time 2x10 & 5x left; 2x10 & 6x right. Burning in low back post ex Therapeutic Exercises Prone Exercises Anterior pelvic tilt Prone Exercise Name QL tightening Side bilateral Reps/Minutes 3' Comments Physical and verbal cuing Standing Exercises Gastroc stretch f/b DF Standing Exercise Name Gastroc stretch f/b active ankle DF Side bilateral Equipment Used VELMA Reps/Minutes 3x 1'stretch f/b 10x active DF (5 sec holds) Self-Care/Home Management Treatment Activities Self-Care/Home Management Activities I/S pt to do anterior pelvic tilts. PT-OP-R Modalities Start: 11/29/18 16:16 Freq: Status: Active Protocol: Document 12/17/18 08:15 LRN (Rec: 12/17/18 09:05 LRN [id number]) Electric Stimulation Electric Stimulation Lumbosacral region Body Location (L3-S2) Duration (Minutes) 5 Intensity 19 Target/Sweep Sweep Patient Position Hooklying Combined With Heat/Cold Hot Pack PT-OP-T Assessment and Plan Start: 11/29/18 16:16 Freq: Status: Active Protocol: Document 02/07/19 13:27 LRN (Rec: 02/07/19 15:45 LRN [id number]) Physical Therapy Assessment Assessment Summary Assessment Pt having now intermittent itching in thighs, getting itching in gastrocs. Squats with 75# was too much with pt having onset of hamstring muscle spasms. Physical Therapy Plan Frequency and Duration Frequency of Treatment 1x/Week Plan of Care Start Date 11/29/18 Plan of Care End Date 03/01/19 Next Visit Focus/Plan Next Note Type Treatment Note Next Visit Plan Progress gait on TM & LE strengthening (focus hips ER, ext, AB, L knee flex & ankle PF, R DF). Increase gait tolerance. Manual lumbar traction (at ASIS's or thighs) to reduce back pain or sensation changes in LE's if needed. Improve posture ( anterior placement of Sacrum on L/S), manual therapy for improving lumbar position towards neutral positioning. Progress strengthening exercises for lumbar ext and core stabilization. Caution for right hip pain and R TSA.
--- NOTE | 2019-02-10 17:16 | PT.OTN ---
Current Diagnoses Radiculopathy, lumbosacral region (02/10/19) Other symptoms and signs involving the musculoskeletal system (02/10/19) Physical Therapy Treatment Note PT-OP-A Visit Information Start: 11/29/18 16:16 Freq: Status: Active Protocol: Document 02/10/19 08:16 LRN (Rec: 02/10/19 09:01 LRN [id number]) Out-Patient Physical Therapy Visit Information Visit Information Visit Type Treatment Note Visit Note 02/19 towards PN Visit Start Time 08:16 Visit Stop Time 09:00 Total Visit Minutes 44 Visit Number 12 Number of [employer] Visits 0 Evaluation Information Evaluation Date 11/29/18 Precautions Precautions fall risk bruise easily right total shoulder about 3 months ago PT-OP-B Current Condition Start: 11/29/18 16:16 Freq: Status: Active Protocol: Document 11/29/18 14:30 HH (Rec: 11/29/18 17:03 HH [email or web address]) Current Condition History of Current Condition Onset Date 3 months ago Current Complaints decreased balance, impaired gait and activity tolerance History of Current Condition Pt presents to clinic by using SPC for mobility. Pt c/o new onset of B LE weakness mostly at gluteal muscles, hamstring and occasional numbness sensation at top of B feet since 3 months ago. Pt states symptoms started after a reverse R TSA followed by a post op complication with pneumothorax at (09/29/18 ). He c/o his strength and endurance has been decreased significantly since then. He is only able to tolerate walking for couple blocks with SPC, and using step to pattern for stair negotiation with rails. He often felt unsteady with gait lately that he tends to trip on uneven surface. Pt had multiple falls in the yard over the past half year. Pt recently had an x-ray with Dr. 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 Camejo on . PMH includes L2-L5 laminectomy, Bladder cancer, L unilateral compartment sx, minor stroke. Prior Treatments and Tests Pt recently had an x-ray with Dr. 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 Camejo on . PMH includes L2- L5 laminectomy April, , Bladder cancer 2011, L unilateral compartment sx, minor stroke. Treatment Goals Patient/Caregiver Goals 1. To be able to walk a mile without using a SPC 2. Use step over pattern to climb stair 3. Able to walk on uneven surface safely Prior Functional Status Baseline Function- ADL's Independent Baseline Function- Mobility Independent Baseline Function- Gait without AD Baseline Function- Other step over pattern to climb stair Current Functional Impairments (Reported) Functional Limitations- Mobility/Gait step to pattern to climb stair use SPC for community mobility increased time for turns unable to ed walking more than couple blocks Personal Factors Other Personal Factors That May Effect PMH includes L2-L5 laminectomy Therapy/Recovery April, , Bladder cancer 2011, L unilateral compartment sx, minor stroke. PT-OP-C Subjective Start: 11/29/18 16:16 Freq: Status: Active Protocol: Document 02/10/19 08:16 LRN (Rec: 02/10/19 09:06 LRN [id number]) OP-PT Subjective Patient Comments Patient Comments States his back hurt getting up this morning. Itching still in his lower legs, sometimes down to the ankles intermittently. Has walked his cul[place]-sac, ~3'. PT-OP-D Balance Start: 11/29/18 16:16 Freq: Status: Active Protocol: Document 11/29/18 14:30 HH (Rec: 11/29/18 17:03 HH [email or web address]) OP-PT Balance Assessment Sitting Balance Static Sitting Balance Ability Normal Dynamic Sitting Balance Ability Normal Standing Balance Static Standing Balance Ability Normal Dynamic Standing Balance Ability Normal Balance Tests Kaur Balance Test Kaur Balance Test Score 47 Kaur Impairment Rating 1 to 19% Impaired (Score 45-55 ) Single Limb Standing Single Limb- Right 3 Single Limb- Left 3 Tandem Tandem Standing 0 Cali Fall Scale Copyright Permission PT-OP-E Functional Tests Start: 11/29/18 16:16 Freq: Status: Active Protocol: Document 11/29/18 14:30 HH (Rec: 11/29/18 17:03 HH [email or web address]) Functional Tests 2 Minute Walk Test Distance 1272 Device Used SPC Comments SPC on L UE, L hip dopr during R LE stance phase Five Times Sit to Stand Test Score 12s Comments without UE PT-OP-F Manual Assessment Start: 11/29/18 16:16 Freq: Status: Active Protocol: Document 12/17/18 08:15 LRN (Rec: 12/17/18 09:05 LRN [id number]) Manual Assessments Soft Tissue Assessment Soft Tissue Mobility Assessment TrP R LB triggerpoints PT-OP-G Mobility & Gait Start: 11/29/18 16:16 Freq: Status: Active Protocol: Document 11/29/18 14:30 HH (Rec: 11/29/18 17:03 HH [email or web address]) OP Gait Assessment Gait Gait Assistance Required: Independent Distance (Feet) 1,272 Able to Maintain Weight Bearing Status Yes During Gait Assistive Devices Assistive Device Straight Cane Gait Deviations General Gait Pattern Antalgic Decreased Stride Length Decreased Feet Clearance Factors Limiting Gait Function Factors Limiting Gait Function Decreased Activity Tolerance Decreased Strength Limited Range of Motion Pain Poor Balance Comments Gait Comments Moderate L hip drop during R LE stance phase. (+ve trendelenburg gait) Occasional foot slap during initial contact bilaterally. Stair Climbing Evaluation Evaluation Level of Assist On Stairs Independent Devices Stair Climbing Assistive Devices Left Railing Right Railing Technique/Endurance Stair Climbing Direction Ascend and Descend Stair Climbing Technique Step Over Step Step to Step PT-OP-H Neuro Start: 11/29/18 16:16 Freq: Status: Active Protocol: Document 11/29/18 14:30 HH (Rec: 11/29/18 17:03 HH [email or web address]) Sensation Evaluation Gross Sensation Gross Sensation Left LE Impaired Right LE Impaired Sensation Description Numbness Dermatome Impairments L4 L5 Deep Tendon Reflex & Clonus Assessment Deep Tendon Reflex Bilateral Achilles Deep Tendon Reflex 1+ Diminished Bilateral Patellar Deep Tendon Reflex 0 Absent PT-OP-J Posture/Palpation/Skin Start: 11/29/18 16:16 Freq: Status: Active Protocol: Document 12/24/18 08:18 LRN (Rec: 12/24/18 11:36 LRN [id number]) Posture Evaluation Position Standing Head/C-Spine Posture Forward Head T-Spine Posture Increased Kyphosis Knee Posture (L) Genu Varus (R) Genu Varus Comments Posture Comments Trunk is held in R rotation and mild forward bend. Reverse curvature of L2 -L5 Hip's Flexed 7 deg's Knee's flexed 10 deg's Palpation Assessment Location Low Back Palpation Location R Low back Palpation Findings Tenderness Palpation Details Active trigger points of the right low back ~L3-L5 level PT-OP-K Range of Motion Start: 11/29/18 16:16 Freq: Status: Active Protocol: Document 12/24/18 08:18 LRN (Rec: 12/24/18 11:32 LRN [id number]) Lumbar Spine Range of Motion Lumbar Spine Active Degrees Testing Position Standing Flexion 5 Extension 0 Lateral Flexion Left 10 Lateral Flexion Right 7 Comments Flex: 100 deg's with 95 deg's hip flexion = 5 deg's lumbar flexion Ext: 10 deg's with 10 deg's hip ext = 0 deg's lumbar extension PT-OP-L Special Tests Start: 11/29/18 16:16 Freq: Status: Active Protocol: Document 11/29/18 14:30 HH (Rec: 11/29/18 17:03 HH [email or web address]) Special Tests Lumbar Spine Special Tests facet syndrome test Test Results -ve Comments no c/o pain/ increase in symptoms PT-OP-M Strength Start: 11/29/18 16:16 Freq: Status: Active Protocol: Document 01/27/19 09:05 LRN (Rec: 01/27/19 09:57 LRN [id number]) Hip Strength Hip Manual Muscle Testing Right Flexion (L2) 4+ Good+ Extension (S1) 3+ Fair+ Abduction 3+ Fair+ Adduction 4 Good External Rotation 3+ Fair+ Internal Rotation 5 Normal Left Flexion (L2) 4+ Good+ Extension (S1) 5 Normal Abduction 5 Normal Adduction 4+ Good+ External Rotation 3+ Fair+ Internal Rotation 5 Normal Knee Strength Knee Manual Muscle Testing Right Flexion (S2) 5 Normal Extension (L3) 5 Normal Left Flexion (S2) 4 Good Extension (L3) 5 Normal Ankle/Foot Strength Ankle and Foot Manual Muscle Testing Right Dorsiflexion (L4) 3 Fair Plantarflexion (S1) 4+ Good+ Left Dorsiflexion (L4) 3+ Fair+ Plantarflexion (S1) 4+ Good+ PT-OP-Q Treatments Start: 11/29/18 16:16 Freq: Status: Active Protocol: Document 02/10/19 08:16 LRN (Rec: 02/10/19 09:01 LRN [id number]) Cardio Equipment Treadmill Duration (Minutes) 4 Speed 1.4 Incline 0 Other v. cues for upright posture, long step lengths & glut tightening on toe off Gym Equipment Cable Column (Body Solid) Hip AD Details Hip AD, ECC work, green back support Hip Abduction Details Hip AB, ECC work, green back support Resistance 25#, 30# Reps/Time 10x2, 6x respectively. Towel support @ low back Leg Curl Details LLE>RLE: ECC work > conc work , green back support Resistance 30#, 35# Reps/Time 10x2, 8x respectively Therapeutic Exercises Prone Exercises JOCE Prone Exercise Name JOCE Reps/Minutes 10x Hip Ext Prone Exercise Name Straight leg lifts Side bilateral Equipment Used red ball Reps/Minutes 10 x 3 Anterior pelvic tilt Prone Exercise Name QL tightening Sitting Exercises BAPS Sitting Exercise Name Ankle PF/DF Strengthening Side bilateral Resistance struts & 1 wgt on outside toes Reps/Minutes 25x Standing Exercises Gastroc stretch f/b DF Standing Exercise Name Gastroc stretch f/b active ankle DF (10x3) Side bilateral Equipment Used VELMA Reps/Minutes 3x 1'stretch f/b 10x active DF (5 sec holds) PT-OP-R Modalities Start: 11/29/18 16:16 Freq: Status: Active Protocol: Document 12/17/18 08:15 LRN (Rec: 12/17/18 09:05 LRN [id number]) Electric Stimulation Electric Stimulation Lumbosacral region Body Location (L3-S2) Duration (Minutes) 5 Intensity 19 Target/Sweep Sweep Patient Position Hooklying Combined With Heat/Cold Hot Pack PT-OP-T Assessment and Plan Start: 11/29/18 16:16 Freq: Status: Active Protocol: Document 02/10/19 08:16 LRN (Rec: 02/10/19 09:01 LRN [id number]) Physical Therapy Assessment Assessment Summary Assessment Pt had no c/o back pain JOCE exercise. Pt appears to have equal gluteal tightening in prone and is able to perform hip ext with assist of a ball at his ankles for support. Overall his posture is much improved with gait. He is walking without an assistive device and appears stable. Pt back pain remains the same with getting up out of bed in the morning, probably from being curled up in sleep. Pt needs to problem solve how to prevent curling up if he chooses not to use pillows to prevent it. His back appears to have a retrolisthesis where his back pain is located. Physical Therapy Plan Frequency and Duration Frequency of Treatment 1x/Week Plan of Care Start Date 11/29/18 Plan of Care End Date 03/01/19 Next Visit Focus/Plan Next Note Type Treatment Note Next Visit Plan Assess TUG. If pt tolerated, progress gait on TM & LE strengthening (focus hips ER, ext, AB, L knee flex & ankle PF, R DF). Increase gait tolerance. Manual lumbar traction (at ASIS's or thighs) to reduce back pain or sensation changes in LE's if needed. Improve posture ( anterior placement of Sacrum on L/S), manual therapy for improving lumbar position towards neutral positioning. Progress strengthening exercises for lumbar ext and core stabilization. Caution for right hip pain and R TSA.
--- NOTE | 2019-02-14 16:40 | PT.OTN ---
Current Diagnoses Radiculopathy, lumbosacral region (02/14/19) Other symptoms and signs involving the musculoskeletal system (02/14/19) Physical Therapy Treatment Note PT-OP-A Visit Information Start: 11/29/18 16:16 Freq: Status: Active Protocol: Document 02/14/19 09:06 LRN (Rec: 02/14/19 10:06 LRN [id number]) Out-Patient Physical Therapy Visit Information Visit Information Visit Type Treatment Note Visit Note 03/22 towards PN Visit Start Time 09:06 Visit Stop Time 09:58 Total Visit Minutes 52 Visit Number 13 Number of [employer] SERVICES OFFICER Visits 0 Evaluation Information Evaluation Date 11/29/18 Precautions Precautions fall risk bruise easily right total shoulder about 3 months ago PT-OP-B Current Condition Start: 11/29/18 16:16 Freq: Status: Active Protocol: Document 11/29/18 14:30 HH (Rec: 11/29/18 17:03 HH [email or web address]) Current Condition History of Current Condition Onset Date 3 months ago Current Complaints decreased balance, impaired gait and activity tolerance History of Current Condition Pt presents to clinic by using SPC for mobility. Pt c/o new onset of B LE weakness mostly at gluteal muscles, hamstring and occasional numbness sensation at top of B feet since 3 months ago. Pt states symptoms started after a reverse R TSA followed by a post op complication with pneumothorax at (09/29/18 ). He c/o his strength and endurance has been decreased significantly since then. He is only able to tolerate walking for couple blocks with SPC, and using step to pattern for stair negotiation with rails. He often felt unsteady with gait lately that he tends to trip on uneven surface. Pt had multiple falls in the yard over the past half year. Pt recently had an x-ray with Dr. 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 Camejo on . PMH includes L2-L5 laminectomy, Bladder cancer, L unilateral compartment sx, minor stroke. Prior Treatments and Tests Pt recently had an x-ray with Dr. 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 Camejo on . PMH includes L2- L5 laminectomy April, , Bladder cancer 2011, L unilateral compartment sx, minor stroke. Treatment Goals Patient/Caregiver Goals 1. To be able to walk a mile without using a SPC 2. Use step over pattern to climb stair 3. Able to walk on uneven surface safely Prior Functional Status Baseline Function- ADL's Independent Baseline Function- Mobility Independent Baseline Function- Gait without AD Baseline Function- Other step over pattern to climb stair Current Functional Impairments (Reported) Functional Limitations- Mobility/Gait step to pattern to climb stair use SPC for community mobility increased time for turns unable to ed walking more than couple blocks Personal Factors Other Personal Factors That May Effect PMH includes L2-L5 laminectomy Therapy/Recovery April, , Bladder cancer 2011, L unilateral compartment sx, minor stroke. PT-OP-C Subjective Start: 11/29/18 16:16 Freq: Status: Active Protocol: Document 02/14/19 09:06 LRN (Rec: 02/14/19 10:06 LRN [id number]) OP-PT Subjective Patient Comments Patient Comments States he is seeing Dr Camejo for his back and Glaucoma. States the itching in his legs are less. States the worst is sitting on the toilet seat because of pain. Denies problems with bowel or bladder voiding. States he thinks his back is stronger, but has difficulty getting up stairs and incline in the back of his house. Pain waking is less and less pain at night in the back. Pain on waking is 5-6/ 10. Pain during the day is ~2 /10. Patient Questionnaires Lower Extremity Functional Scale LEFS Score 46 LEFS Impairment 40 to 59% Impaired (Score 32- 47) PT-OP-D Balance Start: 11/29/18 16:16 Freq: Status: Active Protocol: Document 11/29/18 14:30 HH (Rec: 11/29/18 17:03 HH [email or web address]) OP-PT Balance Assessment Sitting Balance Static Sitting Balance Ability Normal Dynamic Sitting Balance Ability Normal Standing Balance Static Standing Balance Ability Normal Dynamic Standing Balance Ability Normal Balance Tests Kaur Balance Test Kaur Balance Test Score 47 Kaur Impairment Rating 1 to 19% Impaired (Score 45-55 ) Single Limb Standing Single Limb- Right 3 Single Limb- Left 3 Tandem Tandem Standing 0 Cali Fall Scale Copyright Permission PT-OP-E Functional Tests Start: 11/29/18 16:16 Freq: Status: Active Protocol: Document 11/29/18 14:30 HH (Rec: 11/29/18 17:03 HH [email or web address]) Functional Tests 2 Minute Walk Test Distance 1272 Device Used SPC Comments SPC on L UE, L hip dopr during R LE stance phase Five Times Sit to Stand Test Score 12s Comments without UE PT-OP-F Manual Assessment Start: 11/29/18 16:16 Freq: Status: Active Protocol: Document 12/17/18 08:15 LRN (Rec: 12/17/18 09:05 LRN [id number]) Manual Assessments Soft Tissue Assessment Soft Tissue Mobility Assessment TrP R LB triggerpoints PT-OP-G Mobility & Gait Start: 11/29/18 16:16 Freq: Status: Active Protocol: Document 11/29/18 14:30 HH (Rec: 11/29/18 17:03 HH [email or web address]) OP Gait Assessment Gait Gait Assistance Required: Independent Distance (Feet) 1,272 Able to Maintain Weight Bearing Status Yes During Gait Assistive Devices Assistive Device Straight Cane Gait Deviations General Gait Pattern Antalgic Decreased Stride Length Decreased Feet Clearance Factors Limiting Gait Function Factors Limiting Gait Function Decreased Activity Tolerance Decreased Strength Limited Range of Motion Pain Poor Balance Comments Gait Comments Moderate L hip drop during R LE stance phase. (+ve trendelenburg gait) Occasional foot slap during initial contact bilaterally. Stair Climbing Evaluation Evaluation Level of Assist On Stairs Independent Devices Stair Climbing Assistive Devices Left Railing Right Railing Technique/Endurance Stair Climbing Direction Ascend and Descend Stair Climbing Technique Step Over Step Step to Step PT-OP-H Neuro Start: 11/29/18 16:16 Freq: Status: Active Protocol: Document 11/29/18 14:30 HH (Rec: 11/29/18 17:03 HH [email or web address]) Sensation Evaluation Gross Sensation Gross Sensation Left LE Impaired Right LE Impaired Sensation Description Numbness Dermatome Impairments L4 L5 Deep Tendon Reflex & Clonus Assessment Deep Tendon Reflex Bilateral Achilles Deep Tendon Reflex 1+ Diminished Bilateral Patellar Deep Tendon Reflex 0 Absent PT-OP-J Posture/Palpation/Skin Start: 11/29/18 16:16 Freq: Status: Active Protocol: Document 12/24/18 08:18 LRN (Rec: 12/24/18 11:36 LRN [id number]) Posture Evaluation Position Standing Head/C-Spine Posture Forward Head T-Spine Posture Increased Kyphosis Knee Posture (L) Genu Varus (R) Genu Varus Comments Posture Comments Trunk is held in R rotation and mild forward bend. Reverse curvature of L2 -L5 Hip's Flexed 7 deg's Knee's flexed 10 deg's Palpation Assessment Location Low Back Palpation Location R Low back Palpation Findings Tenderness Palpation Details Active trigger points of the right low back ~L3-L5 level PT-OP-K Range of Motion Start: 11/29/18 16:16 Freq: Status: Active Protocol: Document 12/24/18 08:18 LRN (Rec: 12/24/18 11:32 LRN [id number]) Lumbar Spine Range of Motion Lumbar Spine Active Degrees Testing Position Standing Flexion 5 Extension 0 Lateral Flexion Left 10 Lateral Flexion Right 7 Comments Flex: 100 deg's with 95 deg's hip flexion = 5 deg's lumbar flexion Ext: 10 deg's with 10 deg's hip ext = 0 deg's lumbar extension PT-OP-L Special Tests Start: 11/29/18 16:16 Freq: Status: Active Protocol: Document 11/29/18 14:30 HH (Rec: 11/29/18 17:03 HH [email or web address]) Special Tests Lumbar Spine Special Tests facet syndrome test Test Results -ve Comments no c/o pain/ increase in symptoms PT-OP-M Strength Start: 11/29/18 16:16 Freq: Status: Active Protocol: Document 01/27/19 09:05 LRN (Rec: 01/27/19 09:57 LRN [id number]) Hip Strength Hip Manual Muscle Testing Right Flexion (L2) 4+ Good+ Extension (S1) 3+ Fair+ Abduction 3+ Fair+ Adduction 4 Good External Rotation 3+ Fair+ Internal Rotation 5 Normal Left Flexion (L2) 4+ Good+ Extension (S1) 5 Normal Abduction 5 Normal Adduction 4+ Good+ External Rotation 3+ Fair+ Internal Rotation 5 Normal Knee Strength Knee Manual Muscle Testing Right Flexion (S2) 5 Normal Extension (L3) 5 Normal Left Flexion (S2) 4 Good Extension (L3) 5 Normal Ankle/Foot Strength Ankle and Foot Manual Muscle Testing Right Dorsiflexion (L4) 3 Fair Plantarflexion (S1) 4+ Good+ Left Dorsiflexion (L4) 3+ Fair+ Plantarflexion (S1) 4+ Good+ PT-OP-Q Treatments Start: 11/29/18 16:16 Freq: Status: Active Protocol: Document 02/14/19 09:06 LRN (Rec: 02/14/19 10:06 LRN [id number]) Cardio Equipment Treadmill Duration (Minutes) 6 Speed 1.0 Incline 0 Other v. cues for upright posture, & glut tightening on toe off Gym Equipment Cable Column (Body Solid) Hip AD Details Hip AD, ECC work, green back support Resistance 30# Reps/Time 25 Hip Abduction Details Hip AB, ECC work, green back support Resistance 25#, 30# Reps/Time 10x2, 6x respectively. Towel support @ low back Leg Curl Details LLE>RLE: ECC work > conc work , green back support Resistance 35# Reps/Time 10x2, 8x respectively Therapeutic Exercises Sitting Exercises BAPS Sitting Exercise Name Ankle PF/DF Strengthening Side bilateral Resistance struts & 1 wgt on outside toes Reps/Minutes 30x each Standing Exercises Heel raises Standing Exercise Name On VELMA, isometric heel raises. Side bilateral Equipment Used VELMA Reps/Minutes 4' Side step ups Standing Exercise Name Side step ups 8 steps Side bilateral Equipment Used // Bars, 8 step Reps/Minutes 6' Step ups Standing Exercise Name Step ups 8 step Side bilateral Equipment Used // Bars, 8 step, Reps/Minutes 6' Self-Care/Home Management Treatment Education Other Education Discussed how pt might address muscle cramps in lower legs in the middle of the night. Discussed possible reasons for onset PT-OP-R Modalities Start: 11/29/18 16:16 Freq: Status: Active Protocol: Document 02/14/19 09:06 VIVIAN (Rec: 02/14/19 10:06 VIVIAN [id number]) Hot Pack/Cold Pack Treatment Cold Pack Location Back Patient Position Sitting Treatment Duration (minutes) 10 Patient Tolerance Good PT-OP-T Assessment and Plan Start: 11/29/18 16:16 Freq: Status: Active Protocol: Document 02/14/19 09:06 VIVIAN (Rec: 02/14/19 10:06 VIVIAN [id number]) Physical Therapy Assessment Goals Pain Impairment R hip and low back pain limiting ability to walk and sleep at nights Shelter Goal (LTG) Decrease pain no greater than 2/10 with improved function per LEFS score > 43/80. LTG Duration 03/01/19 (02/14/19: GOAL PARTIALLY MET.Pt sleeping better at night w/o meds) R hip stabilizers Impairment Pt presents L hip drop during amb [employer] Goal (LTG) pt will increase overall B LE strength by 1MMT, especially R hip stabilizers in order to normalized his L hip drop pattern to increase gait stability. LTG Duration 03/01/19 Stair negotiation Impairment Pt uses step to pattern and rails to climb stairs [employer] Goal (LTG) Pt will be able to improve his single leg balance >5 s in order to climb stairs with step over pattern LTG Duration 03/01/19 activity tolerance Impairment pt is unable to ed walking for more than a few blocks [employer] Goal (LTG) Pt will be able to walk a mile a day without SPC in community to improve his quality of life. LTG Duration 03/01/19 Progress Towards Goals Progress Comments Pain: GOAL PARTIALLY MET. Pain on waking is 5-6/10, otherwise ~2/10. LEFS 46. R Hip Stabilizers: Not assessed. Stairs: Able to walk alternate stepping from 6 steps. He does step to gait on descending stairs at home due to fear of legs giving out . SLS to be assessed next visit. Activity Tolerance: Not assessed. Pt hs not tried walking for exercise. Assessment Summary Assessment Pt back pain is the same waking at night (5/10), but during the day his pain has lessened to 2/10 and LE function has improved per LEFS Questionnaire. Pt has not been using a cane to walk and is feeling more secure, but he does show signs of excessive sway due to LE weakness. He has notable gluteal atrophy, but a contraction can be elicited with proper cuing. He does not use his gluteal muscles with gait due to poor pt awareness of how to properly walk. Today he appeared a little unstable walking without the cane. His progress is being hindered by his posturing in bed during the night causing stress on the low back and pain upon waking. Further therapy would be beneficial for the pt to improve gluteal & LE strength and posture, which will to help decrease his back pain. The pt has other health issues he would like to focus on now ; therefore the pt wants to finish with therapy next visit and talk with MD regarding other options for his back pain. Physical Therapy Plan Frequency and Duration Frequency of Treatment 1x/Week Plan of Care Start Date 11/29/18 Plan of Care End Date 03/01/19 Next Visit Focus/Plan Next Note Type Discharge Summary Next Visit Plan Reassess for DC per pt request : Pain assessment, SLS, TUG, LE MMT. Review HEP. Pt will seek more therapy if recommended by Dr. Camejo.
--- NOTE | 2019-02-17 17:35 | PT.OTN ---
Current Diagnoses Radiculopathy, lumbosacral region (02/17/19) Other symptoms and signs involving the musculoskeletal system (02/17/19) Physical Therapy Treatment Note PT-OP-A Visit Information Start: 11/29/18 16:16 Freq: Status: Active Protocol: Document 02/17/19 08:17 LRN (Rec: 02/17/19 09:03 LRN [id number]) Out-Patient Physical Therapy Visit Information Visit Information Visit Type Discharge Summary Visit Note 03/22 towards PN Visit Start Time 08:17 Visit Stop Time 09:03 Total Visit Minutes 46 Visit Number 14 Number of RESTORATION TECHNICIAN Visits 0 Evaluation Information Evaluation Date 11/29/18 Precautions Precautions fall risk bruise easily right total shoulder about 3 months ago PT-OP-B Current Condition Start: 11/29/18 16:16 Freq: Status: Active Protocol: Document 11/29/18 14:30 HH (Rec: 11/29/18 17:03 HH [id number]) Current Condition History of Current Condition Onset Date 3 months ago Current Complaints decreased balance, impaired gait and activity tolerance History of Current Condition Pt presents to clinic by using SPC for mobility. Pt c/o new onset of B LE weakness mostly at gluteal muscles, hamstring and occasional numbness sensation at top of B feet since 3 months ago. Pt states symptoms started after a reverse R TSA followed by a post op complication with pneumothorax at (09/29/18 ). He c/o his strength and endurance has been decreased significantly since then. He is only able to tolerate walking for couple blocks with SPC, and using step to pattern for stair negotiation with rails. He often felt unsteady with gait lately that he tends to trip on uneven surface. Pt had multiple falls in the yard over the past half year. Pt recently had an x-ray with Dr. 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 Camejo on . PMH includes L2-L5 laminectomy, Bladder cancer, L unilateral compartment sx, minor stroke. Prior Treatments and Tests Pt recently had an x-ray with Dr. 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 Camejo on . PMH includes L2- L5 laminectomy April, , Bladder cancer 2011, L unilateral compartment sx, minor stroke. Treatment Goals Patient/Caregiver Goals 1. To be able to walk a mile without using a SPC 2. Use step over pattern to climb stair 3. Able to walk on uneven surface safely Prior Functional Status Baseline Function- ADL's Independent Baseline Function- Mobility Independent Baseline Function- Gait without AD Baseline Function- Other step over pattern to climb stair Current Functional Impairments (Reported) Functional Limitations- Mobility/Gait step to pattern to climb stair use SPC for community mobility increased time for turns unable to ed walking more than couple blocks Personal Factors Other Personal Factors That May Effect PMH includes L2-L5 laminectomy Therapy/Recovery April, , Bladder cancer 2011, L unilateral compartment sx, minor stroke. PT-OP-C Subjective Start: 11/29/18 16:16 Freq: Status: Active Protocol: Document 02/17/19 08:17 LRN (Rec: 02/17/19 09:03 LRN [id number]) OP-PT Subjective Patient Comments Patient Comments See's MD on 02/21/19. Able to get up and move around more, and itching is getting less. might be sleeping better. Okay for DC from PT Patient Questionnaires Oswestry Low Back Index Oswestry Score 11 Oswestry Impairment 1 to 19% Impaired (Score 1-19) OP-PT Pain Assessment Pain Assessment Grid Paper Pain Assessment Grid Completed Yes Location Low back Pain Location Details R low back at L3-L5 level Intensity 3 Scale Used Numeric (1 - 10) Description Throbbing Frequency Intermittent Radiating Location R Hip Pain Alleviating Factors Prayer Bilateral Hip Pain Location Details Primarily right, occasionally left Intensity 3 Scale Used Numeric (1 - 10) Description Throbbing Frequency Intermittent Pain Aggravating Factors Activity Exercise Walking Bending Lifting Pain Alleviating Factors Inactivity Rt Shoulder Intensity 0 Scale Used Numeric (1 - 10) Description Aching Dull Frequency Occasional Pain Duration After lying on it Pain Aggravating Factors ADL's Activity Exercise Lifting Pain Alleviating Factors Inactivity PT-OP-D Balance Start: 11/29/18 16:16 Freq: Status: Active Protocol: Document 02/17/19 08:17 LRN (Rec: 02/17/19 09:03 LRN [id number]) Balance Tests Single Limb Standing Single Limb- Right 2 Single Limb- Left 5 PT-OP-E Functional Tests Start: 11/29/18 16:16 Freq: Status: Active Protocol: Document 02/17/19 08:17 LRN (Rec: 02/17/19 09:03 LRN [id number]) Functional Tests Timed Up and Go (TUG) Score 12 TUG Impairment Rating 1 to <20% Impaired (Score 11) PT-OP-F Manual Assessment Start: 11/29/18 16:16 Freq: Status: Active Protocol: Document 12/17/18 08:15 LRN (Rec: 12/17/18 09:05 LRN [id number]) Manual Assessments Soft Tissue Assessment Soft Tissue Mobility Assessment TrP R LB triggerpoints PT-OP-G Mobility & Gait Start: 11/29/18 16:16 Freq: Status: Active Protocol: Document 11/29/18 14:30 HH (Rec: 11/29/18 17:03 HH [email or web address]) OP Gait Assessment Gait Gait Assistance Required: Independent Distance (Feet) 1,272 Able to Maintain Weight Bearing Status Yes During Gait Assistive Devices Assistive Device Straight Cane Gait Deviations General Gait Pattern Antalgic Decreased Stride Length Decreased Feet Clearance Factors Limiting Gait Function Factors Limiting Gait Function Decreased Activity Tolerance Decreased Strength Limited Range of Motion Pain Poor Balance Comments Gait Comments Moderate L hip drop during R LE stance phase. (+ve trendelenburg gait) Occasional foot slap during initial contact bilaterally. Stair Climbing Evaluation Evaluation Level of Assist On Stairs Independent Devices Stair Climbing Assistive Devices Left Railing Right Railing Technique/Endurance Stair Climbing Direction Ascend and Descend Stair Climbing Technique Step Over Step Step to Step PT-OP-H Neuro Start: 11/29/18 16:16 Freq: Status: Active Protocol: Document 11/29/18 14:30 HH (Rec: 11/29/18 17:03 HH [email or web address]) Sensation Evaluation Gross Sensation Gross Sensation Left LE Impaired Right LE Impaired Sensation Description Numbness Dermatome Impairments L4 L5 Deep Tendon Reflex & Clonus Assessment Deep Tendon Reflex Bilateral Achilles Deep Tendon Reflex 1+ Diminished Bilateral Patellar Deep Tendon Reflex 0 Absent PT-OP-J Posture/Palpation/Skin Start: 11/29/18 16:16 Freq: Status: Active Protocol: Document 12/24/18 08:18 LRN (Rec: 12/24/18 11:36 LRN [id number]) Posture Evaluation Position Standing Head/C-Spine Posture Forward Head T-Spine Posture Increased Kyphosis Knee Posture (L) Genu Varus (R) Genu Varus Comments Posture Comments Trunk is held in R rotation and mild forward bend. Reverse curvature of L2 -L5 Hip's Flexed 7 deg's Knee's flexed 10 deg's Palpation Assessment Location Low Back Palpation Location R Low back Palpation Findings Tenderness Palpation Details Active trigger points of the right low back ~L3-L5 level PT-OP-K Range of Motion Start: 11/29/18 16:16 Freq: Status: Active Protocol: Document 12/24/18 08:18 LRN (Rec: 12/24/18 11:32 LRN [id number]) Lumbar Spine Range of Motion Lumbar Spine Active Degrees Testing Position Standing Flexion 5 Extension 0 Lateral Flexion Left 10 Lateral Flexion Right 7 Comments Flex: 100 deg's with 95 deg's hip flexion = 5 deg's lumbar flexion Ext: 10 deg's with 10 deg's hip ext = 0 deg's lumbar extension PT-OP-L Special Tests Start: 11/29/18 16:16 Freq: Status: Active Protocol: Document 11/29/18 14:30 HH (Rec: 11/29/18 17:03 HH [email or web address]) Special Tests Lumbar Spine Special Tests facet syndrome test Test Results -ve Comments no c/o pain/ increase in symptoms PT-OP-M Strength Start: 11/29/18 16:16 Freq: Status: Active Protocol: Document 02/17/19 08:17 LRN (Rec: 02/17/19 09:03 LRN [id number]) Hip Strength Hip Manual Muscle Testing Right Flexion (L2) 4+ Good+ Extension (S1) 5 Normal Abduction 5 Normal Adduction 5 Normal External Rotation 5 Normal Internal Rotation 5 Normal Left Flexion (L2) 5 Normal Extension (S1) 4- Good- Abduction 5 Normal Adduction 5 Normal External Rotation 5 Normal Internal Rotation 5 Normal Knee Strength Knee Manual Muscle Testing Right Flexion (S2) 5 Normal Extension (L3) 5 Normal Left Flexion (S2) 4- Good- Extension (L3) 5 Normal Ankle/Foot Strength Ankle and Foot Manual Muscle Testing Right Dorsiflexion (L4) 3 Fair Plantarflexion (S1) 4+ Good+ Inversion 5 Normal Eversion (S1) 3+ Fair+ Left Dorsiflexion (L4) 5 Normal Plantarflexion (S1) 4+ Good+ Inversion 5 Normal Eversion (S1) 3- Fair- Comments Pt not able to do heel raises in standing. PT-OP-Q Treatments Start: 11/29/18 16:16 Freq: Status: Active Protocol: Document 02/17/19 08:17 LRN (Rec: 02/17/19 09:03 LRN [id number]) Cardio Equipment Treadmill Duration (Minutes) 10 Speed 1.2 Incline 0 Other Good gluteal tightening with gait Gym Equipment Cable Column (Body Solid) Hip AD Details Hip AD, ECC work, green back support Resistance 30# Reps/Time 25 Hip Abduction Details Hip AB, ECC work, green back support Resistance 25#, 30# Reps/Time 10x2, 6x respectively. Towel support @ low back Leg Curl Details LLE>RLE: ECC work > conc work , green back support Resistance 35# Reps/Time 10x2, 8x respectively Therapeutic Exercises Supine Exercises SLR Side bilateral Resistance Manual Comments MMT Prone Exercises Knee flexion Side bilateral Comments MMT Hip Ext Prone Exercise Name Straight leg lifts Side bilateral Sidelying Exercises Hip AB Sidelying Exercise Name Hip AB in neutral Side bilateral Comments MMT taken Hip AD Sidelying Exercise Name Hip AD in neutral Side bilateral Reps/Minutes 5x Comments MMT taken Sitting Exercises Hip IR Side bilateral Comments MMT Knee ext Side bilateral Comments MMT Heel Raises Sitting Exercise Name Heel Raises Side bilateral Ankle PF Sitting Exercise Name Ankle PF Side bilateral Resistance Lev 2 T-Band Comments MMT taken. Hip ER Sitting Exercise Name Hip ER Side bilateral Resistance Lev 1 T-BAnd Reps/Minutes 10 x each Comments MMT taken. Neuro Re-Education Treatment Balance Activities 3 Details Standing on foam pad Surface bolton foam pad Equipment performed in parallel bars Reps/Duration x 3 reps Comments eyes open 2 Details SLS Reps/Duration 5' Self-Care/Home Management Treatment Education Patient Education Home Exercise Program Activities Self-Care/Home Management Activities Issued and reviewed HEP of ex' s to focus on. PT-OP-R Modalities Start: 11/29/18 16:16 Freq: Status: Active Protocol: Document 02/14/19 09:06 LRN (Rec: 02/14/19 10:06 LRN [id number]) Hot Pack/Cold Pack Treatment Cold Pack Location Back Patient Position Sitting Treatment Duration (minutes) 10 Patient Tolerance Good PT-OP-T Assessment and Plan Start: 11/29/18 16:16 Freq: Status: Active Protocol: Document 02/17/19 08:17 LRN (Rec: 02/17/19 09:03 LRN [id number]) Physical Therapy Assessment Goals Pain Impairment R hip and low back pain limiting ability to walk and sleep at nights Maintenance Supervisor Mechanical Goal (LTG) Decrease pain no greater than 2/10 with improved function per LEFS score > 43/80. LTG Duration 03/01/19 (02/17/19: GOAL PARTIALLY MET.Pt sleeping better at night w/o meds) R hip stabilizers Impairment Pt presents L hip drop during amb Group Home Goal (LTG) pt will increase overall B LE strength by 1MMT, especially R hip stabilizers in order to normalized his L hip drop pattern to increase gait stability. LTG Duration 03/01/19 (02/17/19: GOAL MOSTLY MET) Stair negotiation Impairment Pt uses step to pattern and rails to climb stairs Group Home Goal (LTG) Pt will be able to improve his single leg balance >5 s in order to climb stairs with step over pattern LTG Duration 03/01/19 (02/17/19: GOAL NOT MET) activity tolerance Impairment pt is unable to ed walking for more than a few blocks Maintenance Supervisor Mechanical Goal (LTG) Pt will be able to walk a mile a day without SPC in community to improve his quality of life. LTG Duration 03/01/19 (02/17/19: GOAL NOT MET, but improved) Assessment Summary Assessment Pt gait mechanics and stability has improved. The pain in his back seems to continually be irritated during the night since that is the most painful time of his day. His progress has been slow as expected, but I believe he has potential to improve in his strength and endurance for walking. His back pain appears mechanical in nature due to his surgical history. Physical Therapy Plan Frequency and Duration Frequency of Treatment 1x/Week Plan of Care Start Date 11/29/18 Plan of Care End Date 03/01/19 Discharge Physical Therapy Discharge Comments The pt would like to see what other options of care is available to him to help with his back pain; therefore he is being discharged to his [facility]. Thank you for referring this patient for his physical therapy. I would be more than happy to work with this patient again if needed.
== END 2019-02-23 15:18 | disposition home or self-care (01) ==
LOC: PHYS 08:15
PROVIDERS: PCP Family Medicine; Visit Provider Family Medicine
DX: R29.898 Other symptoms and signs involving the musculoskeletal system (principal); M54.17 Radiculopathy, lumbosacral region
CPT/HCPCS: 97110; 97112; 97140; 97162; 97535

== ENCOUNTER → 2019-03-11 09:08 | Outpatient (CLI) | payer MEDICARE, OTHER, SELFPAY ==
[2018-09-29 19:13] VITALS: BMI 20.7
--- NOTE | 2019-03-11 09:11 | DI.MRI.S_ITS ---
PROCEDURE: MR LUMBAR SPINE WO CON INDICATIONS: lumbar pain >3 months TECHNIQUE: Noncontrast sagittal T1 spin echo and T2 fast echo, sagittal STIR, axial T1 and T2 fast spin echo through the lumbar spine. In cases with scoliosis, additional coronal T2 fast spin echo may be performed. COMPARISON: [facility], CR, XR LUMBAR SPINE MIN 4V, 11/05/2018, 8:02. [facility], MR, L-SPINE WITHOUT CONTRAST, 09/02/2016, 9:26. FINDINGS: Image quality: Excellent. Alignment and Curvature: Mild degenerative retrolisthesis of L4 on L5 is again noted, measuring 5 mm. Interval development of anterolisthesis of L3 on L4, measuring 7 mm. Stable mild anterolisthesis of L2 on L3 measuring 3 mm. Bone Marrow: Marrow is of normal overall signal. No acute vertebral body compression fractures. Spinal Cord: Conus medullaris terminates at the inferior L2 level. Interval development of severe multifactorial canal stenosis at L1-L2, with development of signal abnormality in the cord at this level, involving the conus. Paraspinous Soft Tissues: No paravertebral masses. T12-L1: No canal stenosis or foraminal stenosis L1-L2: Interval increase in a broad-based disc bulge, which is moderate, and interval increase in facet and ligament hypertrophy. This now results in severe canal stenosis, with associated interval development of signal abnormality in the conus region. L2-L3: Mild anterolisthesis of L2 on L3. Interval increase in broad-based disc bulge. Stable moderate to severe canal stenosis. Facet hypertrophy. Stable moderate right foraminal stenosis and moderate to severe left foraminal stenosis. L3-L4: Interval right hemilaminectomy. Interval development of anterolisthesis of L3 on L4. Previously severe canal stenosis is now moderate. Moderate right and mild left foraminal narrowing. L4-L5: Retrolisthesis of L4 on L5 with associated diffuse disc bulge. Interval right hemilaminectomy. Mild residual canal stenosis. Stable moderate right foraminal stenosis and moderate to severe left foraminal stenosis. L5-S1: No canal stenosis. Bilateral facet hypertrophy. Mild right foraminal narrowing and moderate left foraminal narrowing. IMPRESSION: 1. Extensive degenerative change. 2. Significant interval progression at L1-L2. There is now severe multifactorial canal stenosis with associated development of signal abnormality in the conus. 3. Stable moderate to severe canal stenosis at L2-L3. 4. Interval right L3 and L4 laminectomy. 5. Interval development of anterolisthesis of L3 on L4. However, previous severe canal stenosis is improved. 6. Improvement in canal stenosis at L4-L5. 7. No evidence of metastatic disease lumbar spine. Comment: Findings at L1-L2, with signal abnormality in the conus, were discussed with Nila Soni, clinical nursing intern for [employer], at the time of study dictation. Dictated by: Carlos Gracia M.D. on 03/11/2019 at 9:44 Approved by: Carlos Gracia M.D. on 03/11/2019 at 10:12
== END ==
PROVIDERS: Family Provider Internal Medicine Gastroenterology; PCP Family Medicine; Referring Provider Urology; Visit Provider Registered Nurse
DX: M54.5 Low back pain (principal); M47.27 Other spondylosis with radiculopathy, lumbosacral region; M47.26 Other spondylosis with radiculopathy, lumbar region; M48.061 Spinal stenosis, lumbar region without neurogenic claudication; M48.07 Spinal stenosis, lumbosacral region; M43.16 Spondylolisthesis, lumbar region
CPT/HCPCS: 72148

== ENCOUNTER → 2019-03-31 12:04 | Outpatient (CLI) | payer MEDICARE, OTHER, SELFPAY ==
[2018-09-29 19:13] VITALS: BMI 20.7
[2019-03-31 18:13] LABS: Appearance Urine UA CLOUDY; Bilirubin Urine UA NEGATIVE (NEGATIVE); Color Urine UA YELLOW; Glucose Urine UA NEGATIVE (Negative); Ketones Urine UA NEGATIVE (NEGATIVE); Leukocyte Esterase Urine UA TRACE (NEGATIVE); Nitrite Urine UA POSITIVE (Negative); Occult Blood Urine UA 1+ (Negative); Protein Urine UA NEGATIVE (Negative); Urobilinogen Urine UA 0.2 E.U./dL (0.2); pH Urine UA 6.5 (4.5-8.0)
[2019-03-31 18:23] LABS: Bacteria Urine Many (>30); Culture Indicated Urine Specimen Cultured; RBC Urine 5-10/HPF (0-5/HPF); WBC Urine 5-10/HPF (0-5/HPF)
== END ==
PROVIDERS: Family Provider Family Medicine; PCP Family Medicine; Visit Provider Internal Medicine Gastroenterology
DX: R39.9 Unspecified symptoms and signs involving the genitourinary system (principal)
CPT/HCPCS: 81001; 87077; 87086; 87186

== ENCOUNTER → 2019-08-02 07:02 | Outpatient (CLI) | payer MEDICARE, OTHER, SELFPAY ==
[2018-09-29 19:13] VITALS: BMI 20.7
[2019-08-02 07:52] LABS: HEMOLYSIS < 15 (0-50); Iron 68 ug/dL (49-181)
[2019-08-02 07:56] LABS: Reticulocyte Count, Percent 1.1 % (0.87-2.60)
[2019-08-02 08:03] LABS: Percent Iron Saturation 25 % (20-50); Total Iron Binding Capacity 271 ug/dL (261-462); Transferrin 212 mg/dL (206-381)
[2019-08-02 08:29] LABS: Ferritin 78.8 ng/mL (17.9-464)
[2019-08-02 08:43] LABS: Vitamin B12 726 pg/mL (239-931)
== END ==
PROVIDERS: PCP Family Medicine; Visit Provider Internal Medicine Gastroenterology
DX: D64.9 Anemia, unspecified (principal)
CPT/HCPCS: 36415; 82607; 82728; 83540; 83550; 85045

== ENCOUNTER 2019-08-19 09:45 | Outpatient (RCR) | payer MEDICARE, OTHER, SELFPAY ==
[2018-09-29 19:13] VITALS: BMI 20.7
--- NOTE | 2019-06-17 12:21 | PT.OIE ---
Current Diagnoses Low back pain (06/17/19) Full incontinence of feces (06/17/19) Retention of urine, unspecified (06/17/19) Past Medical History (Last Reviewed 02/24/19 @ 09:14 by HALI Diaz) Arthritis (Acute) Bladder cancer (Resolved 2011) Cataract (Resolved 2005) Chicken pox (Resolved 1939) Chronic back pain (Chronic 2011) Colitis (Chronic 2004) Former smoker (Acute) Hearing loss (Chronic 2001) History of nephrolithotomy with removal of calculi (Resolved 1993) Hypercholesterolemia (Resolved) Lumbar spine pain (Chronic 2012) Measles (Resolved 1939) Mumps (Resolved 1943) Osteoarthritis (Chronic 1997) Rubella (Resolved 1939) Past Surgical History (Last Updated 06/18/19 @ 12:21 by Porsche Persaud, PT) History of cataract removal with insertion of prosthetic lens (Resolved 2005) History of cystoscopy (Resolved) History of esophagogastroduodenoscopy (EGD) (Resolved 2013) History of eyelid surgery (Resolved 2012) History of laminectomy (Acute ~04/2019) History of nasal surgery (Resolved 1992) History of partial cystectomy (Resolved 2011) History of urinary tract surgery (Resolved 2011) Status post colonoscopy (Resolved 2004) Status post colonoscopy (Resolved 2013) Status post hernia repair (Resolved 1979) Status post laminectomy (Resolved 05/04/17) Status post tonsillectomy and adenoidectomy (Resolved ~1941) Status post unicompartmental knee replacement, left (Acute) Visit Care Team Role Provider Type Tomi Camejo MD Primary Care Provider Physician Specialty: Family Practice Address: [facility] [place], [address] Email: [email or web address] Kashif Florez MD Attending Provider Non-Staff Specialty: Neurosurgery Address: [address] [place] [address], [id number] Email: Physical Therapy Initial Evaluation PT-OP-A Visit Information Start: 06/17/19 09:40 Freq: Status: Active Protocol: Document 06/17/19 10:30 AMB (Rec: 06/17/19 11:16 AMB [email or web address]) Out-Patient Physical Therapy Visit Information Visit Information Visit Type Initial Evaluation Visit Start Time 10:30 Visit Stop Time 11:15 Total Visit Minutes 45 Visit Number 1 PT-OP-B Current Condition Start: 06/17/19 09:40 Freq: Status: Active Protocol: Document 06/17/19 10:30 AMB (Rec: 06/17/19 11:16 AMB [email or web address]) Current Condition History of Current Condition Onset Date Summer 2018 Current Complaints urinary retention and fecal incontinence with reduced sensation History of Current Condition Juan Carlos attends physical therapy currently using a garcia catheter and Depends due to urinary retention and fecal incontinence. He recently had L1L2 laminectomy due to central canal stenosis. He was unaware of how much urine he was retaining until he was in the hospital for surgery and they did a bladder scan. He did report having a lot of difficulty voiding prior to that, where he would really strain and only get out a small volume of urine. He has noticed the fecal incontinence worse since surgery. He is unaware of when he has a bowel movement sometimes. He has between 1-2 bowel movements per day which are fairly liquidy- he does take stool softeners. He does feel that digital stimulation is helpful for having a bowel movement as he feels he has lost a lot of the natural peristalsis. Treatment Goals Patient/Caregiver Goals be able to be as continent as possible Prior Functional Status Baseline Function- ADL's Independent Baseline Function- Other previously did not have fecal incontinence, but did have difficulty initiaing the stream of urine. Current Functional Impairments (Reported) Functional Limitations- ADL's Uses a garcia catheter and depends Personal Factors Other Personal Factors That May Effect History of bladder cancer. Therapy/Recovery History of central canal stenosis with recent laminenctomy, earlier laminectomy a few years ago. PT-OP-I Pelvic Floor Start: 06/17/19 09:40 Freq: Status: Active Protocol: Document 06/17/19 09:45 AMB (Rec: 06/18/19 12:16 AMB [email or web address]) Pelvic Floor Assessment Urine Other Urinary Symptoms Unable to void much urine, was having to urinate frequently and push hard to void just a little, with known urinary retention. Considering self cathing once gets garcia out. Has tried removing garcia twice and continues to retain urine . Bowel Bowel Symptoms Fecal Leakage Other Bowel Symptoms Unaware of when he has a bowel movement, has been trying to have one bowel movement a day in the afternoons with digital stimulation. Sometimes does leak and doesn't know it- can' t feel it until he smells it. Bowel Movement Frequency 1-2x/day [place] Stool Chart Type 1-7 6 Pelvic Clock Inter-Rectal Assessment 2/5 strength, fatigues quickly (less than 3 seconds). Comments Pelvic Floor Comments Palpated between rectum and scrotum, pt could feel deep pressure well, but no sensation of light touch. Pt noted less sensation of rectal exam today vs in December when he had one at MD office. PT-OP-T Assessment and Plan Start: 06/17/19 09:40 Freq: Status: Active Protocol: Document 06/17/19 09:45 AMB (Rec: 06/18/19 12:16 AMB [email or web address]) Physical Therapy Assessment Rehab Potential Rehabilitation Potential Fair Evaluation Complexity Number of Personal Factors/Comorbidities 1-2 Number of Body Systems Impaired 3 Clinical Presentation at Evaluation Evolving Impairments Impairments Functional Activities, Sensation,Strength Goals Two Impairment fecal continence Short Term Goal (STG) Juan Carlos will improve his pelvic floor strength to 3/5. STG Duration 4 weeks Halfway Goal (LTG) Juan Carlos will have 1-2 bowel movements per day, and not leak between bowel movements. LTG Duration 8 weeks One Impairment urinary continence Paving Crew Foreman Goal (LTG) Juan Carlos will be continent of urine between self caths. LTG Duration 8 weeks Assessment Summary Assessment Juan Carlos attends PT with symptoms of fecal incontinence , urinary retention, and decreased sensation. He did have severe central canal stenosis that prompted his recent laminectommy, and this is likely the cause of his symptoms. So far in the 2 months since his surgery, his continence has not improved signficantly. He will benefit from physical therapy to assist with his fecal continence, and as he transitions to self catheterization, make sure that he is continent between caths. His progress in therapy may be limited dependent upon how much/ if any nerve function he regains, but he will still benefit from education in the management of his new condition to help him be as continent as possible. Physical Therapy Plan Frequency and Duration Frequency of Treatment 1x/Week Duration of Treatment 8 weeks Plan of Care Start Date 06/17/19 Plan of Care End Date 08/12/19 Therapeutic Interventions Therapeutic Interventions Home Exercise Program,Manual Therapy,Neuromuscular Re- education,Therapeutic Activities,Therapeutic Exercises Modalities Biofeedback,Electric Stimulation Next Visit Focus/Plan Next Note Type Treatment Note Next Visit Plan begin with sEMG. Follow up on ILU massage.
--- NOTE | 2019-06-17 12:21 | PT.OPPOC ---
Current Diagnoses Low back pain (06/17/19) Full incontinence of feces (06/17/19) Retention of urine, unspecified (06/17/19) Visit Care Team Role Provider Type Tomi Camejo MD Primary Care Provider Physician Specialty: Family Practice Address: [facility] [place], [address] Email: [email or web address] Kashif Florez MD Attending Provider Non-Staff Specialty: Neurosurgery Address: [address] [place] [address], [phone] Email: Plan Of Care PT-OP-T Assessment and Plan Start: 06/17/19 09:40 Freq: Status: Active Protocol: Document 06/17/19 09:45 AMB (Rec: 06/18/19 12:16 AMB [email or web address]) Physical Therapy Assessment Rehab Potential Rehabilitation Potential Fair Evaluation Complexity Number of Personal Factors/Comorbidities 1-2 Number of Body Systems Impaired 3 Clinical Presentation at Evaluation Evolving Impairments Impairments Functional Activities, Sensation,Strength Goals Two Impairment fecal continence Short Term Goal (STG) Juan Carlos will improve his pelvic floor strength to 3/5. STG Duration 4 weeks Long-Term Goal (LTG) Juan Carlos will have 1-2 bowel movements per day, and not leak between bowel movements. LTG Duration 8 weeks One Impairment urinary continence Long-Term Goal (LTG) Juan Carlos will be continent of urine between self caths. LTG Duration 8 weeks Assessment Summary Assessment Juan Carlos attends PT with symptoms of fecal incontinence , urinary retention, and decreased sensation. He did have severe central canal stenosis that prompted his recent laminectommy, and this is likely the cause of his symptoms. So far in the 2 months since his surgery, his continence has not improved signficantly. He will benefit from physical therapy to assist with his fecal continence, and as he transitions to self catheterization, make sure that he is continent between caths. His progress in therapy may be limited dependent upon how much/ if any nerve function he regains, but he will still benefit from education in the management of his new condition to help him be as continent as possible. Physical Therapy Plan Frequency and Duration Frequency of Treatment 1x/Week Duration of Treatment 8 weeks Plan of Care Start Date 12/06/19 Plan of Care End Date 08/12/19 Therapeutic Interventions Therapeutic Interventions Home Exercise Program,Manual Therapy,Neuromuscular Re- education,Therapeutic Activities,Therapeutic Exercises Modalities Biofeedback,Electric Stimulation Next Visit Focus/Plan Next Note Type Treatment Note Next Visit Plan begin with sEMG. Follow up on ILU massage. Plan of Care Dates Plan of Care Start Date 06/17/19 Plan of Care End Date 08/12/19
--- NOTE | 2019-06-24 15:44 | PT.OTN ---
Current Diagnoses Low back pain (06/24/19) Full incontinence of feces (06/24/19) Retention of urine, unspecified (06/24/19) Physical Therapy Treatment Note PT-OP-A Visit Information Start: 06/17/19 09:40 Freq: Status: Active Protocol: Document 06/24/19 07:30 AMB (Rec: 06/24/19 15:44 AMB [email or web address]) Out-Patient Physical Therapy Visit Information Visit Information Visit Type Treatment Note Visit Start Time 07:30 Visit Stop Time 08:15 Total Visit Minutes 45 Visit Number 2 PT-OP-B Current Condition Start: 06/17/19 09:40 Freq: Status: Active Protocol: Document 06/17/19 10:30 AMB (Rec: 06/17/19 11:16 AMB [email or web address]) Current Condition History of Current Condition Onset Date Summer 2018 Current Complaints urinary retention and fecal incontinence with reduced sensation History of Current Condition Juan Carlos attends physical therapy currently using a garcia catheter and Depends due to urinary retention and fecal incontinence. He recently had L1L2 laminectomy due to central canal stenosis. He was unaware of how much urine he was retaining until he was in the hospital for surgery and they did a bladder scan. He did report having a lot of difficulty voiding prior to that, where he would really strain and only get out a small volume of urine. He has noticed the fecal incontinence worse since surgery. He is unaware of when he has a bowel movement sometimes. He has between 1-2 bowel movements per day which are fairly liquidy- he does take stool softeners. He does feel that digital stimulation is helpful for having a bowel movement as he feels he has lost a lot of the natural peristalsis. Treatment Goals Patient/Caregiver Goals be able to be as continent as possible Prior Functional Status Baseline Function- ADL's Independent Baseline Function- Other previously did not have fecal incontinence, but did have difficulty initiaing the stream of urine. Current Functional Impairments (Reported) Functional Limitations- ADL's Uses a garcia catheter and depends Personal Factors Other Personal Factors That May Effect History of bladder cancer. Therapy/Recovery History of central canal stenosis with recent laminenctomy, earlier laminectomy a few years ago. PT-OP-C Subjective Start: 06/18/19 12:17 Freq: Status: Active Protocol: Document 06/24/19 07:30 AMB (Rec: 06/24/19 15:44 AMB [email or web address]) OP-PT Subjective Patient Comments Patient Comments Pt reports he has been trying to do his exercises, but he can't feel them. PT-OP-I Pelvic Floor Start: 06/17/19 09:40 Freq: Status: Active Protocol: Document 06/17/19 09:45 AMB (Rec: 06/18/19 12:16 AMB [email or web address]) Pelvic Floor Assessment Urine Other Urinary Symptoms Unable to void much urine, was having to urinate frequently and push hard to void just a little, with known urinary retention. Considering self cathing once gets garcia out. Has tried removing garcia twice and continues to retain urine . Bowel Bowel Symptoms Fecal Leakage Other Bowel Symptoms Unaware of when he has a bowel movement, has been trying to have one bowel movement a day in the afternoons with digital stimulation. Sometimes does leak and doesn't know it- can' t feel it until he smells it. Bowel Movement Frequency 1-2x/day [place] Stool Chart Type 1-7 6 Pelvic Clock Inter-Rectal Assessment 2/5 strength, fatigues quickly (less than 3 seconds). Comments Pelvic Floor Comments Palpated between rectum and scrotum, pt could feel deep pressure well, but no sensation of light touch. Pt noted less sensation of rectal exam today vs in December when he had one at MD office. PT-OP-Q Treatments Start: 06/17/19 09:40 Freq: Status: Active Protocol: Document 06/24/19 07:30 AMB (Rec: 06/24/19 15:44 AMB [email or web address]) Therapeutic Exercises Supine Exercises 1 Supine Exercise Name roll in roll out Reps/Minutes #2 band Comments 2x10 ea Neuro Re-Education Treatment Balance Activities 1 Details sEMG for quick flicks and long holds Comments in hooklying: maximum of 7, resting 1.5 PT-OP-T Assessment and Plan Start: 06/17/19 09:40 Freq: Status: Active Protocol: Document 06/24/19 07:30 AMB (Rec: 06/24/19 15:44 AMB [email or web address]) Physical Therapy Assessment Assessment Summary Assessment Juan Carlos continues to have difficulty with sensation. He was able to do his exercises with biofeedback but can barely feel the insertion of the sensor and cannot feel if he is spring or not. Physical Therapy Plan Next Visit Focus/Plan Next Note Type Treatment Note Next Visit Plan continue with sEMG. Follow up on ILU massage.
--- NOTE | 2019-06-28 13:14 | PT.OTN ---
Current Diagnoses Low back pain (06/28/19) Full incontinence of feces (06/28/19) Retention of urine, unspecified (06/28/19) Physical Therapy Treatment Note PT-OP-A Visit Information Start: 06/17/19 09:40 Freq: Status: Active Protocol: Document 06/28/19 07:30 AMB (Rec: 06/28/19 09:32 AMB [email or web address]) Out-Patient Physical Therapy Visit Information Visit Information Visit Type Treatment Note Visit Start Time 07:30 Visit Stop Time 08:15 Total Visit Minutes 45 Visit Number 3 PT-OP-B Current Condition Start: 06/17/19 09:40 Freq: Status: Active Protocol: Document 06/17/19 10:30 AMB (Rec: 06/17/19 11:16 AMB [email or web address]) Current Condition History of Current Condition Onset Date Summer 2018 Current Complaints urinary retention and fecal incontinence with reduced sensation History of Current Condition Juan Carlos attends physical therapy currently using a garcia catheter and Depends due to urinary retention and fecal incontinence. He recently had L1L2 laminectomy due to central canal stenosis. He was unaware of how much urine he was retaining until he was in the hospital for surgery and they did a bladder scan. He did report having a lot of difficulty voiding prior to that, where he would really strain and only get out a small volume of urine. He has noticed the fecal incontinence worse since surgery. He is unaware of when he has a bowel movement sometimes. He has between 1-2 bowel movements per day which are fairly liquidy- he does take stool softeners. He does feel that digital stimulation is helpful for having a bowel movement as he feels he has lost a lot of the natural peristalsis. Treatment Goals Patient/Caregiver Goals be able to be as continent as possible Prior Functional Status Baseline Function- ADL's Independent Baseline Function- Other previously did not have fecal incontinence, but did have difficulty initiaing the stream of urine. Current Functional Impairments (Reported) Functional Limitations- ADL's Uses a garcia catheter and depends Personal Factors Other Personal Factors That May Effect History of bladder cancer. Therapy/Recovery History of central canal stenosis with recent laminenctomy, earlier laminectomy a few years ago. PT-OP-C Subjective Start: 06/18/19 12:17 Freq: Status: Active Protocol: Document 06/28/19 07:30 AMB (Rec: 06/28/19 13:14 AMB [email or web address]) OP-PT Subjective Patient Comments Patient Comments Pt continues to report difficulty sensing if he is spring pelvic floor, but he is trying. PT-OP-I Pelvic Floor Start: 06/17/19 09:40 Freq: Status: Active Protocol: Document 06/17/19 09:45 AMB (Rec: 06/18/19 12:16 AMB [email or web address]) Pelvic Floor Assessment Urine Other Urinary Symptoms Unable to void much urine, was having to urinate frequently and push hard to void just a little, with known urinary retention. Considering self cathing once gets garcia out. Has tried removing garcia twice and continues to retain urine . Bowel Bowel Symptoms Fecal Leakage Other Bowel Symptoms Unaware of when he has a bowel movement, has been trying to have one bowel movement a day in the afternoons with digital stimulation. Sometimes does leak and doesn't know it- can' t feel it until he smells it. Bowel Movement Frequency 1-2x/day [place] Stool Chart Type 1-7 6 Pelvic Clock Inter-Rectal Assessment 2/5 strength, fatigues quickly (less than 3 seconds). Comments Pelvic Floor Comments Palpated between rectum and scrotum, pt could feel deep pressure well, but no sensation of light touch. Pt noted less sensation of rectal exam today vs in December when he had one at MD office. PT-OP-Q Treatments Start: 06/17/19 09:40 Freq: Status: Active Protocol: Document 06/28/19 07:30 AMB (Rec: 06/28/19 13:14 AMB [email or web address]) Therapeutic Exercises Supine Exercises 1 Supine Exercise Name roll in roll out Reps/Minutes #2 band Comments 2x10 ea Neuro Re-Education Treatment Balance Activities 1 Details sEMG for quick flicks and long holds Surface sidelying Comments in hooklying: maximum of 15, resting 1.5 PT-OP-T Assessment and Plan Start: 06/17/19 09:40 Freq: Status: Active Protocol: Document 06/28/19 07:30 AMB (Rec: 06/28/19 13:14 AMB [email or web address]) Physical Therapy Assessment Goals Two Impairment fecal continence Short Term Goal (STG) Juan Carlos will improve his pelvic floor strength to 3/5. STG Duration 4 weeks [employer] Goal (LTG) Juan Carlos will have 1-2 bowel movements per day, and not leak between bowel movements. LTG Duration 8 weeks One Impairment urinary continence [employer] Goal (LTG) Juan Carlos will be continent of urine between self caths. LTG Duration 8 weeks Assessment Summary Assessment Pt maximum increased to 15 2x in PT, consistently more 7. Baseline looks good, continued difficulty with endurance. Physical Therapy Plan Next Visit Focus/Plan Next Note Type Treatment Note Next Visit Plan continue with sEMG. Follow up on ILU massage.
--- NOTE | 2019-07-01 08:16 | PT.OTN ---
Current Diagnoses Low back pain (07/01/19) Full incontinence of feces (07/01/19) Retention of urine, unspecified (07/01/19) Physical Therapy Treatment Note PT-OP-A Visit Information Start: 06/17/19 09:40 Freq: Status: Active Protocol: Document 07/01/19 07:30 AMB (Rec: 07/01/19 08:08 AMB [id number]) Out-Patient Physical Therapy Visit Information Visit Information Visit Type Treatment Note Visit Start Time 07:30 Visit Stop Time 08:15 Total Visit Minutes 45 Visit Number 4 PT-OP-B Current Condition Start: 06/17/19 09:40 Freq: Status: Active Protocol: Document 06/17/19 10:30 AMB (Rec: 06/17/19 11:16 AMB [email or web address]) Current Condition History of Current Condition Onset Date Summer 2018 Current Complaints urinary retention and fecal incontinence with reduced sensation History of Current Condition Juan Carlos attends physical therapy currently using a garcia catheter and Depends due to urinary retention and fecal incontinence. He recently had L1L2 laminectomy due to central canal stenosis. He was unaware of how much urine he was retaining until he was in the hospital for surgery and they did a bladder scan. He did report having a lot of difficulty voiding prior to that, where he would really strain and only get out a small volume of urine. He has noticed the fecal incontinence worse since surgery. He is unaware of when he has a bowel movement sometimes. He has between 1-2 bowel movements per day which are fairly liquidy- he does take stool softeners. He does feel that digital stimulation is helpful for having a bowel movement as he feels he has lost a lot of the natural peristalsis. Treatment Goals Patient/Caregiver Goals be able to be as continent as possible Prior Functional Status Baseline Function- ADL's Independent Baseline Function- Other previously did not have fecal incontinence, but did have difficulty initiaing the stream of urine. Current Functional Impairments (Reported) Functional Limitations- ADL's Uses a garcia catheter and depends Personal Factors Other Personal Factors That May Effect History of bladder cancer. Therapy/Recovery History of central canal stenosis with recent laminenctomy, earlier laminectomy a few years ago. PT-OP-C Subjective Start: 06/18/19 12:17 Freq: Status: Active Protocol: Document 07/01/19 07:30 AMB (Rec: 07/01/19 08:08 AMB [id number]) OP-PT Subjective Patient Comments Patient Comments Pt is continuing to have difficulty feeling PT-OP-I Pelvic Floor Start: 06/17/19 09:40 Freq: Status: Active Protocol: Document 06/17/19 09:45 AMB (Rec: 06/18/19 12:16 AMB [email or web address]) Pelvic Floor Assessment Urine Other Urinary Symptoms Unable to void much urine, was having to urinate frequently and push hard to void just a little, with known urinary retention. Considering self cathing once gets garcia out. Has tried removing garcia twice and continues to retain urine . Bowel Bowel Symptoms Fecal Leakage Other Bowel Symptoms Unaware of when he has a bowel movement, has been trying to have one bowel movement a day in the afternoons with digital stimulation. Sometimes does leak and doesn't know it- can' t feel it until he smells it. Bowel Movement Frequency 1-2x/day [place] Stool Chart Type 1-7 6 Pelvic Clock Inter-Rectal Assessment 2/5 strength, fatigues quickly (less than 3 seconds). Comments Pelvic Floor Comments Palpated between rectum and scrotum, pt could feel deep pressure well, but no sensation of light touch. Pt noted less sensation of rectal exam today vs in December when he had one at [facility] office. PT-OP-Q Treatments Start: 06/17/19 09:40 Freq: Status: Active Protocol: Document 07/01/19 07:30 AMB (Rec: 07/01/19 08:15 AMB [id number]) Therapeutic Exercises Sidelying Exercises 1 Sidelying Exercise Name 10 second holds with NMES Reps/Minutes 15 min Neuro Re-Education Treatment Other Activities 1 Details sEMG for quick flicks and long holds Reps/Duration 30 min PT-OP-T Assessment and Plan Start: 06/17/19 09:40 Freq: Status: Active Protocol: Document 07/01/19 07:30 AMB (Rec: 07/01/19 08:08 AMB [id number]) Physical Therapy Assessment Assessment Summary Assessment Pt with max of 7, avg 4, baseline 2.5 today, after NMES , limited sensation continues to limit pt's ability to functionally use pelvic floor to limit incontinence episodes . Could feel NMES slightly when at 26.
--- NOTE | 2019-07-15 11:50 | PT.OTN ---
Current Diagnoses Low back pain (07/15/19) Full incontinence of feces (07/15/19) Retention of urine, unspecified (07/15/19) Physical Therapy Treatment Note PT-OP-A Visit Information Start: 06/17/19 09:40 Freq: Status: Active Protocol: Document 07/15/19 07:30 AMB (Rec: 07/15/19 16:14 AMB [email or web address]) Out-Patient Physical Therapy Visit Information Visit Information Visit Type Treatment Note Visit Start Time 07:30 Visit Stop Time 08:15 Total Visit Minutes 45 Visit Number 5 PT-OP-B Current Condition Start: 06/17/19 09:40 Freq: Status: Active Protocol: Document 06/17/19 10:30 AMB (Rec: 06/17/19 11:16 AMB [email or web address]) Current Condition History of Current Condition Onset Date Summer 2018 Current Complaints urinary retention and fecal incontinence with reduced sensation History of Current Condition Juan Carlos attends physical therapy currently using a garcia catheter and Depends due to urinary retention and fecal incontinence. He recently had L1L2 laminectomy due to central canal stenosis. He was unaware of how much urine he was retaining until he was in the hospital for surgery and they did a bladder scan. He did report having a lot of difficulty voiding prior to that, where he would really strain and only get out a small volume of urine. He has noticed the fecal incontinence worse since surgery. He is unaware of when he has a bowel movement sometimes. He has between 1-2 bowel movements per day which are fairly liquidy- he does take stool softeners. He does feel that digital stimulation is helpful for having a bowel movement as he feels he has lost a lot of the natural peristalsis. Treatment Goals Patient/Caregiver Goals be able to be as continent as possible Prior Functional Status Baseline Function- ADL's Independent Baseline Function- Other previously did not have fecal incontinence, but did have difficulty initiaing the stream of urine. Current Functional Impairments (Reported) Functional Limitations- ADL's Uses a garcia catheter and depends Personal Factors Other Personal Factors That May Effect History of bladder cancer. Therapy/Recovery History of central canal stenosis with recent laminenctomy, earlier laminectomy a few years ago. PT-OP-C Subjective Start: 06/18/19 12:17 Freq: Status: Active Protocol: Document 07/15/19 07:30 AMB (Rec: 07/15/19 16:14 AMB [email or web address]) OP-PT Subjective Patient Comments Patient Comments Pt has been having more gas noises, but overall is still experiencing incontinence. Feels like sitting on the toilet is sitting on rocks so is hesitant to spend much time on it. PT-OP-I Pelvic Floor Start: 06/17/19 09:40 Freq: Status: Active Protocol: Document 06/17/19 09:45 AMB (Rec: 06/18/19 12:16 AMB [email or web address]) Pelvic Floor Assessment Urine Other Urinary Symptoms Unable to void much urine, was having to urinate frequently and push hard to void just a little, with known urinary retention. Considering self cathing once gets garcia out. Has tried removing garcia twice and continues to retain urine . Bowel Bowel Symptoms Fecal Leakage Other Bowel Symptoms Unaware of when he has a bowel movement, has been trying to have one bowel movement a day in the afternoons with digital stimulation. Sometimes does leak and doesn't know it- can' t feel it until he smells it. Bowel Movement Frequency 1-2x/day [place] Stool Chart Type 1-7 6 Pelvic Clock Inter-Rectal Assessment 2/5 strength, fatigues quickly (less than 3 seconds). Comments Pelvic Floor Comments Palpated between rectum and scrotum, pt could feel deep pressure well, but no sensation of light touch. Pt noted less sensation of rectal exam today vs in December when he had one at [facility] office. PT-OP-Q Treatments Start: 06/17/19 09:40 Freq: Status: Active Protocol: Document 07/15/19 07:30 AMB (Rec: 07/17/19 11:50 AMB [email or web address]) Therapeutic Exercises Sitting Exercises 2 Sitting Exercise Name roll in roll out Resistance #2 t band Comments 3x10, with focus on breathing Neuro Re-Education Treatment Other Activities 1 Details sEMG for quick flicks and long holds Reps/Duration 30 min Comments sidelying- working on isolation and holding 10 second contraction rather than having it fade PT-OP-T Assessment and Plan Start: 06/17/19 09:40 Freq: Status: Active Protocol: Document 07/15/19 07:30 AMB (Rec: 07/15/19 08:08 AMB [id number]) Physical Therapy Assessment Assessment Summary Assessment Added in roll in exercises and roll outs in seated. Pt with continued difficulty with sensation. Today baseline 2.5 , avg 5, max 10. Physical Therapy Plan Next Visit Focus/Plan Next Note Type Treatment Note Next Visit Plan continue with sEMG. Progress into seated as able for HEP.
--- NOTE | 2019-07-22 08:57 | PT.OTN ---
Current Diagnoses Low back pain (07/22/19) Full incontinence of feces (07/22/19) Retention of urine, unspecified (07/22/19) Physical Therapy Treatment Note PT-OP-A Visit Information Start: 06/17/19 09:40 Freq: Status: Active Protocol: Document 07/22/19 07:30 AMB (Rec: 07/22/19 08:55 AMB [id number]) Out-Patient Physical Therapy Visit Information Visit Information Visit Type Treatment Note Visit Start Time 07:30 Visit Stop Time 08:15 Total Visit Minutes 45 Visit Number 6 PT-OP-B Current Condition Start: 06/17/19 09:40 Freq: Status: Active Protocol: Document 06/17/19 10:30 AMB (Rec: 06/17/19 11:16 AMB [id number]) Current Condition History of Current Condition Onset Date Summer 2018 Current Complaints urinary retention and fecal incontinence with reduced sensation History of Current Condition Juan Carlos attends physical therapy currently using a gacria catheter and Depends due to urinary retention and fecal incontinence. He recently had L1L2 laminectomy due to central canal stenosis. He was unaware of how much urine he was retaining until he was in the hospital for surgery and they did a bladder scan. He did report having a lot of difficulty voiding prior to that, where he would really strain and only get out a small volume of urine. He has noticed the fecal incontinence worse since surgery. He is unaware of when he has a bowel movement sometimes. He has between 1-2 bowel movements per day which are fairly liquidy- he does take stool softeners. He does feel that digital stimulation is helpful for having a bowel movement as he feels he has lost a lot of the natural peristalsis. Treatment Goals Patient/Caregiver Goals be able to be as continent as possible Prior Functional Status Baseline Function- ADL's Independent Baseline Function- Other previously did not have fecal incontinence, but did have difficulty initiaing the stream of urine. Current Functional Impairments (Reported) Functional Limitations- ADL's Uses a garcia catheter and depends Personal Factors Other Personal Factors That May Effect History of bladder cancer. Therapy/Recovery History of central canal stenosis with recent laminenctomy, earlier laminectomy a few years ago. PT-OP-C Subjective Start: 06/18/19 12:17 Freq: Status: Active Protocol: Document 07/22/19 07:30 AMB (Rec: 07/22/19 08:55 AMB [id number]) OP-PT Subjective Patient Comments Patient Comments Pt reports he tried take citrucel but that made his stools way too watery. He is going to the urologist next week. PT-OP-I Pelvic Floor Start: 06/17/19 09:40 Freq: Status: Active Protocol: Document 06/17/19 09:45 AMB (Rec: 06/18/19 12:16 AMB [email or web address]) Pelvic Floor Assessment Urine Other Urinary Symptoms Unable to void much urine, was having to urinate frequently and push hard to void just a little, with known urinary retention. Considering self cathing once gets garcia out. Has tried removing garcia twice and continues to retain urine . Bowel Bowel Symptoms Fecal Leakage Other Bowel Symptoms Unaware of when he has a bowel movement, has been trying to have one bowel movement a day in the afternoons with digital stimulation. Sometimes does leak and doesn't know it- can' t feel it until he smells it. Bowel Movement Frequency 1-2x/day [place] Stool Chart Type 1-7 6 Pelvic Clock Inter-Rectal Assessment 2/5 strength, fatigues quickly (less than 3 seconds). Comments Pelvic Floor Comments Palpated between rectum and scrotum, pt could feel deep pressure well, but no sensation of light touch. Pt noted less sensation of rectal exam today vs in December when he had one at [facility] office. PT-OP-Q Treatments Start: 06/17/19 09:40 Freq: Status: Active Protocol: Document 07/22/19 07:30 AMB (Rec: 07/22/19 08:55 AMB [id number]) Therapeutic Exercises Sidelying Exercises 1 Sidelying Exercise Name 10 second holds with NMES Reps/Minutes 15 min Neuro Re-Education Treatment Other Activities 1 Details sEMG for quick flicks and long holds Reps/Duration 30 min Comments sidelying- working on isolation and holding 10 second contraction rather than having it fade PT-OP-T Assessment and Plan Start: 06/17/19 09:40 Freq: Status: Active Protocol: Document 07/22/19 07:30 AMB (Rec: 07/22/19 08:55 AMB [id number]) Physical Therapy Assessment Assessment Summary Assessment Pt with similar biofeedback numbers this week, encouraged in continuing with exercises with the hope of more sensation coming back over time to assist him with knowing when he needs to toilet. Physical Therapy Plan Next Visit Focus/Plan Next Note Type Treatment Note Next Visit Plan continue with sEMG. Progress into seated as able for HEP.
--- NOTE | 2019-08-05 09:17 | PT.OTN ---
Current Diagnoses Low back pain (08/05/19) Full incontinence of feces (08/05/19) Retention of urine, unspecified (08/05/19) Physical Therapy Treatment Note PT-OP-A Visit Information Start: 06/17/19 09:40 Freq: Status: Active Protocol: Document 08/05/19 08:15 AMB (Rec: 08/05/19 09:17 AMB [id number]) Out-Patient Physical Therapy Visit Information Visit Information Visit Type Treatment Note Visit Start Time 08:15 Visit Stop Time 09:00 Total Visit Minutes 45 Visit Number 7 PT-OP-B Current Condition Start: 06/17/19 09:40 Freq: Status: Active Protocol: Document 06/17/19 10:30 AMB (Rec: 06/17/19 11:16 AMB [email or web address]) Current Condition History of Current Condition Onset Date Summer 2018 Current Complaints urinary retention and fecal incontinence with reduced sensation History of Current Condition Juan Carlos attends physical therapy currently using a garcia catheter and Depends due to urinary retention and fecal incontinence. He recently had L1L2 laminectomy due to central canal stenosis. He was unaware of how much urine he was retaining until he was in the hospital for surgery and they did a bladder scan. He did report having a lot of difficulty voiding prior to that, where he would really strain and only get out a small volume of urine. He has noticed the fecal incontinence worse since surgery. He is unaware of when he has a bowel movement sometimes. He has between 1-2 bowel movements per day which are fairly liquidy- he does take stool softeners. He does feel that digital stimulation is helpful for having a bowel movement as he feels he has lost a lot of the natural peristalsis. Treatment Goals Patient/Caregiver Goals be able to be as continent as possible Prior Functional Status Baseline Function- ADL's Independent Baseline Function- Other previously did not have fecal incontinence, but did have difficulty initiaing the stream of urine. Current Functional Impairments (Reported) Functional Limitations- ADL's Uses a garcia catheter and depends Personal Factors Other Personal Factors That May Effect History of bladder cancer. Therapy/Recovery History of central canal stenosis with recent laminenctomy, earlier laminectomy a few years ago. PT-OP-C Subjective Start: 06/18/19 12:17 Freq: Status: Active Protocol: Document 08/05/19 08:15 AMB (Rec: 08/05/19 09:17 AMB [id number]) OP-PT Subjective Patient Comments Patient Comments Pt reports he had to cancel his urology appointment due to the snow last week. He has been trying to his exercises about 3-4x/day. PT-OP-I Pelvic Floor Start: 06/17/19 09:40 Freq: Status: Active Protocol: Document 06/17/19 09:45 AMB (Rec: 06/18/19 12:16 AMB [email or web address]) Pelvic Floor Assessment Urine Other Urinary Symptoms Unable to void much urine, was having to urinate frequently and push hard to void just a little, with known urinary retention. Considering self cathing once gets garcia out. Has tried removing garcia twice and continues to retain urine . Bowel Bowel Symptoms Fecal Leakage Other Bowel Symptoms Unaware of when he has a bowel movement, has been trying to have one bowel movement a day in the afternoons with digital stimulation. Sometimes does leak and doesn't know it- can' t feel it until he smells it. Bowel Movement Frequency 1-2x/day [place] Stool Chart Type 1-7 6 Pelvic Clock Inter-Rectal Assessment 2/5 strength, fatigues quickly (less than 3 seconds). Comments Pelvic Floor Comments Palpated between rectum and scrotum, pt could feel deep pressure well, but no sensation of light touch. Pt noted less sensation of rectal exam today vs in December when he had one at [facility] office. PT-OP-Q Treatments Start: 06/17/19 09:40 Freq: Status: Active Protocol: Document 08/05/19 08:15 AMB (Rec: 08/05/19 09:17 AMB [id number]) Neuro Re-Education Treatment Other Activities 1 Details sEMG for quick flicks and long holds Reps/Duration 40 min Comments sidelying- working on isolation and holding 10 second contraction rather than having it fade PT-OP-T Assessment and Plan Start: 06/17/19 09:40 Freq: Status: Active Protocol: Document 08/05/19 08:15 AMB (Rec: 08/05/19 09:17 AMB [id number]) Physical Therapy Assessment Assessment Summary Assessment Pt with improvement in max hold up to 13, however average remains around 5. Difficulty holding much contraction after initial. Physical Therapy Plan Next Visit Focus/Plan Next Note Type Treatment Note Next Visit Plan continue with sEMG. Progress into seated as able for HEP.
--- NOTE | 2019-08-19 11:40 | PT.OTN ---
Current Diagnoses Low back pain (08/19/19) Full incontinence of feces (08/19/19) Retention of urine, unspecified (08/19/19) Physical Therapy Treatment Note PT-OP-A Visit Information Start: 06/17/19 09:40 Freq: Status: Active Protocol: Document 08/19/19 09:45 AMB (Rec: 08/19/19 11:40 AMB [id number]) Out-Patient Physical Therapy Visit Information Visit Information Visit Type Discharge Summary Visit Start Time 09:45 Visit Stop Time 10:30 Total Visit Minutes 45 Visit Number 8 PT-OP-B Current Condition Start: 06/17/19 09:40 Freq: Status: Active Protocol: Document 06/17/19 10:30 AMB (Rec: 06/17/19 11:16 AMB [email or web address]) Current Condition History of Current Condition Onset Date Summer 2018 Current Complaints urinary retention and fecal incontinence with reduced sensation History of Current Condition Juan Carlos attends physical therapy currently using a garcia catheter and Depends due to urinary retention and fecal incontinence. He recently had L1L2 laminectomy due to central canal stenosis. He was unaware of how much urine he was retaining until he was in the hospital for surgery and they did a bladder scan. He did report having a lot of difficulty voiding prior to that, where he would really strain and only get out a small volume of urine. He has noticed the fecal incontinence worse since surgery. He is unaware of when he has a bowel movement sometimes. He has between 1-2 bowel movements per day which are fairly liquidy- he does take stool softeners. He does feel that digital stimulation is helpful for having a bowel movement as he feels he has lost a lot of the natural peristalsis. Treatment Goals Patient/Caregiver Goals be able to be as continent as possible Prior Functional Status Baseline Function- ADL's Independent Baseline Function- Other previously did not have fecal incontinence, but did have difficulty initiaing the stream of urine. Current Functional Impairments (Reported) Functional Limitations- ADL's Uses a garcia catheter and depends Personal Factors Other Personal Factors That May Effect History of bladder cancer. Therapy/Recovery History of central canal stenosis with recent laminenctomy, earlier laminectomy a few years ago. PT-OP-C Subjective Start: 06/18/19 12:17 Freq: Status: Active Protocol: Document 08/19/19 09:45 AMB (Rec: 08/19/19 11:40 AMB [id number]) OP-PT Subjective Patient Comments Patient Comments Pt is self cathing and that is going well. He actually had an urge for a BM yesterday and was able to have a BM on the toilet. He continues to notice that most of his BMs are in his depends and he is unaware of them. PT-OP-I Pelvic Floor Start: 06/17/19 09:40 Freq: Status: Active Protocol: Document 06/17/19 09:45 AMB (Rec: 06/18/19 12:16 AMB [id number]) Pelvic Floor Assessment Urine Other Urinary Symptoms Unable to void much urine, was having to urinate frequently and push hard to void just a little, with known urinary retention. Considering self cathing once gets garcia out. Has tried removing garcia twice and continues to retain urine . Bowel Bowel Symptoms Fecal Leakage Other Bowel Symptoms Unaware of when he has a bowel movement, has been trying to have one bowel movement a day in the afternoons with digital stimulation. Sometimes does leak and doesn't know it- can' t feel it until he smells it. Bowel Movement Frequency 1-2x/day [place] Stool Chart Type 1-7 6 Pelvic Clock Inter-Rectal Assessment 2/5 strength, fatigues quickly (less than 3 seconds). Comments Pelvic Floor Comments Palpated between rectum and scrotum, pt could feel deep pressure well, but no sensation of light touch. Pt noted less sensation of rectal exam today vs in December when he had one at [facility] office. PT-OP-Q Treatments Start: 06/17/19 09:40 Freq: Status: Active Protocol: Document 08/19/19 09:45 AMB (Rec: 08/19/19 11:40 AMB [id number]) Neuro Re-Education Treatment Other Activities 1 Details sEMG for quick flicks and long holds Reps/Duration 30 min Comments sidelying- working on isolation and holding 10 second contraction rather than having it fade Self-Care/Home Management Treatment Education Other Education educated in stool scale and keeping stool at 3-4, not overusing stool softeners. Changing diet as tolerable to try to get BMs at the same time each day. PT-OP-T Assessment and Plan Start: 06/17/19 09:40 Freq: Status: Active Protocol: Document 08/19/19 09:45 AMB (Rec: 08/19/19 11:40 AMB [id number]) Physical Therapy Assessment Goals Two Impairment fecal continence Short Term Goal (STG) Juan Carlos will improve his pelvic floor strength to 3/5. STG Duration NOT MET Group Home Goal (LTG) Juan Carlos will have 1-2 bowel movements per day, and not leak between bowel movements. LTG Duration NOT MET One Impairment urinary continence Painter Helper Sign Goal (LTG) Juan Carlos will be continent of urine between self caths. LTG Duration NOT MET Assessment Summary Assessment Abdifatah has shown improvement overall with sEMG, however has not had significant changes in symptom management yet. He continues to be incontinent of feces and intermittently feels urge, but also has BMs without awareness. Educated pt on continuing pelvic floor strengthening, and working on getting on a regular BM schedule and regular consistency to continue progression independently at this time. Physical Therapy Plan Frequency and Duration Frequency of Treatment 1x/Week Duration of Treatment 1 week Plan of Care Start Date 08/12/19 Plan of Care End Date 08/19/19 Therapeutic Interventions Therapeutic Interventions Home Exercise Program,Manual Therapy,Neuromuscular Re- education,Therapeutic Activities,Therapeutic Exercises Modalities Biofeedback,Electric Stimulation
--- NOTE | 2019-08-19 11:42 | PT.OPPOC ---
Physical, Occupational & Speech Therapy At [facility] Current Diagnoses Low back pain (08/19/19) Full incontinence of feces (08/19/19) Retention of urine, unspecified (08/19/19) Visit Care Team Role Provider Type Tomi Camejo MD Primary Care Provider Physician Specialty: Family Practice Address: [address] [place] [address], [id number] Email: [email or web address] Kashif Florez MD Attending Provider Non-Staff Specialty: Neurosurgery Address: [address] [place] [address], [phone] Email: Plan Of Care PT-OP-T Assessment and Plan Start: 06/17/19 09:40 Freq: Status: Active Protocol: Document 08/19/19 09:45 AMB (Rec: 08/19/19 11:40 AMB [id number]) Physical Therapy Assessment Goals Two Impairment fecal continence Short Term Goal (STG) Juan Carlos will improve his pelvic floor strength to 3/5. STG Duration NOT MET Director Emergency Department Goal (LTG) Juan Carlos will have 1-2 bowel movements per day, and not leak between bowel movements. LTG Duration NOT MET One Impairment urinary continence Assisted Goal (LTG) Juan Carlos will be continent of urine between self caths. LTG Duration NOT MET Assessment Summary Assessment Abdifatah has shown improvement overall with sEMG, however has not had significant changes in symptom management yet. He continues to be incontinent of feces and intermittently feels urge, but also has BMs without awareness. Educated pt on continuing pelvic floor strengthening, and working on getting on a regular BM schedule and regular consistency to continue progression independently at this time. Physical Therapy Plan Frequency and Duration Frequency of Treatment 1x/Week Duration of Treatment 1 week Plan of Care Start Date 08/12/19 Plan of Care End Date 08/19/19 Therapeutic Interventions Therapeutic Interventions Home Exercise Program,Manual Therapy,Neuromuscular Re- education,Therapeutic Activities,Therapeutic Exercises Modalities Biofeedback,Electric Stimulation Plan of Care Dates Plan of Care Start Date 08/12/19 Plan of Care End Date 08/19/19 Electronically Signed by: Porsche Persaud, PT 08/19/19 1142 Please Sign and Return: I have reviewed this Plan of Care and certify that the skilled therapy services above are required to meet the patient?s needs. Physician Signature Date Printed Name and Credentials Clinical Instructor Signature Printed Name and Credentials
--- NOTE | 2019-08-19 11:44 | PT.OPDS ---
Current Diagnoses Low back pain (08/19/19) Full incontinence of feces (08/19/19) Retention of urine, unspecified (08/19/19) Visit Care Team Role Provider Type Tomi Camejo MD Primary Care Provider Physician Specialty: Family Practice Address: [facility] [place], [address] Email: [email or web address] Kashif Florez MD Attending Provider Non-Staff Specialty: Neurosurgery Address: [address] [place] [address], [phone] Email: Visit Number Visit Number 8 Discharge Summary PT-OP-B Current Condition Start: 06/17/19 09:40 Freq: Status: Active Protocol: Document 06/17/19 10:30 AMB (Rec: 06/17/19 11:16 AMB [email or web address]) Current Condition History of Current Condition Onset Date Summer 2018 Current Complaints urinary retention and fecal incontinence with reduced sensation History of Current Condition Juan Carlos attends physical therapy currently using a garcia catheter and Depends due to urinary retention and fecal incontinence. He recently had L1L2 laminectomy due to central canal stenosis. He was unaware of how much urine he was retaining until he was in the hospital for surgery and they did a bladder scan. He did report having a lot of difficulty voiding prior to that, where he would really strain and only get out a small volume of urine. He has noticed the fecal incontinence worse since surgery. He is unaware of when he has a bowel movement sometimes. He has between 1-2 bowel movements per day which are fairly liquidy- he does take stool softeners. He does feel that digital stimulation is helpful for having a bowel movement as he feels he has lost a lot of the natural peristalsis. Treatment Goals Patient/Caregiver Goals be able to be as continent as possible Prior Functional Status Baseline Function- ADL's Independent Baseline Function- Other previously did not have fecal incontinence, but did have difficulty initiaing the stream of urine. Current Functional Impairments (Reported) Functional Limitations- ADL's Uses a garcia catheter and depends Personal Factors Other Personal Factors That May Effect History of bladder cancer. Therapy/Recovery History of central canal stenosis with recent laminenctomy, earlier laminectomy a few years ago. PT-OP-C Subjective Start: 06/18/19 12:17 Freq: Status: Active Protocol: Document 08/19/19 09:45 AMB (Rec: 08/19/19 11:40 AMB [id number]) OP-PT Subjective Patient Comments Patient Comments Pt is self cathing and that is going well. He actually had an urge for a BM yesterday and was able to have a BM on the toilet. He continues to notice that most of his BMs are in his depends and he is unaware of them. PT-OP-I Pelvic Floor Start: 06/17/19 09:40 Freq: Status: Active Protocol: Document 06/17/19 09:45 AMB (Rec: 06/18/19 12:16 AMB [email or web address]) Pelvic Floor Assessment Urine Other Urinary Symptoms Unable to void much urine, was having to urinate frequently and push hard to void just a little, with known urinary retention. Considering self cathing once gets garcia out. Has tried removing garcia twice and continues to retain urine . Bowel Bowel Symptoms Fecal Leakage Other Bowel Symptoms Unaware of when he has a bowel movement, has been trying to have one bowel movement a day in the afternoons with digital stimulation. Sometimes does leak and doesn't know it- can' t feel it until he smells it. Bowel Movement Frequency 1-2x/day [place] Stool Chart Type 1-7 6 Pelvic Clock Inter-Rectal Assessment 2/5 strength, fatigues quickly (less than 3 seconds). Comments Pelvic Floor Comments Palpated between rectum and scrotum, pt could feel deep pressure well, but no sensation of light touch. Pt noted less sensation of rectal exam today vs in December when he had one at [facility] office. PT-OP-T Assessment and Plan Start: 06/17/19 09:40 Freq: Status: Active Protocol: Document 08/19/19 09:45 AMB (Rec: 08/19/19 11:40 AMB [id number]) Physical Therapy Assessment Goals Two Impairment fecal continence Short Term Goal (STG) Juan Carlos will improve his pelvic floor strength to 3/5. STG Duration NOT MET Supervisor Testing Goal (LTG) Juan Carlos will have 1-2 bowel movements per day, and not leak between bowel movements. LTG Duration NOT MET One Impairment urinary continence Long-Term Goal (LTG) Juan Carlos will be continent of urine between self caths. LTG Duration NOT MET Assessment Summary Assessment Abdifatah has shown improvement overall with sEMG, however has not had significant changes in symptom management yet. He continues to be incontinent of feces and intermittently feels urge, but also has BMs without awareness. Educated pt on continuing pelvic floor strengthening, and working on getting on a regular BM schedule and regular consistency to continue progression independently at this time. Physical Therapy Plan Frequency and Duration Frequency of Treatment 1x/Week Duration of Treatment 1 week Plan of Care Start Date 08/12/19 Plan of Care End Date 08/19/19 Therapeutic Interventions Therapeutic Interventions Home Exercise Program,Manual Therapy,Neuromuscular Re- education,Therapeutic Activities,Therapeutic Exercises Modalities Biofeedback,Electric Stimulation Discharge Physical Therapy Discharge Reasons Plateau in Progress
== END 2019-08-25 12:40 ==
LOC: PHYS 09:45
PROVIDERS: PCP Family Medicine; Visit Provider Neurological Surgery
DX: M54.5 Low back pain (principal); R15.9 Full incontinence of feces; R33.9 Retention of urine, unspecified
CPT/HCPCS: 97110; 97112; 97162; 97535

== ENCOUNTER → 2019-10-21 10:05 | Outpatient (CLI) | payer MEDICARE, OTHER, SELFPAY ==
[2018-09-29 19:13] VITALS: BMI 20.7
[2019-10-21 10:36] LABS: Bilirubin Urine UA NEGATIVE (NEGATIVE); Color Urine UA YELLOW; Glucose Urine UA NEGATIVE (Negative); Ketones Urine UA NEGATIVE (NEGATIVE); Leukocyte Esterase Urine UA 1+ (NEGATIVE); Nitrite Urine UA POSITIVE (Negative); Occult Blood Urine UA 1+ (Negative); Protein Urine UA NEGATIVE (Negative); Urobilinogen Urine UA 0.2 E.U./dL (0.2); pH Urine UA 7.5 (4.5-8.0)
[2019-10-21 11:37] LABS: Appearance Urine UA Slightly Cloudy
[2019-10-21 11:38] LABS: Bacteria Urine Many (>30); Culture Indicated Urine Specimen Cultured; RBC Urine 0-1/HPF (0-5/HPF); WBC Urine 1-5/HPF (0-5/HPF)
== END ==
PROVIDERS: PCP Family Medicine; Referring Provider Nurse Practitioner; Visit Provider Nurse Practitioner
DX: Z78.9 Other specified health status (principal)
CPT/HCPCS: 81001; 87077; 87086; 87186

== ENCOUNTER → 2019-12-01 10:15 | Outpatient (CLI) | payer MEDICARE, OTHER, SELFPAY ==
[2018-09-29 19:13] VITALS: BMI 20.7
[2019-12-01 12:15] LABS: Reticulocyte Count, Percent 0.7 % (0.87-2.60)
[2019-12-01 12:30] LABS: HEMOLYSIS < 15 (0-50); Iron 67 ug/dL (49-181)
[2019-12-01 12:40] LABS: Percent Iron Saturation 24 % (20-50); Total Iron Binding Capacity 274 ug/dL (261-462); Transferrin 216 mg/dL (206-381)
[2019-12-01 13:09] LABS: Ferritin 63 ng/mL (18-464)
[2019-12-01 13:22] LABS: Vitamin B12 881 pg/mL (239-931)
[2019-12-06 17:04] LABS: Albumin 3.6 g/dL (2.9-4.4); Alpha-1-Globulin 0.3 g/dL (0.0-0.4); Alpha-2-Globulin 0.9 g/dL (0.4-1.0); Gamma Globulin 1.2 g/dL (0.4-1.8); Globulin Total 3.2 g/dL (2.2-3.9); Protein, Total 6.8 g/dL (6.0-8.5)
== END ==
PROVIDERS: PCP Family Medicine; Referring Provider Internal Medicine Gastroenterology; Visit Provider Internal Medicine Gastroenterology
DX: D64.9 Anemia, unspecified (principal)
CPT/HCPCS: 36415; 82607; 82728; 83540; 83550; 84155; 84165; 85045

== ENCOUNTER 2020-04-26 11:31 | Emergency (ER) | payer MEDICARE, OTHER, SELFPAY ==
[2018-09-29 19:13] VITALS: BMI 20.7
[2020-04-26 11:31] VITALS: BP 141/90; PULSE 96; RESP 20; TEMP 36.4; O2SAT 98; BMI 20.3
--- NOTE | 2020-04-26 11:44 | DI.RAD.S_ITS ---
PROCEDURE: XR CHEST 1V INDICATIONS: chest pain TECHNIQUE: One view of the chest was acquired. COMPARISON: [facility], CR, XR CHEST 1V, 09/30/2018, 14:55. FINDINGS: Surgical changes and devices: None. Lungs and pleura: Lungs are clear. No pleural effusions or pneumothorax. Mediastinum: Mediastinal contours appear normal. Heart size is normal. Bones and chest wall: No suspicious bony lesions. Overlying soft tissues appear unremarkable. IMPRESSION: No acute disease. Dictated by: Primo Lamb M.D. on 04/26/2020 at 12:10 Approved by: Primo Lamb M.D. on 04/26/2020 at 12:11
--- NOTE | 2020-04-26 11:58 | ED.ARRPALP ---
HPI - Arrhythmia/Palpitations <Deanna HALI Red - Last Filed: 04/26/20 16:57> General Chief Complaint: Arrhythmia/Palpitations Stated Complaint: irregular heart rate Time Seen by Provider: 04/26/20 11:43 Source: patient Mode of arrival: Wheelchair History of Present Illness HPI narrative: 85yo male with a history of back surgery about a year ago resulting in gait imbalance and altered bowel and bladder control (patient self caths and manually disimpacts for BM)--is scheduled to see a neurologist for this as it is not improving over the past year, history of HTN, colitis and TIA, presents to the ED from the infusion clinic for an irregular pulse. Patient states he was in the infusion clinic this morning to receive an infusion for his colitis. Patient states they paige labs this morning and when they evaluated his heart rate day reported was irregular. Patient denies any palpitation, he denies a history of irregular heartbeat. He denies any other symptoms such as dizziness, cough, fevers, chills, shortness of breath, nausea, vomiting, diarrhea, or any other concerns. Related Data Home Medications Medication Instructions Recorded Confirmed multivitamin [Multiple Vitamins] 1 tab PO DAILY #0 07/22/16 03/27/20 latanoprost 1 drp OPHTH BEDTIME #0 06/01/17 03/27/20 timolol maleate [Timoptic] 1 drp OPHTH BID #0 06/01/17 03/27/20 aspirin 325 mg PO QPM 04/30/18 03/27/20 ascorbic acid (vitamin C) [Vitamin 1,000 mg PO DAILY 09/06/18 03/27/20 C] cholecalciferol (vitamin D3) 1,000 unit PO DAILY 09/06/18 03/27/20 [Vitamin D3] vitamin B20-ayddm acid 1 tab PO DAILY 09/06/18 03/27/20 Previous Rx's Medication Instructions Recorded infliximab 100 mg intravenous 224 mg IV Q8W #1 each 03/23/18 solution hydroxyzine HCl 25 mg tablet 25 mg PO BEDTIME #90 tab 04/19/19 amlodipine 10 mg tablet 10 mg PO DAILY #90 tab 08/11/19 atorvastatin 20 mg tablet 20 mg PO QPM #90 tab 08/11/19 celecoxib 100 mg capsule 100 mg PO BID #180 cap 08/11/19 lidocaine 5 % topical patch 1 patch TOP DAILY #30 each 08/11/19 lisinopril 40 mg tablet 40 mg PO DAILY #90 tab 08/11/19 pantoprazole 20 mg tablet,delayed 20 mg PO DAILY #90 tab 08/11/19 release tamsulosin 0.4 mg capsule 0.4 mg PO QPM #90 cap 08/11/19 diazepam 5 mg tablet 5 mg PO BEDTIME PRN #20 tab 11/10/19 duloxetine 30 mg capsule,delayed 30 mg PO DAILY #30 cap 03/27/20 release hydrocodone 5 mg-acetaminophen 325 1 tab PO BID PRN #90 tab 03/27/20 mg tablet metoprolol succinate 12.5 mg PO DAILY #30 tab 04/26/20 Allergies Allergy/AdvReac Type Severity Reaction Status Date / Time No Known Drug Allergies Allergy Verified 03/27/20 11:13 Review of Systems <HALI Hanley - Last Filed: 04/26/20 16:57> Review of Systems Narrative: REVIEW OF SYSTEMS: GENERAL: Denies fever or chills. HENT: No head trauma. EYES: No loss of vision. CARDIOVASCULAR: No chest pain or syncope. RESPIRATORY: No shortness of breath or cough. GASTROINTESTINAL: No nausea or vomiting. Patient reports manual expression of bowel movement for the past year due to history of spinal surgery, see HPI. GENITOURINARY: No flank pain. Reports that he is self catheterizes, this has been ongoing for the past year due to spinal surgery, see HPI. MUSCULOSKELETAL: No pain, weakness, or deformities. INTEGUMENTARY: No rash, lesions, or pruritus. NEURO: No numbness, tingling, memory loss, or confusion. PSYCH: No behavior or mood changes. Patient History <HALI Hanley - Last Filed: 04/26/20 16:57> Medical History Arthritis (Acute) Bladder cancer (Resolved 2011) Cataract (Resolved 2005) Chicken pox (Resolved 1939) Chronic back pain (Chronic 2011) Colitis (Chronic 2004) Former smoker (Acute) Hearing loss (Chronic 2001) History of nephrolithotomy with removal of calculi (Resolved 1993) Hypercholesterolemia (Resolved) Lumbar spine pain (Chronic 2012) Measles (Resolved 1940) Mumps (Resolved 1943) Osteoarthritis (Chronic 1997) Rubella (Resolved 1939) Surgical History History of cataract removal with insertion of prosthetic lens (Resolved 2005) History of cystoscopy (Resolved) History of esophagogastroduodenoscopy (EGD) (Resolved 2013) History of eyelid surgery (Resolved 2012) History of laminectomy (Acute ~04/2019) History of nasal surgery (Resolved 1992) History of partial cystectomy (Resolved 2011) History of urinary tract surgery (Resolved 2011) Status post colonoscopy (Resolved 2004) Status post colonoscopy (Resolved 2013) Status post hernia repair (Resolved 1979) Status post laminectomy (Resolved 05/04/17) Status post tonsillectomy and adenoidectomy (Resolved ~1941) Status post unicompartmental knee replacement, left (Acute) Family History Brother Age: 82 COPD (chronic obstructive pulmonary disease) Father Cancer Hodgkin's disease Sister Cancer Lung cancer Grandfather No problems noted. Grandmother No problems noted. Mother Stroke Social History marital status: household members: spouse Smoking Status: Former smoker alcohol intake: current substance use type: does not use Smoking Status: Former smoker alcohol intake frequency: 0-2 drinks per day Substance Use Type: does not use Exam <HALI Hanley - Last Filed: 04/26/20 16:57> Initial Vital Signs Initial Vital Signs: Vital Signs Temperature 97.6 F 04/26/20 11:31 Pulse Rate 96 H 04/26/20 11:31 Respiratory Rate 20 04/26/20 11:31 Blood Pressure 141/90 H 04/26/20 11:31 Pulse Oximetry 98 04/26/20 11:31 PHYSICAL EXAMINATION: GENERAL: Frail-appearing elderly man, awake, alert, and oriented. Answers questions appropriately and probably. HENT: Normocephalic, atraumatic. Ear canals patent. Oral mucosa is pink and moist. EYES: Conjunctiva pink, sclera white, no periorbital swelling. CHEST: Normal to inspection and without deformities. CARDIOVASCULAR: S1 and S2 sounds normal. Regular rate and rhythm, no murmurs, clicks, or bruits. No pedal edema. RESPIRATORY: Normal respiratory rate, trachea midline, airway patent. No stridor, nasal flaring or accessory muscle use. Lungs are clear in all coy without wheeze, rhonchi, or crackles. GASTROINTESTINAL: Bowel sounds normoactive. Abdomen is soft and non-tender. No organomegaly. MUSCULOSKELETAL: Normal gait and coordination. Equal tone and mass bilaterally. EXTREMITIES: CMS intact. Moves all extremities. SKIN: Warm, dry, soft, appropriate color for ethnicity. No lesions, rashes, or wounds. NEURO: Alert and Oriented X 3. Good coordination. No ataxia, or sensory deficits, or cognitive issues. PSYCH: Appropriate affect and mood. <Arti Shrestha DO - Last Filed: 04/27/20 08:40> Initial Vital Signs Initial Vital Signs: Vital Signs Temperature 97.6 F 04/26/20 11:31 Pulse Rate 96 H 04/26/20 11:31 Respiratory Rate 20 04/26/20 11:31 Blood Pressure 141/90 H 04/26/20 11:31 Pulse Oximetry 98 04/26/20 11:31 Course <HALI Hanley - Last Filed: 04/26/20 16:57> Course Course Narrative: 1240: 5 mg of IV metoprolol was given, PVCs significantly decreased to 1 PVC every 4-5 beats which is an improvement from previous bigeminy seen on cafeteria monitor. Orders Ordered: Discontinued Medications Sodium Chloride (Normal Saline 0.9%) 1,000 mls @ 150 mls/hr IV CONT BENJAMIN Last Infusion: 04/26/20 13:48 Dose: 0 mls/hr Documented by: Admin: 04/26/20 12:22 Dose: 150 mls/hr Documented by: BRANDY Metoprolol Tartrate (Lopressor) 5 mg IV NOW ONE Stop: 04/26/20 12:08 Last Admin: 04/26/20 12:23 Dose: 5 mg Documented by: BRANDY Reevaluation(s) Reevaluation #1: Patient staffed with DR. Shrestha discussed test, test results, and plan of care. Vital Signs Vital signs: Vital Signs - 8 hr 04/26/20 11:31 04/26/20 12:35 04/26/20 13:52 Temperature 97.6 F Pulse Rate 96 H 88 80 Respiratory Rate 20 19 16 Blood Pressure 141/90 H 173/82 H 155/84 H Pulse Oximetry 98 98 98 <Arti Shrestha DO - Last Filed: 04/27/20 08:40> Orders Ordered: Discontinued Medications Sodium Chloride (Normal Saline 0.9%) 1,000 mls @ 150 mls/hr IV CONT BENJAMIN Last Infusion: 04/26/20 13:48 Dose: 0 mls/hr Documented by: Admin: 04/26/20 12:22 Dose: 150 mls/hr Documented by: BRNADY Metoprolol Tartrate (Lopressor) 5 mg IV NOW ONE Stop: 04/26/20 12:08 Last Admin: 04/26/20 12:23 Dose: 5 mg Documented by: BRANDY Vital Signs Vital signs: Vital Signs - 8 hr 04/26/20 11:31 04/26/20 12:35 04/26/20 13:52 Temperature 97.6 F Pulse Rate 96 H 88 80 Respiratory Rate 20 19 16 Blood Pressure 141/90 H 173/82 H 155/84 H Pulse Oximetry 98 98 98 MDM - Arrhythmia/Palpitations <HALI Hanley - Last Filed: 04/26/20 16:57> Medical Records Attestation: I reviewed the patient's medical records. Lab Data Attestation: I reviewed the patient's lab results. Result diagrams: 04/26/20 09:35 Labs: Lab Results 04/26/20 04/26/20 04/26/20 Range/Units 09:35 09:35 12:11 PT 11.8 (10.1-12.7) SECONDS INR 1.0 (0.9-1.3) APTT 34 D (26.4-36.2) SECONDS Sodium 136 L (137-145) mmol/L Potassium 4.1 (3.4-5.1) mmol/L Chloride 104 (98-107) mmol/L Carbon Dioxide 30 (22-32) mmol/L BUN 17 (9-20) mg/dL Creatinine 0.80 (0.66-1.25) mg/dL Estimated GFR > 60.0 (>60) mL/min BUN/Creatinine Ratio 21.3 (6-22) Glucose 95 (80-110) mg/dL Calcium 9.4 (8.4-10.2) mg/dL Total Bilirubin 0.6 (0.2-1.3) mg/dL AST 93 H (17-59) IU/L ALT 15 (<50) IU/L Alkaline Phosphatase 71 (38-126) U/L Total Creatine Kinase 172 H (55-170) U/L CK-MB (CK-2) 5.57 H (<2.37) ng/mL CK-MB (CK-2) Rel Index 3.2 (1.5-5.0) % Troponin I < 0.012 (0.01-0.034) ng/mL NT-Pro-B Natriuret Pep 919 H (<450) pg/mL Total Protein 6.3 (6.3-8.2) g/dL Albumin 3.5 (3.5-5.0) g/dL Globulin 2.8 (1.7-4.1) g/dL Albumin/Globulin Ratio 1.3 (1.0-2.8) Lipase 47 (23-300) U/L TSH 1.42 (0.47-4.68) uIU/mL Imaging Data Chest x-ray: Radiologist's Impresson: [address] [address] XRay Report Signed Patient: Juan Carlos Yo R#: [id number] : 6Acct:[id number] Age/Sex: 85 / MDate of Service: 04/26/20 Loc: ED Accession Number: [id number] Procedure: XR chest 1V Ordering Provider: Arti Shrestha D.O. PROCEDURE: XR CHEST 1V INDICATIONS: chest pain TECHNIQUE: One view of the chest was acquired. COMPARISON: [facility], , XR CHEST 1V, 09/30/2018, 14:55. FINDINGS: Surgical changes and devices: None. Lungs and pleura: Lungs are clear. No pleural effusions or pneumothorax. Mediastinum: Mediastinal contours appear normal. Heart size is normal. Bones and chest wall: No suspicious bony lesions. Overlying soft tissues appear unremarkable. IMPRESSION: No acute disease. Dictated by: Primo Lamb M.D. on 04/26/2020 at 12:10 Approved by: Primo Lamb M.D. on 04/26/2020 at 12:11 ECG Data Interpretation: 1141: Rate 69, IL interval 190, QTC 417. Patient appears to be in bigeminy with frequent PVCs, runs of bigeminy versus trigeminal versus PVC every for beats. No ST depression or ST elevation. No frequent PVCs noted on past EKGs from 2018 or 2011. EKG also viewed by Dr. Shrestha per protocol. MDM Narrative Medical decision making narrative: 85-year-old male referred to the ED via infusion clinic for irregular heart rate. Patient is found to have runs of bigeminy and trigeminy on a cafeteria monitor an EKG. Less likely due to electrolyte abnormality or significant cardiac event given lack of ST changes on EKG, negative troponin and unremarkable chest x-ray. TSH within normal limits. Patient has slightly elevated BNP, orders originally placed by triage, patient does not exhibit clinical signs of heart failure or fluid overload. Additionally, a trial of the trouble was given IV in the department showing significant decrease in frequency of PVCs. Patient had no symptoms prior or after and administration of medication. He denies any dizziness, patient remained hemodynamically stable with adequate heart rate and BP. He was discharged with a prescription for 12.5 metoprolol to take daily. He is encouraged to call his PCP and schedule a follow-up appointment in the next week for re-evaluation. Patient agreed to plan of care verbalized understanding. Return precautions given for new or worsening symptoms. <Arti Shrestha, - Last Filed: 04/27/20 08:40> Lab Data Labs: Lab Results 04/26/20 04/26/20 04/26/20 Range/Units 09:35 09:35 12:11 PT 11.8 (10.1-12.7) SECONDS INR 1.0 (0.9-1.3) APTT 34 D (26.4-36.2) SECONDS Sodium 136 L (137-145) mmol/L Potassium 4.1 (3.4-5.1) mmol/L Chloride 104 (98-107) mmol/L Carbon Dioxide 30 (22-32) mmol/L BUN 17 (9-20) mg/dL Creatinine 0.80 (0.66-1.25) mg/dL Estimated GFR > 60.0 (>60) mL/min BUN/Creatinine Ratio 21.3 (6-22) Glucose 95 (80-110) mg/dL Calcium 9.4 (8.4-10.2) mg/dL Total Bilirubin 0.6 (0.2-1.3) mg/dL AST 93 H (17-59) IU/L ALT 15 (<50) IU/L Alkaline Phosphatase 71 (38-126) U/L Total Creatine Kinase 172 H (55-170) U/L CK-MB (CK-2) 5.57 H (<2.37) ng/mL CK-MB (CK-2) Rel Index 3.2 (1.5-5.0) % Troponin I < 0.012 (0.01-0.034) ng/mL NT-Pro-B Natriuret Pep 919 H (<450) pg/mL Total Protein 6.3 (6.3-8.2) g/dL Albumin 3.5 (3.5-5.0) g/dL Globulin 2.8 (1.7-4.1) g/dL Albumin/Globulin Ratio 1.3 (1.0-2.8) Lipase 47 (23-300) U/L TSH 1.42 (0.47-4.68) uIU/mL Discharge Plan Departure Patient Disposition: Home Clinical Impression: Frequent PVCs, Bigeminal rhythm Discharge Date/Time: 04/26/20 13:52 Instructions: DI for Arrhythmias Activity Restrictions/Additional Instructions: Thank you for entrusting me with your care today. As discussed, it appears you had an arrhythmia called bigeminy. I prescribed you a beta-tania which will help decrease the frequency of PVCs. I recommend calling your primary care provider on Thursday to schedule a follow-up appointment. Please be aware that changing positions with this medication can cause dizziness, change position slowly. Return to the emergency department for any new or worsening symptoms. Prescriptions: New metoprolol succinate 25 mg tablet extended release 24 hr 12.5 mg PO DAILY Qty: 30 RF: 0 No Action hydroxyzine HCl 25 mg tablet 25 mg PO BEDTIME Qty: 90 RF: 3 lisinopril 40 mg tablet 40 mg PO DAILY Qty: 90 RF: 3 atorvastatin [Lipitor] 20 mg tablet 20 mg PO QPM Qty: 90 RF: 3 amlodipine 10 mg tablet 10 mg PO DAILY Qty: 90 RF: 3 tamsulosin [Flomax] 0.4 mg capsule 0.4 mg PO QPM Qty: 90 RF: 3 pantoprazole 20 mg tablet,delayed release (DR/EC) 20 mg PO DAILY Qty: 90 RF: 3 celecoxib [Celebrex] 100 mg capsule 100 mg PO BID Qty: 180 RF: 3 lidocaine 5 % adhesive patch,medicated 1 patch TOP DAILY Qty: 30 RF: 2 hydrocodone-acetaminophen 5-325 mg tablet 1 tab PO BID PRN (Reason: Pain, Moderate (4-6)) Qty: 90 RF: 0 duloxetine [Cymbalta] 30 mg capsule,delayed release(DR/EC) 30 mg PO DAILY Qty: 30 RF: 3 multivitamin [Multiple Vitamins] 1 EACH tablet 1 tab PO DAILY Qty: 0 RF: 0 timolol maleate [Timoptic] 0.25 % drops 1 drp OPHTH BID Qty: 0 RF: 0 latanoprost 0.005 % drops 1 drp OPHTH BEDTIME Qty: 0 RF: 0 diazepam 5 mg tablet 5 mg PO BEDTIME PRN (Reason: muscle spasm) Qty: 20 RF: 0 infliximab [Remicade] 100 mg recon soln 224 mg IV Q8W Qty: 1 RF: 0 ascorbic acid (vitamin C) [Vitamin C] 500 mg Tablet 1,000 mg PO DAILY RF: 0 cholecalciferol (vitamin D3) [Vitamin D3] 1,000 unit Capsule 1,000 unit PO DAILY RF: 0 vitamin B70-wmglv acid 1 tab PO DAILY RF: 0 aspirin 325 mg Tablet 325 mg PO QPM RF: 0 Referrals: Tomi Camejo MD [Primary Care Provider] - <Arti Shrestha DO - Last Filed: 04/27/20 08:40> Cosign ED Attending Cosignature Attestation: I was immediately available in the department for consultation. Documentation has been reviewed. I agree with assessment and plan.
[2020-04-26 12:15] LABS: Alanine Aminotransferase 15 IU/L (<50); Albumin 3.5 g/dL (3.5-5.0); Albumin Globulin Ratio 1.3 (1.0-2.8); Alkaline Phosphatase 71 U/L (38-126); Aspartate Aminotransferase 93 IU/L (17-59); BUN Creatinine Ratio 21.3 (6-22); Bilirubin Total 0.6 mg/dL (0.2-1.3); Blood Urea Nitrogen 17 mg/dL (9-20); Calcium 9.4 mg/dL (8.4-10.2); Carbon Dioxide 30 mmol/L (22-32); Chloride 104 mmol/L (98-107); Creatine Kinase 172 U/L (55-170); Estimated Glomerular Filt Rate > 60.0 mL/min (>60); Globulin 2.8 g/dL (1.7-4.1); Glucose 95 mg/dL (80-110); HEMOLYSIS 16 (0-50); Lipase 47 U/L (23-300); Potassium 4.1 mmol/L (3.4-5.1); Sodium 136 mmol/L (137-145); Total Protein 6.3 g/dL (6.3-8.2)
[2020-04-26] MEDS: SODIUM CHLORIDE 0.9% 1,000 ML 150 ML IV (12:22)
[2020-04-26] MEDS: METOPROLOL TARTRATE 5 MG/5 ML INJ IV (12:23)
[2020-04-26 12:26] LABS: Prothrombin Time 11.8 SECONDS (10.1-12.7)
[2020-04-26 12:27] LABS: NT-proBNP (BNP-Adult 18+) 919 pg/mL (<450); Troponin I < 0.012 ng/mL (0.01-0.034)
[2020-04-26 12:29] LABS: PTT Partial Thromboplastin Tim 34 SECONDS (26.4-36.2)
[2020-04-26 12:30] LABS: CKMB % Relative Index 3.2 % (1.5-5.0); Creatine Kinase MB 5.57 ng/mL (<2.37)
[2020-04-26 12:35] VITALS: BP 173/82; PULSE 88; RESP 19; O2SAT 98
[2020-04-26 12:45] LABS: Thyroid Stimulating Hormone 1.42 uIU/mL (0.47-4.68)
[2020-04-26 13:52] VITALS: BP 155/84; PULSE 80; RESP 16; O2SAT 98
== END 2020-04-26 13:52 | disposition home or self-care (01) ==
PROVIDERS: Emergency Medicine; Emergency Provider Nurse Practitioner; PCP Family Medicine
DX: I49.3 Ventricular premature depolarization (principal); I49.8 Other specified cardiac arrhythmias; R07.9 Chest pain, unspecified
CPT/HCPCS: 36415; 71045; 80053; 82550; 82553; 83690; 83880; 84443; 84484; 85025; 85610; 85730; 86140; 93005; 96361; 96374; 99284

== ENCOUNTER → 2020-09-05 12:34 | Outpatient (CLI) | payer MEDICARE, OTHER, SELFPAY ==
[2018-09-29 19:13] VITALS: BMI 20.7
[2020-09-05 12:57] LABS: Appearance Urine UA CLEAR; Bilirubin Urine UA NEGATIVE (NEGATIVE); Color Urine UA YELLOW; Glucose Urine UA NEGATIVE (Negative); Ketones Urine UA NEGATIVE (NEGATIVE); Leukocyte Esterase Urine UA 2+ (NEGATIVE); Nitrite Urine UA POSITIVE (Negative); Occult Blood Urine UA 2+ (Negative); Protein Urine UA NEGATIVE (Negative); Urobilinogen Urine UA 0.2 E.U./dL (0.2); pH Urine UA 6.5 (4.5-8.0)
[2020-09-05 13:47] LABS: Bacteria Urine Many (>30); Culture Indicated Urine Specimen Cultured; RBC Urine 1-5/HPF (0-5/HPF); WBC Urine 5-10/HPF (0-5/HPF)
== END ==
PROVIDERS: PCP Family Medicine; Referring Provider Family Medicine; Visit Provider Family Medicine
DX: R30.0 Dysuria (principal)
CPT/HCPCS: 81003; 81015; 87077; 87086; 87186

== ENCOUNTER → 2021-05-27 08:15 | Outpatient (CLI) | payer MEDICARE, OTHER, SELFPAY ==
[2018-09-29 19:13] VITALS: BMI 20.7
--- NOTE | 2021-05-27 08:16 | DI.RAD.S_ITS ---
PROCEDURE: XR CERVICAL SPINE 2V OR 3V INDICATIONS: left sided neck pain - hx of DDD LS spine TECHNIQUE: 3 view(s) of the cervical spine were acquired. COMPARISON: None. FINDINGS: Bones: No fractures or dislocations to the T1 level. There is approximately 3-4 millimeters of C3-C4 anterolisthesis. Severe C4-C5, C5-C6 and C6-C7 degenerative disc disease. Moderate C3-C4 and C7-T1 degenerative disc disease. Mild facet hypertrophy noted throughout the cervical spine. The lateral masses of C1 appear intact on the odontoid view. No suspicious bony lesions. Soft tissues: No prevertebral soft tissue swelling. IMPRESSION: 1. Multilevel degenerative disc disease. 2. Multilevel facet arthropathy. 3. C3-C4 degenerative spondylolisthesis. 4. No fracture. No acute osseous lesion. If symptoms and/or clinical suspicion for pathology persists, evaluation with MRI should be considered for further assessment. Dictated by: Sariah Mark MD, PhD on 05/27/2021 at 10:03 Approved by: Sariah Mark MD, PhD on 05/27/2021 at 10:05
== END ==
PROVIDERS: PCP Family Medicine; Referring Provider Physician Assistant; Visit Provider Physician Assistant
DX: M47.812 Spondylosis without myelopathy or radiculopathy, cervical region (principal); M50.321 Other cervical disc degeneration at C4-C5 level; M43.12 Spondylolisthesis, cervical region
CPT/HCPCS: 72040

== ENCOUNTER → 2021-09-05 12:09 | Outpatient (CLI) | payer MEDICARE, OTHER, SELFPAY ==
[2018-09-29 19:13] VITALS: BMI 20.7
[2021-09-05 12:42] LABS: Appearance Urine UA SL CLOUDY; Bilirubin Urine UA NEGATIVE (NEGATIVE); Color Urine UA YELLOW; Glucose Urine UA NEGATIVE (Negative); Ketones Urine UA NEGATIVE (NEGATIVE); Leukocyte Esterase Urine UA 2+ (NEGATIVE); Nitrite Urine UA POSITIVE (Negative); Occult Blood Urine UA 1+ (Negative); Protein Urine UA NEGATIVE (Negative); Specific Gravity Urine UA 1.015 (1.000-1.035); Urobilinogen Urine UA 0.2 E.U./dL (0.2); pH Urine UA 6.5 (4.5-8.0)
[2021-09-05 12:50] LABS: Bacteria Urine Many (>30); Culture Indicated Urine Specimen Cultured; RBC Urine 0-1/HPF (0-5/HPF); Squamous Epithelial Cell Urine None Seen (0-5/HPF); WBC Urine 5-10/HPF (0-5/HPF)
== END ==
PROVIDERS: PCP Family Medicine; Referring Provider Family Medicine; Visit Provider Family Medicine
DX: Z78.9 Other specified health status (principal); R30.0 Dysuria
CPT/HCPCS: 81001; 87077; 87086; 87186

== ENCOUNTER → 2021-11-05 10:25 | Outpatient (CLI) | payer MEDICARE, OTHER, SELFPAY ==
[2018-09-29 19:13] VITALS: BMI 20.7
[2021-11-05 11:45] LABS: Appearance Urine UA CLOUDY; Bilirubin Urine UA NEGATIVE (NEGATIVE); Color Urine UA YELLOW; Glucose Urine UA NEGATIVE (Negative); Ketones Urine UA NEGATIVE (NEGATIVE); Leukocyte Esterase Urine UA 2+ (NEGATIVE); Nitrite Urine UA POSITIVE (Negative); Occult Blood Urine UA 1+ (Negative); Protein Urine UA NEGATIVE (Negative); Urobilinogen Urine UA 0.2 E.U./dL (0.2)
[2021-11-05 12:00] LABS: Amorphous Sediment Urine 1+; Bacteria Urine Many (>30); Culture Indicated Urine Specimen Cultured; RBC Urine None Seen (0-5/HPF); Squamous Epithelial Cell Urine 0-1 /HPF (0-5/HPF); WBC Urine 1-5/HPF (0-5/HPF)
== END ==
PROVIDERS: PCP Family Medicine; Referring Provider Family Medicine; Visit Provider Family Medicine
DX: R30.0 Dysuria (principal); Z78.9 Other specified health status
CPT/HCPCS: 81001; 87077; 87086; 87186

== ENCOUNTER 2021-11-11 08:46 | Emergency (ER) | payer MEDICARE, OTHER, SELFPAY ==
[2018-09-29 19:13] VITALS: BMI 20.7
[2021-11-11 09:06] VITALS: PULSE 54; O2SAT 95
[2021-11-11 09:08] VITALS: BP 149/68; PULSE 54; O2SAT 91
[2021-11-11 09:20] VITALS: BP 149/68; PULSE 53; RESP 18; TEMP 36.6; O2SAT 93; BMI 19.2
[2021-11-11 09:30] VITALS: BP 165/79; PULSE 53; RESP 14; O2SAT 93
--- NOTE | 2021-11-11 09:30 | DI.RAD.S_ITS ---
PROCEDURE: XR HIP W PEL IF DONE LT 2V INDICATIONS: fall pain TECHNIQUE: AP pelvis with lateral view(s) of the left hip(s). COMPARISON: None. FINDINGS: Bones: No fractures or dislocations. Pelvic ring appears intact. No suspicious bony lesions. Mild joint space narrowing and periarticular osteophyte formation at the bilateral hip joints. Soft tissues: The visualized bowel gas pattern is normal. No suspicious soft tissue calcifications. IMPRESSION: 1. Bilateral hip osteoarthritis. 2. No acute fracture. No osseous lesion. If symptoms and/or clinical suspicion for pathology persist, further assessment with repeat, or advanced imaging (e.g., CT, MRI, or bone scan) may be helpful for further assessment. Dictated by: Bia Paula M.D. on 11/11/2021 at 9:53 Approved by: Bia Paula M.D. on 11/11/2021 at 9:53
--- NOTE | 2021-11-11 09:30 | DI.CT.S_ITS ---
PROCEDURE: CT HEAD/BRAIN WO CON INDICATIONS: fall TECHNIQUE: Noncontrast 4.5 mm thick angled axial sections acquired from the foramen magnum to the vertex, with coronal and sagittal reformats. For radiation dose reduction, the following was used: automated exposure control, adjustment of mA and/or kV according to patient size. COMPARISON: [facility], CT, CT HEAD/BRAIN WO CON, 04/05/2018, 13:54. FINDINGS: Image quality: Excellent. CSF spaces: Basal cisterns are patent. No extra-axial fluid collections. The ventricles are symmetric in size and shape. Brain: No intracranial bleeds or masses. There is cerebral volume loss for age, with resultant ventricular and sulcal prominence. There are moderate periventricular and deep white matter chronic small vessel ischemic changes. There is intracranial internal carotid artery atherosclerosis. Skull and face: Calvarium and visualized facial bones appear intact, without suspicious lesions. Sinuses: Extensive remote paranasal sinus surgery with bilateral medial antral nasal windows, uncinate process resections, subtotal ethmoidectomies, and resection of turbinates. Patchy anterior ethmoid opacification. IMPRESSION: 1. No evidence acute intracranial process. 2. Age-related volume loss and moderate small vessel ischemic change. 3. Extensive remote paranasal sinus surgeries, with chronic ethmoid sinus disease. Dictated by: Carlos Gracia M.D. on 11/11/2021 at 9:52 Approved by: Carlos Gracia M.D. on 11/11/2021 at 9:55
--- NOTE | 2021-11-11 09:30 | ED.FALL ---
HPI - Fall General Chief Complaint: Syncope Stated Complaint: fell on left hip yestereday,not sure why he fell Time Seen by Provider: 11/11/21 09:06 Source: patient Mode of arrival: Wheelchair History of Present Illness HPI Narrative: Patient is an 86-year-old male with history of ulcerative colitis on Remicade, chronic ongoing back pain with cauda equina syndrome, self catheterization presenting today after fall yesterday. He said he was standing in the office to staff members when he turns to the left and fell down on his left side. He had a brief loss of consciousness. Said to his fall he actually was having quite severe neck pain with some tingling in his arms. He said after he fell the tingling went away neck pain went away. However he has had ongoing left-sided hip pain. He has been able to ambulate with his cane. He is not on any anticoagulation or antiplatelets. He denies any chest pain or palpitations. No fever. No changes his chronic ongoing neurologic issues. Related Data Home Medications Medication Instructions Recorded Confirmed multivitamin (Multiple Vitamins) 1 tab PO DAILY #0 07/22/16 09/16/21 latanoprost 0.005 % eye drops 1 drp OPHTH BEDTIME #0 06/01/17 09/16/21 timolol maleate 0.25 % eye drops 1 drp OPHTH BID #0 06/01/17 09/16/21 (Timoptic) aspirin 325 mg tablet 325 mg PO QPM 04/30/18 09/16/21 ascorbic acid (vitamin C) 500 mg 1,000 mg PO DAILY 09/06/18 09/16/21 tablet (Vitamin C) cholecalciferol (vitamin D3) 25 1,000 unit PO DAILY 09/06/18 09/16/21 mcg (1,000 unit) capsule (Vitamin D3) vitamin [id number] acid 1 tab PO DAILY 09/06/18 09/16/21 Previous Rx's Medication Instructions Recorded infliximab 100 mg intravenous 224 mg IV Q8W #1 each 03/23/18 solution (Remicade) lisinopril 40 mg tablet 40 mg PO DAILY #90 tab 03/05/21 metoprolol succinate 25 mg 12.5 mg PO DAILY #45 tab 03/05/21 tablet,extended release 24 hr atorvastatin 20 mg tablet (Lipitor) 20 mg PO QPM #90 tab 05/22/21 pantoprazole 20 mg tablet,delayed 20 mg PO DAILY #90 tab 05/22/21 release tamsulosin 0.4 mg capsule (Flomax) 0.4 mg PO QPM #90 cap 05/22/21 amlodipine 10 mg tablet 10 mg PO DAILY #90 tab 06/28/21 lidocaine 5 % topical patch 1 patch TOP DAILY #30 each 06/28/21 DISABLED PARKING PERMIT #1 ea 09/02/21 mirtazapine 7.5 mg tablet 7.5 mg PO BEDTIME #30 tab 09/16/21 hydrocodone 5 mg-acetaminophen 325 1 tab PO TID PRN #90 tab 10/03/21 mg tablet pregabalin 100 mg capsule 100 mg PO TID #270 cap 10/03/21 sulfamethoxazole 800 1 tab PO BID 7 Days #14 tab 11/06/21 mg-trimethoprim 160 mg tablet (Bactrim DS) Allergies Allergy/AdvReac Type Severity Reaction Status Date / Time No Known Drug Allergies Allergy Verified 11/11/21 09:20 Review of Systems Review of Systems Narrative: GENERAL: Denies chills, fatigue, malaise, fever, sweats, travel HEENT: Denies sinus pain, ear pain, sore throat, difficulty swallowing, neck pain RESPIRATORY: Denies dyspnea, cough, wheezing, hemoptysis, sputum. CARDIOVASCULAR: Denies chest pain, palpitations, orthopnea, edema GASTROINTESTINAL: Denies nausea, vomiting, abdominal pain, diarrhea, constipation, melena. : Denies dysuria, frequency, incontinence, hematuria, urinary retention, flank pain. MUSCULOSKELETAL: See HPI SKIN: No rash, no erythema, no pruritus NEUROLOGIC: See HPI PSYCHIATRIC: No concerning psychosocial issues. 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) Measles (1940) Mumps (1944) Osteoarthritis (1997) Rubella (194) TIA (transient ischemic attack) Surgical History History of cataract removal with insertion of prosthetic lens (2005) History of cystoscopy History of esophagogastroduodenoscopy (EGD) (2013) History of eyelid surgery (2012) History of laminectomy (~04/2019) History of nasal surgery (1992) History of partial cystectomy (2011) History of urinary tract surgery (2011) Status post colonoscopy (2004) Status post colonoscopy (2013) Status post hernia repair (1979) Status post laminectomy (05/04/17) Status post tonsillectomy and adenoidectomy (~1941) Status post unicompartmental knee replacement, left Family History Brother Age: 84 COPD (chronic obstructive pulmonary disease) Father Cancer Hodgkin's disease Sister Cancer Lung cancer Grandfather No problems noted. Grandmother No problems noted. Mother Stroke Social History marital status: household members: spouse Smoking Status: Former smoker alcohol intake: current substance use type: does not use Smoking Status: Former smoker alcohol intake frequency: 0-2 drinks per day Substance Use Type: does not use Exam Initial Vital Signs Initial Vital Signs: Vital Signs Pulse Rate 54 L 11/11/21 09:06 Pulse Oximetry 95 11/11/21 09:06 GENERAL: Alert well-appearing 86-year-old male and in [no acute] distress. HEENT: Head atraumatic,EOMI, pupils reactive, face symmetric, [moist] mucous membranes CARDIOVASCULAR: Regular rate and rhythm without murmurs, rubs or gallops. RESPIRATORY: Breath sounds equal bilaterally, no wheezes rales or rhonchi. ABDOMEN: Soft, nontender. Normoactive bowel sounds all 4 quadrants. No guarding or rebound. EXTREMITIES: Mild left hip pain no gross bony deformity, distal pedal pulse intact colic other extremities no gross bony deformity NEUROLOGICAL: Alert and oriented x4.Normal gait and speech. SKIN: Warm, dry, no laceration, no petechiae, no rashes or lesions. Course Orders Ordered: ED Orders 11/11/21 09:15 EKG-12 Lead Routine 11/11/21 09:30 CT head/brain wo con Stat XR hip w pel if done LT 2V Stat 11/11/21 09:44 CT cervical spine wo con Stat Vital Signs Vital signs: Vital Signs - 8 hr 11/11/21 09:20 Temperature 98 F Pulse Rate 53 L Respiratory Rate 18 Blood Pressure 149/68 H Pulse Oximetry 93 MDM - Fall Imaging Data CT scan - head: Radiologist's Impression: t: Juan Carlos Yo MR#: [id number] : 1935 Acct:[id number] Age/Sex: 86 / M Date of Service: 11/11/21 Loc: ED Accession Number: [id number] ?? Procedure: CT head/brain wo con Ordering Provider: Arti Shrestha D.O. PROCEDURE:? CT HEAD/BRAIN WO CON ? INDICATIONS:? fall ? TECHNIQUE:? Noncontrast 4.5 mm thick angled axial sections acquired from the foramen magnum to the vertex, with coronal and sagittal reformats.? For radiation dose reduction, the following was used:? automated exposure control, adjustment of mA and/or kV according to patient size.? ? COMPARISON:? [facility], CT, CT HEAD/BRAIN WO CON, 04/05/2018, 13:54. ? FINDINGS:? Image quality:? Excellent.? ? CSF spaces:? Basal cisterns are patent.? No extra-axial fluid collections.? The ventricles are symmetric in size and shape.? ? Brain:? No intracranial bleeds or masses.? There is cerebral volume loss for age, with resultant ventricular and sulcal prominence.? There are moderate periventricular and deep white matter chronic small vessel ischemic changes.? There is intracranial internal carotid artery atherosclerosis.? ? Skull and face:? Calvarium and visualized facial bones appear intact, without suspicious lesions.? ? Sinuses:? Extensive remote paranasal sinus surgery with bilateral medial antral nasal windows, uncinate process resections, subtotal ethmoidectomies, and resection of turbinates.? Patchy anterior ethmoid opacification. ? IMPRESSION:? ? 1. No evidence acute intracranial process. ? 2. Age-related volume loss and moderate small vessel ischemic change. ? 3. Extensive remote paranasal sinus surgeries, with chronic ethmoid sinus disease.? ? ? Dictated by: Carlos Gracia M.D. on 11/11/2021 at 9:52? CT - cervical spine: Radiologist's Impression: ?Juan Carlos Yo MR#: [id number] : 1935 Acct:[id number] Age/Sex: 86 / M Date of Service: 11/11/21 Loc: ED Accession Number: [id number] ?? Procedure: CT cervical spine wo con Ordering Provider: Arti Shrestha D.O. PROCEDURE:? CT CERVICAL SPINE WO CON ? INDICATIONS:? fall ? TECHNIQUE:? Noncontrast 3 mm thick sections acquired from the skull base to the T4 level.? Sagittal and coronal reformats were then constructed.? For radiation dose reduction, the following was used:? automated exposure control, adjustment of mA and/or kV according to patient size.? ? COMPARISON:? [facility], CR, XR CERVICAL SPINE 2V OR 3V, 05/27/2021, 8:09. ? FINDINGS:? Image quality:? Excellent.? ? Bones:? No fractures or dislocations.? Visualized superior ribs are intact.? Advanced cervical spondylitic change.? Chronic degenerative anterolisthesis of C3 on C4, measuring 4 mm.? Severe chronic disc height loss and large uncovertebral joint osteophytes at C4-C5 through C6-C7, with significant multilevel foraminal narrowing from C3-C4 through C6-C7.? Canal stenosis at C4-C5, C5-C6, and C6-C7.? Multilevel facet arthropathy.? ? Soft tissues:? Prevertebral soft tissues are normal in thickness.? No paravertebral hematomas.? No apical pneumothoraces.? ? ? IMPRESSION:? ? 1. No evidence acute cervical fracture or dislocation. ? 2. Severe cervical spondylosis.? Findings include chronic anterolisthesis of C3 on C4, multilevel significant foraminal narrowing, and multilevel canal stenosis. ? Dictated by: Carlos Gracia M.D. on 11/11/2021 at 9:48 ? ? Extremity x-ray #1: Radiologist's Impression: ?Juan Carlos Yo MR#: [id number] : 1935 Acct:[id number] Age/Sex: 86 / M Date of Service: 11/11/21 Loc: ED Accession Number: [id number] ?? Procedure: XR hip w pel if done LT 2V Ordering Provider: Arti Shrestha D.O. PROCEDURE:? XR HIP W PEL IF DONE LT 2V ? INDICATIONS:? fall pain ? TECHNIQUE:? AP pelvis with lateral view(s) of the left hip(s).? ? COMPARISON:? None. ? FINDINGS:? ? Bones:? No fractures or dislocations.? Pelvic ring appears intact.? No suspicious bony lesions.? Mild joint space narrowing and periarticular osteophyte formation at the bilateral hip joints. ? Soft tissues:? The visualized bowel gas pattern is normal.? No suspicious soft tissue calcifications.? ? ? IMPRESSION:? 1. Bilateral hip osteoarthritis. 2. No acute fracture. No osseous lesion. If symptoms and/or clinical suspicion for pathology persist, further assessment with repeat, or advanced imaging (e.g., CT, MRI, or bone scan) may be helpful for further assessment. ? ? Dictated by: Bia Paula M.D. on 11/11/2021 at 9:53 ? ? Approved by: Bia Paula M.D. on 11/11/2021 at 9:53 ? ECG Data Interpretation: Normal sinus rhythm rate 55 IA interval 206 QRS 80 QTC 10/13/[address] changes MDM Narrative Medical decision making narrative: Patient had a mechanical fall he has today falling on his left hip having a brief episode of LOC scans are negative. No fracture of hip, he is able to ambulate on it. He has chronic ongoing cauda equina syndromes which have not been exacerbated from his fall yesterday. At this time patient is able to be discharged home. If symptoms worsen may need further imaging. Discharge Plan Departure Patient Disposition: Home Clinical Impression: Acute pain of left hip Instructions: DI for Hip Pain Activity Restrictions/Additional Instructions: *You have been diagnosed with left hip pain *What to do: At this time her x-rays scans are negative. However if you should continue to have ongoing pain please return to the emergency department for further imaging. *Continue to take medications as directed *Follow up with your primary care provider in 2-3 days or call [phone] *Return to ER if you should have pain inability to walk or any new, worsening or concerning symptoms Prescriptions: No Action mirtazapine 7.5 mg tablet 7.5 mg PO BEDTIME Qty: 30 1RF pantoprazole 20 mg tablet,delayed release (DR/EC) 20 mg PO DAILY Qty: 90 3RF Rx Instructions: TAKE 1 TABLET BY MOUTH DAILY atorvastatin [Lipitor] 20 mg tablet 20 mg PO QPM Qty: 90 3RF tamsulosin [Flomax] 0.4 mg capsule 0.4 mg PO QPM Qty: 90 3RF multivitamin [Multiple Vitamins] 1 EACH tablet 1 tab PO DAILY Qty: 0 0RF timolol maleate [Timoptic] 0.25 % drops 1 drp OPHTH BID Qty: 0 0RF Label Comments: Left eye latanoprost 0.005 % drops 1 drp OPHTH BEDTIME Qty: 0 0RF Label Comments: Left eye only lisinopril 40 mg tablet 40 mg PO DAILY Qty: 90 3RF metoprolol succinate 25 mg tablet extended release 24 hr 12.5 mg PO DAILY Qty: 45 3RF amlodipine 10 mg tablet 10 mg PO DAILY Qty: 90 3RF lidocaine 5 % adhesive patch,medicated 1 patch TOP DAILY Qty: 30 3RF Rx Instructions: leave on most painful area for 12 hrs (DME) DISABLED PARKING PERMIT See Rx Instructions .ROUTE .MEDSUPPLY Qty: 1 0RF Rx Instructions: I find this patient to be medically disabled and qualified for disabled parking as indicated, and signed, on the accompanying Disabled Parking Application for Individuals. hydrocodone-acetaminophen 5-325 mg tablet 1 tab PO TID PRN (Reason: Pain, Moderate (4-6)) Qty: 90 0RF pregabalin 100 mg capsule 100 mg PO TID Qty: 270 1RF sulfamethoxazole-trimethoprim [Bactrim DS] 800-160 mg tablet 1 tab PO BID 7 Days Qty: 14 0RF infliximab [Remicade] 100 mg recon soln 224 mg IV Q8W Qty: 1 0RF Rx Instructions: administer over 2 hrs ascorbic acid (vitamin C) [Vitamin C] 500 mg Tablet 1,000 mg PO DAILY 0RF cholecalciferol (vitamin D3) [Vitamin D3] 1,000 unit Capsule 1,000 unit PO DAILY 0RF vitamin Z27-[id number] acid 1 tab PO DAILY 0RF aspirin 325 mg Tablet 325 mg PO QPM 0RF Referrals: Tomi Camejo MD [Primary Care Provider] -
--- NOTE | 2021-11-11 09:44 | DI.CT.S_ITS ---
PROCEDURE: CT CERVICAL SPINE WO CON INDICATIONS: fall TECHNIQUE: Noncontrast 3 mm thick sections acquired from the skull base to the T4 level. Sagittal and coronal reformats were then constructed. For radiation dose reduction, the following was used: automated exposure control, adjustment of mA and/or kV according to patient size. COMPARISON: [facility], CR, XR CERVICAL SPINE 2V OR 3V, 05/27/2021, 8:09. FINDINGS: Image quality: Excellent. Bones: No fractures or dislocations. Visualized superior ribs are intact. Advanced cervical spondylitic change. Chronic degenerative anterolisthesis of C3 on C4, measuring 4 mm. Severe chronic disc height loss and large uncovertebral joint osteophytes at C4-C5 through C6-C7, with significant multilevel foraminal narrowing from C3-C4 through C6-C7. Canal stenosis at C4-C5, C5-C6, and C6-C7. Multilevel facet arthropathy. Soft tissues: Prevertebral soft tissues are normal in thickness. No paravertebral hematomas. No apical pneumothoraces. IMPRESSION: 1. No evidence acute cervical fracture or dislocation. 2. Severe cervical spondylosis. Findings include chronic anterolisthesis of C3 on C4, multilevel significant foraminal narrowing, and multilevel canal stenosis. Dictated by: Carlos Gracia M.D. on 11/11/2021 at 9:48 Approved by: Carlos Gracia M.D. on 11/11/2021 at 9:52
[2021-11-11 10:00] VITALS: PULSE 45; RESP 15; O2SAT 78
[2021-11-11 10:30] VITALS: PULSE 43; RESP 13; O2SAT 58
--- NOTE | 2021-11-11 10:45 | PC.NURSE ---
Patient seen and evaluated by provider.
== END 2021-11-11 11:07 | disposition home or self-care (01) ==
PROVIDERS: Emergency Provider Emergency Medicine; PCP Family Medicine
DX: M25.552 Pain in left hip (principal); Z87.891 Personal history of nicotine dependence; W18.30XA Fall on same level, unspecified, initial encounter; Y92.59 Other trade areas as the place of occurrence of the external cause; R03.0 Elevated blood-pressure reading, without diagnosis of hypertension
CPT/HCPCS: 70450; 72125; 73502; 93005; 93010; 99281; 99284

== ENCOUNTER → 2022-02-12 09:40 | Outpatient (CLI) | payer MEDICARE, OTHER, SELFPAY ==
[2018-09-29 19:13] VITALS: BMI 20.7
--- NOTE | 2022-02-12 09:41 | DI.RAD.S_ITS ---
PROCEDURE: XR CERVICAL SPINE 2V OR 3V INDICATIONS: Posterior neck pain R>L TECHNIQUE: 3 view(s) of the cervical spine were acquired. COMPARISON: Located Within [facility], CT, CT CERVICAL SPINE WO CON, 11/11/2021, 9:37. Located Within [facility], CR, XR CERVICAL SPINE 2V OR 3V, 05/27/2021, 8:09. FINDINGS: Bones: No fractures or dislocations to the T1 level. The lateral masses of C1 appear intact on the odontoid view. No suspicious bony lesions. There is reversal of the normal cervical lordosis. Mild grade 1 anterolisthesis is seen at C3-C4. There is severe disc space narrowing seen at C4-C5, C5-C6, C6-C7, and C7-T1. Shoulder arthroplasty hardware is partially seen on the lateral image. Soft tissues: No prevertebral soft tissue swelling. The visualized lung apices are unremarkable. Atherosclerotic calcification of the aortic arch is noted. Calcification of the carotid bifurcations can be seen. IMPRESSION: Severe lower cervical spine degenerative changes are seen. Grade 1 C3-C4 anterolisthesis. Note is made of carotid bifurcation calcification. Dictated by: Miky Higgins M.D. on 02/12/2022 at 10:17 Approved by: Miky Higgins M.D. on 02/12/2022 at 10:19
== END ==
PROVIDERS: PCP Family Medicine; Referring Provider Physician Assistant; Visit Provider Physician Assistant
DX: M47.812 Spondylosis without myelopathy or radiculopathy, cervical region (principal); M43.12 Spondylolisthesis, cervical region; I65.23 Occlusion and stenosis of bilateral carotid arteries; M54.2 Cervicalgia; R53.83 Other fatigue
CPT/HCPCS: 36415; 72040; 84443

== ENCOUNTER → 2022-02-12 10:22 | Outpatient (CLI) | payer MEDICARE, OTHER, SELFPAY ==
[2018-09-29 19:13] VITALS: BMI 20.7
[2022-02-12 12:20] LABS: TSH w/ Reflex to FT4 1.47 uIU/mL (0.47-4.68)
== END ==
PROVIDERS: PCP Family Medicine; Referring Provider Physician Assistant; Visit Provider Physician Assistant
DX: R53.83 Other fatigue (principal)
CPT/HCPCS: 36415; 84443